=== PATIENT | male | born 1935 | race Caucasian/White ===

== ENCOUNTER → 2016-04-15 | Outpatient (CLI) | payer OTHER, MEDICARE ==
[~2016-04-15] MED LIST: CITA10TA8 PO; FENO200C6 PO; FINA5TAB PO; GLC/500 PO; GLIM1TAB PO; GLIM2TAB PO; LINA1TAB PO; MAGN1TAB PO; MGNO400 PO; OMEG10007 PO; OMEP20CA9 PO; PRED10TA PO; RQP25 PO; TAMS0.4C38 PO
[2016-04-15 11:17] LABS: BASO % 0.2 %; BASO ABS # 0.02 K/uL (0-0.2); COMPLETE YES; EOS % 2.5 %; IG% 1.6 %; LYMPH % 14.7 %; LYMPH ABS # 1.26 K/uL (1.2-3.4); MEAN CELL VOLUME 94.8 fL (80-100); MEAN CORPUSCULAR HEMOGLOBIN 29.9 pg (25-34); MEAN CORPUSCULAR HGB CONC 31.6 g/dl (32-36); MEAN PLATELET VOLUME 10.8 fL (7.4-10.4); MONO % 9.3 %; NEUT % 71.7 %; PLATELET COUNT 290 K/uL (130-400); RED BLOOD COUNT 4.01 M/uL (4.7-6.1); URINE APPEARANCE CLEAR (CLEAR); URINE BILIRUBIN NEG (NEG); URINE COLOR YELLOW; URINE NITRITE NEG (NEG); URINE SPECIFIC GRAVITY 1.027 (1.000-1.030); UROBILINOGEN NEG (NEG); WHITE BLOOD COUNT 8.57 K/uL (4.8-10.8); ZZUR CULT IF INDIC CLEAN CATCH NO
[2016-04-15 11:25] LABS: BLOOD UREA NITROGEN 22 mg/dl (7-18); BUN/CREATININE RATIO 14.6 (10-20); CALCIUM 8.9 mg/dl (8.5-10.1); CARBON DIOXIDE 27 mmol/L (21-32); CHLORIDE 106 mmol/L (98-107); GLUCOSE 240 mg/dl (70-99); MAGNESIUM 1.3 mg/dl (1.8-2.4); POTASSIUM 4.4 mmol/L (3.5-5.1); SODIUM 141 mmol/L (136-145)
[2016-04-15 11:28] LABS: MANUAL MICROSCOPIC REQUIRED? NO; REVIEW REQ? NO
[2016-04-15 11:39] LABS: URINE PROTIEN/CREAT RATIO 0.2 (0-0.2); URINE TOTAL PROTEIN 41.5 mg/dl (0-11.9)
== END | disposition home or self-care (01) ==
LOC: C.LAB1850 09:50
PROVIDERS: ATTEND Internal Medicine Nephrology
DX: E83.42 Hypomagnesemia (principal); N18.3 Chronic kidney disease, stage 3 (moderate)

== ENCOUNTER → 2016-07-12 | Outpatient (CLI) | payer OTHER, MEDICARE | END | disposition home or self-care (01) | LOC: C.LABSPEC 10:47 | PROVIDERS: ATTEND Nurse Practitioner Adult Health | DX: N40.1 Benign prostatic hyperplasia with lower urinary tract symptoms (principal) ==

== ENCOUNTER → 2016-10-13 | Outpatient (CLI) | payer OTHER, MEDICARE ==
[2016-10-13 12:06] LABS: BASO % 0.3 %; BASO ABS # 0.02 K/uL (0-0.2); COMPLETE YES; EOS % 3.9 %; HEMATOCRIT 40.8 % (42-52); LYMPH % 25.4 %; LYMPH ABS # 1.51 K/uL (1.2-3.4); MEAN CELL VOLUME 94.7 fL (80-100); MEAN CORPUSCULAR HEMOGLOBIN 29.5 pg (25-34); MEAN CORPUSCULAR HGB CONC 31.1 g/dl (32-36); MEAN PLATELET VOLUME 10.5 fL (7.4-10.4); MONO % 9.6 %; NEUT % 59.8 %; PLATELET COUNT 264 K/uL (130-400); RED BLOOD COUNT 4.31 M/uL (4.7-6.1); WHITE BLOOD COUNT 5.94 K/uL (4.8-10.8)
[2016-10-13 12:19] LABS: URINE APPEARANCE CLEAR (CLEAR); URINE BILIRUBIN NEG (NEG); URINE COLOR YELLOW; URINE EPITHELIAL CELL AUTO 0-5 /lpf (0-5); URINE NITRITE NEG (NEG); URINE SPECIFIC GRAVITY 1.024 (1.000-1.030); UROBILINOGEN NEG (NEG); ZZUR CULT IF INDIC CLEAN CATCH NO
[2016-10-13 12:20] LABS: BLOOD UREA NITROGEN 32 mg/dl (7-18); CALCIUM 9.3 mg/dl (8.5-10.1); CARBON DIOXIDE 26 mmol/L (21-32); CHLORIDE 109 mmol/L (98-107); GLUCOSE 146 mg/dl (70-99); MAGNESIUM 1.5 mg/dl (1.8-2.4); PHOSPHORUS 2.6 mg/dl (2.5-4.9); POTASSIUM 4.9 mmol/L (3.5-5.1); SODIUM 140 mmol/L (136-145)
[2016-10-13 12:24] LABS: MANUAL MICROSCOPIC REQUIRED? NO; REVIEW REQ? NO
[2016-10-13 12:34] LABS: URINE PROTIEN/CREAT RATIO 0.1 (0-0.2); URINE TOTAL PROTEIN 9.3 mg/dl (0-11.9)
--- NOTE | 2016-10-25 10:13 | CODING QUERY MEDICAL NECESSITY ---
SUPPORTING DIAGNOSIS NEEDED Dr. Dangelo, A supporting diagnosis is required for the test/procedure performed on this patient in order for us to be reimbursed by the patient's insurance. Please provide a supporting diagnosis for the following test/procedure listed below next to the test name along with your signature. *If there is no additional diagnosis for this patient that would support the following test/procedure please document that below next to the test/procedure. Test(s)/Procedure(s) that require a supporting diagnosis: * ([id number]) VITAMIN D ASSAY DIAGNOSIS: DATE OF SERVICE: 10/13/16 Provider Signature: Date: Thank you Garrison Soto [facility] Information Management Once completed, please kindly fax back to [phone] For questions please call [phone]
== END | disposition home or self-care (01) ==
LOC: C.LAB 09:43
PROVIDERS: ATTEND Internal Medicine Nephrology
DX: E83.42 Hypomagnesemia (principal); E55.9 Vitamin D deficiency, unspecified

== ENCOUNTER → 2017-03-11 | Outpatient (CLI) | payer OTHER, MEDICARE ==
[2017-03-11 12:27] LABS: URINE APPEARANCE CLEAR (CLEAR); URINE BILIRUBIN NEG (NEG); URINE COLOR YELLOW; URINE NITRITE NEG (NEG); URINE SPECIFIC GRAVITY 1.023 (1.000-1.030); UROBILINOGEN NEG (NEG); ZZUR CULT IF INDIC CLEAN CATCH NO
[2017-03-11 12:30] LABS: MANUAL MICROSCOPIC REQUIRED? NO; REVIEW REQ? NO
[2017-03-11 12:47] LABS: BLOOD UREA NITROGEN 32 mg/dl (7-18); BUN/CREATININE RATIO 22.5 (10-20); CALCIUM 9.3 mg/dl (8.5-10.1); CARBON DIOXIDE 28 mmol/L (21-32); CHLORIDE 104 mmol/L (98-107); CREATININE 1.42 mg/dl (0.60-1.40); GLUCOSE 128 mg/dl (70-99); MAGNESIUM 1.5 mg/dl (1.8-2.4); POTASSIUM 4.4 mmol/L (3.5-5.1); SODIUM 138 mmol/L (136-145)
[2017-03-11 12:54] LABS: % FREE PSA 20.4 %; FREE PSA 1.22 ng/ml; PHOSPHORUS 2.9 mg/dl (2.5-4.9)
[2017-03-11 13:45] LABS: URINE PROTIEN/CREAT RATIO 0.1 (0-0.2); URINE TOTAL PROTEIN 13.8 mg/dl (0-11.9)
== END | disposition home or self-care (01) ==
LOC: C.LAB 11:27
PROVIDERS: ATTEND Internal Medicine Nephrology
DX: R97.20 Elevated prostate specific antigen [PSA] (principal); N18.3 Chronic kidney disease, stage 3 (moderate); E87.2 Acidosis

== ENCOUNTER 2017-03-13 09:45 | Inpatient (IN) | payer OTHER, MEDICARE ==
[~2017-03-13] VITALS: Ht 172.7 cm; Wt 83.3 kg
[~2017-03-13 09:45] MED LIST changes: -GLIM2TAB PO; -MGNO400 PO; -PRED10TA PO; -RQP25 PO
[2017-03-13] MEDS ORDERED: GLIM2TAB PO (10:13)
[2017-03-13 10:46] LABS: BASO % 0.1 %; BASO ABS # 0.01 K/uL (0-0.2); COMPLETE YES; EOS % 1.1 %; IG% 1.6 %; LYMPH % 18.4 %; LYMPH ABS # 1.52 K/uL (1.2-3.4); MEAN CELL VOLUME 93.9 fL (80-100); MEAN CORPUSCULAR HEMOGLOBIN 29.4 pg (25-34); MEAN CORPUSCULAR HGB CONC 31.4 g/dl (32-36); MEAN PLATELET VOLUME 9.9 fL (7.4-10.4); MONO % 9.3 %; NEUT % 69.5 %; PLATELET COUNT 310 K/uL (130-400); RED BLOOD COUNT 3.94 M/uL (4.7-6.1); WHITE BLOOD COUNT 8.26 K/uL (4.8-10.8)
[2017-03-13 11:03] LABS: PARTIAL THROMBOPLASTIN RATIO 1.1; PROTHROMBIN TIME (PATIENT) 10.9 SECONDS (9.0-12.0)
--- NOTE | 2017-03-13 11:08 | DIAGNOSTIC IMAGING REPORT ---
SINGLE VIEW CHEST CLINICAL HISTORY: Generalized weakness. FINDINGS: An AP, portable, upright chest radiograph is compared to study dated 02/17/2017. The examination is degraded by portable technique and apical lordotic positioning. The heart is mildly enlarged and there is atherosclerotic calcification of the thoracic aorta. The pulmonary vasculature is noncongested. The lungs and pleural spaces are clear. No pneumothorax is seen. The skeletal structures are osteopenic. Degenerative change is seen throughout the thoracic spine. IMPRESSION: Mild cardiac enlargement with no acute cardiopulmonary abnormality. Electronically signed by: Sung Toledo M.D. 03/13/2017 11:07 AM Dictated Date/Time: 03/13/2017 11:06 AM
[2017-03-13 11:19] LABS: ALT/SGPT 12 U/L (12-78); AST/SGOT 11 U/L (15-37); BLOOD UREA NITROGEN 28 mg/dl (7-18); BUN/CREATININE RATIO 17.8 (10-20); CALCIUM 9.1 mg/dl (8.5-10.1); CARBON DIOXIDE 26 mmol/L (21-32); CHLORIDE 105 mmol/L (98-107); CREATININE 1.56 mg/dl (0.60-1.40); GLUCOSE 172 mg/dl (70-99); MAGNESIUM 1.4 mg/dl (1.8-2.4); POTASSIUM 4.7 mmol/L (3.5-5.1); SODIUM 136 mmol/L (136-145)
[2017-03-13 11:28] LABS: ALKALINE PHOSPHATASE 44 U/L (45-117); C-REACTIVE PROTEIN 4.54 mg/dl (0-0.29); CKMB/CK RATIO 3.8 (0-3.0)
[2017-03-13 11:52] LABS: LYME DISEASE AB IGG NEG (NEG); LYME DISEASE AB IGM NEG (NEG)
[2017-03-13] MEDS ORDERED: MAGNESIUM SULFATE 1GM / D5W 1 GM BAG IV STA (11:52)
--- NOTE | 2017-03-13 13:24 | History and Physical ---
History & Physical Date & Time of Service: Mar 13, 2017 at 13:15 Chief Complaint: Having Trouble Moving,Weak Primary Care Physician: Cher Cantor History of Present Illness Source: patient, family, clinic records, hospital records 81 yoM with recent diagnosis of gout flare in his knee as outpatient presents with profound morning stiffness x 1 month. The stiffness is described as in both shoulders encompassing the entire shoulder area, extending into his neck but not affecting cervical ROM. He also describes an acute on chronic worsening of his back pain and some R knee stiffness, inflammation and very restricted flexion of the knee on the right. 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 He reports having gone to an outpatient provider who performed a synovial examination on this R knee two weeks ago and told him he had gout but did not offer any treatment until he saw a [employer], which he has not been able to do. He reports pain without swelling in his R ankle area. The morning stiffness is profound for 1-2 hours and improves after that with increased activity. In the ER, inflammatory markers are elevated. The patient also reports a recent head cold last week for which he was given amoxicillin and has finished the course. His symptoms from that have resolved and he denies fevers, chills, shortness of breath, chest pain, nausea, vomiting, urinary issues, diarrhea, constipation, headache or visual changes. Past Medical/Surgical History Medical Problems: (1) BPH (benign prostatic hyperplasia) Status: Chronic (2) CKD (chronic kidney disease), stage III Status: Chronic (3) Depression Status: Chronic (4) DMII (diabetes mellitus, type 2) Status: Chronic (5) GERD (gastroesophageal reflux disease) Status: Chronic (6) Hypertension Status: Chronic (7) Hypertriglyceridemia Status: Chronic (8) Lumbago Status: Chronic Surgical Problems: (1) H/O neck surgery Status: Resolved Family History No pertinent family history Type 2 diabetes mellitus Social History Smoking Status: Former Smoker Smokeless Tobacco Use: No Alcohol Use: none Drug Use: none Marital Status: Housing status: lives with significant other Occupational Status: retired Immunizations History of Influenza Vaccine: Yes Influenza Vaccine Date: Jan 14, 2015 History of Tetanus Vaccine?: Unknown History of Pneumococcal: Unknown History of Hepatitis B Vaccine: Unknown Multi-Drug Resistant Organisms History of MDRO: No Allergies Coded Allergies: No Known Allergies (Unverified , 03/13/17) Home Medications Scheduled Citalopram Hydrobromide (Celexa), 10 MG PO DAILY Fenofibrate (Tricor), 200 MG PO DAILY Finasteride (Proscar), 5 MG PO HS Fish Oil ([place]-3), 1 CAP PO DAILY Glimepiride (Amaryl), 2 MG PO QAM Linagliptin (Tradjenta), 5 MG PO DAILY Magnesium Chloride-Calcium (Magnesium Chloride/Calciu 64-112 mg), 2 TAB PO DAILY Metformin Hcl (Glucophage), 1,000 MG PO BID Omeprazole (Prilosec), 20 MG PO DAILY Tamsulosin Hcl (Flomax), 0.4 MG PO HS Review of Systems At least ten systems were reviewed and negative except as indicated in HPI. Physical Exam Vital Signs Date Time Temp Pulse Resp B/P (MAP) Pulse Ox O2 Delivery O2 Flow Rate FiO2 03/13/17 12:56 64 14 130/78 98 03/13/17 12:31 64 130/78 98 Room Air 03/13/17 11:30 57 151/75 97 Room Air 03/13/17 10:38 99 Room Air 03/13/17 10:35 67 14 126/70 66 135/63 81 124/60 03/13/17 10:31 64 03/13/17 09:51 36.8 66 22 155/72 99 Room Air General Appearance: WD/WN, no apparent distress Head: normocephalic, atraumatic Eyes: normal inspection, PERRL, sclerae normal ENT: normal ENT inspection, hearing grossly normal, pharynx normal Neck: supple, trachea midline, + pertinent finding (cervical ROM was checked and normal in all planes of motion. ) Respiratory/Chest: chest non-tender, lungs clear, normal breath sounds, no respiratory distress, no accessory muscle use Cardiovascular: regular rate, rhythm, no edema, no gallop, no JVD, no murmur, normal peripheral pulses Abdomen/GI: normal bowel sounds, non tender, soft Back: normal inspection, normal range of motion, + pertinent finding (kyphosis noted.) Extremities/Musculoskelatal: no calf tenderness, + pertinent finding (Swelling , warmth and effusion of the R knee, decreased flexion of R knee, R ankle not inflamed, normal ROM, no pain to palpation or with active motion. 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, no motor/sensory deficits, alert, normal mood/affect, oriented x 3 Skin: normal color, warm/dry, no rash Diagnostics Laboratory Results 03/13/17 10:30 Red Blood Count 3.94, Mean Corpuscular Volume 93.9, Mean Corpuscular Hemoglobin 29.4, Mean Corpuscular Hemoglobin Concent 31.4, Mean Platelet Volume 9.9, Neutrophils (%) (Auto) 69.5, Lymphocytes (%) (Auto) 18.4, Monocytes (%) (Auto) 9.3, Eosinophils (%) (Auto) 1.1, Basophils (%) (Auto) 0.1, Neutrophils # (Auto) 5.74, Lymphocytes # (Auto) 1.52, Monocytes # (Auto) 0.77, Eosinophils # (Auto) 0.09, Basophils # (Auto) 0.01 03/13/17 10:30 Test 03/13/17 10:30 White Blood Count 8.26 K/uL (4.8-10.8) Red Blood Count 3.94 M/uL (4.7-6.1) Hemoglobin 11.6 g/dL (14.0-18.0) Hematocrit 37.0 % (42-52) Mean Corpuscular Volume 93.9 fL (80-100) Mean Corpuscular Hemoglobin 29.4 pg (25-34) Mean Corpuscular Hemoglobin Concent 31.4 g/dl (32-36) Platelet Count 310 K/uL (130-400) Mean Platelet Volume 9.9 fL (7.4-10.4) Neutrophils (%) (Auto) 69.5 % Lymphocytes (%) (Auto) 18.4 % Monocytes (%) (Auto) 9.3 % Eosinophils (%) (Auto) 1.1 % Basophils (%) (Auto) 0.1 % Neutrophils # (Auto) 5.74 K/uL (1.4-6.5) Lymphocytes # (Auto) 1.52 K/uL (1.2-3.4) Monocytes # (Auto) 0.77 K/uL (0.11-0.59) Eosinophils # (Auto) 0.09 K/uL (0-0.5) Basophils # (Auto) 0.01 K/uL (0-0.2) RDW Standard Deviation 44.0 fL (36.4-46.3) RDW Coefficient of Variation 12.8 % (11.5-14.5) Immature Granulocyte % (Auto) 1.6 % Immature Granulocyte # (Auto) 0.13 K/uL (0.00-0.02) Erythrocyte Sedimentation Rate 46 mm/hr (0-14) Prothrombin Time 10.9 SECONDS (9.0-12.0) Prothromb Time International Ratio 1.0 (0.9-1.1) Activated Partial Thromboplast Time 27.5 SECONDS (21.0-31.0) Partial Thromboplastin Ratio 1.1 Anion Gap 5.0 mmol/L (3-11) Est Creatinine Clear Calc Drug Dose 39.1 ml/min Estimated GFR () 47.6 Estimated GFR (Non- 41.0 BUN/Creatinine Ratio 17.8 (10-20) Calcium Level 9.1 mg/dl (8.5-10.1) Magnesium Level 1.4 mg/dl (1.8-2.4) Total Bilirubin 0.2 mg/dl (0.2-1) Direct Bilirubin < 0.1 mg/dl (0-0.2) Aspartate Amino Transf (AST/SGOT) 11 U/L (15-37) Alanine Aminotransferase (ALT/SGPT) 12 U/L (12-78) Alkaline Phosphatase 44 U/L (45-117) Total Creatine Kinase 45 U/L (39-308) Creatine Kinase MB 1.7 ng/ml (0.5-3.6) Creatine Kinase MB Ratio 3.8 (0-3.0) Troponin I < 0.015 ng/ml (0-0.045) C-Reactive Protein 4.54 mg/dl (0-0.29) Total Protein 7.4 gm/dl (6.4-8.2) Albumin 3.1 gm/dl (3.4-5.0) Lipase 365 U/L (73-393) Thyroid Stimulating Hormone (TSH) 1.430 uIu/ml (0.300-4.500) Lyme Disease IgG Antibody NEG (NEG) Lyme Disease IgM Antibody NEG (NEG) Results Past 24 Hours Test 03/13/17 10:30 Range/Units White Blood Count 8.26 4.8-10.8 K/uL Red Blood Count 3.94 4.7-6.1 M/uL Hemoglobin 11.6 14.0-18.0 g/dL Hematocrit 37.0 42-52 % Mean Corpuscular Volume 93.9 80-100 fL Mean Corpuscular Hemoglobin 29.4 25-34 pg Mean Corpuscular Hemoglobin Concent 31.4 32-36 g/dl Platelet Count 310 130-400 K/uL Mean Platelet Volume 9.9 7.4-10.4 fL Neutrophils (%) (Auto) 69.5 % Lymphocytes (%) (Auto) 18.4 % Monocytes (%) (Auto) 9.3 % Eosinophils (%) (Auto) 1.1 % Basophils (%) (Auto) 0.1 % Neutrophils # (Auto) 5.74 1.4-6.5 K/uL Lymphocytes # (Auto) 1.52 1.2-3.4 K/uL Monocytes # (Auto) 0.77 0.11-0.59 K/uL Eosinophils # (Auto) 0.09 0-0.5 K/uL Basophils # (Auto) 0.01 0-0.2 K/uL RDW Standard Deviation 44.0 36.4-46.3 fL RDW Coefficient of Variation 12.8 11.5-14.5 % Immature Granulocyte % (Auto) 1.6 % Immature Granulocyte # (Auto) 0.13 0.00-0.02 K/uL Erythrocyte Sedimentation Rate 46 0-14 mm/hr Prothrombin Time 10.9 9.0-12.0 SECONDS Prothromb Time International Ratio 1.0 0.9-1.1 Activated Partial Thromboplast Time 27.5 21.0-31.0 SECONDS Partial Thromboplastin Ratio 1.1 Sodium Level 136 136-145 mmol/L Potassium Level 4.7 3.5-5.1 mmol/L Chloride Level 105 98-107 mmol/L Carbon Dioxide Level 26 21-32 mmol/L Anion Gap 5.0 3-11 mmol/L Blood Urea Nitrogen 28 7-18 mg/dl Creatinine 1.56 0.60-1.40 mg/dl Est Creatinine Clear Calc Drug Dose 39.1 ml/min Estimated GFR () 47.6 Estimated GFR (Non- 41.0 BUN/Creatinine Ratio 17.8 10-20 Random Glucose 172 70-99 mg/dl Calcium Level 9.1 8.5-10.1 mg/dl Magnesium Level 1.4 1.8-2.4 mg/dl Total Bilirubin 0.2 0.2-1 mg/dl Direct Bilirubin < 0.1 0-0.2 mg/dl Aspartate Amino Transf (AST/SGOT) 11 15-37 U/L Alanine Aminotransferase (ALT/SGPT) 12 12-78 U/L Alkaline Phosphatase 44 45-117 U/L Total Creatine Kinase 45 39-308 U/L Creatine Kinase MB 1.7 0.5-3.6 ng/ml Creatine Kinase MB Ratio 3.8 0-3.0 Troponin I < 0.015 0-0.045 ng/ml C-Reactive Protein 4.54 0-0.29 mg/dl Total Protein 7.4 6.4-8.2 gm/dl Albumin 3.1 3.4-5.0 gm/dl Lipase 365 73-393 U/L Thyroid Stimulating Hormone (TSH) 1.430 0.300-4.500 uIu/ml Lyme Disease IgG Antibody NEG NEG Lyme Disease IgM Antibody NEG NEG Diagnostic Radiology RIGHT ANKLE 3 VIEWS CLINICAL HISTORY: Right ankle pain with walking. FINDINGS: 3 views of the right ankle are obtained. No prior studies are available for comparison at the time of dictation. The skeletal structures are osteopenic. No fracture is seen. The ankle mortise is intact. No joint effusion is identified. No erosive change is seen. The overlying soft tissues are within normal limits. Advanced atherosclerotic calcification is seen in the regional arteries. IMPRESSION: No acute bony abnormality is identified in the right ankle. RIGHT KNEE 2 VIEWS CLINICAL HISTORY: Right knee pain and inflammation. Erythema. FINDINGS: AP and lateral views of the right knee are obtained. No prior studies are available for comparison at the time of dictation. The skeletal structures are osteopenic. There is mild tricompartmental degenerative joint space narrowing, greatest at the patellofemoral articulation. There are small patellar enthesophytes and tiny marginal osteophytes. Chondrocalcinosis is present in the medial and lateral compartment. A joint effusion is identified. Soft tissue edema is noted. There is atherosclerotic calcification of the regional arteries. No bony erosion is seen. IMPRESSION: 1. Soft tissue edema and joint effusion. No acute bony abnormality seen in the right knee. 2. Osteopenia, arthritic change, and chondrocalcinosis as above. SINGLE VIEW CHEST CLINICAL HISTORY: Generalized weakness. FINDINGS: An AP, portable, upright chest radiograph is compared to study dated 02/17/2017. The examination is degraded by portable technique and apical lordotic positioning. The heart is mildly enlarged and there is atherosclerotic calcification of the thoracic aorta. The pulmonary vasculature is noncongested. The lungs and pleural spaces are clear. No pneumothorax is seen. The skeletal structures are osteopenic. Degenerative change is seen throughout the thoracic spine. IMPRESSION: Mild cardiac enlargement with no acute cardiopulmonary abnormality. EKG SR 62 Impression Assessment and Plan 81 yo M with generalized weakness, morning stiffness and progressive inability to ambulate on his own. 1. Generalized weakness/stiffness- clinical picture appears consistent with PMR. The knee, however, may be gout or pseudogout. I have ordered the outpatient records from the synovial fluid analysis. For both, prednisone is appropriate so will start this now. Would likely give 40mg PO daily until symptoms are improving and then taper to 20mg for 2-3 weeks for the PMR. Outpatient Rheumatology consult is recommended. PT/OT. 2. R knee effusion with restricted ROM-etiologies include but not limited to gout, pseudogout, PMR, OA flare. Plan as above. Awaiting outside records for synovial fluid analysis. If no improvement in 2 days, would consider consulting Ortho for repeat tap/steroid injection. 3. DMII-hold outpatient PO meds. ISS/Glargine with carb coverage while admitted. 4. CKD III-at baseline. 5. BPH-cont PO meds. DVT proph-Heparin Full Code-discussed with he and his family on admission Dispo-likely 2-3 days in hospital, admitted to Med/Surg. Mariajose Ruelas DO [facility] Med/Surg Resuscitation Status FULL RESUSCITATION VTE Prophylaxis VTE Risk Assessment Done? Y/N: Yes Risk Level: Moderate Given or contraindicated: Unfractionated heparin SQ
[2017-03-13 13:46] VITALS: BP 158/70; PULSE 60; TEMP 36.9; O2SAT 98; Ht 172.7 cm; Wt 83.3 kg
--- NOTE | 2017-03-13 14:09 | DIAGNOSTIC IMAGING REPORT ---
RIGHT KNEE 2 VIEWS CLINICAL HISTORY: Right knee pain and inflammation. Erythema. FINDINGS: AP and lateral views of the right knee are obtained. No prior studies are available for comparison at the time of dictation. The skeletal structures are osteopenic. There is mild tricompartmental degenerative joint space narrowing, greatest at the patellofemoral articulation. There are small patellar enthesophytes and tiny marginal osteophytes. Chondrocalcinosis is present in the medial and lateral compartment. A joint effusion is identified. Soft tissue edema is noted. There is atherosclerotic calcification of the regional arteries. No bony erosion is seen. IMPRESSION: 1. Soft tissue edema and joint effusion. No acute bony abnormality seen in the right knee. 2. Osteopenia, arthritic change, and chondrocalcinosis as above. Electronically signed by: Sung Toledo M.D. 03/13/2017 2:08 PM Dictated Date/Time: 03/13/2017 2:07 PM
--- NOTE | 2017-03-13 14:10 | DIAGNOSTIC IMAGING REPORT ---
RIGHT ANKLE 3 VIEWS CLINICAL HISTORY: Right ankle pain with walking. FINDINGS: 3 views of the right ankle are obtained. No prior studies are available for comparison at the time of dictation. The skeletal structures are osteopenic. No fracture is seen. The ankle mortise is intact. No joint effusion is identified. No erosive change is seen. The overlying soft tissues are within normal limits. Advanced atherosclerotic calcification is seen in the regional arteries. IMPRESSION: No acute bony abnormality is identified in the right ankle. Electronically signed by: Sung Toledo M.D. 03/13/2017 2:09 PM Dictated Date/Time: 03/13/2017 2:08 PM
[2017-03-13] MEDS: ACETAMINOPHEN 500 MG TAB PO SCH ×2 (14:44→22:40)
[2017-03-13] MEDS: TRAMADOL HCL 50 MG TAB PO PRN (16:12)
[2017-03-13 18:19] LABS: URINE APPEARANCE CLEAR (CLEAR); URINE BILIRUBIN NEG (NEG); URINE COLOR YELLOW; URINE NITRITE NEG (NEG); URINE SPECIFIC GRAVITY 1.022 (1.000-1.030); UROBILINOGEN NEG (NEG)
--- NOTE | 2017-03-13 18:26 | EMERGENCY ROOM VISIT NOTE ---
History Report prepared by Michael: Charley Uriarte Under the Supervision of: Dr. Rishi Reed M.D. First contact with patient: 10:07 Chief Complaint: WEAKNESS Stated Complaint: HAVING TROUBLE MOVING,WEAK Nursing Triage Summary: patient c/o generalized aches and pains. lower back pain that radiates down right foot. bilateral shoulders achy and weak. pain radiates down to elbows. patient states he has had more difficulty walking this past week. hx gout History of Present Illness The patient is an 81 year old male who presents to the Emergency Room with complaints of worsening weakness starting a week ago. The patient states he has been having difficulty moving his arms and sometimes his legs. He reports that his arms are weaker than his legs. He reports that he came to the ED today because he couldn't get up this morning and had to crawl. The patient complains of two bouts of diarrhea three days ago and an episode of feeling lightheaded in the shower. He reports that the lightheadedness passed quickly. The patient notes that he spends a lot of time outdoors, but denies any recent tick bites. The patient denies an abnormal appetite and a history of Lyme Disease. He notes that his has recently been sick. The patient complains of chronic pain from his back shooting down his right leg into his foot. He describes the pain as a thumping pain. The patient reports that he went to his PCP this past week that referred him to nephrology, though he is unsure why. He states that he saw them yesterday and the appointment went well. The patient reports that he went to an orthopedist this past week as well. He states that they took fluid off his right knee and gave him an injection that is supposed to help with the pain. He states that this has offered no relief. The patient reports that they did an x-ray of both his knees. He states that it showed he has gout and a calcium build up in his knees. He was told that if the injection in his knee didn't work they would place him on medication to try and alleviate his pain. Past records reveal that the patient's creatine was 1.42 yesterday. Pt denies LOC, headache, fevers, chills, diaphoresis, visual changes, neck pain , chest pain, breathing difficulties, nausea, vomiting, abdominal pain, melena, hematochezia, urinary symptoms, numbness, lymphadenopathy, rash, confusion, or other complaints. Source of History: patient Onset: a week ago Position: other (global) Quality: other (global) Timing: worsening Associated Symptoms: + back pain, + diarrhea Note: The patient complains of lightheadedness. The patient denies an abnormal appetite. Review of Systems See HPI for pertinent positives and negatives. A total of ten systems were reviewed and were otherwise negative. Past Medical & Surgical Medical Problems: (1) BPH (benign prostatic hyperplasia) (2) CKD (chronic kidney disease), stage III (3) Depression (4) DMII (diabetes mellitus, type 2) (5) Generalized weakness (6) GERD (gastroesophageal reflux disease) (7) Hypertension (8) Hypertriglyceridemia (9) Lumbago Surgical Problems: (1) H/O neck surgery Family History No pertinent family history Social History Smoking Status: Former Smoker Marital Status: Housing Status: lives with significant other Occupation Status: retired Current/Historical Medications Scheduled Citalopram Hydrobromide (Celexa), 10 MG PO DAILY Fenofibrate (Tricor), 200 MG PO DAILY Finasteride (Proscar), 5 MG PO HS Fish Oil ([place]-3), 1 CAP PO DAILY Glimepiride (Amaryl), 2 MG PO QAM Linagliptin (Tradjenta), 5 MG PO DAILY Magnesium Chloride-Calcium (Magnesium Chloride/Calciu 64-112 mg), 2 TAB PO DAILY Metformin Hcl (Glucophage), 1,000 MG PO BID Omeprazole (Prilosec), 20 MG PO DAILY Tamsulosin Hcl (Flomax), 0.4 MG PO HS Allergies Coded Allergies: No Known Allergies (Unverified , 03/13/17) Physical Exam Vital Signs Date Time Temp Pulse Resp B/P (MAP) Pulse Ox O2 Delivery O2 Flow Rate FiO2 03/13/17 11:30 57 151/75 97 Room Air 03/13/17 10:38 99 Room Air 03/13/17 10:35 67 14 126/70 66 135/63 81 124/60 03/13/17 10:31 64 03/13/17 09:51 36.8 66 22 155/72 99 Room Air Physical Exam GENERAL: Awake, alert, well-appearing, in no distress HENT: Normocephalic, atraumatic. Oropharynx unremarkable. EYES: Normal conjunctiva. Sclera non-icteric. NECK: Supple. No nuchal rigidity. FROM. No JVD. RESPIRATORY: Clear to auscultation. CARDIAC: Regular rate, normal rhythm. Extremities warm and well perfused. Pulses equal. ABDOMEN: Soft, non-distended. No tenderness to palpation. No rebound or guarding. No masses. RECTAL: Deferred. MUSCULOSKELETAL: Chest examination reveals no tenderness. The back is symmetrical on inspection without obvious abnormality. There is no CVA tenderness to palpation. No joint edema. LOWER EXTREMITIES: Calves are equal size bilaterally and non-tender. No edema. No discoloration. NEURO: Normal sensorium. No sensory or motor deficits noted. SKIN: No rash or jaundice noted. Medical Decision & Procedures ER Provider Diagnostic Interpretation: Radiology results as stated below per my review and radiologist interpretation: SINGLE VIEW CHEST CLINICAL HISTORY: Generalized weakness. FINDINGS: An AP, portable, upright chest radiograph is compared to study dated 02/17/2017. The examination is degraded by portable technique and apical lordotic positioning. The heart is mildly enlarged and there is atherosclerotic calcification of the thoracic aorta. The pulmonary vasculature is noncongested. The lungs and pleural spaces are clear. No pneumothorax is seen. The skeletal structures are osteopenic. Degenerative change is seen throughout the thoracic spine. IMPRESSION: Mild cardiac enlargement with no acute cardiopulmonary abnormality. Electronically signed by: Sung Toledo M.D. 03/13/2017 11:07 AM Dictated Date/Time: 03/13/2017 11:06 AM Laboratory Results 03/13/17 10:30 Red Blood Count 3.94, Mean Corpuscular Volume 93.9, Mean Corpuscular Hemoglobin 29.4, Mean Corpuscular Hemoglobin Concent 31.4, Mean Platelet Volume 9.9, Neutrophils (%) (Auto) 69.5, Lymphocytes (%) (Auto) 18.4, Monocytes (%) (Auto) 9.3, Eosinophils (%) (Auto) 1.1, Basophils (%) (Auto) 0.1, Neutrophils # (Auto) 5.74, Lymphocytes # (Auto) 1.52, Monocytes # (Auto) 0.77, Eosinophils # (Auto) 0.09, Basophils # (Auto) 0.01 03/13/17 10:30 Test 03/13/17 00:00 03/13/17 10:30 White Blood Count 8.26 K/uL (4.8-10.8) Red Blood Count 3.94 M/uL (4.7-6.1) Hemoglobin 11.6 g/dL (14.0-18.0) Hematocrit 37.0 % (42-52) Mean Corpuscular Volume 93.9 fL (80-100) Mean Corpuscular Hemoglobin 29.4 pg (25-34) Mean Corpuscular Hemoglobin Concent 31.4 g/dl (32-36) Platelet Count 310 K/uL (130-400) Mean Platelet Volume 9.9 fL (7.4-10.4) Neutrophils (%) (Auto) 69.5 % Lymphocytes (%) (Auto) 18.4 % Monocytes (%) (Auto) 9.3 % Eosinophils (%) (Auto) 1.1 % Basophils (%) (Auto) 0.1 % Neutrophils # (Auto) 5.74 K/uL (1.4-6.5) Lymphocytes # (Auto) 1.52 K/uL (1.2-3.4) Monocytes # (Auto) 0.77 K/uL (0.11-0.59) Eosinophils # (Auto) 0.09 K/uL (0-0.5) Basophils # (Auto) 0.01 K/uL (0-0.2) RDW Standard Deviation 44.0 fL (36.4-46.3) RDW Coefficient of Variation 12.8 % (11.5-14.5) Immature Granulocyte % (Auto) 1.6 % Immature Granulocyte # (Auto) 0.13 K/uL (0.00-0.02) Erythrocyte Sedimentation Rate 46 mm/hr (0-14) Prothrombin Time 10.9 SECONDS (9.0-12.0) Prothromb Time International Ratio 1.0 (0.9-1.1) Activated Partial Thromboplast Time 27.5 SECONDS (21.0-31.0) Partial Thromboplastin Ratio 1.1 Anion Gap 5.0 mmol/L (3-11) Est Creatinine Clear Calc Drug Dose 39.1 ml/min Estimated GFR () 47.6 Estimated GFR (Non- 41.0 BUN/Creatinine Ratio 17.8 (10-20) Calcium Level 9.1 mg/dl (8.5-10.1) Magnesium Level 1.4 mg/dl (1.8-2.4) Total Bilirubin 0.2 mg/dl (0.2-1) Direct Bilirubin < 0.1 mg/dl (0-0.2) Aspartate Amino Transf (AST/SGOT) 11 U/L (15-37) Alanine Aminotransferase (ALT/SGPT) 12 U/L (12-78) Alkaline Phosphatase 44 U/L (45-117) Total Creatine Kinase 45 U/L (39-308) Creatine Kinase MB 1.7 ng/ml (0.5-3.6) Creatine Kinase MB Ratio 3.8 (0-3.0) Troponin I < 0.015 ng/ml (0-0.045) C-Reactive Protein 4.54 mg/dl (0-0.29) Total Protein 7.4 gm/dl (6.4-8.2) Albumin 3.1 gm/dl (3.4-5.0) Lipase 365 U/L (73-393) Thyroid Stimulating Hormone (TSH) 1.430 uIu/ml (0.300-4.500) Lyme Disease IgG Antibody NEG (NEG) Lyme Disease IgM Antibody NEG (NEG) Laboratory results reviewed by me Medications Administered Medications (Trade) Dose Ordered Sig/Omar Route Start Time Stop Time Status Last Admin Dose Admin Magnesium Sulfate (Magnesium Sulfate) 2 gm NOW STAT IV 03/13/17 11:52 03/13/17 11:53 DC 03/13/17 12:01 2 GM ECG Indication: weakness Rate (beats per minute): 62 Rhythm: normal sinus Findings: nonspecific-ST abn (Inferior), no acute ischemic change, no ectopy Comparison ECG Date: 2016 Change: PACs are no longer present. Inferior nonspecific ST abnormalities are the same. ED Course 1015: The patient was evaluated in room A4B. A complete history and physical exam was performed. 1152: Ordered Magnesium Sulfate 2 gm IV. 1159: I reevaluated the patient and he expressed that he is feeling more weak than usual. His daughter states that he has been really having a rough time the past several days. I talked about a stay in the hospital for further treatment and they agree. 1212: Discussed the patient's case with Dr. Ruelas. The patient will be evaluated for further treatment and disposition. Medical Decision Triage Nursing notes reviewed. The patient's presentation and history were concerning for weakness. Etiologies such as metabolic, infection, hypo/hyperglycemia, electrolyte abnormalities, cardiac sources, intracerebral event, toxicologic, neurologic, as well as others were entertained. The patient was evaluated. Clinically he was stable. He had no focal weakness. X-ray as above. The patient had unremarkable CBC. Chemistry panel reveals some significant hypomagnesemia. The patient has had a problem with this. Cardiac markers are negative. The patient was given IV magnesium. Family states he is not doing well at home. His inflammatory markers are elevated. He does have polyarthralgias and myalgias. His total CK was not elevated. It is possible that he is dealing with an additional rheumatologic issue. Given his profound weakness the patient will need further evaluation and management in the hospital. Consultation was made with internal medicine. The patient was evaluated in the Emergency Room for further management Medication Reconcilliation Current Medication List: was personally reviewed by me Blood Pressure Screening Patient's blood pressure: Elevated blood pressure Will be further monitored by hospitalist. Consults Time Called: 1207 Consulting Physician: Dr. Ruelas- [facility] Returned Call: 1212 Discussed the patient's case with Dr. Ruelas. The patient will be evaluated for further treatment and disposition. Impression Primary Impression: Weakness Additional Impressions: Hypomagnesemia Polyarthralgia Scribe Attestation The scribe's documentation has been prepared under my direction and personally reviewed by me in its entirety. I confirm that the note above accurately reflects all work, treatment, procedures, and medical decision making performed by me. Departure Information Dispostion Being Evaluated By Hospitalist Referrals Cher Cantor (PCP) Patient Instructions My [facility] Problem Qualifiers
[2017-03-13 19:05] LABS: MANUAL MICROSCOPIC REQUIRED? NO; REVIEW REQ? NO
[2017-03-13] MEDS: MAGNESIUM OXIDE 400 MG TAB PO SCH (20:05)
[2017-03-13] MEDS ORDERED: CALCIUM CARBONATE 500 MG CHEWABLE PO ONE (21:00)
[2017-03-13] MEDS: TAMSULOSIN HCL 0.4 MG CAP PO SCH (21:02)
[2017-03-13] MEDS: FINASTERIDE 5 MG TAB PO SCH (21:02)
[2017-03-14 01:13] VITALS: BP 129/74; PULSE 65; TEMP 36.4; O2SAT 94
[2017-03-14] MEDS: ACETAMINOPHEN 500 MG TAB PO SCH ×3 (05:52→22:05)
[2017-03-14 06:48] LABS: BASO % 0.1 %; BASO ABS # 0.01 K/uL (0-0.2); COMPLETE YES; HEMATOCRIT 33.5 % (42-52); IG% 0.6 %; LYMPH % 16.2 %; LYMPH ABS # 1.57 K/uL (1.2-3.4); MEAN CORPUSCULAR HEMOGLOBIN 28.8 pg (25-34); MEAN CORPUSCULAR HGB CONC 31.3 g/dl (32-36); MEAN PLATELET VOLUME 10.2 fL (7.4-10.4); MONO % 5.6 %; NEUT % 77.5 %; PLATELET COUNT 303 K/uL (130-400); RED BLOOD COUNT 3.64 M/uL (4.7-6.1); WHITE BLOOD COUNT 9.67 K/uL (4.8-10.8)
[2017-03-14 07:12] VITALS: BP 148/72; PULSE 48; TEMP 36.5; O2SAT 98
[2017-03-14 07:23] LABS: BUN/CREATININE RATIO 21.7 (10-20); C-REACTIVE PROTEIN 3.56 mg/dl (0-0.29); CALCIUM 9.2 mg/dl (8.5-10.1); CREATININE 1.2 mg/dl (0.60-1.40); MAGNESIUM 1.7 mg/dl (1.8-2.4); POTASSIUM 4.5 mmol/L (3.5-5.1)
[2017-03-14] MEDS: MAGNESIUM OXIDE 400 MG TAB PO SCH ×2 (08:08→20:17)
[2017-03-14] MEDS: OMEGA-3 (PURIFIED FISH OIL) 1 GM CAP PO SCH (08:08)
[2017-03-14] MEDS: PANTOprazole SOD 40 MG TAB PO SCH (08:08)
[2017-03-14] MEDS: CITALOPRAM 20 MG TAB PO SCH (08:09)
[2017-03-14 08:30] VITALS: O2SAT 98
[2017-03-14 15:32] VITALS: O2SAT 98
[2017-03-14 16:13] VITALS: BP 180/48; PULSE 99; TEMP 36.5; O2SAT 99
--- NOTE | 2017-03-14 18:01 | Progress Note ---
Internal Med Progress Note Date of Service: Mar 14, 2017. Provider Documentation: SUBJECTIVE: The patient was seen and examined Knee pain is much better Generalized body ache is better too OBJECTIVE: Vital Signs-as noted below Exam: General-No distress at rest Eyes-normal ENT-normal Neck-supple Lungs-Clear to ausucltate bilaterally Heart-Regular,bno murmur appreciated Abdomen-Benign,no masses,bowel sound present Extremities-No edema Musculoskeletal: Swelling, warmth and effusion of the R knee, Swelling is decreased Neuro-AAOx3 Lab data as noted below. ASSESSMENT & PLAN: 81 yo M with generalized weakness, morning stiffness and progressive inability to ambulate on his own. Generalized weakness/stiffness involving multiple areas of the body Mainly Shoulder and pelvic girdles Clinical picture appears consistent with PMR. Obtain outpatient records from the synovial fluid analysis. Started on Prednisone 40mg PO daily until symptoms are improving and then taper to 20mg for 2-3 weeks for the PMR. Outpatient Rheumatology consult is recommended. PT/OT-requested Clinically a lot better -discussed with the Daughter May need to start Prophylactic medication for Gout-if OP records support that Otherwise will need OP Rheumatology to decide Right knee effusion with restricted ROM- Etiologies include but not limited to gout, pseudogout, PMR, OA flare. Awaiting outside records for synovial fluid analysis. If no improvement in 2 days, would consider consulting Ortho for repeat tap/ steroid injection. DMII-hold outpatient PO meds. ISS/Glargine with carb coverage while admitted. CKD III-at baselineMonitor BPH-cont PO meds. DVT proph-Heparin Full Code-discussed with he and his family on admission Vital Signs: Date Time Temp Pulse Resp B/P (MAP) Pulse Ox O2 Delivery O2 Flow Rate FiO2 03/14/17 16:13 36.5 99 17 180/48 (92) 99 03/14/17 15:32 98 Room Air 03/14/17 08:30 98 Room Air 03/14/17 07:12 36.5 48 18 148/72 (97) 98 03/14/17 01:13 36.4 65 18 129/74 (92) 94 Room Air 03/14/17 00:30 Room Air Lab Results: Results Past 24 Hours Test 03/14/17 06:15 Range/Units White Blood Count 9.67 4.8-10.8 K/uL Red Blood Count 3.64 4.7-6.1 M/uL Hemoglobin 10.5 14.0-18.0 g/dL Hematocrit 33.5 42-52 % Mean Corpuscular Volume 92.0 80-100 fL Mean Corpuscular Hemoglobin 28.8 25-34 pg Mean Corpuscular Hemoglobin Concent 31.3 32-36 g/dl Platelet Count 303 130-400 K/uL Mean Platelet Volume 10.2 7.4-10.4 fL Neutrophils (%) (Auto) 77.5 % Lymphocytes (%) (Auto) 16.2 % Monocytes (%) (Auto) 5.6 % Eosinophils (%) (Auto) 0.0 % Basophils (%) (Auto) 0.1 % Neutrophils # (Auto) 7.49 1.4-6.5 K/uL Lymphocytes # (Auto) 1.57 1.2-3.4 K/uL Monocytes # (Auto) 0.54 0.11-0.59 K/uL Eosinophils # (Auto) 0.00 0-0.5 K/uL Basophils # (Auto) 0.01 0-0.2 K/uL RDW Standard Deviation 43.1 36.4-46.3 fL RDW Coefficient of Variation 12.7 11.5-14.5 % Immature Granulocyte % (Auto) 0.6 % Immature Granulocyte # (Auto) 0.06 0.00-0.02 K/uL Erythrocyte Sedimentation Rate 37 0-14 mm/hr Sodium Level 138 136-145 mmol/L Potassium Level 4.5 3.5-5.1 mmol/L Chloride Level 103 98-107 mmol/L Carbon Dioxide Level 28 21-32 mmol/L Anion Gap 7.0 3-11 mmol/L Blood Urea Nitrogen 26 7-18 mg/dl Creatinine 1.20 0.60-1.40 mg/dl Est Creatinine Clear Calc Drug Dose 50.8 ml/min Estimated GFR () 65.3 Estimated GFR (Non- 56.4 BUN/Creatinine Ratio 21.7 10-20 Random Glucose 155 70-99 mg/dl Calcium Level 9.2 8.5-10.1 mg/dl Magnesium Level 1.7 1.8-2.4 mg/dl C-Reactive Protein 3.56 0-0.29 mg/dl
[2017-03-14] MEDS: FINASTERIDE 5 MG TAB PO SCH (20:17)
[2017-03-14] MEDS: TAMSULOSIN HCL 0.4 MG CAP PO SCH (20:17)
[2017-03-14] MEDS: TRAMADOL HCL 50 MG TAB PO PRN (22:04)
[2017-03-15] VITALS: BP 170/69; PULSE 56; TEMP 36.6; O2SAT 96
[2017-03-15 05:58] LABS: HEMATOCRIT 34.2 % (42-52); MEAN CORPUSCULAR HEMOGLOBIN 29.3 pg (25-34); MEAN CORPUSCULAR HGB CONC 32.2 g/dl (32-36); MEAN PLATELET VOLUME 10.3 fL (7.4-10.4); PLATELET COUNT 299 K/uL (130-400); RED BLOOD COUNT 3.76 M/uL (4.7-6.1); WHITE BLOOD COUNT 9.74 K/uL (4.8-10.8)
[2017-03-15] MEDS: ACETAMINOPHEN 500 MG TAB PO SCH (06:09)
[2017-03-15 06:33] LABS: BUN/CREATININE RATIO 22.3 (10-20); C-REACTIVE PROTEIN 1.88 mg/dl (0-0.29); CALCIUM 9.1 mg/dl (8.5-10.1); CREATININE 1.32 mg/dl (0.60-1.40); MAGNESIUM 1.6 mg/dl (1.8-2.4); POTASSIUM 4.4 mmol/L (3.5-5.1)
[2017-03-15 08:03] VITALS: BP 148/66; PULSE 50; TEMP 36.6; O2SAT 95
[2017-03-15] MEDS: CITALOPRAM 20 MG TAB PO SCH (08:11)
[2017-03-15] MEDS: MAGNESIUM OXIDE 400 MG TAB PO SCH ×2 (08:11→20:03)
[2017-03-15] MEDS: PANTOprazole SOD 40 MG TAB PO SCH (08:11)
[2017-03-15] MEDS: OMEGA-3 (PURIFIED FISH OIL) 1 GM CAP PO SCH (08:11)
[2017-03-15 15:30] VITALS: BP 135/58; PULSE 56; TEMP 37.2; O2SAT 94
--- NOTE | 2017-03-15 17:09 | Orthopedic Consultation ---
Orthopedic Consultation Date of Consultation: Mar 15, 2017. Attending Physician: Padmini Soriano D.O. History of Present Illness The patient is an 81-year-old male who presents with complaints of right knee pain and effusion 1 month. He was seen by a physician and will work 2 weeks prior to his admission and diagnosed with gout however did not receive treatment at that time. His symptoms worsened until the point where he was unable to bear weight on his right knee and subsequently was seen at [facility] emergency room. Today he states his pain is 0 out of 10 and his symptoms have greatly improved in the last 24 hours. He denies fevers chills nausea vomiting chest pain shortness of breath. Denies numbness or tingling of the right lower extremity. Denies any associated pains in other joints. Denies trauma to the right lower extremity. Past Medical/Surgical History Medical Problems: (1) Bradycardia Status: Acute (2) Chronic back pain Status: Acute (3) Hypomagnesemia Status: Acute (4) Polyarthralgia Status: Acute (5) Weakness Status: Acute Family History No pertinent family history Type 2 diabetes mellitus Social History Smoking Status: Former Smoker Smokeless Tobacco Use: No Alcohol Use: none Drug Use: none Marital Status: Housing Status: lives with significant other Occupation Status: retired Allergies Coded Allergies: No Known Allergies (Unverified , 03/13/17) Home Medications Scheduled Citalopram Hydrobromide (Celexa), 10 MG PO DAILY Fenofibrate (Tricor), 200 MG PO DAILY Finasteride (Proscar), 5 MG PO HS Fish Oil ([place]-3), 1 CAP PO DAILY Glimepiride (Amaryl), 2 MG PO QAM Linagliptin (Tradjenta), 5 MG PO DAILY Magnesium Chloride-Calcium (Magnesium Chloride/Calciu 64-112 mg), 2 TAB PO DAILY Metformin Hcl (Glucophage), 1,000 MG PO BID Omeprazole (Prilosec), 20 MG PO DAILY Tamsulosin Hcl (Flomax), 0.4 MG PO HS Current Inpatient Medications Current Inpatient Medications Medications (Trade) Dose Ordered Sig/Omar Route Start Time Stop Time Status Last Admin Dose Admin Prednisone (PredniSONE TAB) 40 mg DAILY PO 03/14/17 08:00 04/13/17 08:59 12/5/17 08:11 40 MG Tramadol HCl (Ultram Tab) 50 mg Q6H PRN PO 03/13/17 13:15 04/12/17 13:14 03/14/17 22:04 50 MG Citalopram Hydrobromide (celeXA TAB) 10 mg DAILY PO 03/14/17 08:00 04/13/17 08:59 03/15/17 08:11 10 MG Finasteride (Proscar Tab) 5 mg HS PO 03/13/17 21:00 04/12/17 20:59 03/14/17 20:17 5 MG Fish Oil ([place]-3 (Purified Fish Oil) Cap) 1 gm DAILY PO 03/14/17 08:00 04/13/17 08:59 03/15/17 08:11 1 GM Tamsulosin HCl (Flomax Cap) 0.4 mg HS PO 03/13/17 21:00 04/12/17 20:59 03/14/17 20:17 0.4 MG Pantoprazole Sodium (Protonix Tab) 40 mg QAM PO 03/14/17 08:00 04/13/17 08:59 03/15/17 08:11 40 MG Magnesium Oxide (Mag-Ox Tab) 400 mg BID PO 03/13/17 20:00 04/12/17 20:59 03/15/17 08:11 400 MG Ropinirole HCl (Requip Tab) 0.125 mg HS PO 03/15/17 21:00 04/14/17 20:59 Review of Systems Review of systems negative with the exception of those mentioned in the history of present illness above. Physical Exam Date Time Temp Pulse Resp B/P (MAP) Pulse Ox O2 Delivery O2 Flow Rate FiO2 03/15/17 15:30 37.2 56 18 135/58 (83) 94 Room Air 03/15/17 09:44 Room Air 03/15/17 08:03 36.6 50 20 148/66 (93) 95 Room Air 03/15/17 00:00 Room Air 03/15/17 00:00 36.6 56 18 170/69 (102) 96 03/14/17 20:00 Room Air Alert and oriented 3, no apparent distress. Right lower extremity is neurovascular sensory intact, positive EHL/FHL/TA/GS, sensory intact to light touch grossly. 5/5 motor strength, compartments soft nontender. Mild effusion. No erythema. Full painless range of motion 5-135 of flexion. Laboratory Results Last 24 Hours Test 03/15/17 05:41 White Blood Count 9.74 K/uL Red Blood Count 3.76 M/uL Hemoglobin 11.0 g/dL Hematocrit 34.2 % Mean Corpuscular Volume 91.0 fL Mean Corpuscular Hemoglobin 29.3 pg Mean Corpuscular Hemoglobin Concent 32.2 g/dl RDW Standard Deviation 41.7 fL RDW Coefficient of Variation 12.4 % Platelet Count 299 K/uL Mean Platelet Volume 10.3 fL Erythrocyte Sedimentation Rate 30 mm/hr Sodium Level 136 mmol/L Potassium Level 4.4 mmol/L Chloride Level 103 mmol/L Carbon Dioxide Level 29 mmol/L Anion Gap 4.0 mmol/L Blood Urea Nitrogen 29 mg/dl Creatinine 1.32 mg/dl Est Creatinine Clear Calc Drug Dose 46.2 ml/min Estimated GFR () 58.2 Estimated GFR (Non- 50.2 BUN/Creatinine Ratio 22.3 Random Glucose 142 mg/dl Calcium Level 9.1 mg/dl Magnesium Level 1.6 mg/dl C-Reactive Protein 1.88 mg/dl Assessment & Plan -Right knee effusion and aseptic inflammation secondary to gout flare, improved since admission. -Trend inflammatory markers CRP/ESR currently 1.8/30 - improving -WBAT -PT/OT -I would not recommend aspiration unless worsening or recurrence of symptoms and effusion. I would not recommend injection in the acute period secondary to the patient's elevated glucose and history of diabetes. Patient currently receiving PO steroids. -Gout tx per medical team. Thank you for consultation. XR R Knee: 1. Soft tissue edema and joint effusion. No acute bony abnormality seen in the right knee. 2. Osteopenia, arthritic change, and chondrocalcinosis as above. XR R Ankle: No fracture/dislocation or lesion.
--- NOTE | 2017-03-15 17:50 | Progress Note ---
Medicine Progress Note Date & Time of Visit: Mar 15, 2017 at 17:50. Objective Last 8 Hrs Date Time Temp Pulse Resp B/P (MAP) Pulse Ox O2 Delivery O2 Flow Rate FiO2 03/15/17 16:00 Room Air 03/15/17 15:30 37.2 56 18 135/58 (83) 94 Room Air Physical Exam: General-[] Eyes-[] ENT-[] Neck-[] Lungs-[] Heart-[] Abdomen-[] Extremities-[] Neuro-[] Laboratory Results: Last 24 Hours Test 03/15/17 05:41 White Blood Count 9.74 K/uL Red Blood Count 3.76 M/uL Hemoglobin 11.0 g/dL Hematocrit 34.2 % Mean Corpuscular Volume 91.0 fL Mean Corpuscular Hemoglobin 29.3 pg Mean Corpuscular Hemoglobin Concent 32.2 g/dl RDW Standard Deviation 41.7 fL RDW Coefficient of Variation 12.4 % Platelet Count 299 K/uL Mean Platelet Volume 10.3 fL Erythrocyte Sedimentation Rate 30 mm/hr Sodium Level 136 mmol/L Potassium Level 4.4 mmol/L Chloride Level 103 mmol/L Carbon Dioxide Level 29 mmol/L Anion Gap 4.0 mmol/L Blood Urea Nitrogen 29 mg/dl Creatinine 1.32 mg/dl Est Creatinine Clear Calc Drug Dose 46.2 ml/min Estimated GFR () 58.2 Estimated GFR (Non- 50.2 BUN/Creatinine Ratio 22.3 Random Glucose 142 mg/dl Calcium Level 9.1 mg/dl Magnesium Level 1.6 mg/dl C-Reactive Protein 1.88 mg/dl Assessment & Plan Current Inpatient Medications: Current Inpatient Medications Medications (Trade) Dose Ordered Sig/Omar Route Start Time Stop Time Status Last Admin Dose Admin Prednisone (PredniSONE TAB) 40 mg DAILY PO 03/14/17 08:00 04/13/17 08:59 03/15/17 08:11 40 MG Tramadol HCl (Ultram Tab) 50 mg Q6H PRN PO 03/13/17 13:15 04/12/17 13:14 03/14/17 22:04 50 MG Citalopram Hydrobromide (celeXA TAB) 10 mg DAILY PO 03/14/17 08:00 04/13/17 08:59 03/15/17 08:11 10 MG Finasteride (Proscar Tab) 5 mg HS PO 03/13/17 21:00 04/12/17 20:59 03/14/17 20:17 5 MG Fish Oil ([place]-3 (Purified Fish Oil) Cap) 1 gm DAILY PO 03/14/17 08:00 04/13/17 08:59 03/15/17 08:11 1 GM Tamsulosin HCl (Flomax Cap) 0.4 mg HS PO 03/13/17 21:00 04/12/17 20:59 03/14/17 20:17 0.4 MG Pantoprazole Sodium (Protonix Tab) 40 mg QAM PO 03/14/17 08:00 04/13/17 08:59 03/15/17 08:11 40 MG Magnesium Oxide (Mag-Ox Tab) 400 mg BID PO 03/13/17 20:00 04/12/17 20:59 03/15/17 08:11 400 MG Ropinirole HCl (Requip Tab) 0.125 mg HS PO 03/15/17 21:00 04/14/17 20:59
[2017-03-15] MEDS: TAMSULOSIN HCL 0.4 MG CAP PO SCH (20:04)
[2017-03-15] MEDS: FINASTERIDE 5 MG TAB PO SCH (20:08)
[2017-03-15] MEDS ORDERED: ROPINIROLE HCL 0.25 MG TAB PO SCH (21:00)
[2017-03-15 23:36] VITALS: BP 165/66; PULSE 52; TEMP 36.7; O2SAT 96
[2017-03-16 07:46] VITALS: BP 161/74; PULSE 50; TEMP 36.7; O2SAT 97
[2017-03-16] MEDS: CITALOPRAM 20 MG TAB PO SCH (09:10)
[2017-03-16] MEDS: MAGNESIUM OXIDE 400 MG TAB PO SCH (09:10)
[2017-03-16] MEDS: PANTOprazole SOD 40 MG TAB PO SCH (09:10)
[2017-03-16] MEDS: OMEGA-3 (PURIFIED FISH OIL) 1 GM CAP PO SCH (09:10)
--- NOTE | 2017-03-16 12:55 | Discharge Instructions ---
Discharge Instructions Date of Service Mar 16, 2017. Admission Reason for Admission: Generalized Weakness Discharge Discharge Diagnosis / Problem: Weakness, Polymyalgia rheumatica Discharge Goals Goal(s): Therapeutic intervention Activity Recommendations Activity Limitations: as noted below Lifting Limitations: gradually increase as tolerated Exercise/Sports Limitations: gradually increase as tolerated . Instructions / Follow-Up Instructions / Follow-Up Please follow up with your Primary Care Physician in 5-7 days for hospital follow up and referral to Rheumatology. Current Hospital Diet Patient's current hospital diet: AHA Diet (Heart Healthy), Diabetes Type 2 Diet Discharge Diet Recommended Diet: AHA Diet (Heart Healthy), Diabetes Type 2 Diet Pending Studies Studies pending at discharge: no Medical Emergencies . Who to Call and When: Medical Emergencies: If at any time you feel your situation is an emergency, please call 911 immediately. . Non-Emergent Contact Non-Emergency issues call your: Primary Care Provider . . "Provider Documentation" section prepared by Padmini Soriano. . VTE Core Measure Inpt VTE Proph given/why not?: Unfractionated heparin SQ
[2017-03-16 13:32] VITALS: BP 161/74; PULSE 50; TEMP 36.7; O2SAT 97
[2017-03-16] MEDS ORDERED: RQP25 PO (13:38)
[2017-03-16] MEDS ORDERED: PRED10TA PO (13:38)
[2017-03-16] MEDS ORDERED: MGNO400 PO (13:57)
== END 2017-03-16 14:58 | disposition home or self-care (01) | DRG 547 ==
LOC: C.EDB 09:46 → C.4E 12:24 → ENRESERV 12:38
PROVIDERS: ADMIT Hospitalist; ATTEND Internal Medicine
DX: M35.3 Polymyalgia rheumatica (principal); M25.461 Effusion, right knee; R53.1 Weakness; E83.42 Hypomagnesemia; M10.9 Gout, unspecified; E11.22 Type 2 diabetes mellitus with diabetic chronic kidney disease; N18.3 Chronic kidney disease, stage 3 (moderate); N40.0 Benign prostatic hyperplasia without lower urinary tract symptoms; Z87.891 Personal history of nicotine dependence; Z79.84 Long term (current) use of oral hypoglycemic drugs; Z79.899 Other long term (current) drug therapy

== ENCOUNTER → 2017-04-29 | Outpatient (CLI) | payer OTHER, MEDICARE ==
[~2017-04-29] MED LIST changes: +ALLO300T2 PO; -GLIM1TAB PO; +GLIM2TAB PO; -MAGN1TAB PO; +MGNO400 PO; +MISC1LIQ37; +PRED-301 PO; +RQP25 PO
[2017-04-29 10:07] LABS: BASO % 0.1 %; BASO ABS # 0.01 K/uL (0-0.2); EOS % 0.1 %; EOS ABS # 0.01 K/uL (0-0.5); HEMATOCRIT 38.5 % (42-52); HEMOGLOBIN 12.1 g/dL (14.0-18.0); IG# 0.07 K/uL (0.00-0.02); LYMPH ABS # 1.15 K/uL (1.2-3.4); MEAN CORPUSCULAR HEMOGLOBIN 29.2 pg (25-34); MEAN CORPUSCULAR HGB CONC 31.4 g/dl (32-36); MEAN PLATELET VOLUME 10.1 fL (7.4-10.4); MONO % 7.8 %; MONO ABS # 0.64 K/uL (0.11-0.59); NEUT % 77.2 %; NEUT ABS # 6.36 K/uL (1.4-6.5); PLATELET COUNT 359 K/uL (130-400); RED CELL DISTRIBUTION WIDTH CV 13.8 % (11.5-14.5); RED CELL DISTRIBUTION WIDTH SD 47.2 fL (36.4-46.3); WHITE BLOOD COUNT 8.24 K/uL (4.8-10.8)
[2017-04-29 10:34] LABS: ALBUMIN 3.3 gm/dl (3.4-5.0); BLOOD UREA NITROGEN 34 mg/dl (7-18); CALCIUM 10.3 mg/dl (8.5-10.1); CARBON DIOXIDE 26 mmol/L (21-32); GLUCOSE 182 mg/dl (70-99); PHOSPHORUS 3.2 mg/dl (2.5-4.9); POTASSIUM 4.7 mmol/L (3.5-5.1); SODIUM 137 mmol/L (136-145)
== END | disposition home or self-care (01) ==
LOC: C.LAB 09:18
PROVIDERS: ATTEND Internal Medicine Nephrology
DX: N18.3 Chronic kidney disease, stage 3 (moderate) (principal); E87.5 Hyperkalemia

== ENCOUNTER → 2017-05-10 | Outpatient (CLI) | payer OTHER, MEDICARE ==
[2017-05-10 12:41] LABS: ALBUMIN 3.3 gm/dl (3.4-5.0); BLOOD UREA NITROGEN 28 mg/dl (7-18); CALCIUM 9.6 mg/dl (8.5-10.1); CARBON DIOXIDE 28 mmol/L (21-32); CREATININE 1.37 mg/dl (0.60-1.40); GLUCOSE 142 mg/dl (70-99); POTASSIUM 5.3 mmol/L (3.5-5.1); SODIUM 138 mmol/L (136-145)
[2017-05-10 12:45] LABS: PHOSPHORUS 2.4 mg/dl (2.5-4.9)
== END | disposition home or self-care (01) ==
LOC: C.LAB 10:39
PROVIDERS: ATTEND Urology
DX: Z00.00 Encounter for general adult medical examination without abnormal findings (principal); R97.20 Elevated prostate specific antigen [PSA]; N18.3 Chronic kidney disease, stage 3 (moderate)

== ENCOUNTER 2017-06-20 10:29 | Emergency (ER) | payer OTHER, MEDICARE ==
[~2017-06-20] VITALS: Ht 172.7 cm; Wt 83.9 kg
[~2017-06-20 10:29] MED LIST changes: -CITA10TA8 PO; -FINA5TAB PO; -GLC/500 PO; -LINA1TAB PO; -OMEG10007 PO; -OMEP20CA9 PO; -TAMS0.4C38 PO
[2017-06-20 10:33] VITALS: TEMP 36.4; Ht 172.7 cm; Wt 83.9 kg
[2017-06-20] MEDS ORDERED: MAGN400T6 PO (10:41)
[2017-06-20] MEDS ORDERED: LFB/200 PO (10:41)
[2017-06-20] MEDS ORDERED: ACETAMINOPHEN 500 MG TAB PO STA (10:46)
[2017-06-20] MEDS ORDERED: IBUPROFEN 600 MG TAB PO STA (10:46)
--- NOTE | 2017-06-20 11:07 | EMERGENCY ROOM VISIT NOTE ---
ED Visit Note First contact with patient: 10:41 This Patient was discussed with the physician language assistant, Geoff Urias PA-C. The pertinent historical and physical exam findings were confirmed. I agree with the studies ordered and with the interpretations of these studies. I agree with the disposition and care plan.
--- NOTE | 2017-06-20 11:25 | DIAGNOSTIC IMAGING REPORT ---
L RIBS UNILATERAL WITH PA CHEST CLINICAL HISTORY: Fall. Left posterior rib injury trauma. Pain. COMPARISON STUDY: None FINDINGS: Nondisplaced cortical fracture anterior aspect left 10th and ninth ribs. All remaining ribs are unremarkable. The lungs are clear. No evidence pneumothorax. IMPRESSION: Nondisplaced cortical fractures anterior aspect left ninth and 10th ribs. No evidence for pneumothorax. The above report was generated using voice recognition software. It may contain grammatical, syntax or spelling errors. Electronically signed by: Torsten Coulter M.D. 06/20/2017 11:24 AM Dictated Date/Time: 06/20/2017 11:22 AM
[2017-06-20] MEDS ORDERED: HYDR-5688 PO (11:45)
[2017-06-20 12:07] VITALS: BP 150/73; PULSE 61; O2SAT 98
--- NOTE | 2017-06-20 12:18 | EMERGENCY ROOM VISIT NOTE ---
History First contact with patient: 10:41 Chief Complaint: RIB PAIN Stated Complaint: RIB PAIN DUE TO FALL, NEED XRAY History of Present Illness The patient is a 82 year old male who presents to the Emergency Room with complaints of left-sided rib pain after falling about 2 hours ago. The patient states that he tripped over a recently cut shrub, and landed on a stump of a second shrub. Patient states his pain worsens with deep inspiration and twisting of his chest. He did not strike his head. He does not take blood thinners and is without shortness of breath. He has not taken anything over-the -counter for his pain which he rates a 6/10. He does not report other extremity injury or bleeding. Review of Systems More than 10 systems were reviewed and otherwise negative with the exception of history of present illness. Past Medical/Surgical History Medical Problems: (1) BPH (benign prostatic hyperplasia) (2) CKD (chronic kidney disease), stage III (3) Depression (4) DMII (diabetes mellitus, type 2) (5) Generalized weakness (6) GERD (gastroesophageal reflux disease) (7) Hypertension (8) Hypertriglyceridemia (9) Lumbago Surgical Problems: (1) H/O neck surgery Family History No pertinent family history Type 2 diabetes mellitus Social History Smoking Status: Former Smoker Drug Use: none Marital Status: Housing Status: lives with significant other Occupation Status: retired Current/Historical Medications Scheduled Allopurinol (Zyloprim), 300 MG PO DAILY Citalopram Hydrobromide (Celexa), 10 MG PO DAILY Fenofibrate Micronized (Tricor), 200 MG PO DAILY Finasteride (Proscar), 5 MG PO HS Fish Oil ([place]-3), 1 CAP PO DAILY Glimepiride (Amaryl), 2 MG PO QAM Linagliptin (Tradjenta), 5 MG PO DAILY Magnesium Oxide (Mag-Ox), 400 MG PO BID Metformin Hcl (Glucophage), 1,000 MG PO BID Misc Natural Products ([place] Concentrate), DAILY Omeprazole (Prilosec), 20 MG PO DAILY Prednisone (Prednisone), 5 MG PO DAILY Tamsulosin Hcl (Flomax), 0.4 MG PO HS Scheduled PRN Hydrocodone/Acetaminophen 5MG/325MG ([place] 5MG/325MG), 1-2 TABLET PO Q4H PRN for Pain Physical Exam Vital Signs Date Time Temp Pulse Resp B/P (MAP) Pulse Ox O2 Delivery O2 Flow Rate FiO2 06/20/17 12:07 61 18 150/73 98 06/20/17 10:33 36.4 64 18 150/87 97 Room Air Physical Exam VITALS: Vitals are noted on the nurse's note and reviewed by myself. Vital signs stable. GENERAL: Well-developed, well-nourished, white male, who is in no acute distress and resting comfortably. Patient is cooperative with the examination. HEAD: Normocephalic atraumatic. NECK: Supple without nuchal rigidity. No lymphadenopathy. No thyromegaly. Cervical spine is nontender. HEART: Regular rate and rhythm without murmurs gallops or rubs. LUNGS: Clear to auscultation bilaterally without wheezes, rales or rhonchi. No retractions or accessory muscle use. CHEST WALL: Positive tenderness along the left lower lateral chest wall with mild ecchymosis in this area consistent with contusion. No flail chest or crepitus. ABDOMEN: Positive normal bowel sounds x 4. Soft, nontender, without masses or organomegaly. No guarding or rebound tenderness. MUSCULOSKELETAL: No muscle atrophy, erythema, or edema noted. Full range of motion in all extremities. No tenderness to palpation. Medical Decision & Procedures ER Provider Diagnostic Interpretation: L RIBS UNILATERAL WITH PA CHEST CLINICAL HISTORY: Fall. Left posterior rib injury trauma. Pain. COMPARISON STUDY: None FINDINGS: Nondisplaced cortical fracture anterior aspect left 10th and ninth ribs. All remaining ribs are unremarkable. The lungs are clear. No evidence pneumothorax. IMPRESSION: Nondisplaced cortical fractures anterior aspect left ninth and 10th ribs. No evidence for pneumothorax. Medications Administered Medications (Trade) Dose Ordered Sig/Omar Route Start Time Stop Time Status Last Admin Dose Admin Acetaminophen (Tylenol Tab) 1,000 mg NOW STAT PO 06/20/17 10:46 06/20/17 10:47 DC 06/20/17 11:07 1,000 MG Ibuprofen (Motrin Tab) 600 mg NOW STAT PO 06/20/17 10:46 06/20/17 10:47 DC 06/20/17 11:06 600 MG ED Course Physical exam and history were performed. Nursing notes, EMR, and Medication List were personally reviewed. Patient appears to have suffered a mechanical fall and injury to his left side ribs. The patient is tender on palpation in the fall was mechanical. The patient was given ibuprofen and Tylenol by mouth. X-ray was performed. The patient's x-ray is as above and reviewed by myself and radiology as showing 2 left-sided rib fractures. This does correlate with his history. The case was discussed with my attending physician, Dr. Bell, who also independently evaluated the patient. The patient will be given incentive spirometer and a short course of Vicodin. He is to follow with his primary care physician in the next 1-2 weeks. He was given further information about rib fractures and asked to watch for complications such as pneumonia. He was certainly invited back to the ER with any new, worsening, or concerning symptoms. The chart was completed utilizing [employer] Speech Voice Recognition Software. Grammatical errors, random word insertions, pronoun errors, and incomplete sentences are an occasional consequence of this system due to software limitations, ambient noise, and hardware issues. Any formal questions or concerns about the content, text, or information contained within the body of this dictation should be directly addressed to the provider for clarification. . Medical Decision Differential diagnosis includes, but is not limited to: Sprain, strain, fracture , pneumothorax, dislocation, subluxation, contusion, and others Impression Primary Impression: Rib fractures Additional Impression: Fall Departure Information Dispostion Home / Self-Care Condition GOOD Prescriptions Hydrocodone/Acetaminophen 5MG/325MG ([place] 5MG/325MG) Tab 1-2 TABLET PO Q4H Y for Pain, #24 TAB For Initial Treatment Prov: Geoff Urias PA-C 06/20/17 Forms HOME CARE DOCUMENTATION FORM, IMPORTANT VISIT INFORMATION Patient Instructions Incentive Spirometer [place], [facility] Additional Instructions You were seen and evaluated today on an emergency basis only. This is not a substitute for, or an effort to provide, complete comprehensive medical care. It is not possible to recognize and treat all injuries or illnesses in a single emergency department visit. For this reason it is recommended that you followup with your primary care physician in the next 1-2 weeks for recheck of your condition. For baseline pain relief you may alternate ibuprofen and acetaminophen every 4 hours for pain control. Take 600 mg ibuprofen (Advil) and then 4 hours later take 1000 mg acetaminophen (Tylenol). Do not take more than 3000 mg acetaminophen in a single day. Use your incentive spirometer [place] (hydrocodone/acetaminophen) 5/325 mg every 6 hours as needed for worsening breakthrough pain. Do not drink or drive on [place]. This medication will likely make you tired. Do not take [place] and Tylenol at the same time as both contain acetaminophen. [place] may cause constipation. You may wish to take an [id number] stool softener like Colace if this occurs. You are welcome to return to the emergency department anytime with new, worsening, or concerning symptoms. Problem Qualifiers Primary Impression: Rib fractures Encounter type: initial encounter Rib fracture type: multiple ribs Fracture type: closed Laterality: left Qualified Codes: S22.42XA - Multiple fractures of ribs, left side, initial encounter for closed fracture Additional Impression: Fall Encounter type: initial encounter Qualified Codes: W19.XXXA - Unspecified fall, initial encounter
[2017-06-20] MEDS ORDERED: TAMS0.4C38 PO (15:20)
[2017-06-20] MEDS ORDERED: FINA5TAB PO (15:20)
[2017-06-20] MEDS ORDERED: LINA1TAB PO (15:20)
[2017-06-20] MEDS ORDERED: CITA10TA8 PO (15:20)
[2017-06-20] MEDS ORDERED: OMEG10007 PO (15:20)
[2017-06-20] MEDS ORDERED: GLC/500 PO (15:20)
[2017-06-20] MEDS ORDERED: OMEP20CA9 PO (15:20)
== END 2017-06-20 12:09 | disposition home or self-care (01) ==
LOC: C.EDB 10:30 → C.EDD 12:09
DX: S22.42XA Multiple fractures of ribs, left side, initial encounter for closed fracture (principal); W18.09XA Striking against other object with subsequent fall, initial encounter; E11.22 Type 2 diabetes mellitus with diabetic chronic kidney disease; N18.3 Chronic kidney disease, stage 3 (moderate); I12.9 Hypertensive chronic kidney disease with stage 1 through stage 4 chronic kidney disease, or unspecified chronic kidney disease; K21.9 Gastro-esophageal reflux disease without esophagitis; N40.0 Benign prostatic hyperplasia without lower urinary tract symptoms; F32.9 Major depressive disorder, single episode, unspecified; E78.1 Pure hyperglyceridemia; Z79.84 Long term (current) use of oral hypoglycemic drugs; Z98.890 Other specified postprocedural states; Z87.891 Personal history of nicotine dependence; Z83.3 Family history of diabetes mellitus

== ENCOUNTER 2017-06-30 14:13 | Emergency (ER) | payer OTHER, MEDICARE ==
[~2017-06-30] VITALS: Ht 172.7 cm; Wt 78.6 kg
[~2017-06-30 14:13] MED LIST changes: +CITA10TA8 PO; +FINA5TAB PO; +GLC/500 PO; +HYDR-5688 PO; +LFB/200 PO; +LINA1TAB PO; +MAGN400T6 PO; +OMEG10007 PO; +OMEP20CA9 PO; +TAMS0.4C38 PO
[2017-06-30 14:23] VITALS: TEMP 36.4; Ht 172.7 cm; Wt 78.6 kg
[2017-06-30] MEDS ORDERED: GABA-113 PO (15:23)
[2017-06-30] MEDS ORDERED: OPTIRAY 320 IV PRN (15:30)
[2017-06-30 15:59] LABS: BASO % 0.1 %; BASO ABS # 0.01 K/uL (0-0.2); EOS % 0.6 %; EOS ABS # 0.04 K/uL (0-0.5); HEMATOCRIT 44.2 % (42-52); HEMOGLOBIN 14.1 g/dL (14.0-18.0); IG# 0.14 K/uL (0.00-0.02); LYMPH ABS # 1.36 K/uL (1.2-3.4); MEAN CELL VOLUME 90.4 fL (80-100); MEAN CORPUSCULAR HEMOGLOBIN 28.8 pg (25-34); MEAN CORPUSCULAR HGB CONC 31.9 g/dl (32-36); MEAN PLATELET VOLUME 10.6 fL (7.4-10.4); MONO % 9.9 %; MONO ABS # 0.67 K/uL (0.11-0.59); NEUT % 67.3 %; NEUT ABS # 4.58 K/uL (1.4-6.5); PLATELET COUNT 351 K/uL (130-400); RED CELL DISTRIBUTION WIDTH CV 13.9 % (11.5-14.5); RED CELL DISTRIBUTION WIDTH SD 45.9 fL (36.4-46.3)
[2017-06-30 16:10] LABS: PTT PATIENT 27.3 SECONDS (21.0-31.0)
[2017-06-30] MEDS ORDERED: ONDANSETRON INJ 2 MG/ML 2 ML VIAL IV STA (16:12)
[2017-06-30] MEDS ORDERED: SODIUM CHLORIDE 0.9% 500ML 500 ML IV STA (16:21)
[2017-06-30 16:23] LABS: ALBUMIN 3.6 gm/dl (3.4-5.0); ALT/SGPT 17 U/L (12-78); BLOOD UREA NITROGEN 46 mg/dl (7-18); CALCIUM 9.3 mg/dl (8.5-10.1); CARBON DIOXIDE 22 mmol/L (21-32); CREATININE 1.97 mg/dl (0.60-1.40); GLUCOSE 106 mg/dl (70-99); LIPASE 228 U/L (73-393); POTASSIUM 4.7 mmol/L (3.5-5.1); SODIUM 137 mmol/L (136-145)
[2017-06-30 16:28] LABS: ALKALINE PHOSPHATASE 51 U/L (45-117); AST/SGOT 19 U/L (15-37); TOTAL PROTEIN 7.8 gm/dl (6.4-8.2)
--- NOTE | 2017-06-30 16:35 | DIAGNOSTIC IMAGING REPORT ---
ABDOMEN AND PELVIS CT WITHOUT CONTRAST CT DOSE: 360.59 mGy.cm HISTORY: Acute left upper quadrant abdominal pain with concern for splenic trauma . Acute fractures of the anterior left ninth and 10th ribs. eval for splenic injury TECHNIQUE: Multiaxial CT images of the abdomen and pelvis were performed without contrast. A dose lowering technique was utilized adhering to the principles of ALARA. COMPARISON STUDY: Chest and rib radiographs 06/20/2017. FINDINGS: Mild subsegmental bibasilar atelectasis/scarring with calcified granulomas of the lower lobes. There is no pneumatosis or pneumoperitoneum identified. Imaged inferior cardiac chambers are unremarkable. Evaluation of the solid abdominal organs is limited without the use of IV contrast. The unopacified liver appears unremarkable. Prior cholecystectomy. Pancreas and adrenal glands are within normal limits. Multiple calcified granulomas throughout the spleen. There is no evidence of acute splenic injury. No perisplenic fluid collections or evidence of laceration or hematoma. Mild nonspecific bilateral perinephric stranding. No renal calculi or obstructive uropathy. Ureters are unremarkable. Prostate is enlarged. Bladder is partially decompressed. No aortic aneurysm. Mild atherosclerosis of the aorta. No bulky adenopathy. No bowel obstruction or focal bowel wall thickening. Mild to moderate colonic diverticulosis without acute diverticulitis. I attenuating layering material is noted throughout portions of the colon. The appendix appears noninflamed and is air-filled measuring up to 8 mm transversely. Soft tissues are unremarkable. The bones appear mildly demineralized. Severe facet arthrosis is noted within the lower lumbar spine. Corticated 10 mm lucent lesion of the L4 spinous process is indeterminate, however likely benign based on the thin zone of transition. IMPRESSION: 1. No acute intra-abdominal or intrapelvic abnormality identified. No evidence of acute solid organ injury on this noncontrast study, specifically no acute injury identified involving the spleen. 2. Prior granulomatous disease. 3. Prostamegaly. 4. Colonic diverticulosis without CT evidence of acute diverticulitis. 5. Prior cholecystectomy. Electronically signed by: Ace Cullen M.D. 06/30/2017 4:33 PM Dictated Date/Time: 06/30/2017 4:26 PM
[2017-06-30 18:24] VITALS: BP 130/78; PULSE 64; O2SAT 98
[2017-06-30] MEDS ORDERED: ONDA4TAB10 SL (18:29)
--- NOTE | 2017-06-30 21:33 | EMERGENCY ROOM VISIT NOTE ---
History Report prepared by Michael: Xiang Richard Under the Supervision of: Dr. Jean Steward M.D. First contact with patient: 15:02 Chief Complaint: DIARRHEA Stated Complaint: WEAKNESS, DIARRHEA, CAN'T EAT OR DRINK WEIGHT LOSS Nursing Triage Summary: Patient presents with c/o diarrhea since 03/2017 States he is unable to eat or drink without having liquid diarrhea Patient saw PCP 06/30/27 and had labs He is increasingly weak per family History of Present Illness The patient is an 82 year old male who presents to the Emergency Room with complaints of persistent general diarrhea since March 2017. He states that he has to go every 20 minutes and the stools are very liquid-like. He reports a loss of appetite, though when he eats the diarrhea is worsened. He states that he has not eaten since yesterday. He denies any bloody stools. He had a fever four days ago. He notes vomiting three days ago. He reports mild abdominal pain with a burning sensation, though he states that he has had this feeling since after he broke his left ribs June 20, 2017. He states that he tripped over some shrubs. He denies any shortness of breath and notes that he is breathing well. He was seen by his PCP two days ago and they took a stool sample that showed negative for C. diff and stool cultures. Per daughter, the patient was placed on Allopurinol two months ago by his barista due to pseudogout. The patient's PCP took him off of the Allopurinol two days ago citing that the medication could be causing his diarrhea, though the daughter states that the patient has been having diarrhea since March 2017. Source of History: patient Onset: March 2017 Position: other (general ) Quality: other (diarrhea) Timing: other (persistent) Modifying Factors (Worsening): eating Associated Symptoms: + fevers, + vomiting, + abdominal pain Note: He notes loss of appetite. He denies any bloody stools. Review of Systems See HPI for pertinent positives & negatives. A total of 10 systems reviewed and were otherwise negative. Past Medical & Surgical Medical Problems: (1) BPH (benign prostatic hyperplasia) (2) CKD (chronic kidney disease), stage III (3) Depression (4) DMII (diabetes mellitus, type 2) (5) Generalized weakness (6) GERD (gastroesophageal reflux disease) (7) Hypertension (8) Hypertriglyceridemia (9) Lumbago Surgical Problems: (1) H/O neck surgery Family History No pertinent family history Type 2 diabetes mellitus Social History Smoking Status: Former Smoker Drug Use: none Marital Status: Housing Status: lives with significant other Occupation Status: retired Current/Historical Medications Scheduled Allopurinol (Zyloprim), 300 MG PO DAILY Citalopram Hydrobromide (Celexa), 10 MG PO DAILY Fenofibrate Micronized (Tricor), 200 MG PO DAILY Finasteride (Proscar), 5 MG PO HS Fish Oil ([place]-3), 1 CAP PO DAILY Gabapentin (Neurontin), 300 MG PO DAILYBD Glimepiride (Amaryl), 2 MG PO QAM Linagliptin (Tradjenta), 5 MG PO DAILY Magnesium Oxide (Mag-Ox), 400 MG PO BID Metformin Hcl (Glucophage), 1,000 MG PO BID Omeprazole (Prilosec), 20 MG PO DAILY Ondasetron Odt (Zofran Odt), 4 MG SL Q6H Prednisone (Prednisone), 5 MG PO DAILY Tamsulosin Hcl (Flomax), 0.4 MG PO HS Allergies Coded Allergies: No Known Allergies (Unverified , 06/30/17) Physical Exam Vital Signs Date Time Temp Pulse Resp B/P (MAP) Pulse Ox O2 Delivery O2 Flow Rate FiO2 06/30/17 18:24 64 21 130/78 98 Room Air 06/30/17 16:49 65 06/30/17 16:41 66 16 120/63 99 Room Air 06/30/17 14:23 36.4 80 16 106/69 98 Room Air Physical Exam Constitutional: Vital signs reviewed. Eyes: Pupils are equal round reactive to light. Conjunctiva are noninjected. ENT: Pharynx is clear without erythema or exudate. Mucous membranes are moist. Neck supple without meningeal signs. Respiratory: Clear to auscultation bilaterally. Breath sounds are equal bilaterally. Cardiovascular: Regular rate and rhythm. No rubs or gallops. GI: Soft, nondistended. Bowel sounds are present. Mild LUQ tenderness, no guarding. Musculoskeletal: No peripheral edema. No lower extremity tenderness. Integumentary: No cyanosis. Neurological: The patient is awake and alert. No focal deficits. Psychiatric: Normal affect. Medical Decision & Procedures ER Provider Diagnostic Interpretation: Radiology results as stated below per my review and the radiologist's interpretation: ABDOMEN AND PELVIS CT WITHOUT CONTRAST CT DOSE: 360.59 mGy.cm HISTORY: Acute left upper quadrant abdominal pain with concern for splenic trauma . Acute fractures of the anterior left ninth and 10th ribs. eval for splenic injury TECHNIQUE: Multiaxial CT images of the abdomen and pelvis were performed without contrast. A dose lowering technique was utilized adhering to the principles of ALARA. COMPARISON STUDY: Chest and rib radiographs 06/20/2017. FINDINGS: Mild subsegmental bibasilar atelectasis/scarring with calcified granulomas of the lower lobes. There is no pneumatosis or pneumoperitoneum identified. Imaged inferior cardiac chambers are unremarkable. Evaluation of the solid abdominal organs is limited without the use of IV contrast. The unopacified liver appears unremarkable. Prior cholecystectomy. Pancreas and adrenal glands are within normal limits. Multiple calcified granulomas throughout the spleen. There is no evidence of acute splenic injury. No perisplenic fluid collections or evidence of laceration or hematoma. Mild nonspecific bilateral perinephric stranding. No renal calculi or obstructive uropathy. Ureters are unremarkable. Prostate is enlarged. Bladder is partially decompressed. No aortic aneurysm. Mild atherosclerosis of the aorta. No bulky adenopathy. No bowel obstruction or focal bowel wall thickening. Mild to moderate colonic diverticulosis without acute diverticulitis. I attenuating layering material is noted throughout portions of the colon. The appendix appears noninflamed and is air-filled measuring up to 8 mm transversely. Soft tissues are unremarkable. The bones appear mildly demineralized. Severe facet arthrosis is noted within the lower lumbar spine. Corticated 10 mm lucent lesion of the L4 spinous process is indeterminate, however likely benign based on the thin zone of transition. IMPRESSION: 1. No acute intra-abdominal or intrapelvic abnormality identified. No evidence of acute solid organ injury on this noncontrast study, specifically no acute injury identified involving the spleen. 2. Prior granulomatous disease. 3. Prostamegaly. 4. Colonic diverticulosis without CT evidence of acute diverticulitis. 5. Prior cholecystectomy. Electronically signed by: Ace Cullen M.D. 06/30/2017 4:33 PM Dictated Date/Time: 06/30/2017 4:26 PM Laboratory Results 06/30/17 15:30 Red Blood Count 4.89, Mean Corpuscular Volume 90.4, Mean Corpuscular Hemoglobin 28.8, Mean Corpuscular Hemoglobin Concent 31.9, Mean Platelet Volume 10.6, Neutrophils (%) (Auto) 67.3, Lymphocytes (%) (Auto) 20.0, Monocytes (%) (Auto) 9.9, Eosinophils (%) (Auto) 0.6, Basophils (%) (Auto) 0.1, Neutrophils # (Auto) 4.58, Lymphocytes # (Auto) 1.36, Monocytes # (Auto) 0.67, Eosinophils # (Auto) 0.04, Basophils # (Auto) 0.01 06/30/17 15:30 Test 06/30/17 15:30 06/30/17 17:35 White Blood Count 6.80 K/uL (4.8-10.8) Red Blood Count 4.89 M/uL (4.7-6.1) Hemoglobin 14.1 g/dL (14.0-18.0) Hematocrit 44.2 % (42-52) Mean Corpuscular Volume 90.4 fL (80-100) Mean Corpuscular Hemoglobin 28.8 pg (25-34) Mean Corpuscular Hemoglobin Concent 31.9 g/dl (32-36) Platelet Count 351 K/uL (130-400) Mean Platelet Volume 10.6 fL (7.4-10.4) Neutrophils (%) (Auto) 67.3 % Lymphocytes (%) (Auto) 20.0 % Monocytes (%) (Auto) 9.9 % Eosinophils (%) (Auto) 0.6 % Basophils (%) (Auto) 0.1 % Neutrophils # (Auto) 4.58 K/uL (1.4-6.5) Lymphocytes # (Auto) 1.36 K/uL (1.2-3.4) Monocytes # (Auto) 0.67 K/uL (0.11-0.59) Eosinophils # (Auto) 0.04 K/uL (0-0.5) Basophils # (Auto) 0.01 K/uL (0-0.2) RDW Standard Deviation 45.9 fL (36.4-46.3) RDW Coefficient of Variation 13.9 % (11.5-14.5) Immature Granulocyte % (Auto) 2.1 % Immature Granulocyte # (Auto) 0.14 K/uL (0.00-0.02) Prothrombin Time 10.6 SECONDS (9.0-12.0) Prothromb Time International Ratio 1.0 (0.9-1.1) Activated Partial Thromboplast Time 27.3 SECONDS (21.0-31.0) Partial Thromboplastin Ratio 1.1 Anion Gap 9.0 mmol/L (3-11) Est Creatinine Clear Calc Drug Dose 28.0 ml/min Estimated GFR () 35.6 Estimated GFR (Non- 30.7 BUN/Creatinine Ratio 23.4 (10-20) Calcium Level 9.3 mg/dl (8.5-10.1) Total Bilirubin 0.3 mg/dl (0.2-1) Direct Bilirubin 0.1 mg/dl (0-0.2) Aspartate Amino Transf (AST/SGOT) 19 U/L (15-37) Alanine Aminotransferase (ALT/SGPT) 17 U/L (12-78) Alkaline Phosphatase 51 U/L (45-117) Troponin I < 0.015 ng/ml (0-0.045) Total Protein 7.8 gm/dl (6.4-8.2) Albumin 3.6 gm/dl (3.4-5.0) Lipase 228 U/L (73-393) Urine Color DK YELLOW Urine Appearance CLEAR (CLEAR) Urine pH 5.0 (4.5-7.5) Urine Specific [place] 1.026 (1.000-1.030) Urine Protein NEG (NEG) Urine Glucose (UA) NEG (NEG) Urine Ketones TRACE (NEG) Urine Occult Blood NEG (NEG) Urine Nitrite NEG (NEG) Urine Bilirubin NEG (NEG) Urine Urobilinogen NEG (NEG) Urine Leukocyte Esterase NEG (NEG) Laboratory results as reviewed by me. Medications Administered Medications (Trade) Dose Ordered Sig/Omar Route Start Time Stop Time Status Last Admin Dose Admin Ondansetron HCl (Zofran Inj) 4 mg NOW STAT IV 06/30/17 16:12 06/30/17 16:13 DC 06/30/17 16:40 4 MG Sodium Chloride 500 ml @ 999 mls/hr Q31M STAT IV 06/30/17 16:21 06/30/17 16:51 DC 06/30/17 16:40 999 MLS/HR ECG Per My Interpretation Indication: weakness Rate (beats per minute): 70 Rhythm: normal sinus Findings: no ectopy (No PVCs), other (No ST elevation) ED Course 1505: The patient was evaluated in room C11B. A complete history and physical exam was performed. 1511: I reassessed the patient and did a bedside ultrasound. Findings: Limited FAST exam, does not demonstrate hemoperitoneum. 1545: I spoke with the radiologist visitor services technician. The patients Creat is 2.1. The radiologist recommends scanning without contrast 1612: Ordered Zofran 4 mg IV 1621: Ordered Sodium Chloride 500 ml @ 999 mls/hr IV 1658: I reassessed the patient at this time. He is trying to provide a urine sample. 1825: I reassessed the patient at this time. He is feeling better and drinking fluids. He will follow up with his PCP and have an outpatient colonoscopy. I discussed the results and treatment plan with the patient. I answered all pertaining questions that he had. He expressed understanding and verbalized agreement. The patient will be discharged home. Medical Decision This is a 82-year-old male who presents with abdominal pain, vomiting and diarrhea. Differential diagnosis includes visceral injury, splenic laceration, functional diarrhea, irritable bowel syndrome, colitis, foodborne illness, dehydration. I did perform a limited focused review of portions of the patient' s old chart on the electronic medical record. The patient was seen June 20, 2017 for left-sided rib fractures. I did evaluate the patient as noted above. The patient has had diarrhea since March of last year. He is presenting today because he felt weak and has not been able to eat over the past day. He did have an episode of vomiting. He also complains of abdominal pain. On exam he has some slight left-sided abdominal pain although he states it is difficult to differentiate whether his abdomen or his ribs are hurting him. He did fall several days ago which resulted in several rib fractures and that is when his abdomen started hurting. I did perform a bedside ultrasound which showed no hemoperitoneum. IV access was established. The patient was placed on a continuous monitor and storage bin tender. I did order and personally review the patient's 12-lead EKG and urine analysis as described above. I did order and review the patient's blood work as noted in the electronic medical record. His creatinine is elevated somewhat above baseline. He was given normal saline IV as well as Zofran IV. I did order a CT of the abdomen and pelvis noncontrast due to his creatinine. I did review the images myself as well as the radiology report as described above. No acute injury was noted. I did order stool testing. C. difficile antigen is negative. Stool culture is pending. I did reassess the patient. He states he feels much better after the medications. He is drinking water here without difficulty. He does wish to go home. I did recommend he follow closely with his doctor and recommended he have an outpatient colonoscopy as well as repeat of his BMP next week. He was told to return should he have any worsening symptoms. He was discharged in good condition. Medication Reconcilliation Current Medication List: was personally reviewed by me Blood Pressure Screening Patient's blood pressure: Normal blood pressure Impression Primary Impression: Dehydration Additional Impressions: Chronic diarrhea Left sided abdominal pain Scribe Attestation The scribe's documentation has been prepared under my direct and personally reviewed by me in its entirety. I confirm that the note above accurately reflects all work, treatment, procedures, and medical decision making performed by me. Departure Information Dispostion Home / Self-Care Prescriptions Ondasetron Odt (ZOFRAN ODT) 4 Mg Tab 4 MG SL Q6H for Nausea, #6 TAB Prov: Jean Steward M.D. 06/30/17 Referrals Cher Cantor (PCP) Forms HOME CARE DOCUMENTATION FORM, IMPORTANT VISIT INFORMATION, WORK / SCHOOL INSTRUCTIONS Patient Instructions Diarrhea, ED Dehydration, My [facility] Additional Instructions You have been examined and treated today on an emergency basis only. This is not a substitute for, or an effort to provide, complete comprehensive medical care. It is impossible to recognize and treat all injuries or illnesses in a single emergency department visit. It is therefore important that you follow up closely with your physician. Call as soon as possible for an appointment. Return for worsening symptoms or if you develop fever, rectal bleeding, chest pain, shortness of breath, decreased urination, dark urine or any other concerning symptoms. Problem Qualifiers
[2017-07-01 15:04] LABS: ISTAT CREATININE 2.1 mg/dl (0.6-1.3); ISTAT IONIZED CALCIUM 1.27 mmol/l (1.12-1.32); ISTAT POTASSIUM 4.7 mEq/L (3.3-5.0)
== END 2017-06-30 18:54 | disposition home or self-care (01) ==
LOC: C.EDB 14:15 → C.EDC 18:54
DX: E86.0 Dehydration (principal); R19.7 Diarrhea, unspecified; R10.9 Unspecified abdominal pain; N40.0 Benign prostatic hyperplasia without lower urinary tract symptoms; N18.3 Chronic kidney disease, stage 3 (moderate); F32.9 Major depressive disorder, single episode, unspecified; E11.9 Type 2 diabetes mellitus without complications; K21.9 Gastro-esophageal reflux disease without esophagitis; I12.9 Hypertensive chronic kidney disease with stage 1 through stage 4 chronic kidney disease, or unspecified chronic kidney disease; E78.1 Pure hyperglyceridemia; Z87.891 Personal history of nicotine dependence; Z83.3 Family history of diabetes mellitus; Z79.52 Long term (current) use of systemic steroids; Z79.899 Other long term (current) drug therapy

== ENCOUNTER → 2017-08-26 | Outpatient (CLI) | payer OTHER, MEDICARE ==
[~2017-08-26] MED LIST changes: -FENO200C6 PO; +GABA-113 PO; -HYDR-5688 PO; -MGNO400 PO; -MISC1LIQ37; +ONDA4TAB10 SL; -RQP25 PO
[2017-08-26 12:40] LABS: BASO % 0.2 %; BASO ABS # 0.02 K/uL (0-0.2); EOS % 0.6 %; EOS ABS # 0.05 K/uL (0-0.5); HEMATOCRIT 36.5 % (42-52); HEMOGLOBIN 11.3 g/dL (14.0-18.0); IG# 0.17 K/uL (0.00-0.02); LYMPH % 14.7 %; MEAN CELL VOLUME 91.3 fL (80-100); MEAN CORPUSCULAR HEMOGLOBIN 28.3 pg (25-34); MEAN PLATELET VOLUME 9.9 fL (7.4-10.4); MONO ABS # 0.57 K/uL (0.11-0.59); NEUT % 75.4 %; NEUT ABS # 6.17 K/uL (1.4-6.5); PLATELET COUNT 332 K/uL (130-400); RED CELL DISTRIBUTION WIDTH CV 13.8 % (11.5-14.5); RED CELL DISTRIBUTION WIDTH SD 46.3 fL (36.4-46.3); WHITE BLOOD COUNT 8.18 K/uL (4.8-10.8)
[2017-08-26 13:17] LABS: ALBUMIN 3.4 gm/dl (3.4-5.0); BLOOD UREA NITROGEN 28 mg/dl (7-18); CALCIUM 9.2 mg/dl (8.5-10.1); CARBON DIOXIDE 29 mmol/L (21-32); CREATININE 1.31 mg/dl (0.60-1.40); GLUCOSE 125 mg/dl (70-99); POTASSIUM 4.9 mmol/L (3.5-5.1); SODIUM 137 mmol/L (136-145)
== END | disposition home or self-care (01) ==
LOC: C.LAB 10:45
PROVIDERS: ATTEND Internal Medicine Nephrology
DX: N18.3 Chronic kidney disease, stage 3 (moderate) (principal)

== ENCOUNTER → 2017-10-28 | Outpatient (CLI) | payer OTHER, MEDICARE | END | disposition home or self-care (01) | LOC: C.PATHSPEC 11:30 | PROVIDERS: ATTEND Urology | DX: C61 Malignant neoplasm of prostate (principal); N41.1 Chronic prostatitis ==

== ENCOUNTER 2018-10-11 06:24 | Inpatient (IN) ==
[2018-10-11 06:58] LABS: Basophils # (auto) 0.02 K/uL (0-0.2); Basophils % (auto) 0.2 %; Hematocrit (blood only) 39.6 % (42-52); Hemoglobin 12.9 g/dL (14.0-18.0); Immature Granulocytes # (auto) 0.35 K/uL (0.00-0.02); Immature Granulocytes % (auto) 3.5 %; Lymphocytes # (auto) 2.34 K/uL (1.2-3.4); Lymphocytes % (auto) 23.6 %; Mean Corpuscular Hgb Conc 32.6 g/dL (32-36); Mean Corpuscular Volume 97.1 fL (80-100); Mean Platelet Volume 10.6 fL (7.4-10.4); Monocytes # (auto) 1.06 K/uL (0.11-0.59); Monocytes % (auto) 10.7 %; Neutrophils # (auto) 6.06 K/uL (1.4-6.5); Platelet Count 265 K/uL (130-400); RDW Coefficient of Variation 13.4 % (11.5-14.5); RDW Standard Deviation 47.5 fL (36.4-46.3); Red Blood Count 4.08 M/uL (4.7-6.1); White Blood Count 9.93 K/uL (4.8-10.8)
[2018-10-11] MEDS ORDERED: SODIUM CHLORIDE 0.9% 1000ML 1,000 ML IV SCH (07:00)
[2018-10-11 07:07] LABS: Prothrombin Time 10.4 Seconds (9.0-12.0)
[2018-10-11 07:12] LABS: Alanine Aminotransferase 27 U/L (12-78); Albumin Level 3.9 gm/dl (3.4-5.0); Aspartate Aminotransferase 20 U/L (15-37); Blood Urea Nitrogen 66 mg/dl (7-18); Carbon Dioxide 26 mmol/L (21-32); Chloride 104 mmol/L (98-107); Est GFR (African American) 15.6; Est GFR (Non-African American) 13.5; Glucose 165 mg/dl (70-99); Potassium 4.4 mmol/L (3.5-5.1); Sodium 139 mmol/L (136-145)
[2018-10-11 07:15] LABS: Albumin Globulin Ratio 1.3 (0.9-2); Alkaline Phosphatase 37 U/L (45-117); Bilirubin,Total 0.6 mg/dl (0.2-1); Globulin 3.1 gm/dl (2.5-4.0); Troponin I < 0.015 ng/ml (0-0.045)
--- NOTE | 2018-10-11 07:29 | XRay Report ---
XR chest 1V portable HISTORY: 83 years-old Male weak acute weakness COMPARISON: Chest radiograph 03/03/2018 TECHNIQUE: Portable AP view of the chest FINDINGS: Cardiac mediastinal and hilar silhouettes are within normal limits. There is no pneumothorax, pleural effusion, focal airspace consolidation or overt pulmonary edema. Degenerative changes of the shoulde rs and spine. IMPRESSION: No acute process. The above report was generated using voice recognition software. It may contain grammatical, syntax o r spelling errors. Electronically signed by: Ace Cullen M.D. 10/11/2018 7:28 AM
--- NOTE | 2018-10-11 08:30 | Emergency Department Note ---
Entered by Flora Joy acting as a scribe for History of Present Illness General Chief complaint: Weakness Stated complaint: WEAKNESS,SEVERE DIZZINESS,PASSOUT SYMPTOMS Time Seen by Provider: 10/11/18 06:34 Source: patient Mode of arrival: ambulatory Limitations: no limitations History of Present Illness Onset (ago): day(s) 3 Location: head (global), upper extremity (global) and lower extremity (global) Severity: severe Pain Consistency: + other (worsening) Maximum Pain Intensity: 5 Quality: + burning (in his head) and + other (lightheaded) Relieved By: + rest Exacerbated By: + movement Associated symptoms: + nausea/vomiting (The patient complains of nausea.) and + other (The patient complains of diarrhea. The patient denies hematochezia, melena, and difficulties moving his arms and legs. ); no headaches The patient is an 83 year old male with a history of type 2 diabetes, DVT prophylaxis, polymyalgia rheumatic, hypertension, CKD, lumbago, BPH, hypertriglyceridemia, GERD, depression, neck surgery, and chronic diarrhea who presents to the ED with complaints of worsening weakness that onset 3 days ago. The patient complains of severe dizziness that he describes as lightheadedness. He notes that he has been lightheaded for 3 months. The patient states that he keeps almost passing out and it is getting worse. He reports that the pain is exacerbated with movement and alleviated with rest. He notes that he has an intermittent burning in his head. The patient complains of nausea and diarrhea. The patient denies headache, hematochezia, melena, and difficulties moving his arms and legs. Home Medications Home Medications Medication Instructions Recorded Confirmed Type Tradjenta 5 mg PO DAILY 03/03/18 10/11/18 History alendronate [Fosamax] 70 mg PO WK 03/03/18 10/11/18 History citalopram [Celexa] 10 mg PO QAM 03/03/18 10/11/18 History fenofibrate micronized 200 mg PO QAM 03/03/18 10/11/18 History finasteride [Proscar] 5 mg PO QAM 03/03/18 10/11/18 History magnesium chloride [Mag 64] 128 mg PO BID 03/03/18 10/11/18 History metformin [Glucophage] 1,000 mg PO BID 03/03/18 10/11/18 History omega 8-wrt-iow-fish oil [Fish Oil] 1 tab PO BID 03/03/18 10/11/18 History omeprazole 20 mg PO QPM 03/03/18 10/11/18 History prednisone 10 mg PO BID 03/03/18 10/11/18 History tamsulosin [Flomax] 0.4 mg PO QPM 03/03/18 10/11/18 History calcium carbonate 500 mg PO BID #60 cap 03/07/18 10/11/18 Rx glimepiride [Amaryl] 4 mg PO BID 10/11/18 10/11/18 History lisinopril 10 mg PO QAM 10/11/18 10/11/18 History torsemide 40 mg PO BID 10/11/18 10/11/18 History trazodone 50 mg PO HS 10/11/18 10/11/18 History Allergies Allergy/AdvReac Type Severity Reaction Status Date / Time pioglitazone [From Actos] Allergy Unknown Verified 10/11/18 08:06 sitagliptin [From Januvia] Allergy Unknown Verified 10/11/18 08:06 Past Med/Surg History Medical History Hypertension (Chronic) DMII (diabetes mellitus, type 2) (Chronic) CKD (chronic kidney disease), stage III (Chronic) Lumbago (Chronic) BPH (benign prostatic hyperplasia) (Chronic) Hypertriglyceridemia (Chronic) GERD (gastroesophageal reflux disease) (Chronic) Depression (Chronic) No pertinent family history Surgical History No pertinent past surgical history Family History Other No pertinent family history Social History Preferred Language: Greek Communication Ability: Effective Beliefs That Will Affect Care: None Current Living Situation: Spouse Other Information That Helps Us Care for You: No Feels Safe at Home: Yes Safety Concerns: Feels Safe At This Time Smoking Status: Former smoker Hx Alcohol Use: Yes Alcohol type: beer Hx Substance Use: No Review of Systems See HPI for pertinent positives & negatives. and A total of 10 systems reviewed and were otherwise negative Physical Exam Vital Signs Vital Signs - 24 hr 10/11/18 06:27 10/11/18 06:48 10/11/18 06:56 Temperature 36.6 C Temperature Source Oral Sepsis Recent Fever Within 48 Hours No Sepsis New/Unexplained Change in Mental Status No Sepsis Action Taken by Nursing No Action Required Pulse Rate - Lying 63 Pulse Rate - Sitting 64 Pulse Rate - Standing 75 Pulse Rate 70 Pulse Rate [Apical] Pulse Rate from SpO2 Sensor Respiratory Rate 18 Respiratory Effort / Characteristics Respiratory Depth Respiratory Pattern Blood Pressure - Lying 104/54 L Blood Pressure - Sitting 92/53 L Blood Pressure- Standing 79/47 L Blood Pressure 93/59 L Blood Pressure [Right Arm] Blood Pressure Mean 70 Blood Pressure Mean [Right Arm] Pulse Oximetry 97 94 Oxygen Delivery Method Room Air 10/11/18 07:00 10/11/18 07:31 10/11/18 08:00 Temperature Temperature Source Sepsis Recent Fever Within 48 Hours Sepsis New/Unexplained Change in Mental Status Sepsis Action Taken by Nursing Pulse Rate - Lying Pulse Rate - Sitting Pulse Rate - Standing Pulse Rate 56 L 56 L Pulse Rate [Apical] 59 L Pulse Rate from SpO2 Sensor 57 L 56 L Respiratory Rate 20 14 14 Respiratory Effort / Characteristics Respiratory Depth Normal Respiratory Pattern Blood Pressure - Lying Blood Pressure - Sitting Blood Pressure- Standing Blood Pressure 130/64 147/73 H Blood Pressure [Right Arm] 113/64 Blood Pressure Mean 86 97 Blood Pressure Mean [Right Arm] 80 Pulse Oximetry 96 97 99 Oxygen Delivery Method Room Air Room Air Room Air 10/11/18 08:17 Temperature Temperature Source Sepsis Recent Fever Within 48 Hours Sepsis New/Unexplained Change in Mental Status Sepsis Action Taken by Nursing Pulse Rate - Lying Pulse Rate - Sitting Pulse Rate - Standing Pulse Rate Pulse Rate [Apical] 60 Pulse Rate from SpO2 Sensor Respiratory Rate 14 Respiratory Effort / Characteristics Non-Labored Spontaneous Respiratory Depth Normal Respiratory Pattern Regular Blood Pressure - Lying Blood Pressure - Sitting Blood Pressure- Standing Blood Pressure Blood Pressure [Right Arm] 147/73 H Blood Pressure Mean Blood Pressure Mean [Right Arm] 97 Pulse Oximetry 96 Oxygen Delivery Method Room Air CONSTITUTIONAL/VITAL SIGNS: Reviewed / noted above. GENERAL: Non-toxic in appearance. INTEGUMENTARY: Warm, dry, and [place]. HEAD: Normocephalic. EYES: without scleral icterus or trauma. ENT/OROPHARYNX: clear and moist. LYMPHADENOPATHY/NECK: Is supple without lymphadenopathy or meningismus. RESPIRATORY: Lungs clear and equal. CARDIOVASCULAR: Regular rate and rhythm. GI/ABDOMEN: Soft and nontender. No organomegaly or pulsatile mass. No rebound or guarding. Normal bowel sounds. EXTREMITIES: Warm and well perfused. BACK: No CVA tenderness. NEUROLOGICAL: Intact without focal deficits. PSYCHIATRIC: normal affect. MUSCULOSKELETAL: Normally developed with good muscle tone. Course 0640: Past medical records reviewed. The patient was evaluated in room B07. A complete history and physical examination was performed. 0751: I reviewed the patient's case with Dr. Saundra Peck. He will evaluate the patient for further management. Consultations Consultation #1: [id number]: I reviewed the patient's case with Dr. Saundra Peck. He will evaluate the patient for further management. Time: 07:51 Administered Medications Discontinued Medications Sodium Chloride (Nss 1000ml) 1,000 mls @ 999 mls/hr IV .Q1H1M ADITYA Stop: 10/11/18 08:00 Last Infusion: 10/11/18 08:02 Dose: 0 mls/hr Documented by: [id number] Admin: 10/11/18 06:59 Dose: 999 mls/hr Documented by: [id number] Medical Decision Making Differential Diagnosis Differential diagnoses: Metabolic, infection, hypo/hyperglycemia, electrolyte abnormalities, cardiac sources, intracerebral event, toxicologic, neurologic, as well as others were entertained. Medical Records Attestation: I reviewed the patient's medical records. Home Medications Current Medication List: was personally reviewed by me Laboratory Data Attestation: I reviewed the patient's lab results. Result diagrams: 10/11/18 06:40 10/11/18 06:40 Lab Results 10/11/18 10/11/18 10/11/18 Range/Units 06:40 06:40 06:40 WBC 9.93 (4.8-10.8) K/uL RBC 4.08 L (4.7-6.1) M/uL Hgb 12.9 L (14.0-18.0) g/dL Hct 39.6 L (42-52) % MCV 97.1 (80-100) fL MCH 31.6 (25-34) pg MCHC 32.6 (32-36) g/dL RDW Std Deviation 47.5 H (36.4-46.3) fL RDW Coeff of Aleja 13.4 (11.5-14.5) % Plt Count 265 (130-400) K/uL MPV 10.6 H (7.4-10.4) fL Immature Gran % (Auto) 3.5 % Neut % (Auto) 61.0 % Lymph % (Auto) 23.6 % [place] % (Auto) 10.7 % Eos % (Auto) 1.0 % Baso % (Auto) 0.2 % Immature Gran # (Auto) 0.35 H (0.00-0.02) K/uL Neut # (Auto) 6.06 (1.4-6.5) K/uL Lymph # (Auto) 2.34 (1.2-3.4) K/uL [place] # (Auto) 1.06 H (0.11-0.59) K/uL Eos # (Auto) 0.10 (0-0.5) K/uL Baso # (Auto) 0.02 (0-0.2) K/uL PT 10.4 (9.0-12.0) Seconds INR 1.0 (0.9-1.1) Sodium 139 (136-145) mmol/L Potassium 4.4 (3.5-5.1) mmol/L Chloride 104 (98-107) mmol/L Carbon Dioxide 26 (21-32) mmol/L Anion Gap 9.0 (3-11) BUN 66 H (7-18) mg/dl Creatinine 3.87 H (0.6-1.4) mg/dl Est Cr Clr Drug Dosing 14.0 ml/min Est GFR ( Amer) 15.6 Est GFR (Non-Af Amer) 13.5 BUN/Creatinine Ratio 17.0 (10-20) Glucose 165 H (70-99) mg/dl Calcium 10.0 (8.5-10.1) mg/dl Total Bilirubin 0.6 (0.2-1) mg/dl AST 20 (15-37) U/L ALT 27 (12-78) U/L Alkaline Phosphatase 37 L (45-117) U/L Troponin I < 0.015 (0-0.045) ng/ml Total Protein 7.0 (6.4-8.2) gm/dl Albumin 3.9 (3.4-5.0) gm/dl Globulin 3.1 (2.5-4.0) gm/dl Albumin/Globulin Ratio 1.3 (0.9-2) 10/11/18 Range/Units 06:40 WBC (4.8-10.8) K/uL RBC (4.7-6.1) M/uL Hgb (14.0-18.0) g/dL Hct (42-52) % MCV (80-100) fL MCH (25-34) pg MCHC (32-36) g/dL RDW Std Deviation (36.4-46.3) fL RDW Coeff of Aleja (11.5-14.5) % Plt Count (130-400) K/uL MPV (7.4-10.4) fL Immature Gran % (Auto) % Neut % (Auto) % Lymph % (Auto) % [place] % (Auto) % Eos % (Auto) % Baso % (Auto) % Immature Gran # (Auto) (0.00-0.02) K/uL Neut # (Auto) (1.4-6.5) K/uL Lymph # (Auto) (1.2-3.4) K/uL [place] # (Auto) (0.11-0.59) K/uL Eos # (Auto) (0-0.5) K/uL Baso # (Auto) (0-0.2) K/uL PT (9.0-12.0) Seconds INR (0.9-1.1) Sodium (136-145) mmol/L Potassium (3.5-5.1) mmol/L Chloride (98-107) mmol/L Carbon Dioxide (21-32) mmol/L Anion Gap (3-11) BUN (7-18) mg/dl Creatinine (0.6-1.4) mg/dl Est Cr Clr Drug Dosing ml/min Est GFR ( Amer) Est GFR (Non-Af Amer) BUN/Creatinine Ratio (10-20) Glucose (70-99) mg/dl Calcium (8.5-10.1) mg/dl Total Bilirubin (0.2-1) mg/dl AST (15-37) U/L ALT (12-78) U/L Alkaline Phosphatase (45-117) U/L Troponin I Cancelled (0-0.045) ng/ml Total Protein (6.4-8.2) gm/dl Albumin (3.4-5.0) gm/dl Globulin (2.5-4.0) gm/dl Albumin/Globulin Ratio (0.9-2) Imaging Data Radiologist's Impression: Radiology results as stated below per my review and the radiologist's interpretation: XR chest 1V portable HISTORY: 83 years-old Male weak acute weakness COMPARISON: Chest radiograph 03/03/2018 TECHNIQUE: Portable AP view of the chest FINDINGS: Cardiac mediastinal and hilar silhouettes are within normal limits. There is no pneumothorax, pleural effusion, focal airspace consolidation or overt pulmonary edema. Degenerative changes of the shoulders and spine. IMPRESSION: No acute process. The above report was generated using voice recognition software. It may contain grammatical, syntax or spelling errors. Electronically signed by: Ace Cullen M.D. 10/11/2018 7:28 AM Dictated: 10/11/18726 Transcribed: 10/11/18726 ECG Data Attestation: I personally reviewed and interpreted this ECG as follows: Indication: weakness Rate (beats per minute): 65 Rhythm: normal sinus Findings: + other (J point elevation noted inferior and lateral) Comparison ECG Date: from (03/03/2018) Change: no significant change Blood Pressure Blood Pressure Findings: Normal blood pressure MDM Narrative This is an 83-year-old male who presents to the ED with a chief complaint of lightheadedness and near syncope as well as some nausea and diarrhea. The patient has had nausea and diarrhea for the past 3 days. He reports lightheadedness for a few months but is been worse over the past week. The patient also reports an intermittent burning in his head only while getting up or walking. His symptoms are present with standing or walking but go away with lying or sitting. The patient has positive orthostatic vital signs. He is currently on torsemide for a reported swelling in his leg although he has not had swelling in his leg for some time. The patient is also on lisinopril. His physical exam was unremarkable. His vital signs refill orthostasis and were otherwise stable. The patient was treated with a normal saline 1 L IV. His BUN was 66 and his creatinine was 3.87. This is above his baseline creatinine of 1.53. EKG shows normal sinus rhythm. CBC is otherwise unremarkable. He denied any blood in his stools or black tarry stools. The patient will be seen by the hospitalist for further inpatient evaluation for his acute kidney injury/dehydration and orthostasis. Impression & Plan Acute kidney injury, Dehydration, Orthostatic hypertension Discharge Plan Visit Data Chief Complaint: Weakness Stated Complaint: WEAKNESS,SEVERE DIZZINESS,PASSOUT SYMPTOMS ED Provider: Avinash Mosqueda Discharge Problem: Acute kidney injury, Dehydration, Orthostatic hypertension Patient Disposition: Being Evaluated by Hospitalist Forms Stand Alone Forms: My [facility] Prescriptions Prescriptions: No Action metformin [Glucophage] 500 mg tablet 1,000 mg PO BID RF: 0 citalopram [Celexa] 10 mg tablet 10 mg PO QAM RF: 0 alendronate [Fosamax] 70 mg tablet 70 mg PO WK RF: 0 prednisone 5 mg tablet 10 mg PO BID RF: 0 fenofibrate micronized 200 mg capsule 200 mg PO QAM RF: 0 tamsulosin [Flomax] 0.4 mg capsule 0.4 mg PO QPM RF: 0 omeprazole 20 mg capsule,delayed release(DR/EC) 20 mg PO QPM RF: 0 finasteride [Proscar] 5 mg tablet 5 mg PO QAM RF: 0 magnesium chloride [Mag 64] 64 mg Tablet,Delayed Release (Dr/Ec) 128 mg PO BID RF: 0 omega 9-adc-sqd-fish oil [Fish Oil] 1,000 mg (120 mg-180 mg) Capsule 1 tab PO BID RF: 0 Tradjenta 5 mg Tablet 5 mg PO DAILY RF: 0 calcium carbonate 500 mg calcium (1,250 mg) capsule 500 mg PO BID Qty: 60 RF: 11 torsemide 20 mg tablet 40 mg PO BID RF: 0 trazodone 50 mg tablet 50 mg PO HS RF: 0 lisinopril 10 mg tablet 10 mg PO QAM RF: 0 glimepiride [Amaryl] 2 mg tablet 4 mg PO BID RF: 0 Referrals Referrals: Rishi Koch PA-C [Primary Care Provider] - The scribe's documentation has been prepared under my direction and personally reviewed by me in its entirety. I confirm that the note above accurately reflects all work, treatment, procedures, and medical decision making performed by me.
--- NOTE | 2018-10-11 09:06 | History & Physical Report ---
Date of Service October 11, 2018 Assessment & Plan (1) Acute renal failure superimposed on stage 3 chronic kidney disease: (2) Dehydration: This is an 83-year-old male who has a significant past medical history of T2DM, HTN, HLD, CKD stage III, PMR on chronic prednisone therapy, BPH, GERD, history of prostate cancer who presents to [facility] secondary to presyncope, lightheadedness, nausea x1 week. In ER upon initial presentation patient's blood pressure was 93/59. He did exhibit orthostasis with a blood pressure of 104/54 lying, 90/53 sitting and 79/47 standing. Lab work revealed MARIA T with BUN 66 and creatinine 3.87. His electrolytes were WNL. His H&H was stable at 12.9 and 39.6. His troponin was within normal limits. His chest x-ray was unremarkable. EKG revealed normal sinus rhythm with early repolarization. He received 1 L of IVF while in the ER. admit to med/surg telemetry Continue IVF 100cc/hr replace magnesium follow bmp hold offending agents including torsemide, metformin, lisinopril Pt with NO hx of heart failure - but on moderate dose of torsemide for previous ankle swelling, likely attributing to the MARIA T No prior echo to review but would recommend discontinuing torsemide all together follow orthostatic vital signs (3) Hypomagnesemia: replace with 2g mag sulfate repeat mag in a.m. likely secondary to diarrhea or ppi use (4) DMII (diabetes mellitus, type 2): Last A1c 8.0 05/13/2018 Repeat A1c in a.m. Lantus/NovoLog per protocol Patient's home regimen includes metformin, Tradjenta, Amaryl Patient follows with [facility] pharmacy for diabetic management -during prior hospitalization February/2018 he was discharged home on Lantus 20 units daily and this has since been discontinued secondary to blood sugar fluctuation and hypoglycemia (5) Hypertension: Blood pressure on lower side secondary to MARIA T Hold lisinopril (6) Hypertriglyceridemia: Continue fenofibrate and fish oil (7) BPH (benign prostatic hyperplasia): Hold Flomax and finasteride due to orthostasis (8) Depression: continue celexa trazdone at HS for insomnia (9) GERD (gastroesophageal reflux disease): continue PPI hold for now (10) Polymyalgia rheumatica: continue prednisone 10mg daily (11) DVT prophylaxis: Heparin SQ, SCDS/TEDS Disposition: admit to med/surg telemetry; Discharge to home when able Follow up: PCP Rishi Koch PA-C Patient and Daughter were educated regarding patients current condition, assessment and treatment plan and they agree with above Patient was seen and examined in collaboration with Dr. Arguello, please see addendum History of Present Illness Chief Complaint: Pre syncope, Lightheaded, Nausea x 1 week. Primary Care Provider: Rishi Koch PA-C This is an 83-year-old male who has a significant past medical history of T2DM, HTN, HLD, CKD stage III, PMR on chronic prednisone therapy, BPH, GERD, history of prostate cancer who presents to [facility] secondary to presyncope, lightheadedness, nausea x1 week. Daughter at bedside. Patient was through the past week he has noted increasing lightheadedness, feeling like he could, "pass out,"dizziness, nausea but no vomiting. For the past 2 days he has had diarrhea approximately 5 episodes daily. He has not had any today. Complains of generalized weakness for the past 1 week. With nausea patient also experiences intermittent abdominal pain that is generalized, described as burning, rated at 5 out of 10, last approximately 10 minutes and goes away. No known sick contacts. 83-year-old patient is very active for the past 1 to 2 weeks has been working out in his garden throughout the day. He drinks approximately 4-5 16 ounce glasses of water daily. His appetite has been good. He has been taking his medications as prescribed. He denies any rosa syncope, fever, chills, sweats, recent illness, chest pain, shortness of breath, GIBSON, cough, palpitations, hemoptysis, emesis, dysuria, increased urgency with urination, dysuria, hematuria, melena, hematochezia. He has noted increased frequency with urination for the past 2 to 3 days. Never had anything like this in past. Patient is currently on demadex 40mg bid. Per daughter patient was started on medication secondary to ankle swelling and thought it was to be stopped on June 09, but patient continued to take. They were not notified by provider to stop medication and continue to get refills. Patient denies history of CHF or CAD. In ER upon initial presentation patient's blood pressure was 93/59. He did exhibit orthostasis with a blood pressure of 104/54 lying, 90/53 sitting and 79/47 standing. Lab work revealed MARIA T with BUN 66 and creatinine 3.87. His electrolytes were WNL. His H&H was stable at 12.9 and 39.6. His troponin was within normal limits. His chest x-ray was unremarkable. EKG revealed normal sinus rhythm with early repolarization. He received 1 L of IVF while in the ER. Allergies Allergy/AdvReac Type Severity Reaction Status Date / Time pioglitazone [From Actos] Allergy Unknown Verified 10/11/18 08:06 sitagliptin [From Januvia] Allergy Unknown Verified 10/11/18 08:06 Home Medications Home Medications Medication Instructions Recorded Confirmed Type Tradjenta 5 mg PO DAILY 03/03/18 10/11/18 History alendronate [Fosamax] 70 mg PO WK 03/03/18 10/11/18 History citalopram [Celexa] 10 mg PO QAM 03/03/18 10/11/18 History fenofibrate micronized 200 mg PO QAM 03/03/18 10/11/18 History finasteride [Proscar] 5 mg PO QAM 03/03/18 10/11/18 History magnesium chloride [Mag 64] 128 mg PO BID 03/03/18 10/11/18 History omega 0-blk-mho-fish oil [Fish Oil] 1 tab PO BID 03/03/18 10/11/18 History omeprazole 20 mg PO QPM 03/03/18 10/11/18 History prednisone 10 mg PO BID 03/03/18 10/11/18 History tamsulosin [Flomax] 0.4 mg PO QPM 03/03/18 10/11/18 History calcium carbonate 500 mg PO BID #60 cap 03/07/18 10/11/18 Rx glimepiride [Amaryl] 4 mg PO BID 10/11/18 10/11/18 History trazodone 50 mg PO HS 10/11/18 10/11/18 History amlodipine 2.5 mg PO DAILY #30 tab 10/12/18 Rx lisinopril 10 mg PO QAM #0 tab 10/12/18 10/11/18 Rx metformin [Glucophage] 1,000 mg PO BID #0 tab 10/12/18 10/11/18 Rx Past Med/Surg History Medical History History of prostate cancer (Chronic) Polymyalgia rheumatica (Chronic) Closed L3 vertebral fracture (Chronic) Closed fracture of spinous process of thoracic vertebra (Chronic) Hypertension (Chronic) DMII (diabetes mellitus, type 2) (Chronic) CKD (chronic kidney disease), stage III (Chronic) Lumbago (Chronic) BPH (benign prostatic hyperplasia) (Chronic) Hypertriglyceridemia (Chronic) GERD (gastroesophageal reflux disease) (Chronic) Depression (Chronic) No pertinent family history Surgical History History of blepharoplasty (Chronic) L eye History of hernia surgery (Chronic) History of foot surgery (Chronic) R 4th Toe surgery H/O neck surgery (Chronic) Family History Mother Colorectal cancer Coronary heart disease Brother Diabetes Other No pertinent family history Social History Preferred Language: Ukrainian Communication Ability: Effective Beliefs That Will Affect Care: None Current Living Situation: Spouse Other Information That Helps Us Care for You: No Feels Safe at Home: Yes Safety Concerns: Feels Safe At This Time Smoking Status: Never smoker Hx Alcohol Use: Yes Alcohol type: beer Alcohol Intake Frequency: Rarely Alcohol Intake Frequency Comment: 1-2 beers monthly Hx Substance Use: No Review of Systems Review of Systems: As noted per HPI, 10 systems reviewed and negative unless noted above. Physical Exam Physical Exam: Gen: WD/WN, M, appears younger than stated age, NAD, sitting up in bed, pleasant, conversing easily Head: Normocephalic, Atraumatic Eyes: Sclera normal, no conjunctival injection, PERRLA, EOMI ENT: Gross hearing intact, normal pharynx, mucous membranes moist Neck: supple, no adenopathy, No JVD, no bruit, Resp: Clear to auscultation b/l, no wheeze, rales, rhonchi. Normal insp/exp effort, no accessory muscle use CV: Regular rate, regular rhythm, S1,S2, no murmur, rub, gallop, or ectopy Abd: +BS x 4, soft, nontender, nondistended Musculoskeletal: moves extremities active rom x 4, strength intact, good mucker operator strength Extremities: No edema bilaterally, b/l +1 pedal pulse Skin: warm, moist, no rash, mild turgor, cap refill < 2sec Neuro: Alert and oriented x 3, speech normal, good mood/affect, cran nerve 2-12 intact grossly : deferred Results & Data Vital Signs (Past 12 Hours) Vital Signs Temp Pulse Pulse Resp BP BP Pulse Ox 10/11/18 08:30 55 L 19 143/76 H 99 10/11/18 08:17 60 14 147/73 H 96 10/11/18 08:00 56 L 14 147/73 H 99 10/11/18 07:31 56 L 14 130/64 97 10/11/18 07:00 59 L 20 113/64 96 10/11/18 06:56 94 10/11/18 06:27 36.6 C 70 18 93/59 L 97 Laboratory Results Short CBC 10/11/18 Range/Units 06:40 WBC 9.93 (4.8-10.8) K/uL Hgb 12.9 L (14.0-18.0) g/dL Hct 39.6 L (42-52) % Plt Count 265 (130-400) K/uL BMP 10/11/18 06:40 Sodium 139 Potassium 4.4 Chloride 104 Carbon Dioxide 26 BUN 66 H Creatinine 3.87 H Glucose 165 H Calcium 10.0 Cardiac Enzymes 10/11/18 10/11/18 Range/Units 06:40 06:40 Troponin I < 0.015 Cancelled (0-0.045) ng/ml Liver Function 10/11/18 Range/Units 06:40 Total Bilirubin 0.6 (0.2-1) mg/dl AST 20 (15-37) U/L ALT 27 (12-78) U/L Alkaline Phosphatase 37 L (45-117) U/L Albumin 3.9 (3.4-5.0) gm/dl Urine 10/11/18 Range/Units 08:50 Urine Color Yellow Urine Appearance Clear (Clear) Urine pH 5.0 (4.5-7.5) Ur Specific [place] 1.014 (1.000-1.030) Urine Protein Negative (Negative) Urine Glucose (UA) Negative (Negative) Diagnostic Findings CXR: FINDINGS: Cardiac mediastinal and hilar silhouettes are within normal limits. There is no pneumothorax, pleural effusion, focal airspace consolidation or overt pulmonary edema. Degenerative changes of the shoulders and spine. IMPRESSION: No acute process. Medications Administered Discontinued Medications Sodium Chloride (Nss 1000ml) 1,000 mls @ 999 mls/hr IV .Q1H1M ADITYA Stop: 10/11/18 08:00 Last Infusion: 10/11/18 08:02 Dose: 0 mls/hr Documented by: [id number] Admin: 10/11/18 06:59 Dose: 999 mls/hr Documented by: [id number] ECG Rate (beats per minute): 63 Rhythm: sinus with SA Additional Comments: Early repolarization Code Status & VTE Plan Code Status Full Code VTE Prophylaxis Plan VTE Prophylaxis will be ordered: Yes Supervising Physician Co-Signing Physician Notes Pt was seen and examined. Agreed with Yoselin COLMENARES exam, assessment and plan. 83-year-old male who has a significant past medical history of T2DM, HTN, HLD, CKD stage III, PMR on chronic prednisone therapy, BPH, GERD, history of prostate cancer who presents to [facility] secondary to presyncope, lightheadedness associated with nausea and diarrhea for the last few days. Pt has been taking torsemide 40mg BID for LE edema as per daughter. Lab on admission with creatinine 3.8. received IVF. Continue IVF. Hold Torsemide and lasix for now. Will avoid nephrotoxic agents. PT/OT and Fall precaution. Please refer to Yoselin PA-C documentation for other problems. MD Saundra
[2018-10-11 09:13] LABS: Appearance Urine Clear (Clear); Bilirubin Urine Negative (Negative); Blood Urine Negative (Negative); Color Urine Yellow; Glucose Urine UA Negative (Negative); Ketones Urine Negative (Negative); Leukocyte Esterase Urine Negative (Negative); Nitrite Urine Negative (Negative); Protein Urine Negative (Negative); Specific Gravity Urine 1.014 (1.000-1.030); Urobilinogen Urine Negative (Negative)
[2018-10-11] MEDS ORDERED: POLYETHYLENE (MIRALAX) 17 GM PACK PO PRN (09:47)
[2018-10-11] MEDS ORDERED: GLUCAGON FOR INJ 1 MG VIAL SQ PRN (09:47)
[2018-10-11] MEDS ORDERED: ACETAMINOPHEN 325 MG TAB PO PRN (09:47)
[2018-10-11] MEDS ORDERED: CARBOHYDRATES FOR HYPOGLYCEMIA PO PRN (09:47)
[2018-10-11] MEDS ORDERED: GLUCOSE 40% GEL 15 GM TUBE PO PRN (09:47)
[2018-10-11] MEDS ORDERED: ONDANSETRON INJ 2 MG/ML 2 ML VIAL IV PRN (09:47)
[2018-10-11] MEDS ORDERED: GLUCOSE 10 TABS/TUBE PO PRN (09:47)
[2018-10-11] MEDS ORDERED: DEXTROSE 50% 50 ML SYRINGE IV PRN (09:47)
[2018-10-11] MEDS: SODIUM CHLORIDE 0.9% 1000ML 1,000 ML IV SCH ×2 (10:09→20:11)
[2018-10-11] MEDS: MAGNESIUM SULFATE / D5W 1 GM/100 ML BAG IV SCH ×2 (11:06→12:22)
[2018-10-11] MEDS: predniSONE 10 MG TABLET PO SCH ×2 (11:07→20:15)
[2018-10-11] MEDS: CITALOPRAM 20 MG TAB PO SCH (11:07)
[2018-10-11] MEDS: MAGNESIUM CHLORIDE 64MG DELAYED REL TAB PO SCH ×2 (11:08→20:14)
[2018-10-11] MEDS: INSULIN ASPART 100 UNITS/ML 3 ML PEN SC SCH ×3 (12:28→20:11)
[2018-10-11] MEDS: INSULIN GLARGINE SOLOSTAR 100 UNITS/ML 3 ML PEN SC SCH ×2 (12:28→20:12)
[2018-10-11] MEDS: HEPARIN SOD 5,000 UNIT/0.5 ML VIAL SQ SCH ×2 (16:07→20:13)
[2018-10-11] MEDS ORDERED: PANTOprazole 40 MG TAB PO SCH (21:00)
[2018-10-11] MEDS ORDERED: TRAZODONE HCL 50 MG TAB PO SCH (21:00)
[2018-10-12] MEDS ORDERED: SIMETHICONE 80 MG CHEW PO PRN (04:30)
[2018-10-12] MEDS: SODIUM CHLORIDE 0.9% 1000ML 1,000 ML IV SCH ×2 (05:55→16:16)
[2018-10-12] MEDS: HEPARIN SOD 5,000 UNIT/0.5 ML VIAL SQ SCH ×2 (05:56→12:59)
[2018-10-12] MEDS: INSULIN ASPART 100 UNITS/ML 3 ML PEN SC SCH ×3 (09:15→17:17)
[2018-10-12] MEDS: INSULIN GLARGINE SOLOSTAR 100 UNITS/ML 3 ML PEN SC SCH (09:16)
[2018-10-12] MEDS: CITALOPRAM 20 MG TAB PO SCH (09:18)
[2018-10-12] MEDS: predniSONE 10 MG TABLET PO SCH (09:19)
[2018-10-12] MEDS: MAGNESIUM CHLORIDE 64MG DELAYED REL TAB PO SCH (09:19)
[2018-10-12 09:23] LABS: Basophils # (auto) 0.01 K/uL (0-0.2); Basophils % (auto) 0.1 %; Eosinophils # (auto) 0.01 K/uL (0-0.5); Eosinophils % (auto) 0.1 %; Hematocrit (blood only) 39.6 % (42-52); Hemoglobin 12.8 g/dL (14.0-18.0); Immature Granulocytes # (auto) 0.21 K/uL (0.00-0.02); Immature Granulocytes % (auto) 2.4 %; Lymphocytes # (auto) 1.49 K/uL (1.2-3.4); Lymphocytes % (auto) 16.9 %; Mean Corpuscular Hgb Conc 32.3 g/dL (32-36); Mean Corpuscular Volume 96.1 fL (80-100); Monocytes # (auto) 0.56 K/uL (0.11-0.59); Monocytes % (auto) 6.3 %; Neutrophils # (auto) 6.55 K/uL (1.4-6.5); Neutrophils % (auto) 74.2 %; Platelet Count 261 K/uL (130-400); RDW Coefficient of Variation 13.5 % (11.5-14.5); RDW Standard Deviation 46.8 fL (36.4-46.3); Red Blood Count 4.12 M/uL (4.7-6.1); White Blood Count 8.83 K/uL (4.8-10.8)
[2018-10-12 09:54] LABS: Creatinine Clr Calc Pharmacy 20.4 ml/min; Est GFR (African American) 24.6; Est GFR (Non-African American) 21.2; Magnesium 1.8 mg/dl (1.8-2.4); Potassium 4.9 mmol/L (3.5-5.1)
--- NOTE | 2018-10-12 15:24 | Hospitalist Progress Note ---
Date of Service October 12, 2018 Assessment & Plan (1) Acute renal failure superimposed on stage 3 chronic kidney disease: (2) Dehydration: Present on admission with lightheadedness, nausea and diarrhea Creatinine on admission 3.8 Creatinine this morning 2.6, then repeat creatinine in the afternoon 2.4 Continue holding torsemide/lisinopril and metformin Pt wants to go home tonight I called his daughter and update her and she was agreed with the plan to take him room tonight Will check BMP in 3 to 4 days Advised pt to keep herself hydrate Avoid nephrotoxic agents and continue to hold Lisinopril/metformin and torsemide (3) Hypomagnesemia: Due to diarrhea Mg 1.8 today Stable Continue monitor Mg level (4) DMII (diabetes mellitus, type 2): Last A1c 8.0 05/13/2018 A1c pending Lantus/NovoLog per protocol Will hold metformin on discharge. Will resume once creatinine back to normal Continue others diabetes oral med Monitor BS (5) Hypertension: BP has been fluctuated Hold lisinopril and torsemide on hold due to MARIA T Will monitor BP (6) Hypertriglyceridemia: Continue fenofibrate and fish oil (7) BPH (benign prostatic hyperplasia): Will resume Flomax and finasteride on discharge (8) Depression: Continue celexa and trazodone Stable (9) Polymyalgia rheumatica: Continue prednisone 10mg daily Stable (10) DVT prophylaxis: Heparin SQ, SCDS/TEDS Disposition Check BMP in 3-4 days Follow up with PCP next week Subjective Pt was seen and examined Lying in bed with no distress Pt said that he feels fine He said that he walked around with no discomfort He said that diarrhea improves Pt said that he was awake all night because he is in the hospital He is very anxious and he would like to go home today He said that he has an appointment with his surgeon tomorrow morning and does not want to miss it Denies any chest pain, palpitation, dizziness and SOB Physical Exam Physical Exam: General- No acute distress Head- atraumatic Eyes- PERRL, EOMI, ENT- oropharynx clear Neck- supple, no JVD Lungs- clear to auscultation Heart- regular rhythm; no murmur Abdomen- normal bowel sounds, soft, nontender Extremities- no calf tenderness Neuro- alert, oriented x 3; PERRL, EOMI; no facial palsy; no dysarthria Skin- warm & dry Results & Data Vital Signs (Past 12 Hours) Vital Signs Temp Pulse Pulse Resp BP Pulse Ox 10/12/18 15:04 36.6 C 52 L 18 170/81 H 98 10/12/18 11:46 36.9 C 53 L 16 133/71 97 10/12/18 11:11 54 L 10/12/18 07:41 36.6 C 55 L 16 127/73 98 10/12/18 04:57 36.4 C L 54 L 16 147/74 H 98
[2018-10-12 17:00] LABS: Est GFR (Non-African American) 23.3
[2018-10-12] MEDS ORDERED: AMLODIPINE BESYLATE 5 MG TAB PO ONE (18:49)
[2018-10-13 07:14] LABS: Estimated Average Glucose 229 mg/dl; Hemoglobin A1C 9.6 % (4.5-5.6)
--- NOTE | 2018-10-13 08:00 | Discharge Summary ---
Date of Service October 12, 2018 Admission HPI Per Admitting Provider This is an 83-year-old male who has a significant past medical history of T2DM, HTN, HLD, CKD stage III, PMR on chronic prednisone therapy, BPH, GERD, history of prostate cancer who presents to [facility] secondary to presyncope, lightheadedness, nausea x1 week. Daughter at bedside. Patient was through the past week he has noted increasing lightheadedness, feeling like he could, "pass out,"dizziness, nausea but no vomiting. For the past 2 days he has had diarrhea approximately 5 episodes daily. He has not had any today. Complains of generalized weakness for the past 1 week. With nausea patient also experiences intermittent abdominal pain that is generalized, described as burning, rated at 5 out of 10, last approximately 10 minutes and goes away. No known sick contacts. 83-year-old patient is very active for the past 1 to 2 weeks has been working out in his garden throughout the day. He drinks approximately 4-5 16 ounce glasses of water daily. His appetite has been good. He has been taking his medications as prescribed. He denies any rosa syncope, fever, chills, sweats, recent illness, chest pain, shortness of breath, GIBSON, cough, palpitations, hemoptysis, emesis, dysuria, increased urgency with urination, dysuria, hematuria, melena, hematochezia. He has noted increased frequency with urination for the past 2 to 3 days. Never had anything like this in past. Patient is currently on demadex 40mg bid. Per daughter patient was started on medication secondary to ankle swelling and thought it was to be stopped on June 09, but patient continued to take. They were not notified by provider to stop medication and continue to get refills. Patient denies history of CHF or CAD. In ER upon initial presentation patient's blood pressure was 93/59. He did exhibit orthostasis with a blood pressure of 104/54 lying, 90/53 sitting and 79/47 standing. Lab work revealed MARIA T with BUN 66 and creatinine 3.87. His electrolytes were WNL. His H&H was stable at 12.9 and 39.6. His troponin was within normal limits. His chest x-ray was unremarkable. EKG revealed normal sinus rhythm with early repolarization. He received 1 L of IVF while in the ER. Admission Exam Per Admitting Provider Gen: WD/WN, M, appears younger than stated age, NAD, sitting up in bed, pleasant, conversing easily Head: Normocephalic, Atraumatic Eyes: Sclera normal, no conjunctival injection, PERRLA, EOMI ENT: Gross hearing intact, normal pharynx, mucous membranes moist Neck: supple, no adenopathy, No JVD, no bruit, Resp: Clear to auscultation b/l, no wheeze, rales, rhonchi. Normal insp/exp effort, no accessory muscle use CV: Regular rate, regular rhythm, S1,S2, no murmur, rub, gallop, or ectopy Abd: +BS x 4, soft, nontender, nondistended Musculoskeletal: moves extremities active rom x 4, strength intact, good bessemer regulator strength Extremities: No edema bilaterally, b/l +1 pedal pulse Skin: warm, moist, no rash, mild turgor, cap refill < 2sec Neuro: Alert and oriented x 3, speech normal, good mood/affect, cran nerve 2-12 intact grossly : deferred Principal Diagnosis Acute renal failure superimposed on stage 3 chronic kidney disease Dehydration Diarrhea Hypomagnesemia Diabetes Hypertension Dyslipidemia Discharge Exam General- No acute distress Head- atraumatic Eyes- PERRL, EOMI, ENT- oropharynx clear Neck- supple, no JVD Lungs- clear to auscultation Heart- regular rhythm; no murmur Abdomen- normal bowel sounds, soft, nontender Extremities- no calf tenderness Neuro- alert, oriented x 3; PERRL, EOMI; no facial palsy; no dysarthria Skin- warm & dry Discharge Data Allergies Allergy/AdvReac Type Severity Reaction Status Date / Time pioglitazone [From Actos] Allergy Unknown Verified 10/11/18 08:06 sitagliptin [From Januvia] Allergy Unknown Verified 10/11/18 08:06 Consultations 10/11/18 09:47 Consult Case Management - Discharge Planning Routine Ordered Studies XR chest 1V portable HISTORY: 83 years-old Male weak acute weakness COMPARISON: Chest radiograph 03/03/2018 TECHNIQUE: Portable AP view of the chest FINDINGS: Cardiac mediastinal and hilar silhouettes are within normal limits. There is no pneumothorax, pleural effusion, focal airspace consolidation or overt pulmonary edema. Degenerative changes of the shoulders and spine. IMPRESSION: No acute process. The above report was generated using voice recognition software. It may contain grammatical, syntax or spelling errors. Electronically signed by: Ace Cullen M.D. 10/11/2018 7:28 AM Dictated: 10/11/18726 Transcribed: 10/11/18726 Hospital Course (1) Acute renal failure superimposed on stage 3 chronic kidney disease: (2) Dehydration: Present on admission with lightheadedness, nausea and diarrhea Creatinine on admission 3.8 Creatinine this morning 2.6, then repeat creatinine in the afternoon 2.4 Continue holding torsemide/lisinopril and metformin Pt wants to go home tonight I called his daughter and update her and she was agreed with the plan to take him room tonight Will check BMP in 3 to 4 days Advised pt to keep herself hydrate Avoid nephrotoxic agents and continue to hold Lisinopril/metformin and torsemide (3) Hypomagnesemia: Due to diarrhea Mg 1.8 today Stable Continue monitor Mg level (4) DMII (diabetes mellitus, type 2): Last A1c 8.0 05/13/2018 A1c pending Lantus/NovoLog per protocol Will hold metformin on discharge. Will resume once creatinine back to normal Continue others diabetes oral med Monitor BS (5) Hypertension: BP has been fluctuated Hold lisinopril and torsemide on hold due to MARIA T Will monitor BP (6) Hypertriglyceridemia: Continue fenofibrate and fish oil (7) BPH (benign prostatic hyperplasia): Will resume Flomax and finasteride on discharge (8) Depression: Continue celexa and trazodone Stable (9) Polymyalgia rheumatica: Continue prednisone 10mg daily Stable (10) DVT prophylaxis: Heparin SQ, SCDS/TEDS Disposition Check BMP in 3-4 days Follow up with PCP next week Total Time Total Time Spent Total Time Spent (In Minutes): 35 minutes Total Time Includes: Examination of the Patient, Discharge Planning, Medication Reconciliation, Communication With Other Providers and Other Discharge Plan Discharge Items Patient Disposition: Home - Self-Care Reason For Visit: MARIA T Discharge Diagnosis: Acute renal failure superimposed on stage 3 chronic kidney disease Dehydration Diarrhea Hypomagnesemia Diabetes Hypertension Dyslipidemia Discharge Goals: Decrease discomfort, Improve disease control, Increase independence and Improve nutritional status Activity: Resume your previous activity Activity Comment: as tolerated Non-emergency contact: Primary Care Provider Call non-emergency contact if: you have any medication questions Follow-up/Referrals: Rishi Koch PA-C [Primary Care Provider] - Diet: Heart Healthy Addtl Provider Instructions: Follow up with your primary care provider AMELIA Seaman within 1 week Check BMP in 3-4 days to monitor kidney function (Lab order given to patient) Continue to hold torsemide, metformin and lisinopril for now until your physician instructing you to resume it Avoid any medication that can damage your kidney such as NSAIDs (Motrin, aleve, naproxen, Ibuprofen, Advil ..) Advised patient to drink adequate amount of water fall precaution Monitor your blood pressure (Since Lisinopril has been on hold due to acute kidney injury, on amlodipine 2.5 mg was started for blood pressure) Follow a healthy diabetes diet and limited concentrated sweet intake Hold Medications for now (your provider will advance you when to resume them after lab result) Metformin Lisinopril Torsemide Prescriptions: New amlodipine 2.5 mg tablet 2.5 mg PO DAILY Qty: 30 RF: 0 Continued citalopram [Celexa] 10 mg tablet 10 mg PO QAM RF: 0 alendronate [Fosamax] 70 mg tablet 70 mg PO WK RF: 0 prednisone 5 mg tablet 10 mg PO BID RF: 0 fenofibrate micronized 200 mg capsule 200 mg PO QAM RF: 0 tamsulosin [Flomax] 0.4 mg capsule 0.4 mg PO QPM RF: 0 omeprazole 20 mg capsule,delayed release(DR/EC) 20 mg PO QPM RF: 0 finasteride [Proscar] 5 mg tablet 5 mg PO QAM RF: 0 magnesium chloride [Mag 64] 64 mg Tablet,Delayed Release (Dr/Ec) 128 mg PO BID RF: 0 omega 9-mgv-gsf-fish oil [Fish Oil] 1,000 mg (120 mg-180 mg) Capsule 1 tab PO BID RF: 0 Tradjenta 5 mg Tablet 5 mg PO DAILY RF: 0 calcium carbonate 500 mg calcium (1,250 mg) capsule 500 mg PO BID Qty: 60 RF: 11 trazodone 50 mg tablet 50 mg PO HS RF: 0 glimepiride [Amaryl] 2 mg tablet 4 mg PO BID RF: 0 metformin [Glucophage] 500 mg tablet 1,000 mg PO BID Qty: 0 RF: 0 lisinopril 10 mg tablet 10 mg PO QAM Qty: 0 RF: 0 Discontinued torsemide 20 mg tablet 40 mg PO BID RF: 0 Stand-Alone Forms: [facility] Discharge Orders: Discharge Order (Routine); Ordered 10/12/18 Ordered By: Cris Arguello Admission Data Admit Date/Time: 10/11/18 08:23 Attending Provider: Cris Arguello Admit Provider: Cris Arguello Primary Care Provider: Rishi Koch Service: Telemetry Other Interventions: Discharge Summary Assessment (RN) Last Done: 10/12/18 18:49 DC Date/Time DO NOT enter until pt leaves facility: 10/12/18 19:20
== END 2018-10-12 19:20 | disposition home or self-care (01) | DRG 684 ==
LOC: ED 06:24 → 2N 08:23
DX: E83.42 Hypomagnesemia; N40.0 Benign prostatic hyperplasia without lower urinary tract symptoms; N17.9 Acute kidney failure, unspecified; I12.9 Hypertensive chronic kidney disease with stage 1 through stage 4 chronic kidney disease, or unspecified chronic kidney disease; N18.3 Chronic kidney disease, stage 3 (moderate); E11.9 Type 2 diabetes mellitus without complications; M35.3 Polymyalgia rheumatica; Z85.46 Personal history of malignant neoplasm of prostate; F32.9 Major depressive disorder, single episode, unspecified; Z87.891 Personal history of nicotine dependence; K21.9 Gastro-esophageal reflux disease without esophagitis; E78.1 Pure hyperglyceridemia; E86.0 Dehydration

== ENCOUNTER 2023-06-03 09:30 | Inpatient (IN) ==
--- NOTE | 2023-06-03 10:00 | Emergency Department Note ---
Impression & Plan Cellulitis of right foot, Hypomagnesemia, Wound of right foot ED Provider Note NAME: NELY EASTON AGE: 88 SEX: M ARRIVES VIA: Walk-In INFORMANT: Patient ED PROVIDER(S): Darryn Amos MD CHIEF COMPLAINT: Foot infection, referred. PLAN: Disposition: Admit MEDICAL DECISION MAKING: The patient is pleasant 88-year-old gentleman with a past medical history of type 2 diabetes, CKD, BPH, GERD, hyperlipidemia, bowel polymyalgia rheumatica who presents to the emergency department via walk-in clinic by his for evaluation of worsening right foot pain and redness where he contact his primary care doctor's office and was referred to emergency department. Patient was seen by his primary care doctor yesterday for same symptoms which were not as bad at the time and understands he was prescribed 2 medications which she is not sure which they are but he had yet to pick them up. He denies any fevers, nausea, vomit, diarrhea or symptoms. The patient did have an arterial ultrasound study performed last week which demonstrated no significant arterial disease and had patent bilateral dorsalis pedis pulses. Patient reports that he has had sores on his right foot for months with redness but over the past 24 hours the pain and redness had worsened. He reports that at one time it was thought his symptoms could be related to shingles but now believes it could be infected. Of note, the patient did arrive to emergency department during time of high volume, acuity and prolonged emergency department waiting times. EKG without overt acute ischemia. On my evaluation the patient is no acute distress, afebrile with stable vital signs. He appears clinically dry. He has erythema warmth and tenderness of the dorsal aspect of the right mid and forefoot with an approximate 7 x 4 cm chronic eschar overlying the medial aspect of the dorsal mid and forefoot. There are several other chronic wounds/eschars including 1.5 cm circular lesion on the dorsal aspect of the base of the second toe, a linear area of the right heel as well as dorsal aspect of the proximal great toe and plantar aspect of the proximal great toe. There is moderate skin mottling with capillary refill 2 seconds. Plain film of the right foot demonstrates soft tissue swelling without acute osseous involvement. WBC 11.7 K, nonspecific with neutrophil predominance but no left shift. H/H similar to prior range values. Platelets within normal limits. Chemistry without metabolic acidosis. BUNs/creatinine is 28 consistent with patient's clinically dry appearance. Lactic acid 1.8, within normal limits. Magnesium 1.2 with IV repletion initiated. LFTs are unremarkable. CRP is 1.45, nonspecific with normal ESR. Procalcitonin is not elevated. Empiric treatment was initiated with IV Zosyn and daptomycin. Patient and agree with plan for admission for further management. Case was discussed with MINDY Rush PAC, with Dr. Flanagan [facility] hospitalist who will evaluate the patient for admission. Triage Nursing notes reviewed and agree them. Prior/external medical records reviewed Vital Signs: reviewed Differential diagnosis: Cellulitis, abscess, MRSA infection, DVT, necrotizing fasciitis, dermatitis, drug eruption, allergic reaction, as well as other pathologies. ER treatment provided: See below. Diagnostics interpreted by me: ECG: Sinus rhythm with first-degree AV block, 64 bpm, right bundle branch block, left anterior fascicular block, LVH, no overt ST elevation or depression, QTc 443, QRS 142 Cardiac Monitoring: An order for continuous cardiac monitoring was placed and demonstrated Sinus rhythm with first-degree AV block, 64 bpm, ectopy. Laboratory studies: See below Imaging studies: See below Consultation(s): Case was discussed with MINDY Rush, with Dr. Flanagan [facility] hospitalist who will evaluate the patient for admission. HPI:The patient is pleasant 88-year-old gentleman with a past medical history of type 2 diabetes, CKD, BPH, GERD, hyperlipidemia, bowel polymyalgia rheumatica who presents to the emergency department via walk-in clinic by his for evaluation of worsening right foot pain and redness where he contact his primary care doctor's office and was referred to emergency department. Patient was seen by his primary care doctor yesterday for same symptoms which were not as bad at the time and understands he was prescribed 2 medications which she is not sure which they are but he had yet to pick them up. He denies any fevers, nausea, vomit, diarrhea or symptoms. The patient did have an arterial ultrasound study performed last week which demonstrated no significant arterial disease and had patent bilateral dorsalis pedis pulses. Patient reports that he has had sores on his right foot for months with redness but over the past 24 hours the pain and redness had worsened. He reports that at one time it was thought his symptoms could be related to shingles but now believes it could be infected. ROS: See above HPI for pertinent positives & negatives. A total of 10 systems reviewed and were otherwise negative. VITALS:See Below PHYSICAL EXAMINATION: GENERAL: Awake, alert, in no distress HENT: Normocephalic, atraumatic. Oropharynx with dry mucous membranes and otherwise unremarkable. EYES: Normal conjunctiva. Sclera non-icteric. NECK: Supple. No nuchal rigidity. FROM. No JVD. RESPIRATORY: Clear to auscultation. CARDIAC: Regular rate, normal rhythm. Extremities warm and well perfused. Pulses equal. ABDOMEN: Soft, non-distended. No tenderness to palpation. No rebound or guarding. No masses. RECTAL: Deferred. MUSCULOSKELETAL: Chest examination reveals no tenderness. The back is symmetrical on inspection without obvious abnormality. There is no CVA tenderness to palpation. No joint edema. LOWER EXTREMITIES: Calves are equal size bilaterally and non-tender. No edema. Erythema warmth and tenderness of the dorsal aspect of the right mid and forefoot with an approximate 7 x 4 cm chronic eschar overlying the medial aspect of the dorsal mid and forefoot. There are several other chronic wounds/eschars including 1.5 cm circular lesion on the dorsal aspect of the base of the second toe, a linear area of the right heel as well as dorsal aspect of the proximal great toe and plantar aspect of the proximal great toe. There is moderate skin mottling with capillary refill < 2 seconds. NEURO: Normal sensorium. No sensory or motor deficits noted. SKIN: No jaundice noted. Darryn Amos MD Past Med/Surg History Medical History History of prostate cancer No pertinent family history Polymyalgia rheumatica Closed fracture of spinous process of thoracic vertebra Closed L3 vertebral fracture Depression GERD (gastroesophageal reflux disease) Hypertriglyceridemia BPH (benign prostatic hyperplasia) Lumbago CKD (chronic kidney disease), stage III DMII (diabetes mellitus, type 2) Hypertension Surgical History History of blepharoplasty L eye History of hernia surgery History of foot surgery R 4th Toe surgery H/O neck surgery Family History Mother Colorectal cancer Coronary heart disease Diabetes Brother Diabetes Kidney disease Colorectal cancer Prostate cancer Other No pertinent family history Social History Smoking Status: Former smoker Tobacco Type: Cigarettes Second Hand Exposure: No; Do You Dip or Chew Tobacco: No; Hx Alcohol Use: Yes Alcohol type: beer and hard liquor Alcohol Intake Frequency Comment: 1-2 beers monthly Hx Substance Use: No Preferred Language: Guyanese Communication Ability: Effective Payroll Benefits Administrator Required: Yes and No Beliefs That Will Affect Care: None marital status: / Current Living Situation: Alone current occupational status: retired Feels Safe at Home: Yes Safety Concerns: Feels Safe At This Time Childhood Exposure to Second-Hand Smoke: Yes Diet: low carbohydrate caffeine: Yes Dental Care, Regularly: Yes Seatbelt Use: always Assistive Devices: Cane Allergies Allergies Allergy/AdvReac Type Severity Reaction Status Date / Time pioglitazone [From Actos] Allergy Unknown Verified 06/02/23 09:23 sitagliptin [From Januvia] Allergy Unknown Verified 06/02/23 09:23 Home Meds Home Medications Medication Instructions Recorded Confirmed finasteride 5 mg tablet (Proscar) 5 mg PO QAM 03/03/18 06/03/23 tamsulosin 0.4 mg capsule (Flomax) 0.4 mg PO HS 03/03/18 06/03/23 linagliptin 5 mg tablet 5 mg PO DAILY 01/12/19 06/03/23 atorvastatin 40 mg tablet 40 mg PO QPM 11/23/19 06/03/23 magnesium chloride 64 mg 64 mg PO QAM 01/05/22 06/03/23 (magnesium chloride) tablet,delayed release (Mag 64) denosumab 60 mg/mL subcutaneous 60 mg subcut .COMPLEX 01/14/23 06/03/23 syringe (Prolia) hydroxychloroquine 200 mg tablet 200 mg PO QAM 01/14/23 06/03/23 ropinirole 1 mg tablet 1 mg PO HS 01/14/23 06/03/23 cholecalciferol (vitamin D3) 50 50 mcg PO QAM 06/03/23 06/03/23 mcg (2,000 unit) tablet (Vitamin D3) famotidine 20 mg tablet 20 mg PO QAM 06/03/23 06/03/23 furosemide 20 mg tablet 20 mg PO DAILY PRN Fluid Retention 06/03/23 06/03/23 prednisone 2.5 mg tablet See Rx Instructions .Route .COMPLEX 06/03/23 06/03/23 prednisone 5 mg tablet See Rx Instructions .Route .COMPLEX 06/03/23 06/03/23 repaglinide 2 mg tablet 2 mg PO DAILY PRN DEPENDS ON FOOD 06/03/23 06/03/23 EATEN venlafaxine 75 mg capsule,extended 75 mg PO QPM 06/03/23 06/03/23 release 24 hr Previous Rx's Medication Instructions Recorded ferrous sulfate 325 mg (65 mg 325 mg PO DAILY #90 tabs 06/11/21 iron) tablet metformin 500 mg tablet 500 mg PO BID #60 tabs 01/18/23 carvedilol 3.125 mg tablet 3.125 mg PO BID 30 days #60 tabs 05/04/23 insulin degludec 100 unit/mL (3 See Rx Instructions subcut DAILY 05/04/23 mL) subcutaneous pen (Tresiba #15 mL FlexTouch U-100 insulin) Results & Data (ED) Vital Signs Vital Signs - 24 hr 06/03/23 09:40 06/03/23 10:20 06/03/23 11:00 Temperature 36.1 C L Temperature Source Temporal Artery Scan Pulse Rate 72 84 67 Pulse Rate from SpO2 Sensor 70 Respiratory Rate 20 21 Respiratory Effort / Characteristics Non-Labored Respiratory Depth Normal Blood Pressure 164/75 H Blood Pressure Mean 104 Pulse Oximetry 95 96 98 Oxygen Delivery Method Room Air Room Air Sepsis Recent Fever Within 48 Hours No Sepsis New/Unexplained Change in Mental Status N/A Sepsis Action Taken by Nursing No Action Required 06/03/23 11:01 06/03/23 11:01 06/03/23 11:04 Temperature Temperature Source Pulse Rate 69 74 Pulse Rate from SpO2 Sensor 68 Respiratory Rate 23 Respiratory Effort / Characteristics Respiratory Depth Blood Pressure 177/81 H Blood Pressure Mean 113 Pulse Oximetry 97 Oxygen Delivery Method Room Air Sepsis Recent Fever Within 48 Hours Sepsis New/Unexplained Change in Mental Status Sepsis Action Taken by Nursing 06/03/23 11:30 06/03/23 11:30 06/03/23 12:00 Temperature Temperature Source Pulse Rate 62 60 Pulse Rate from SpO2 Sensor 61 60 Respiratory Rate 15 15 Respiratory Effort / Characteristics Respiratory Depth Blood Pressure 177/93 H Blood Pressure Mean 147 Pulse Oximetry 98 99 Oxygen Delivery Method Sepsis Recent Fever Within 48 Hours Sepsis New/Unexplained Change in Mental Status Sepsis Action Taken by Nursing 06/03/23 12:00 06/03/23 12:30 06/03/23 12:30 Temperature Temperature Source Pulse Rate 62 Pulse Rate from SpO2 Sensor 66 Respiratory Rate 17 Respiratory Effort / Characteristics Respiratory Depth Blood Pressure 194/96 H 147/81 H Blood Pressure Mean 139 97 Pulse Oximetry 83 L Oxygen Delivery Method Sepsis Recent Fever Within 48 Hours Sepsis New/Unexplained Change in Mental Status Sepsis Action Taken by Nursing Laboratory Data Attestation: I reviewed the patient's lab results. 06/03/23 10:40 06/03/23 10:40 Lab Results 06/03/23 06/03/23 Range/Units 10:40 12:24 WBC 11.77 H (4.8-10.8) K/ul RBC 3.77 L (4.70-6.10) M/uL Hgb 12.2 L (14.0-18.0) g/dl Hct 37.3 L (42.0-52.0) % MCV 98.9 (80.0-100.0) fL MCH 32.4 (25.0-34.0) pg MCHC 32.7 (32.0-36.0) g/dL RDW Std Deviation 47.0 H (36.4-46.3) fL RDW Coeff of Aleja 13.8 (11.5-14.5) % Plt Count 156 (130-400) K/uL MPV 11.0 (9.4-12.4) fL Immature Gran % (Auto) 1.5 % Neut % (Auto) 82.2 % Lymph % (Auto) 6.6 % Chambers % (Auto) 8.8 % Eos % (Auto) 0.6 % Baso % (Auto) 0.3 % Neut # (Auto) 9.67 H (1.40-6.50) K/uL Lymph # (Auto) 0.78 L (1.20-3.40) K/uL Chambers # (Auto) 1.04 H (0.11-0.59) K/uL Eos # (Auto) 0.07 (0.00-0.50) K/uL Baso # (Auto) 0.03 (0.00-0.20) K/uL Immature Gran # (Auto) 0.18 (0.01-0.20) K/uL ESR 11 (0-20) mm/hr PT 10.8 (9.0-12.0) Seconds INR 1.0 (0.9-1.1) Sodium 136 (136-145) mmol/L Potassium 4.0 (3.5-5.1) mmol/L Chloride 105 (98-107) mmol/L Carbon Dioxide 26 (21-32) mmol/L Anion Gap 5 (3-11) BUN 29 H (6-23) mg/dl Creatinine 1.01 (0.6-1.4) mg/dl Est Cr Clr Drug Dosing 53.6 ml/min Est GFR ( Amer) 76.6 ml/min Est GFR (Non-Af Amer) 66.1 ml/min BUN/Creatinine Ratio 28.7 H (10-20) Glucose 229 H (70-99(Fasting)) mg/dl Lactate 1.8 (0.4-2.0) mmol/L Calcium 9.2 (8.6-10.3) mg/dl Magnesium 1.2 L (1.7-2.4) mg/dl Total Bilirubin 0.8 (0.2-1.0) mg/dl AST 25 (13-39) U/L ALT 17 (7-52) U/L Alkaline Phosphatase 62 (34-104) U/L C-Reactive Protein 1.45 H (0-0.5) mg/dl Total Protein 5.7 L (6.0-8.3) gm/dl Albumin 3.5 (3.4-5.0) gm/dl Globulin 2.2 L (2.5-4.0) gm/dl Albumin/Globulin Ratio 1.6 (0.9-2) Procalcitonin 0.04 (0-0.5) ng/ml Urine Color Yellow Urine Appearance Clear (Clear) Urine pH 5.0 (4.5-7.5) Ur Specific [place] 1.011 (1.000-1.030) Urine Protein 1+ H (Negative) Urine Glucose (UA) Negative (Negative) Urine Ketones Negative (Negative) Urine Blood Trace H (Negative) Urine Nitrite Negative (Negative) Urine Bilirubin Negative (Negative) Urine Urobilinogen Negative (Negative) Ur Leukocyte Esterase Negative (Negative) Urine WBC (Auto) 0 (0-5) /hpf Urine RBC (Auto) 0-4 (0-4) /hpf U Hyaline Cast (Auto) 0 (0-5) /lpf U Epithel Cells (Auto) 0-5 (0-5) /lpf Urine Bacteria (Auto) Negative (Negative) Administered Medications Enoxaparin Sodium (Enoxaparin Inj 40 Mg/0.4 Ml Syr) 40 mg SQ Q24H ADITYA Stop: 07/03/23 13:59 Last Admin: 06/03/23 14:45 Dose: 40 mg Documented By: STEFANI Magnesium Sulfate/Dextrose (Magnesium Sulfate / D5w) 1 gm in 100 mls @ 50 mls/hr IV Q2H ADITYA Stop: 06/03/23 22:49 Last Admin: 06/03/23 17:00 Dose: 50 mls/hr Documented By: Infusion: 06/03/23 16:44 Dose: Infused Documented By: Admin: 06/03/23 14:44 Dose: 50 mls/hr Documented By: STEFANI Discontinued Medications Sodium Chloride (Nss) 1,000 mls @ 999 mls/hr IV .Q1H1M ADITYA Stop: 06/03/23 11:15 Last Infusion: 06/03/23 12:11 Dose: Infused Documented By: Admin: 06/03/23 11:06 Dose: 999 mls/hr Documented By: STEFANI Acetaminophen (Ofirmev) 1,000 mg in 100 mls @ 400 mls/hr IV NOW STA Stop: 06/03/23 10:34 Last Infusion: 06/03/23 11:45 Dose: Infused Documented By: Admin: 06/03/23 11:06 Dose: 400 mls/hr Documented By: STEFANI Piperacillin Sod/Tazobactam Sod (Zosyn) 4.5 gm in 120 mls @ 30 mls/hr IV NOW ONE Stop: 06/03/23 14:19 Last Infusion: 06/03/23 12:43 Dose: Infused Documented By: Admin: 06/03/23 11:36 Dose: 30 mls/hr Documented By: STEFANI Daptomycin 300 mg/ Syringe 6 mls @ 3 mls/min IV Q24H [facility]; Protocol Stop: 06/05/23 10:29 Last Admin: 06/03/23 11:06 Dose: 3 mls/min Documented By: STEFANI Magnesium Sulfate/Dextrose (Magnesium Sulfate / D5w) 1 gm in 100 mls @ 100 mls/hr IV Q1H ADITYA Stop: 06/03/23 14:19 Last Infusion: 06/03/23 14:44 Dose: Infused Documented By: Admin: 06/03/23 13:51 Dose: 100 mls/hr Documented By: Infusion: 06/03/23 13:48 Dose: Infused Documented By: Admin: 06/03/23 12:48 Dose: 100 mls/hr Documented By: STEFANI Piperacillin Sod/Tazobactam Sod (Zosyn) 4.5 gm in 100 mls @ 200 mls/hr IV NOW ONE Stop: 06/03/23 13:30 Last Admin: 06/03/23 13:33 Dose: Not Given Documented By: STEFANI Imaging Data Radiologist's Impression: Foot X-Ray 06/03/23 10:13 XR foot RT 2V HISTORY: 88 years-old Male cellulitis acute pain and swelling of the right foot COMPARISON: None TECHNIQUE: 2 views of the right foot FINDINGS: Arterial calcifications. Sclerotic focus of the first proximal phalanx suggestive of a probable bone island. Chronic appearing deformities of the fourth and fifth proximal phalanges with severe joint space narrowing of the second through fourth DIP joints. Mild diffuse soft tissue swelling. There is no acute fracture, dislocation or osseous erosion identified. Spurring of the calcaneus. IMPRESSION: 1. Diffuse soft tissue swelling without acute osseous abnormality. 2. Chronic appearing findings as above. ACT 112: Negative or not required by law. The above report was generated using voice recognition software. It may contain grammatical, syntax or spelling errors. Electronically signed by: Seb Cullen M.D. 06/03/2023 10:46 AM Discharge Plan Visit Data Chief Complaint: Infection Stated Complaint: FOOT INFECTION, REF BY DOC ED Provider: Darryn Amos Discharge Problem: Cellulitis of right foot, Hypomagnesemia, Wound of right foot Patient Disposition: Admitted As Inpatient Discharge Instructions Interventions: ED Discharge Assessment Last Done: 06/03/23 13:25
--- NOTE | 2023-06-03 10:47 | XRay Report ---
XR foot RT 2V HISTORY: 88 years-old Male cellulitis acute pain and swelling of the right foot COMPARISON: None TECHNIQUE: 2 views of the right foot FINDINGS: Arterial calcifications. Sclerotic focus of the first proximal phalanx suggestive of a probable bone island. Chronic appearing deformities of the fourth and fifth proximal phalanges with severe joint sp erika narrowing of the second through fourth DIP joints. Mild diffuse soft tissue swelling. There is no acute fracture, dislocation or osseous erosion identified. Spurring of the calcaneus. IMPRESSION: 1. Diffuse soft tissue swelling without acute osseous abnormality. 2. Chronic appearing findings as above. ACT 112: Negative or not required by law. The above report was generated using voice recognition software. It may contain grammatical, syntax o r spelling errors. Electronically signed by: Seb Cullen M.D. 06/03/2023 10:46 AM
[2023-06-03] MEDS: DAPTOmycin 300 MG in SYRINGE 0 ML IV SCH (11:06)
[2023-06-03] MEDS: ACETAMINOPHEN 1,000 MG/100 ML VIAL IV STA (11:06)
[2023-06-03] MEDS: SODIUM CHLORIDE 0.9% 1,000 ML IV SCH (11:06)
[2023-06-03 11:08] LABS: Basophils # (auto) 0.03 K/uL (0.00-0.20); Basophils % (auto) 0.3 %; Eosinophils # (auto) 0.07 K/uL (0.00-0.50); Eosinophils % (auto) 0.6 %; Hematocrit (blood only) 37.3 % (42.0-52.0); Hemoglobin 12.2 g/dl (14.0-18.0); Immature Granulocytes # (auto) 0.18 K/uL (0.01-0.20); Immature Granulocytes % (auto) 1.5 %; Lymphocytes # (auto) 0.78 K/uL (1.20-3.40); Lymphocytes % (auto) 6.6 %; Mean Corpuscular Hemoglobin 32.4 pg (25.0-34.0); Mean Corpuscular Hgb Conc 32.7 g/dL (32.0-36.0); Mean Corpuscular Volume 98.9 fL (80.0-100.0); Monocytes # (auto) 1.04 K/uL (0.11-0.59); Monocytes % (auto) 8.8 %; Neutrophils # (auto) 9.67 K/uL (1.40-6.50); Neutrophils % (auto) 82.2 %; Platelet Count 156 K/uL (130-400); RDW Coefficient of Variation 13.8 % (11.5-14.5); Red Blood Count 3.77 M/uL (4.70-6.10); White Blood Count 11.77 K/ul (4.8-10.8)
[2023-06-03 11:24] LABS: Albumin Globulin Ratio 1.6 (0.9-2); Albumin Level 3.5 gm/dl (3.4-5.0); BUN Creatinine Ratio 28.7 (10-20); Bilirubin,Total 0.8 mg/dl (0.2-1.0); C Reactive Protein 1.45 mg/dl (0-0.5); Calcium 9.2 mg/dl (8.6-10.3); Creatinine Clr Calc Pharmacy 53.6 ml/min; Est GFR (African American) 76.6 ml/min; Est GFR (Non-African American) 66.1 ml/min; Globulin 2.2 gm/dl (2.5-4.0); Magnesium 1.2 mg/dl (1.7-2.4); Total Protein 5.7 gm/dl (6.0-8.3)
[2023-06-03 11:35] LABS: Prothrombin Time 10.8 Seconds (9.0-12.0)
[2023-06-03] MEDS: PIPERACILLIN/TAZOBACTAM 4.5 GM/120 ML BAG IV ONE (11:36)
--- NOTE | 2023-06-03 12:36 | History & Physical Report ---
Date of Service June 03, 2023 Assessment & Plan (1) Cellulitis of right foot: Plan: -Admit to med/surge -Currently stable and non-toxic appearing -Presented to the ED at the recommendation of his PCP due to progressive right foot/mid leg cellulitis -It appears that the cellulitis occurred after the scabbed shingles sites on the foot partially opened over the past month due to drying and cracking -Patient is immunocompromised at baseline as he is on chronic prednisone and hydroxychloroquine therapy for PMR; also is a type 2 diabetic -Blood cultures obtained in the ED -Started on Daptomycin and Zosyn in the ED will continue both for now -Holding statin for now while on Dapto -Xray of the right foot was negative for signs of osseous involvement -Patient underwent BL arterial doppler of the LE's on 05/26/23 and was without significant stenosis -Will likely require a prolonged course of abx due to his immunocompromised state -PRN tylenol and morphine for pain -Wound care nurse consulted -SQ lovenox for DVT PPX -HH/DMII diet -AM CBC, CMP, mag (2) Hypomagnesemia: Plan: -Noted to be 1.2 on arrival -Is a chronic issue as he is on oral mag at home, also uses prn lasix for swelling -Ordered 2 bags of 1mg IV mag sulfate in the ED, will order an additional 4 bags to be given for a total of 6 mg -Potassium is stable -Monitor am mag level -Continue home oral mag (3) Wound of right foot: Plan: -See right foot cellulitis (4) Polymyalgia rheumatica: Plan: -Will continue prednisone and hydroxychloroquine for now (5) Hypertension: Plan: -Stable -Continue carvedilol (6) DMII (diabetes mellitus, type 2): Plan: -Monitor BSG ACHS, goal is 110-140 -Hold metformin and jardiance for now -Start CF 50 -Normally on 25 units degludec in the am and 30 units HS -Yonas start 20 units lantus BID for now -HH/DMII diet -Adjust regimen as needed (7) CKD (chronic kidney disease), stage III: Plan: -Stable (8) BPH (benign prostatic hyperplasia): Plan: -Continue tamsulosin and finasteride (9) Depression: Plan: -Continue venlafaxine Plan The patient was discussed with Dr. Flanagan at the time of the admission History of Present Illness Chief Complaint: Concern for LE wounds Primary Care Provider: Garrison Triplett DO Piña is an 88 yr old male with a PMH significant for T2DM, HTN, HLD, CKD stage III, PMR on chronic prednisone therapy, BPH, GERD, history of prostate cancer, and chronic BL LE wounds who presented to the [facility] ED on 06/03/23 due to concerns for progression of a RLE wound. He remained stable in the ED. Labs were significant for a leukocytosis of 11 with neutrophil predominance of 9, glucose of 229, mag of 1.2, CRP of 1.45, and negative procal. Xray of the right foot was read as "1. Diffuse soft tissue swelling without acute osseous abnormality. 2. Chronic appearing findings as above.". Prior to admission the patient was given 1gm IV mag sulfate, 1gm IV tylenol, 1L NSS, and a dose of both Zosyn and Daptomycin. At the time of the exam the patient was sitting in bed in no acute distress with his sister sitting bedside, history was obtained from both. The patient was recently treated for shingles infection on the right foot over the past 2 months. He was initially started on Doxycycline when he was A [facility] Patient but this did not improve the symptoms. He was seen by [facility] on 05/26, from the report they placed him on a course of increased prednisone and 5 days of Valtrex. The shingles infection has subsequently scabbed over, he confirmed he completed the course of prednisone and valtrex. He is on chronic prednisone and hydroxychloroquine for PMR. Over the past week he has noticed increased erythema, swelling, and pain of the right foot moving proximally into the right ankle. He saw Dr. Triplett yesterday, please see his note for detailed imaging, and was prescribed oral antibiotics. He was unable to pick the antibiotics up yesterday. Overnight he developed chills and uncontrolled RLE pain and called Dr. Triplett's office this am who instructed them to go to the ED. At this time his right foot pain is an 8/10. 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 He denies other wounds/rashes on other areas of his body. He is a full code and would want his daughter and sister to make medical decisions for him if he cannot make them himself. He denies recent chest pain, SOB, abd pain, nausea, vomiting, diarrhea, dysuria, hematuria, melena, and recent trauma. Please refer to Dr. Flanagan' attestation for any changes to the treatment plan Allergies Allergy/AdvReac Type Severity Reaction Status Date / Time pioglitazone [From Actos] Allergy Unknown Verified 06/02/23 09:23 sitagliptin [From Januvia] Allergy Unknown Verified 06/02/23 09:23 Home Medications Medication Instructions Recorded Confirmed Type finasteride 5 mg tablet (Proscar) 5 mg PO QAM 03/03/18 06/03/23 History tamsulosin 0.4 mg capsule (Flomax) 0.4 mg PO HS 03/03/18 06/03/23 History linagliptin 5 mg tablet 5 mg PO DAILY 01/12/19 06/03/23 History atorvastatin 40 mg tablet 40 mg PO QPM 11/23/19 06/03/23 History ferrous sulfate 325 mg (65 mg 325 mg PO DAILY #90 tabs 06/11/21 06/03/23 Rx iron) tablet magnesium chloride 64 mg 64 mg PO QAM 01/05/22 06/03/23 History (magnesium chloride) tablet,delayed release (Mag 64) denosumab 60 mg/mL subcutaneous 60 mg subcut .COMPLEX 01/14/23 06/03/23 History syringe (Prolia) hydroxychloroquine 200 mg tablet 200 mg PO QAM 01/14/23 06/03/23 History ropinirole 1 mg tablet 1 mg PO HS 01/14/23 06/03/23 History metformin 500 mg tablet 500 mg PO BID #60 tabs 01/18/23 06/03/23 Rx carvedilol 3.125 mg tablet 3.125 mg PO BID 30 days #60 tabs 05/04/23 06/03/23 Rx insulin degludec 100 unit/mL (3 See Rx Instructions subcut DAILY 05/04/23 06/03/23 Rx mL) subcutaneous pen (Tresiba #15 mL FlexTouch U-100 insulin) cholecalciferol (vitamin D3) 50 50 mcg PO QAM 06/03/23 06/03/23 History mcg (2,000 unit) tablet (Vitamin D3) famotidine 20 mg tablet 20 mg PO QAM 06/03/23 06/03/23 History furosemide 20 mg tablet 20 mg PO DAILY PRN Fluid Retention 06/03/23 06/03/23 History prednisone 2.5 mg tablet See Rx Instructions .Route .COMPLEX 06/03/23 06/03/23 History prednisone 5 mg tablet See Rx Instructions .Route .COMPLEX 06/03/23 06/03/23 History repaglinide 2 mg tablet 2 mg PO DAILY PRN DEPENDS ON FOOD 06/03/23 06/03/23 History EATEN venlafaxine 75 mg capsule,extended 75 mg PO QPM 06/03/23 06/03/23 History release 24 hr Past Med/Surg History Medical History (Updated 06/03/23 @ 13:26 by Avinash Duran PA-C) History of prostate cancer No pertinent family history Polymyalgia rheumatica Closed fracture of spinous process of thoracic vertebra Closed L3 vertebral fracture Depression GERD (gastroesophageal reflux disease) Hypertriglyceridemia BPH (benign prostatic hyperplasia) Lumbago CKD (chronic kidney disease), stage III DMII (diabetes mellitus, type 2) Hypertension Surgical History History of blepharoplasty L eye History of hernia surgery History of foot surgery R 4th Toe surgery H/O neck surgery Family History (Updated 05/05/23 @ 14:17 by Nicki Caldwell LPN) Mother Colorectal cancer Coronary heart disease Diabetes Brother Diabetes Kidney disease Colorectal cancer Prostate cancer Other No pertinent family history Social History (Updated 05/05/23 @ 16:14 by Nicki Caldwell LPN) Smoking Status: Former smoker Tobacco Type: Cigarettes Second Hand Exposure: No; Do You Dip or Chew Tobacco: No; Hx Alcohol Use: Yes (Rarely) Alcohol type: beer Alcohol Intake Frequency Comment: 1-2 beers monthly Hx Substance Use: No Preferred Language: Tamazight Communication Ability: Effective Wet Pan Mixer Required: No Beliefs That Will Affect Care: None marital status: / Current Living Situation: Alone current occupational status: retired Feels Safe at Home: Yes Childhood Exposure to Second-Hand Smoke: Yes Diet: low carbohydrate caffeine: Yes Dental Care, Regularly: Yes Seatbelt Use: always Assistive Devices: Cane and Glasses Physical Exam Physical Exam: Physical Exam: General: In no acute distress, stated age, well-nourished, good hygiene HEENT: Normocephalic, atraumatic, no scleral icterus, pupils around round, symmetrical, and reactive to light, moist mucus membranes, trachea midline, no thyromegaly Chest/Pulm: No respiratory distress, symmetrical chest expansion, clear breath sounds throughout Cardiac: RRR, no murmurs noted Abdomen: Negative for ascites and bruising, normoactive bowel sounds, soft, non-tender to palpation throughout Musculoskeletal: Symmetrical and without signs of acute trauma, upper and lower extremities with full ROM, no atrophy, spasticity, or flaccidity Extremities: Radial, dorsalis pedis, and posterior tibial pulses are intact and symmetrical, RLE with mild swelling and erythema over the right foot/ankle compared to left Skin: Patient with erythema and mild swelling extending from the distals right toes up to the mid mcdonald, scabbed lesions noted on the medial dorsal aspect of the right foot, 2nd-3rd toes, on the proximal ventral aspect of the right great toe, and the posterior right heel without signs of drainage, see pictures from PCP note on 06/02/23 Neuro: Alert and oriented to person, place, month, year, and president, no focal defects, no tremors noted Psych: No acute distress, calm and cooperative during the exam Results & Data Results & Data Vital Signs (Past 12 Hours) Vital Signs Temp Pulse Resp BP Pulse Ox O2 Del Method 06/03/23 11:04 74 06/03/23 11:01 69 23 97 Room Air 06/03/23 11:01 177/81 H 06/03/23 11:00 67 21 98 06/03/23 10:20 84 96 Room Air 06/03/23 09:40 36.1 C L 72 20 164/75 H 95 Room Air Laboratory Results Abnormal lab results 06/03/23 06/03/23 Range/Units 10:40 12:24 WBC 11.77 H (4.8-10.8) K/ul RBC 3.77 L (4.70-6.10) M/uL Hgb 12.2 L (14.0-18.0) g/dl Hct 37.3 L (42.0-52.0) % RDW Std Deviation 47.0 H (36.4-46.3) fL Neut # (Auto) 9.67 H (1.40-6.50) K/uL Lymph # (Auto) 0.78 L (1.20-3.40) K/uL Gem # (Auto) 1.04 H (0.11-0.59) K/uL BUN 29 H (6-23) mg/dl BUN/Creatinine Ratio 28.7 H (10-20) Glucose 229 H (70-99(Fasting)) mg/dl Magnesium 1.2 L (1.7-2.4) mg/dl C-Reactive Protein 1.45 H (0-0.5) mg/dl Total Protein 5.7 L (6.0-8.3) gm/dl Globulin 2.2 L (2.5-4.0) gm/dl Urine Protein 1+ H (Negative) Urine Blood Trace H (Negative) Diagnostic Findings Foot X-Ray 06/03/23 10:13 XR foot RT 2V HISTORY: 88 years-old Male cellulitis acute pain and swelling of the right foot COMPARISON: None TECHNIQUE: 2 views of the right foot FINDINGS: Arterial calcifications. Sclerotic focus of the first proximal phalanx suggestive of a probable bone island. Chronic appearing deformities of the fourth and fifth proximal phalanges with severe joint space narrowing of the second through fourth DIP joints. Mild diffuse soft tissue swelling. There is no acute fracture, dislocation or osseous erosion identified. Spurring of the calcaneus. IMPRESSION: 1. Diffuse soft tissue swelling without acute osseous abnormality. 2. Chronic appearing findings as above. ACT 112: Negative or not required by law. The above report was generated using voice recognition software. It may contain grammatical, syntax or spelling errors. Electronically signed by: Seb Cullen M.D. 06/03/2023 10:46 AM ECG Additional Comments: Poor data quality, interpretation may be adversely affected Sinus rhythm with 1st degree A-V block Right bundle branch block Left anterior fascicular block Bifascicular block Minimal voltage criteria for LVH, may be normal variant ( R in aVL ) Possible Lateral infarct , age undetermined Cannot rule out Inferior infarct (masked by fascicular block?) , age undetermined Abnormal ECG When compared with ECG of 02-DEC-2019 10:44, ... Code Status & VTE Plan Code Status Full code VTE Prophylaxis Plan VTE Prophylaxis will be ordered: Yes Supervising Physician Co-Signing Physician Notes I have personally seen, evaluated and examined the patient. I have also personally discussed the management of the patient with the resident physician/LIGIA and I agree with the exam findings documented in the history and physical examination and the documented assessment and plan unless otherwise st ated below. Brief Exam: In general is a pleasant 88-year-old male who is alert and oriented x 3 at the time my exam he is accompanied by his sister at the time of my examination he interacts appropriately pleasantly. HEENT: Normocephalic atraumatic. Heart: Regular rate and rhythm no rosa murmur or ectopy or rub. Lungs: Clear bilaterally. Abdomen: Soft and nontender with positive bowel sounds. Neurologically: No focal deficit. Extremities: Erythematous right foot extending proximally to the level of the ankle bilaterally. Consistent with acute cellulitis which is superimposed from subacute herpes zoster infection. Pulses are detectable by Doppler bilaterally dorsalis pedis. Assessment/plan: As described above. Please refer to orders for further planning. Anticipate probable at least 48 hours of IV antibiotic therapy if improvement transition over to oral antibiotic therapy for completion of course. PG Care Time/CCT Total # of Minutes Spent Total Time Spent with Patient: Total time spent is greater than 50% in coordination of care (as documented) at patient's floor/unit and/or counseling patient: Coding [place] [address] INT INP/OBS CARE 3/75MIN Patient Type Established Medical Decision Making High Complexity Diagnoses Cellulitis of right foot L03.115 Hypomagnesemia E83.42 Wound of right foot S91.301A Polymyalgia rheumatica M35.3 Hypertension I10 DMII (diabetes mellitus, type 2) E11.9 CKD (chronic kidney disease), stage III N18.3 BPH (benign prostatic hyperplasia) N40.0 Depression F32.9
[2023-06-03] MEDS: MAGNESIUM SULFATE / D5W 1 GM/100 ML BAG IV SCH ×2 (12:48→14:44)
[2023-06-03] MEDS ORDERED: GLUCOSE 40% GEL 15 GM TUBE PO PRN (13:16)
[2023-06-03] MEDS ORDERED: GLUCAGON FOR INJ 1 MG VIAL SQ PRN (13:16)
[2023-06-03] MEDS ORDERED: DEXTROSE 50% 50 ML SYRINGE IV PRN (13:16)
[2023-06-03] MEDS ORDERED: GLUCOSE 10 TAB/TUBE PO PRN (13:16)
[2023-06-03] MEDS ORDERED: CARBOHYDRATES FOR HYPOGLYCEMIA PO PRN (13:16)
[2023-06-03 13:20] LABS: Appearance Urine Clear (Clear); Bacteria Urine Automated Negative (Negative); Bilirubin Urine Negative (Negative); Blood Urine Trace (Negative); Cast Urine Automated 0 /lpf (0-5); Color Urine Yellow; Epithelial Cell Urine Auto 0-5 /lpf (0-5); Glucose Urine UA Negative (Negative); Ketones Urine Negative (Negative); Leukocyte Esterase Urine Negative (Negative); Nitrite Urine Negative (Negative); Protein Urine 1+ (Negative); RBC Urine Automated 0-4 /hpf (0-4); Specific Gravity Urine 1.011 (1.000-1.030); Urobilinogen Urine Negative (Negative); WBC Urine Automated 0 /hpf (0-5)
[2023-06-03] MEDS: PIPERACILLIN/TAZOBACTAM 4.5 GM/100 ML BAG IV ONE (13:33)
[2023-06-03] MEDS: ENOXAPARIN INJ 40 MG/0.4 ML SYR SQ SCH (14:45)
--- NOTE | 2023-06-03 16:52 | Electrocardiogram Report ---
Test Reason : Blood Pressure : / mmHG Vent. Rate : 064 BPM Atrial Rate : 064 BPM P-R Int : 234 ms QRS Dur : 142 ms QT Int : 430 ms P-R-T Axes : -05 -59 069 degrees QTc Int : 443 ms Poor data quality, interpretation may be adversely affected Sinus rhythm with 1st degree A-V block Right bundle branch block Left anterior fascicular block Bifascicular block Minimal voltage criteria for LVH, may be normal variant Abnormal ECG When compared with ECG of 02-DEC-2019 10:44, Premature atrial complexes are no longer Present (RBBB and left anterior fascicular block) is now Present Confirmed by Luis Carnes ([id number]) on 06/03/2023 4:52:08 PM Referred By: Garrison Triplett Confirmed By:Jeremy Carnes
[2023-06-03] MEDS: INSULIN ASPART PER UNIT CHARGE SC SCH (18:43)
[2023-06-03] MEDS: MoRPHine SULFATE 2 MG/ML CARP IV PRN (19:07)
[2023-06-03] MEDS: PIPERACILLIN/TAZOBACTAM 4.5 GM in DEXTROSE 5% MINI-B 100 ML IV SCH (19:14)
[2023-06-03] MEDS: carvediloL 3.125 MG TAB PO SCH (19:27)
[2023-06-03] MEDS: VENLAFAXINE HCL XR 75 MG CAPXR PO SCH (19:27)
[2023-06-03] MEDS: TAMSULOSIN HCL 0.4 MG CAP PO SCH (19:27)
[2023-06-03] MEDS: rOPINIRole HCL 1 MG TABLET PO SCH (19:28)
[2023-06-03] MEDS: ACETAMINOPHEN 325 MG TAB PO PRN (20:57)
[2023-06-03] MEDS: LANTUS PER UNIT CHARGE SQ SCH (21:05)
--- OUTSIDE RECORDS SUMMARY | 2023-06-04 06:26 | External Medical Summary | Summary of Care ---
Author Name Unknown Organization [facility] Address [address] [place] [address] Phone [phone] Care Team Providers Care Childhood Development Teacher Name Role Phone Austen Rico MD Primary Care P rovider Encounter Details Date Type Department Care Team (Latest Contact Info) Description 05/26/2023 2:20 PM EST - 05/26/2023 11:59 PM EST Hospital Encounter Radiology Film File [address] [place] [address] Discharge Disposition: Home - Self Care Allergies Active Allergy Reactions Criticality Noted Date Comments Pioglitazone Edema Other 05/01/2015 Sitagliptin Abdominal pain 05/05/2015 Dizziness and stomach upset documented as of this encounter (statuses as of 06/02/2023) Medications Medication Sig Dispensed Refills Start Date End Date Status OneTouch Verio w/Device KitIndications:Type 2 diabetes mellitus with hemoglobin A1c goal of less than 8.0% ([facility]) Use as directed. Use to test blood sugars 2 time daily e11.9 substitution allowed if needed 1 Kit 1 04/10/2020 Active Magnesium Chloride 64 MG Oral Tablet Delayed Release (Mag64) TAKE 2 TABLETS BY MOUTH TWICE DAILY. 360 Tablet 1 02/18/2021 Active Additional Information Patient taking differently: TAKE 1 TABLETS BY MOUTH TWICE DAILY., Reported on 04/09/2022 Denosumab 60 MG/ML Subcutaneous Solution Prefilled Syringe (Prolia) Inject 60 mg under the skin once. 0 Active Tamsulosin HCl 0.4 MG Oral Capsule (Flomax) Take 1 Capsule by mouth in the morning. 0 Active Iron 325 (65 Fe) MG Oral TabletIndications:I maria elena deficiency anemia, unspecified iron deficiency anemia type Take 1 Tablet by mouth in the morning. 90 Tablet 3 05/21/2022 Active Baclofen 10 MG Oral Tablet (Lioresal) Take 1 Tablet by mouth 3 times a day as needed. 0 Active prednisoLONE Acetate 0.12 % Ophthalmic Suspension (Pred Mild) 0 Active OneTouch Delica Plus [id number] use to check blood sugar three daily DX E11.9 - pt on insulin 300 Each 3 07/12/2022 Active OneTouch Verio In Vitro Strip (Glucose Blood)Indications:T ype 2 diabetes mellitus with hemoglobin A1c goal of less than 8.0% ([facility]) Use to check blood sugars 4 times daily DX code E11.9 400 Strip 3 07/28/2022 Active Finasteride 5 MG Oral Tablet (Proscar) Take 1 Tablet by mouth in the morning. 90 Tablet 3 08/02/2022 Active linaGLIPtin 5 MG Oral Tablet (Tradjenta) Take 1 Tablet by mouth in the morning. 100 Tablet 3 09/07/2022 Active Carvedilol 3.125 MG Oral Tablet (Coreg)Indications: HTN, goal below 140/90 Take 1 Tablet by mouth in the morning and 1 Tablet before bedtime. 204 Tablet 3 09/10/2022 Active rOPINIRole HCl 1 MG Oral TabletIndications:R estless legs syndrome Take 1 Tablet by mouth at bedtime. With food. 90 Tablet 3 09/29/2022 Active Meclizine HCl 25 MG Oral Tablet (Antivert)Indicatio ns:Dizziness Take 1 Tablet by mouth 3 times a day as needed for Dizziness. 30 Tablet 0 10/08/2022 Active metroNIDAZOLE 0.75 % External Gel (Metrogel) Apply to the face twice daily as needed. 45 g 3 10/14/2022 Active Vitamin D3 50 MCG (1999 UT) Oral Capsule Take 1 Capsule by mouth in the morning. 0 Active Atorvastatin Calcium 40 MG Oral Tablet (Lipitor) TAKE 1 TABLET BY MOUTH IN THE MORNING 90 Tablet 3 12/08/2022 Active predniSONE 5 MG Oral Tablet (Deltasone)Indicati ons:PMR (polymyalgia rheumatica) ([facility]) TAKE 1 TABLET BY MOUTH DAILY COMBINE WITH 2.5 MG TABLET FOR TOTAL OF 7.5 MG DAILY 90 Tablet 1 03/18/2023 Active Venlafaxine HCl ER 75 MG Oral Capsule Extended Release 24 Hour (Effexor XR) Take 1 Capsule by mouth at bedtime. 90 Capsule 1 03/18/2023 Active metFORMIN HCl 500 MG Oral Tablet (Glucophage) Take 1 Tablet by mouth 2 times a day with morning and evening meals. 200 Tablet 3 03/18/2023 Active Famotidine 20 MG Oral Tablet (Pepcid)Indications :Gastroesophageal reflux disease, unspecified whether esophagitis present Take 1 Tablet by mouth in the morning and 1 Tablet before bedtime. 60 Tablet 11 03/22/2023 Active BD Pen Needle Ramya U/F 32G X 4 MM (Insulin Pen Needle) use to inject tresiba twice daily 200 Each 3 04/13/2023 Active Tresiba FlexTouch 100 UNIT/ML Subcutaneous Solution Pen-injector (Insulin Degludec)Indication s:Type 2 diabetes mellitus with hemoglobin A1c goal of less than 8.0% (HCC) inject 30 units in the MORNING and 20 units at EVENING meal DOSE INCREASE - DX E11.9 90 mL 3 04/20/2023 Active predniSONE 2.5 MG Oral Tablet (Deltasone)Indicati ons:PMR (polymyalgia rheumatica) (HCC) TAKE 1 TABLET BY MOUTH DAILY WITH 5MG TABLET FOR TOTAL OF 7.5MG DAILY 90 Tablet 3 04/27/2023 Active Hydroxychloroquine Sulfate 200 MG Oral Tablet (Plaquenil)Indicati ons:PMR (polymyalgia rheumatica) ([facility]) TAKE 1 TABLET BY MOUTH IN THE MORNING 90 Tablet 3 04/27/2023 Active documented as of this encounter (statuses as of 06/02/2023) Active Problems Problem Noted Date Diagnosed Date Hypertriglyceridemia 10/07/2022 Orthostatic hypertension 10/07/2022 Chronic heart failure with preserved ejection fr action 07/07/2022 Diastolic dysfunction, left ventricle 07/07/2022 Current chronic use of systemic steroids 023 Polyneuropathy associated with underlying diseas e 06/04/2022 Chronic bilateral low back pain without sciatica 04/09/2022 History of foot surgery 09/18/2021 History of hernia repair 09/18/2021 History of neck surgery 09/18/2021 Diabetic peripheral neuropathy 08/14/2021 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, with long-term current use of insulin 08/14/2021 Chronic kidney disease, stage 3b 02/16/2021 Overview: Per CKD protocol Hypertension associated with stage 3b chronic kidney disease due to type 2 diabetes mellitus 08/19/2020 Overview: Per CKD protocol Type 2 diabetes mellitus wit h hemoglobin A1c goal of less than 8.0% 06/19/2018 PMR (polymyalgia rheumatica) 04/21/2018 H/O prostate cancer 01/02/2018 Dyslipidemia, goal LDL below 130 01/02/2018 HTN, goal below 140/90 11/07/2017 Calcium pyrophosphate deposition disease 018 documented as of this encounter (statuses as of 06/02/2023) Resolved Problems Problem Noted Date Diagnosed Date Resolved Date Stage 3a chronic kidney disease 06/04/2022 06/23/2022 BPH (benign prostatic hyperplasia) 12/27/2018 09/18/2021 Hypertension associated with stage 3 chronic kidney disease due to type 2 diabetes mellitus 03/21/2018 08/21/2020 Overview: Per CKD protocol Closed fracture of third lumbar vertebra 03/21/2018 01/06/2022 CKD (chronic kidney disease), stage III 08/26/2017 06/20/2018 No diabetic retinopathy in both eyes 05/06/2015 10/16/2018 Overview: Eye exam 04/01/15 documented as of this encounter (statuses as of 06/02/2023) Immunizations Name Administration Dates Next Due COVID-19 mRNA, LNP-s, No Pre serve, 2-Dose Series (Moderna) 07/20/2021,06/22/2021 Covid-19, Mrna, Lnp-s, Pf, B ivalent, 30 Mcg, IM, 12 yrs and above (Pfizer) 01/15/2022 Pneumococcal Conjugate Vacc, 13 Valent (Prevnar) 03/12/2016 Pneumococcal Polysaccharide PPV23 (Pneumovax) 03/04/2018,05/25/2007,05/06/2000 Season Influenza, Quad, PF, Adjuvanted, 65+ Yrs, IM (FLUAD) 02/08/2020 Seasonal Influenza Virus Vac cine, Unspecified Formulation 12/15/2018,02/24/2018,02/17/2017,01/14 Seasonal Influenza, PF, 6 M & above, IM , (FluLaval or Fluzone) 02/24/2018 Seasonal Influenza, QUAD, wi th Preserv, 6 mons & Above, 0.5 mL, IM 02/17/2017 Seasonal Influenza, Quadriva lent Hd (Fluzone Hd) 02/09/2023,01/06/2022,02/02/2021 Seasonal Influenza, Split, I IV3, With Preserve, Inj 02/24/2018,02/17/2017,01/14/2015,01/21 Seasonal Influenza, Trivalen t, Adjuvanted, 65+ yrs 12/15/2018 TDAP (age 10 and older)(Boostrix) 01/26/2020 documented as of this encounter Social History Tobacco Use Types Packs/Day Years Used Date Smoking Tobacco: Former Smokeless Tobacco: Never Alcohol Use Standard Drinks/Week Comments Yes 0 (1 standard drink = 0.6 oz pur e alcohol) occasional beer or whiskey PHQ-2 Answer Date Recorded PHQ Adult Total Score 0 01/06/2022 Hunger Vital Sign Answer Date Recorded Worried About Running Out of Food in the Last Ye ar Never true 05/25/2019 Ran Out of Food in the Last Year Never true 05/25/2019 Sex and Gender Information Value Date Recorded Sex Assigned at Male 11/20/2018 10:00 AM EDT Gender Identity Male 11/20/2018 10:00 AM EDT Sexual Orientation Straight 02/08/2022 8: 24 AM EDT Job Start Date Occupation Industry Not on file Not on file Not on file documented as of this encounter Plan of Treatment Upcoming Encounters Date Type Department Care Team (Latest Contact Info) Description 06/09/2023 1:25 PM EST Hospital Encounter OR [facility], Operating Room [facility] [address] [place] [phone] Robert Goodman DO [address] [place] [phone] 06/09/2023 1:25 PM EST - 06/09/2023 1:50 PM EST Surgery OR [facility], Operating Room [facility] [address] [place] [phone] Robert Goodman, DO [address] [place] [phone] INJECTION SPINE LUMBAR OR SACRAL 06/10/2023 9:00 AM EST Office Visit Cardiology, [facility] [address] [place] [address] Torrie Hallman CRNP [address] [place] [phone] 06/15/2023 1:50 PM EST Office Visit Vascular Surgery, [facility] [address] [place] [phone] Ean Fernandes MD [address] [place] [address] 06/16/2023 12:45 PM EST Office Visit Orthopaedics [address] [place] [address] Wai Hill, DO [address] [facility] [place] [address] Scheduled Procedures Name Priority Associated Diagnoses Date/Ti me INJECTION SPINE LUMBAR OR SACRAL Spinal stenosis of lumbar region with neurogenic claudication 06/09/2023 1:25 PM EST Health Maintenance Due Date Last Done Comments Zoster Vaccines (1 of 2) 1954 COVID-19 Vaccine ( season) 2022 01/15/2022, 07/20/2021, 06/22/2021 CKD HGB USE SMARTSET 07441 05/17/202305/17, 12/30/2021, 12/30/2021, Additional history exists Albumin/Creatinine Ratio 07/20/2023 042 023, 12/30/2021, 06/11/2021, Additional history exists HbA1c 09/10/2023 03/11/2023, 08/0 04/2022, 07/19/2022, Additional history exists CKD PHOS USE SMARTSET 80980 01/12/2024 10/0 06/2022, 07/07/2022, 11/12/2020, Additional history exists Depression Screening 02/10/2024 02/09/2023 Diabetic Eye Exam 03/25/2024 03/25/2023, , 02/25/2023, Additional history exists Diabetic Foot Exam 05/19/2024 05/19/2023, 0 06/04/2022, 06/11/2021, Additional history exists DTaP,Tdap,and Td Vaccines (3 - Td or Tdap) 01/25/2030 01/26/2020, 11/23/2019 (Declined) Pneumococcal Vaccine: 65+ Years Completed 03/04/2018, 03/12/2016, 05/25/2007, Additional history exists Influenza Vaccine (FLU shot) Completed 04/2022, 01/06/2022, 02/02/2021, Additional history exists GARDASIL-HPV IMMUNIZATION SERIES Aged Out No longer eligible based on patient's age to complete this topic Hepatitis B Aged Out No longer eligi ble based on patient's age to complete this topic MENINGOCOCCAL (MENACTRA/MENVEO) Aged Out No longer eligible based on patient's age to complete this topic documented as of this encounter Medical Devices Not on filedocumented as of this encounter Procedures Procedure Name Priority Date/Time Associated Diagnosis Comments RADIOLOGY EXAM - US (IMAGES ONLY, NO REPORT) Routine 05/26/2023 2:20 PM EST documented in this encounter Results * RADIOLOGY EXAM - US (IMAGES ONLY, NO REPORT) (05/26/2023 2:20 PM EST) 05/26/2023 2:17 PM EST Narrative Scheduling, Silent - 06/01/2023 12:35 PM EST This is an imaging study not interpreted or resulted by a [facility] or [facility] contracted radiologist. Ean Fernandes MD RAD ULTRASOUND documented in this encounter Care Teams Childhood Development Teacher Relationship Specialty Start Date End Date Austen Rico MD [address] [place] [address] PCP - General Family Medicine 09/18/21 documented as of this encounter
[2023-06-04 06:30] LABS: Basophils # (auto) 0.05 K/uL (0.00-0.20); Basophils % (auto) 0.5 %; Eosinophils # (auto) 0.11 K/uL (0.00-0.50); Hematocrit (blood only) 36.1 % (42.0-52.0); Immature Granulocytes # (auto) 0.11 K/uL (0.01-0.20); Lymphocytes # (auto) 1.22 K/uL (1.20-3.40); Lymphocytes % (auto) 11.4 %; Mean Corpuscular Hemoglobin 32.3 pg (25.0-34.0); Mean Corpuscular Hgb Conc 33.2 g/dL (32.0-36.0); Mean Platelet Volume 10.9 fL (9.4-12.4); Monocytes # (auto) 1.02 K/uL (0.11-0.59); Monocytes % (auto) 9.5 %; Neutrophils # (auto) 8.22 K/uL (1.40-6.50); Neutrophils % (auto) 76.6 %; Platelet Count 150 K/uL (130-400); RDW Standard Deviation 48.3 fL (36.4-46.3); Red Blood Count 3.72 M/uL (4.70-6.10); White Blood Count 10.73 K/ul (4.8-10.8)
[2023-06-04 06:56] LABS: Prothrombin Time 10.7 Seconds (9.0-12.0)
[2023-06-04 07:02] LABS: Albumin Globulin Ratio 1.4 (0.9-2); Albumin Level 3.2 gm/dl (3.4-5.0); BUN Creatinine Ratio 17.1 (10-20); Bilirubin,Total 0.9 mg/dl (0.2-1.0); Calcium 8.9 mg/dl (8.6-10.3); Est GFR (African American) 60.4 ml/min; Est GFR (Non-African American) 52.1 ml/min; Globulin 2.3 gm/dl (2.5-4.0); Magnesium 1.8 mg/dl (1.7-2.4); Potassium 3.9 mmol/L (3.5-5.1); Total Protein 5.5 gm/dl (6.0-8.3)
[2023-06-04] MEDS: HYDROXYCHLOROQUINE SULFATE 200 MG TAB PO SCH (08:15)
[2023-06-04] MEDS: FAMOTIDINE 20 MG TAB PO SCH (08:16)
[2023-06-04] MEDS: MAGNESIUM CHLORIDE W/CALCIUM 64MG DELAYED REL TAB PO SCH (08:16)
[2023-06-04] MEDS: FERROUS SULFATE 325 MG TAB PO SCH (08:16)
[2023-06-04] MEDS: FINASTERIDE 5 MG TAB PO SCH (08:16)
--- NOTE | 2023-06-04 08:31 | Hospitalist Progress Note ---
Date of Service June 04, 2023 Assessment & Plan (1) Cellulitis of right foot: Plan: Admitted for progressive/worsening cellulitis of his RIGHT foot. Apparently was sent at recommendation of PCP however confusing history on admission as suspected sent by [facility] and there is a communication note to take patient to ER on 06/03 from a Sinai Ramos from physician group. At that time it appears was most recently completed course of Doxycycline PO as well as valtrex and prednisone for suspected shingles and then was seen again by Dr Triplett on 06/02 and given rx for Augmentin and Bactrim and worsened by 06/03 prompting bringing him into the ER Immunocompromised at baseline on prednisone and plaquenil for PMR, DM II. Placing further Plaquenil on hold given current infection/prolonged healing Apparently underwent b/l arterial doppler of the LE's on 05/26/23 and was without significant stenosis , HOWEVER report states calf vessels not well assessed 2nd to significant atherosclerotic plaque Appears patient w/ baseline neuropathy, B12 added to AM labs, and denied tr auma, however has an opening the bottom of his RIGHT big toe in region where cellulitis reportedly started Xray soft tissue edema/no acute fracture WBC 11k w/ L shift on admit however is on predniosne at baseline, normalized on repeat ESR 11, CRP 1.45 Blood cultures obtained on admission, however notable patient has been on significant course of antibiotics outpatient Placed on Dapto/Zosyn -- continued. Statin held while on dapto. UA w/ blood/ketones but no RBC, added CK to am labs but did get 1L NSS bolus on admission in ER as well WBC normalized on repeat In light of significant antibiotic use/prolonged cellulitis and concerns for more underlying infection will obtain MRI foot for further evaluation/consider orthopedics consult if needed (did discuss possible need for consult w/ Dr Morales this afternoon). Ortho agrees on recs for MRI but will need to consult podiatry as he does not operate on foot. Will f/u mri results when available Wound RN consulted Pain control -- ordered tylenol/morphine however no oral pain option available and added oxycodone for longer lasting control and will monitor DVT proph: lovenox SQ added Check uric acid given started in big toe, lyme Monitor labs/exam on repeat (2) Hypomagnesemia: Plan: 1.2 on arrival with IV replacement ordered for total 6gm and repeat 1.8 ?unclear cause, is on PO mag at home and prn lasix for swelling Monitor on repeat for stability (3) Wound of right foot: Plan: See above - suspect started from opening to plantar aspect of his R foot given description of redness/travell Prior imaging w/ venous doppler RLE in January for RLE edema w/ 2.92cm odell perficial thrombophlebitis within proximal calf varices. No evidence for DVT at that time Duplex LW arterial study 05/26/23 IMPRESSION: 1. Atherosclerotic plaque is seen throughout both legs as above. There is no sonographic evidence of high-grade stenosis or focal vessel cutoff in either leg. 2. Note that the calf arteries were not well assessed due to significant calcified atherosclerotic plaque. 3. Ankle brachial indices and toe brachial indices as above. Monitor MRI results, considering podiatry vs vascular consult pending imaging results B12 to AM labs ?up to date on tetanus (4) Polymyalgia rheumatica: Plan: Will continue prednisone will hold Plaquenil for now given infection/poor wound healing pt ot consults will be undertaken at some point as well monitor (5) Hypertension: Plan: Stable Continue carvedilol (6) DMII (diabetes mellitus, type 2): Plan: Last A1c 9.6 in 2019, will add to AM labs Home metformin/jardiance on hold Suspect recent elevations in BSGs at home due to increased prednisone use w/ his valtrex for shingles POC 100 on most recent check -- continue lantus 20u BID for now/SSI and monitor (7) CKD (chronic kidney disease), stage III: Plan: -Stable (8) BPH (benign prostatic hyperplasia): Plan: -Continue tamsulosin and finasteride (9) Depression: Plan: -Continue venlafaxine , mood stable at present Recent meds outpatient reviewed given reports of possible shingles and seen by Tip Cementer in [place] -- Rx for valacyclovir on 05/23 by Mariajose Rivera -- Rx Doxy PO 05/19/[address] Singer w/ [facility]? after rx for keflex by Dr Triplett on 05/04/23. Did confirm did get both of these however not clear who he plans on following up with at discharge but should be clarified prior to dc -- Rx Prednisone 50mg x 5 days on 05/22 by Austen Ny -- Rx carvedilol 05/22 by Torrie Miller Plan continued inpatient stay, f/u MRI foot results Admission and Anticipated Discharge Date Admission Date: June 03, 2023 Supervising Physician Co-Signing Physician Notes The patient was not seen by me. The chart was reviewed. Case discussed with [place]. Agree with assessment and plan Subjective Eval this morning, reports pain a little better but doesn't think the redness is much improved. Discussed PO pain control. He notes the pain/redness started in big toe and spread w/ darkened streak up his foot. Has had scab for about past 2 months, reports has not picked at the scab at all. He notes no prior trauma to this area. He notes they had prior told him he had shingles and did see a skin doctor he thinks in [place] and was given some pills to take but unsure of what they were. Will look into fill history. Discussed will obtain MRI for further eval underlying osteo as well. No fever/chills, chest pain, shortness of breath. Has some nausea from when he has pain but no vomiting. Physical Exam Physical Exam: General: 88yo male sitting up in bed, NAD, general pallor Head atraumatic, normocephalic, mmm, trachea midline Resp: even/unlabored, no cough, no w/c/r, on room air CV: RRR, no significant murmur/faint?, no r/g, trace pedal edema w/ cellulitis to RLE but no significant pitting edema, pulses diminished but present GI: +BS, soft/NT no cantrell MSK/Neuro/skin: RLE: RIGHT FOOT:+erythema/swelling, +wamrth from RIGHT first toe up to mid ankle/mcdonald (reports redness about the same but improvement in pain), multiple scab lesions/eschar to dorsum of foot, distal scab to tip of 3rd toe, eschar to pip of 2nd digit dorsal aspect also has approx 2-3 cm opening to plantar aspect of his R hallux, no active drainage appreciated. small thin opening to heel on the right, two open cracked areas to his L heel as well cap refill ~3 seconds, toes mobile +neuropathy b/l LE Psych: AOX3, cooperative but not the best historian with regards to specific providers and recent medications Results & Data Results & Data Vital Signs (Past 12 Hours) Vital Signs Temp Pulse Resp BP Pulse Ox O2 Del Method 06/04/23 07:10 36.8 C 66 16 180/70 H 94 Room Air Laboratory Results 06/04/23 06/04/23 06/04/23 Range/Units 13:02 12:26 07:45 WBC (4.8-10.8) K/ul RBC (4.70-6.10) M/uL Hgb (14.0-18.0) g/dl Hct (42.0-52.0) % MCV (80.0-100.0) fL MCH (25.0-34.0) pg MCHC (32.0-36.0) g/dL RDW Std Deviation (36.4-46.3) fL RDW Coeff of Aleja (11.5-14.5) % Plt Count (130-400) K/uL MPV (9.4-12.4) fL Immature Gran % (Auto) % Neut % (Auto) % Lymph % (Auto) % [place] % (Auto) % Eos % (Auto) % Baso % (Auto) % Neut # (Auto) (1.40-6.50) K/uL Lymph # (Auto) (1.20-3.40) K/uL [place] # (Auto) (0.11-0.59) K/uL Eos # (Auto) (0.00-0.50) K/uL Baso # (Auto) (0.00-0.20) K/uL Immature Gran # (Auto) (0.01-0.20) K/uL PT (9.0-12.0) Seconds INR (0.9-1.1) Sodium (136-145) mmol/L Potassium (3.5-5.1) mmol/L Chloride (98-107) mmol/L Carbon Dioxide (21-32) mmol/L Anion Gap (3-11) BUN (6-23) mg/dl Creatinine (0.6-1.4) mg/dl Est Cr Clr Drug Dosing ml/min Est GFR ( Amer) ml/min Est GFR (Non-Af Amer) ml/min BUN/Creatinine Ratio (10-20) Glucose (70-99(Fasting)) mg/dl POC Glucose 100 H 105 H (70-99) mg/dl Uric Acid 4.1 (2.6-7.2) mg/dl Calcium (8.6-10.3) mg/dl Magnesium (1.7-2.4) mg/dl Total Bilirubin (0.2-1.0) mg/dl AST (13-39) U/L ALT (7-52) U/L Alkaline Phosphatase (34-104) U/L Total Protein (6.0-8.3) gm/dl Albumin (3.4-5.0) gm/dl Globulin (2.5-4.0) gm/dl Albumin/Globulin Ratio (0.9-2) Lyme Disease Screen Negative (Negative) 06/04/23 06/03/23 06/03/23 Range/Units 05:57 20:57 16:49 WBC 10.73 (4.8-10.8) K/ul RBC 3.72 L (4.70-6.10) M/uL Hgb 12.0 L (14.0-18.0) g/dl Hct 36.1 L (42.0-52.0) % MCV 97.0 (80.0-100.0) fL MCH 32.3 (25.0-34.0) pg MCHC 33.2 (32.0-36.0) g/dL RDW Std Deviation 48.3 H (36.4-46.3) fL RDW Coeff of Aleja 14.0 (11.5-14.5) % Plt Count 150 (130-400) K/uL MPV 10.9 (9.4-12.4) fL Immature Gran % (Auto) 1.0 % Neut % (Auto) 76.6 % Lymph % (Auto) 11.4 % [place] % (Auto) 9.5 % Eos % (Auto) 1.0 % Baso % (Auto) 0.5 % Neut # (Auto) 8.22 H (1.40-6.50) K/uL Lymph # (Auto) 1.22 (1.20-3.40) K/uL [place] # (Auto) 1.02 H (0.11-0.59) K/uL Eos # (Auto) 0.11 (0.00-0.50) K/uL Baso # (Auto) 0.05 (0.00-0.20) K/uL Immature Gran # (Auto) 0.11 (0.01-0.20) K/uL PT 10.7 (9.0-12.0) Seconds INR 1.0 (0.9-1.1) Sodium 137 (136-145) mmol/L Potassium 3.9 (3.5-5.1) mmol/L Chloride 104 (98-107) mmol/L Carbon Dioxide 27 (21-32) mmol/L Anion Gap 6 (3-11) BUN 21 (6-23) mg/dl Creatinine 1.23 (0.6-1.4) mg/dl Est Cr Clr Drug Dosing 44.0 ml/min Est GFR ( Amer) 60.4 ml/min Est GFR (Non-Af Amer) 52.1 ml/min BUN/Creatinine Ratio 17.1 (10-20) Glucose 141 H (70-99(Fasting)) mg/dl POC Glucose 95 70 (70-99) mg/dl Uric Acid (2.6-7.2) mg/dl Calcium 8.9 (8.6-10.3) mg/dl Magnesium 1.8 (1.7-2.4) mg/dl Total Bilirubin 0.9 (0.2-1.0) mg/dl AST 21 (13-39) U/L ALT 13 (7-52) U/L Alkaline Phosphatase 54 (34-104) U/L Total Protein 5.5 L (6.0-8.3) gm/dl Albumin 3.2 L (3.4-5.0) gm/dl Globulin 2.3 L (2.5-4.0) gm/dl Albumin/Globulin Ratio 1.4 (0.9-2) Lyme Disease Screen (Negative) Diagnostic Findings Foot X-Ray 06/03/23 10:13 XR foot RT 2V HISTORY: 88 years-old Male cellulitis acute pain and swelling of the right foot COMPARISON: None TECHNIQUE: 2 views of the right foot FINDINGS: Arterial calcifications. Sclerotic focus of the first proximal phalanx suggestive of a probable bone island. Chronic appearing deformities of the fourth and fifth proximal phalanges with severe joint space narrowing of the second through fourth DIP joints. Mild diffuse soft tissue swelling. There is no acute fracture, dislocation or osseous erosion identified. Spurring of the calcaneus. IMPRESSION: 1. Diffuse soft tissue swelling without acute osseous abnormality. 2. Chronic appearing findings as above. ACT 112: Negative or not required by law. The above report was generated using voice recognition software. It may contain grammatical, syntax or spelling errors. Electronically signed by: Seb Cullen M.D. 06/03/2023 10:46 AM PG Care Time/CCT Total # of Minutes Spent Total Time Spent with Patient: Total time spent is greater than 50% in coordination of care (as documented) at patient's floor/unit and/or counseling patient: Coding Level of Care Code 69459 SUB INP/OBS CARE 3/50MIN Diagnoses Cellulitis of right foot L03.115 Hypomagnesemia E83.42 Wound of right foot S91.301A Polymyalgia rheumatica M35.3 Hypertension I10 DMII (diabetes mellitus, type 2) E11.9 CKD (chronic kidney disease), stage III N18.3 BPH (benign prostatic hyperplasia) N40.0 Depression F32.9
[2023-06-04] MEDS: DAPTOmycin 275 MG in SYRINGE 0 ML IV SCH (10:56)
[2023-06-04 13:35] LABS: Uric Acid 4.1 mg/dl (2.6-7.2)
[2023-06-04] MEDS ORDERED: Nursing to Pharmacy Communication SCH (14:00)
[2023-06-04] MEDS: oxyCODONE HCL IR 5 MG TAB (IMMEDIATE RELEASE) PO PRN (14:17)
--- NOTE | 2023-06-04 15:54 | Communication Note ---
Date of Service: June 04, 2023 Updated family this afternoon regarding plan. MRI official report pending but discussed possible podiatry consult if needed. No one from family had witnessed any blisters and note no blistered appearance during supposed shingles infection. Patient himself reported this started on top of his foot with several black lines/streaks prior to scabbing over. Again denied any trauma/stepping on anything however does not appear to be UTD on tetanus shot and will plan to give him while inpatient. He does report wearing shoes at baseline/not going barefoot. Daughter reports podiatry had been working to set patient up w/ vascular as outpatient but had not yet been arranged given decreased pulses below the knee (diminished but present). Will await MRI results but may need to consider consultation while inpatient . They have no preference on [facility] Dr Wang vs [facility] Dr Tilley for vascular intervention if needed. Notable patient is NOT on any baby aspirin at baseline - discussed should be but will await imaging studies/results in case of need for intervention. Reviewed concerns for underlying osteo vs vascular/flow issue and what plan would be regarding osteo -- discussed amputation/IV abx vs continued abx for conservative treatment. Holding plaquenil as likely worsening healing. Did endorse did NOT start the augmentin/keflex as issues w/ prescriptions nationwide. Last dose doxy 2 days prior. He reports pain improved/better controlled since the oral oxycodone and will montior/adjust as needed. Patient reports he would like a beer. They plan to stick with [place] Triplett [place] -- was arranged w/ Dr Singer per pain management but per daughter unclear why was referred to [facility]. [facility] [place]
--- NOTE | 2023-06-04 16:31 | Magnetic Resonance Report ---
MRI OF THE RIGHT FOREFOOT WITHOUT IV CONTRAST CLINICAL HISTORY: Cellulitis. COMPARISON STUDY: Radiographs of the right foot dated 06/03/2023. TECHNIQUE: MRI of the right forefoot was performed utilizing various T1 and T2-weighted sequences in the axial, sagittal, and coronal planes. IV contrast was not administered for this examination. FINDINGS: There is no MRI evidence of acute fracture. There is postsurgical change from osteotomy is seen invol ving the distal shafts of the fourth and fifth proximal phalanges. There is no marrow abnormality christi ntified typical for osteomyelitis. There is mild marrow edema versus failure of fat saturation within the tuft of the first distal phalanx. There is no corresponding drop in signal on the T1-weighted se quences. Mild arthritic change is seen throughout the forefoot, greatest at the first metatarsophalan geal and interphalangeal joints. The Lisfranc ligament is preserved. There is mild diffuse soft tissu e edema. No fluid collection is seen to suggest abscess. The visualized flexor and extensor tendons a ppear intact. The imaged portions of the plantar fascia appear maintained. IMPRESSION: 1. No fracture is identified and there is no marrow abnormality typical for osteomyelitis. 2. There is mild marrow edema versus failure of fat saturation involving the tuft of the first distal phalanx. Correlate clinically for evidence of a nonspecific osteitis. 3. Mild soft tissue swelling is seen throughout the foot. 4. No organized fluid collection is seen to suggest abscess. Dictated: 06/04/2023 12:18 PM Transcribed: 06/04/2023 12:46 PM Nohemi [id number] LANA_Samir [id number] Electronically signed by: Sung Toledo M.D. 06/04/2023 4:29 PM
[2023-06-05 06:30] LABS: Basophils # (auto) 0.05 K/uL (0.00-0.20); Basophils % (auto) 0.5 %; Eosinophils # (auto) 0.24 K/uL (0.00-0.50); Eosinophils % (auto) 2.3 %; Hematocrit (blood only) 36.1 % (42.0-52.0); Hemoglobin 11.7 g/dl (14.0-18.0); Immature Granulocytes # (auto) 0.15 K/uL (0.01-0.20); Immature Granulocytes % (auto) 1.5 %; Lymphocytes # (auto) 1.26 K/uL (1.20-3.40); Lymphocytes % (auto) 12.3 %; Mean Corpuscular Hemoglobin 32.1 pg (25.0-34.0); Mean Corpuscular Hgb Conc 32.4 g/dL (32.0-36.0); Mean Corpuscular Volume 99.2 fL (80.0-100.0); Mean Platelet Volume 11.1 fL (9.4-12.4); Monocytes # (auto) 0.93 K/uL (0.11-0.59); Monocytes % (auto) 9.1 %; Neutrophils # (auto) 7.63 K/uL (1.40-6.50); Neutrophils % (auto) 74.3 %; Platelet Count 148 K/uL (130-400); RDW Coefficient of Variation 13.9 % (11.5-14.5); RDW Standard Deviation 49.8 fL (36.4-46.3); Red Blood Count 3.64 M/uL (4.70-6.10); White Blood Count 10.26 K/ul (4.8-10.8)
[2023-06-05 06:50] LABS: Albumin Globulin Ratio 1.4 (0.9-2); Albumin Level 3.2 gm/dl (3.4-5.0); BUN Creatinine Ratio 19.6 (10-20); Bilirubin,Total 0.8 mg/dl (0.2-1.0); Calcium 8.8 mg/dl (8.6-10.3); Creatinine Clr Calc Pharmacy 39.2 ml/min; Est GFR (African American) 52.5 ml/min; Est GFR (Non-African American) 45.3 ml/min; Globulin 2.3 gm/dl (2.5-4.0); Magnesium 1.5 mg/dl (1.7-2.4); Potassium 4.1 mmol/L (3.5-5.1); Total Protein 5.5 gm/dl (6.0-8.3)
[2023-06-05 07:26] LABS: Estimated Average Glucose 194 mg/dl; Hemoglobin A1C 8.4 % (4.5-5.6)
--- NOTE | 2023-06-05 08:26 | Hospitalist Progress Note ---
Date of Service June 05, 2023 Assessment & Plan (1) Cellulitis of right foot: Plan: Admitted for progressive/worsening cellulitis of his RIGHT foot. Apparently was sent at recommendation of PCP however confusing history on admission as seeing multiple providers w/ [facility] -- most recent seen by Dr Maurisio GUILLEN At that time it appears was most recently completed course of Doxycycline PO as well as valtrex and prednisone for suspected shingles and then was seen again by Dr Triplett on 06/02 and given rx for Augmentin and Bactrim and worsened by 06/03 prompting bringing him into the ER however had not yet filled that prescription due to pharmacy issues nationwide and came to ER for ongoing/worsening cellulitis/pain Immunocompromised at baseline on prednisone and plaquenil for PMR, DM II. Placing further Plaquenil on hold given current infection/prolonged healing Appears patient w/ baseline neuropathy, B12 added to AM labs, and denied trauma, however has an opening the bottom of his RIGHT big toe in region where cellulitis reportedly started Xray soft tissue edema/no acute fracture WBC 11k w/ L shift on admit however is on prednisone at baseline, normalized on repeat ESR 11, CRP 1.45 Blood cultures obtained on admission, however notable patient has been on significant course of antibiotics outpatient Placed on Dapto/Zosyn -- continued. Statin held while on dapto. UA w/ blood/ketones but no RBC, added CK to am labs but did get 1L NSS bolus on admission in ER as well MRI obtained for further evaluation * 1. No fracture is identified and there is no marrow abnormality typical for osteomyelitis. * 2. There is mild marrow edema versus failure of fat saturation involving the tuft of the first distal phalanx. Correlate clinically for evidence of a nonspecific osteitis. * 3. Mild soft tissue swelling is seen throughout the foot. * 4. No organized fluid collection is seen to suggest abscess. Podiatry to see today, Dr Rothman around 230-3pm WBC wnl, blood cultures NGTD Wound RN consulted for Tuesday Pain control -- ordered tylenol/morphine, added oxycodone for PO option. Gabapentin 100mg BID prn also available if needed for underlying neuropathy. B12 borderline but acceptable at 339 Underwent b/l arterial doppler of the LE's on 05/26/23 and was without significant stenosis , HOWEVER report states calf vessels not well assessed 2nd to significant atherosclerotic plaque INDIGO at that time 0.35 in right posterior tibial artery, INDIGO 0.92 R dorsalis pedis for INDIGO 0.92 L posterior tibial artery INDIGO 0.70 and L dorsalis pedis w/ INDIGO 1.16 TBI 0.16 in first great toe, 0.48 on left first toe TBI Consulted vascular given decreased pedal pulses/suspected PAD/claudication and arterial study as noted above Statin held while on dapto Plan to start patient on ASA 81mg daily in meantime, timed for AM in event needing to hold for any kind of intervention Lovenox SQ for DVT proph Consider tetanus shot, however denied any trauma Monitor labs/exam on repeat Moving to monitored bed given EKG findings on admission, holding further carvedilol. Will check ECHO Updated daughter janell this morning (2) Hypomagnesemia: Plan: 1.2 on arrival with IV replacement ordered for total 6gm and repeat 1.8 ?unclear cause, is on PO mag at home and prn Lasix for swelling Monitor on repeat for stability -- 1.5, additional IV ordered and will plan to increase PO to BID and monitor in AM (3) Wound of right foot: Plan: See above - suspect started from opening to plantar aspect of his R foot given description of redness/travell Prior imaging w/ venous doppler RLE in January for RLE edema w/ 2.92cm superficial thrombophlebitis within proximal calf varices. No evidence for DVT at that time Duplex LW arterial study 05/26/23 IMPRESSION: 1. Atherosclerotic plaque is seen throughout both legs as above. There is no sonographic evidence of high-grade stenosis or focal vessel cutoff in either leg. 2. Note that the calf arteries were not well assessed due to significant calcified atherosclerotic plaque. 3. Ankle brachial indices and toe brachial indices as above. MRI as above, podiatry/vascular surgery consulted Likely benefit from at least aspirin, ?pletal -- does appear w/ claudication symptoms/PAD -- vascular consulted as above --> ASA 81mg to start in AM Likely will provide tetanus shot however denied any trauma and could be from his bad underlying PAD (4) Polymyalgia rheumatica: Plan: Continue prednisone but HOLDING Plaquenil given poor wound healing/above PT/OT consults to be undertaken Discussed should ideally be titrated to lowest prednisone as tolerated given infection/DM Monitor (5) Hypertension: Plan: Stable Continue carvedilol -- placed on hold given EKG findings, cards consulted and moving to monitored bed (6) DMII (diabetes mellitus, type 2): Plan: Last A1c 9.6 in 2019, A1c repeat 8.4 (notable has only had trajenta samples from the office and no rx-- daughter was attempting to get into endocrinology locally and inquiring about insulin to more closely monitor) Home meds placed on hold on admission, sliding scale ordered HELD AM lantus 20u given Glu 71, pharmacy consulted and will utilize SSI in meantime/adjustment Appreciate glycemic assistance (7) CKD (chronic kidney disease), stage III: Plan: -Stable, slight elevation renal dose meds/avoid nephrotoxins and continue to monitor (8) BPH (benign prostatic hyperplasia): Plan: -Continue tamsulosin and finasteride (9) Depression: Plan: -Continue venlafaxine , mood stable at present Plan continued inpatient stay, podiatry/vascular on consult moving to med tele/echo/cards consulted pt/ot evals to be undertaken Admission and Anticipated Discharge Date Admission Date: June 03, 2023 Supervising Physician Co-Signing Physician Notes The patient was not seen by me. The chart was reviewed. Case discussed with AMELIA Morrell. Agree with assessment and plan Subjective Eval this morning, talking with nurse on entry about moving to monitored bed. No CP/SOB reported however discussed EKG findings. He follows w/ [facility], will place consult. Carvedilol already given this morning but further on hold. Discussed podiatry to see today given MRI findings but also consulted vascular in case of need for intervention. Reports pain a little better today, erythema to foot/no streaking up leg. Is still warm. Decreased pulses but sensation to pressure intact. Pain w/ walk ing/intermittent claudication. Wants me to update daughter Janell. Physical Exam Physical Exam: General: 88yo male sitting up in bed, NAD, general pallor Head atraumatic, normocephalic, mmm, trachea midline Resp: even/unlabored, no cough, no w/c/r, on room air CV: RRR, no significant murmur/faint?, no r/g, trace pedal edema w/ cellulitis to RLE but no significant pitting edema, pulses diminished but present GI: +BS, soft/NT no cantrell MSK/Neuro/skin: RLE: RIGHT FOOT:+erythema/swelling, +warmth from RIGHT first toe up to mid ankle (reports redness about the same but improvement in pain), multiple scab lesions/eschar to dorsum of foot, distal scab to tip of 3rd toe, eschar to pip of 2nd digit dorsal aspect does have increased rubor w/ legs in dependent position also has approx 2-3 cm opening to plantar aspect of his R hallux, no active drainage appreciated. small thin opening to heel on the right, two open cracked areas to his L heel as well cap refill >3 seconds, toes mobile +neuropathy b/l LE Psych: AOX3, cooperative Results & Data Results & Data Vital Signs (Past 12 Hours) Vital Signs Temp Pulse Resp BP Pulse Ox O2 Del Method 06/05/23 07:08 36.7 C 73 16 167/72 H 97 Room Air Laboratory Results 06/05/23 06/05/23 06/04/23 Range/Units 07:40 05:50 21:03 WBC 10.26 (4.8-10.8) K/ul RBC 3.64 L (4.70-6.10) M/uL Hgb 11.7 L (14.0-18.0) g/dl Hct 36.1 L (42.0-52.0) % MCV 99.2 (80.0-100.0) fL MCH 32.1 (25.0-34.0) pg MCHC 32.4 (32.0-36.0) g/dL RDW Std Deviation 49.8 H (36.4-46.3) fL RDW Coeff of Aleja 13.9 (11.5-14.5) % Plt Count 148 (130-400) K/uL MPV 11.1 (9.4-12.4) fL Immature Gran % (Auto) 1.5 % Neut % (Auto) 74.3 % Lymph % (Auto) 12.3 % Hartley % (Auto) 9.1 % Eos % (Auto) 2.3 % Baso % (Auto) 0.5 % Neut # (Auto) 7.63 H (1.40-6.50) K/uL Lymph # (Auto) 1.26 (1.20-3.40) K/uL Hartley # (Auto) 0.93 H (0.11-0.59) K/uL Eos # (Auto) 0.24 (0.00-0.50) K/uL Baso # (Auto) 0.05 (0.00-0.20) K/uL Immature Gran # (Auto) 0.15 (0.01-0.20) K/uL Sodium 139 (136-145) mmol/L Potassium 4.1 (3.5-5.1) mmol/L Chloride 105 (98-107) mmol/L Carbon Dioxide 30 (21-32) mmol/L Anion Gap 4 (3-11) BUN 27 H (6-23) mg/dl Creatinine 1.38 (0.6-1.4) mg/dl Est Cr Clr Drug Dosing 39.2 ml/min Est GFR ( Amer) 52.5 ml/min Est GFR (Non-Af Amer) 45.3 ml/min BUN/Creatinine Ratio 19.6 (10-20) Glucose 96 (70-99(Fasting)) mg/dl POC Glucose 71 173 H (70-99) mg/dl Estimat Average Glucose 194 mg/dl Hemoglobin A1c 8.4 H (4.5-5.6) % Uric Acid (2.6-7.2) mg/dl Calcium 8.8 (8.6-10.3) mg/dl Magnesium 1.5 L (1.7-2.4) mg/dl Total Bilirubin 0.8 (0.2-1.0) mg/dl AST 20 (13-39) U/L ALT 11 (7-52) U/L Alkaline Phosphatase 49 (34-104) U/L Total Creatine Kinase (30-223) U/L Total Protein 5.5 L (6.0-8.3) gm/dl Albumin 3.2 L (3.4-5.0) gm/dl Globulin 2.3 L (2.5-4.0) gm/dl Albumin/Globulin Ratio 1.4 (0.9-2) Vitamin B12 339 (180-914) pg/ml Lyme Disease Screen (Negative) 06/04/23 06/04/23 06/04/23 Range/Units 16:42 13:02 12:26 WBC (4.8-10.8) K/ul RBC (4.70-6.10) M/uL Hgb (14.0-18.0) g/dl Hct (42.0-52.0) % MCV (80.0-100.0) fL MCH (25.0-34.0) pg MCHC (32.0-36.0) g/dL RDW Std Deviation (36.4-46.3) fL RDW Coeff of Aleja (11.5-14.5) % Plt Count (130-400) K/uL MPV (9.4-12.4) fL Immature Gran % (Auto) % Neut % (Auto) % Lymph % (Auto) % Hartley % (Auto) % Eos % (Auto) % Baso % (Auto) % Neut # (Auto) (1.40-6.50) K/uL Lymph # (Auto) (1.20-3.40) K/uL Hartley # (Auto) (0.11-0.59) K/uL Eos # (Auto) (0.00-0.50) K/uL Baso # (Auto) (0.00-0.20) K/uL Immature Gran # (Auto) (0.01-0.20) K/uL Sodium (136-145) mmol/L Potassium (3.5-5.1) mmol/L Chloride (98-107) mmol/L Carbon Dioxide (21-32) mmol/L Anion Gap (3-11) BUN (6-23) mg/dl Creatinine (0.6-1.4) mg/dl Est Cr Clr Drug Dosing ml/min Est GFR ( Amer) ml/min Est GFR (Non-Af Amer) ml/min BUN/Creatinine Ratio (10-20) Glucose (70-99(Fasting)) mg/dl POC Glucose 238 H 100 H (70-99) mg/dl Estimat Average Glucose mg/dl Hemoglobin A1c (4.5-5.6) % Uric Acid 4.1 (2.6-7.2) mg/dl Calcium (8.6-10.3) mg/dl Magnesium (1.7-2.4) mg/dl Total Bilirubin (0.2-1.0) mg/dl AST (13-39) U/L ALT (7-52) U/L Alkaline Phosphatase (34-104) U/L Total Creatine Kinase 172 (30-223) U/L Total Protein (6.0-8.3) gm/dl Albumin (3.4-5.0) gm/dl Globulin (2.5-4.0) gm/dl Albumin/Globulin Ratio (0.9-2) Vitamin B12 (180-914) pg/ml Lyme Disease Screen Negative (Negative) Diagnostic Findings Foot MRI 06/04/23 09:54 MRI OF THE RIGHT FOREFOOT WITHOUT IV CONTRAST CLINICAL HISTORY: Cellulitis. COMPARISON STUDY: Radiographs of the right foot dated 06/03/2023. TECHNIQUE: MRI of the right forefoot was performed utilizing various T1 and T2- weighted sequences in the axial, sagittal, and coronal planes. IV contrast was not administered for this examination. FINDINGS: There is no MRI evidence of acute fracture. There is postsurgical change from osteotomy is seen involving the distal shafts of the fourth and fifth proximal phalanges. There is no marrow abnormality identified typical for osteomyelitis. There is mild marrow edema versus failure of fat saturation within the tuft of the first distal phalanx. There is no corresponding drop in signal on the T1- weighted sequences. Mild arthritic change is seen throughout the forefoot, greatest at the first metatarsophalangeal and interphalangeal joints. The Lisfranc ligament is preserved. There is mild diffuse soft tissue edema. No fluid collection is seen to suggest abscess. The visualized flexor and extensor tendons appear intact. The imaged portions of the plantar fascia appear maintained. IMPRESSION: 1. No fracture is identified and there is no marrow abnormality typical for osteomyelitis. 2. There is mild marrow edema versus failure of fat saturation involving the tuft of the first distal phalanx. Correlate clinically for evidence of a nonspecific osteitis. 3. Mild soft tissue swelling is seen throughout the foot. 4. No organized fluid collection is seen to suggest abscess. Dictated: 06/04/2023 12:18 PM Transcribed: 06/04/2023 12:46 PM Nohemi [id number] Indra [id number] Electronically signed by: Sung Toledo M.D. 06/04/2023 4:29 PM PG Care Time/CCT Total # of Minutes Spent Total Time Spent with Patient: Total time spent is greater than 50% in coordination of care (as documented) at patient's floor/unit and/or counseling patient: Coding Level of Care Code 84934 SUB INP/OBS CARE MIN Diagnoses Cellulitis of right foot L03.115 Hypomagnesemia E83.42 Wound of right foot S91.301A Polymyalgia rheumatica M35.3 Hypertension I10 DMII (diabetes mellitus, type 2) E11.9 CKD (chronic kidney disease), stage III N18.3 BPH (benign prostatic hyperplasia) N40.0 Depression F32.9
[2023-06-05] MEDS: MAGNESIUM SULFATE / D5W 1 GM/100 ML BAG IV SCH (09:34)
--- NOTE | 2023-06-05 12:21 | Cardiology Consultation ---
Date of Consultation June 05, 2023 Assessment & Plan (1) Trifascicular block: (2) Postural dizziness: (3) HTN (hypertension): Plan ECG findings of right bundle branch block, first-degree AV block, and left anterior fascicular block discussed with patient. Denies syncope or near syncope. Currently no indication for pacemaker implantation. Potential need for pacemaker in future discussed. Recommend outpatient ZIO monitor, 7-14 days for further evaluation. Continue low-dose carvedilol at this time. Consider addition of DIANNE inhibitor or ARB to improve blood pressure control in this patient with diabetes and chronic kidney disease. Continue low-dose aspirin. Resume statin when he has completed course of daptomycin. No further inpatient cardiac testing or intervention recommended at this time. Thank you for allow me to participate in the care of your patient. I spent a total of 55 minutes on the date of service in preparation, delivery, and documentation of the care provided to this patient, excluding any time spent in the performance of separately billed services. History of Present Illness Reason for Consultation: Trifascicular block Requesting Physician: Julia Christian PA-C Attending Physician: Wang Conner MD History of Present Illness 88-year-old male admitted to the hospital 06/03/2023 secondary to right foot cellulitis. Reports possible history of shingles. ECG demonstrating sinus rhythm with first-degree AV block (DE interval 234 ms) right bundle branch block, and left anterior fascicular block. Compared to most recent ECG in the [facility] record dated 06/08/2022, left anterior fascicular block now present. Previous ECG reporting age-indeterminate inferior infarct. Patient reports longstanding history of dizziness attributed to autonomic insufficiency and chronic steroid use. Followed in the cardiology clinic due to hypertension, diastolic dysfunction, symptomatic PACs/PVCs, and borderline enlarged ascending aorta, 3.9 cm. A ZIO monitor was performed in July 2022 due to ongoing dizziness. Symptoms correlating with sense atrial ectopy. Currently, patient resting comfortably. Notes right foot discomfort which has improved since admission. Denies any lightheadedness or dizziness since hosp ital admission. No chest discomfort or unusual shortness of breath. Denies orthopnea or PND. Chronically treated with low-dose beta-jonathan in the outpatient setting. Currently not on telemetry. Allergies Allergy/AdvReac Type Severity Reaction Status Date / Time pioglitazone [From Actos] Allergy Unknown Verified 06/02/23 09:23 sitagliptin [From Januvia] Allergy Unknown Verified 06/02/23 09:23 Home Medications Medication Instructions Recorded Confirmed Type finasteride 5 mg tablet (Proscar) 5 mg PO QAM 03/03/18 06/03/23 History tamsulosin 0.4 mg capsule (Flomax) 0.4 mg PO HS 03/03/18 06/03/23 History linagliptin 5 mg tablet 5 mg PO DAILY 01/12/19 06/03/23 History atorvastatin 40 mg tablet 40 mg PO QPM 11/23/19 06/03/23 History ferrous sulfate 325 mg (65 mg 325 mg PO DAILY #90 tabs 06/11/21 06/03/23 Rx iron) tablet magnesium chloride 64 mg 64 mg PO QAM 01/05/22 06/03/23 History (magnesium chloride) tablet,delayed release (Mag 64) denosumab 60 mg/mL subcutaneous 60 mg subcut .COMPLEX 01/14/23 06/03/23 History syringe (Prolia) hydroxychloroquine 200 mg tablet 200 mg PO QAM 01/14/23 06/03/23 History ropinirole 1 mg tablet 1 mg PO HS 01/14/23 06/03/23 History metformin 500 mg tablet 500 mg PO BID #60 tabs 01/18/23 06/03/23 Rx carvedilol 3.125 mg tablet 3.125 mg PO BID 30 days #60 tabs 05/04/23 06/03/23 Rx insulin degludec 100 unit/mL (3 See Rx Instructions subcut DAILY 05/04/23 06/03/23 Rx mL) subcutaneous pen (Tresiba #15 mL FlexTouch U-100 insulin) cholecalciferol (vitamin D3) 50 50 mcg PO QAM 06/03/23 06/03/23 History mcg (2,000 unit) tablet (Vitamin D3) famotidine 20 mg tablet 20 mg PO QAM 06/03/23 06/03/23 History furosemide 20 mg tablet 20 mg PO DAILY PRN Fluid Retention 06/03/23 06/03/23 History prednisone 2.5 mg tablet See Rx Instructions .Route .COMPLEX 06/03/23 06/03/23 History prednisone 5 mg tablet See Rx Instructions .Route .COMPLEX 06/03/23 06/03/23 History repaglinide 2 mg tablet 2 mg PO DAILY PRN DEPENDS ON FOOD 06/03/23 06/03/23 History EATEN venlafaxine 75 mg capsule,extended 75 mg PO QPM 06/03/23 06/03/23 History release 24 hr Patient History Medical History (Updated 06/05/23 @ 12:18 by Jean Chávez DO) History of prostate cancer No pertinent family history Polymyalgia rheumatica Closed fracture of spinous process of thoracic vertebra Closed L3 vertebral fracture Depression GERD (gastroesophageal reflux disease) Hypertriglyceridemia BPH (benign prostatic hyperplasia) Lumbago CKD (chronic kidney disease), stage III DMII (diabetes mellitus, type 2) Hypertension Surgical History History of blepharoplasty L eye History of hernia surgery History of foot surgery R 4th Toe surgery H/O neck surgery Family History Mother Colorectal cancer Coronary heart disease Diabetes Brother Diabetes Kidney disease Colorectal cancer Prostate cancer Other No pertinent family history Social History Smoking Status: Former smoker Tobacco Type: Cigarettes Second Hand Exposure: No; Do You Dip or Chew Tobacco: No; Hx Alcohol Use: Yes Alcohol type: beer and hard liquor Alcohol Intake Frequency Comment: 1-2 beers monthly Hx Substance Use: No Preferred Language: Tanzanian Communication Ability: Effective Family Life Educator Required: Yes and No Beliefs That Will Affect Care: None marital status: / Current Living Situation: Alone current occupational status: retired Feels Safe at Home: Yes Safety Concerns: Feels Safe At This Time Childhood Exposure to Second-Hand Smoke: Yes Diet: low carbohydrate caffeine: Yes Dental Care, Regularly: Yes Seatbelt Use: always Assistive Devices: Cane and Walker Review of Systems Review of Systems: All systems reviewed & are unremarkable except as noted in Subjective Physical Exam Constitutional: well nourished; no acute distress Respiratory: normal respiratory effort; no respiratory distress and no labored breathing Auscultation: lungs clear to auscultation bilaterally; no crackles, no rales, no rhonchi and no wheezes Cardiovascular: Rate/Rhythm: regular rate and regular rhythm Heart Sounds: normal S1 and normal S2; no murmur Vessels: radial pulses present; no JVD and no carotid bruit Extremities: + edema (+ Erythema involving the dorsum of the right foot, mild edema) Gastrointestinal (Abdomen): Inspection/Auscultation: normal bowel sounds; abdomen not distended Percussion/Palpation: abdomen soft; abdomen nontender, no guarding and abdomen not rigid Neurologic: CN's II-XI intact bilaterally and moves all extremities; no focal motor deficits Results & Data Vital Signs (Past 12 Hours) Vital Signs Temp Pulse Resp BP Pulse Ox O2 Del Method 06/05/23 07:08 36.7 C 73 16 167/72 H 97 Room Air Laboratory Results Cardiac Enzymes 06/05/23 Range/Units 05:50 AST 20 (13-39) U/L CBC 06/05/23 Range/Units 05:50 WBC 10.26 (4.8-10.8) K/ul RBC 3.64 L (4.70-6.10) M/uL Hgb 11.7 L (14.0-18.0) g/dl Hct 36.1 L (42.0-52.0) % Plt Count 148 (130-400) K/uL Neut # (Auto) 7.63 H (1.40-6.50) K/uL Lymph # (Auto) 1.26 (1.20-3.40) K/uL [place] # (Auto) 0.93 H (0.11-0.59) K/uL Eos # (Auto) 0.24 (0.00-0.50) K/uL Baso # (Auto) 0.05 (0.00-0.20) K/uL Comprehensive Metabolic Panel 06/05/23 Range/Units 05:50 Sodium 139 (136-145) mmol/L Potassium 4.1 (3.5-5.1) mmol/L Chloride 105 (98-107) mmol/L Carbon Dioxide 30 (21-32) mmol/L BUN 27 H (6-23) mg/dl Creatinine 1.38 (0.6-1.4) mg/dl Glucose 96 (70-99(Fasting)) mg/dl Calcium 8.8 (8.6-10.3) mg/dl AST 20 (13-39) U/L ALT 11 (7-52) U/L Alkaline Phosphatase 49 (34-104) U/L Total Protein 5.5 L (6.0-8.3) gm/dl Albumin 3.2 L (3.4-5.0) gm/dl Intake and Output 06/04/23 06/05/23 06/05/23 22:59 06:59 14:59 Intake Total 100 / 300 100 / 300 100 / 100 Output Total Balance 100 / 299 99 / 299 99 / 99 Intake: IV 100 / 300 100 / 300 100 / 100 Magnesium Sulfate / D5w 1 gm In 100 / 100 100 ml @ 50 mls/hr IV Q2H [facility] Rx#:[id number] Piperacillin/Tazobactam 4.5 gm 100 / 300 100 / 300 In Dextrose 5% Mini-B 100 ml @ 25 mls/hr IV Q8H [facility]A Rx#: [id number] Output: # Bowel Movements Other: # Unmeasured Voids (3) HTN (hypertension) Hypertension type: primary hypertension Qualified Code(s): I10 - Essential (primary) hypertension
--- NOTE | 2023-06-05 13:47 | Electrocardiogram Report ---
Test Reason : Blood Pressure : / mmHG Vent. Rate : 067 BPM Atrial Rate : 067 BPM P-R Int : 244 ms QRS Dur : 120 ms QT Int : 424 ms P-R-T Axes : 014 -61 060 degrees QTc Int : 448 ms Poor data quality, interpretation may be adversely affected Sinus rhythm with 1st degree A-V block Left axis deviation Right bundle branch block Minimal voltage criteria for LVH, may be normal variant Inferior infarct (cited on or before 05-JUN-2023) Abnormal ECG When compared with ECG of 03-JUN-2023 10:51, QRS duration has decreased Borderline criteria for Lateral infarct are no longer Present Questionable change in initial forces of Inferior leads Confirmed by Daren Prater ([id number]) on 06/05/2023 1:46:37 PM Referred By: Garrison Triplett Confirmed By:Daren Prater
[2023-06-05] MEDS: ASPIRIN 81 MG ECTAB PO ONE (15:17)
[2023-06-05] MEDS: ADVANCED PROBIOTIC 650 MG CAPSULE PO SCH (15:18)
[2023-06-05] MEDS: LANTUS PER UNIT CHARGE SQ ONE (15:22)
--- NOTE | 2023-06-05 15:23 | Podiatry Consultation ---
Date of Consultation June 05, 2023 Assessment & Plan (1) Cellulitis of right foot: (2) Wound of right foot: (3) Other specified peripheral vascular diseases: Plan Patient was examined and evaluated. We discussed at length etiology and treatment of his right foot cellulitis. This does seem to be localized and contained to the foot. Specifically, his pain and long-term concern is likely his arterial insufficiency. His recent ankle-brachial indexes concerning for vascular disease to the lower extremity bilaterally. He would benefit from a more formal vascular assessment so vascular surgery consult is warranted. He does have some concern for local necrosis to the first and third toes of the right foot, though he would benefit from vascular assessment prior to any surgical planning. Further, these digits would need to demarcate more and present more evidence of necrosis prior to amputation. We did discuss this with the patient and his daughter. He should continue with IV antibiotics for treatment of the dorsal foot cellulitis, though there is no obvious puncture wound or underlying abscess that would need surgically addressed as well at this time. We will continue to monitor, especially for worsening signs of necrosis moving forward. No surgical intervention planned at this time. Thank you very much for the consult, we look forward to providing him care moving forward. History of Present Illness Reason for Consultation: Right foot cellulitis Attending Physician: Wang Conner MD History of Present Illness Patient presents to [facility] for evaluation and treatment of a right foot infection and increasing pain. He states that he has acute pain to the top of the right foot that he has not experienced before. He has noticed significant discoloration of the top and outside of the right foot. At this hospitalization, he has been on IV antibiotics which have helped decrease the redness locally to the foot. Systemically, he feels fine with no complaints of nausea, vomiting, fevers, or chills. He simply states the pain got so bad to the right foot that he couldn't walk with this acute discoloration as well. He has noticed an abrasion develop on the inside of the right foot as well, which he believes has led to this discoloration over. He denies any similar history. He denies any obvious trauma to the foot and ankle. Further, he denies any specific recent changes to his medical history. Allergies Allergy/AdvReac Type Severity Reaction Status Date / Time pioglitazone [From Actos] Allergy Unknown Verified 06/02/23 09:23 sitagliptin [From Maribeth] Allergy Unknown Verified 06/02/23 09:23 Home Medications Medication Instructions Recorded Confirmed Type finasteride 5 mg tablet (Proscar) 5 mg PO QAM 03/03/18 06/03/23 History tamsulosin 0.4 mg capsule (Flomax) 0.4 mg PO HS 03/03/18 06/03/23 History linagliptin 5 mg tablet 5 mg PO DAILY 01/12/19 06/03/23 History atorvastatin 40 mg tablet 40 mg PO QPM 11/23/19 06/03/23 History ferrous sulfate 325 mg (65 mg 325 mg PO DAILY #90 tabs 06/11/21 06/03/23 Rx iron) tablet magnesium chloride 64 mg 64 mg PO QAM 01/05/22 06/03/23 History (magnesium chloride) tablet,delayed release (Mag 64) denosumab 60 mg/mL subcutaneous 60 mg subcut .COMPLEX 01/14/23 06/03/23 History syringe (Prolia) hydroxychloroquine 200 mg tablet 200 mg PO QAM 01/14/23 06/03/23 History ropinirole 1 mg tablet 1 mg PO HS 01/14/23 06/03/23 History metformin 500 mg tablet 500 mg PO BID #60 tabs 01/18/23 06/03/23 Rx carvedilol 3.125 mg tablet 3.125 mg PO BID 30 days #60 tabs 05/04/23 06/03/23 Rx insulin degludec 100 unit/mL (3 See Rx Instructions subcut DAILY 05/04/23 06/03/23 Rx mL) subcutaneous pen (Tresiba #15 mL FlexTouch U-100 insulin) cholecalciferol (vitamin D3) 50 50 mcg PO QAM 06/03/23 06/03/23 History mcg (2,000 unit) tablet (Vitamin D3) famotidine 20 mg tablet 20 mg PO QAM 06/03/23 06/03/23 History furosemide 20 mg tablet 20 mg PO DAILY PRN Fluid Retention 06/03/23 06/03/23 History prednisone 2.5 mg tablet See Rx Instructions .Route .COMPLEX 06/03/23 06/03/23 History prednisone 5 mg tablet See Rx Instructions .Route .COMPLEX 06/03/23 06/03/23 History repaglinide 2 mg tablet 2 mg PO DAILY PRN DEPENDS ON FOOD 06/03/23 06/03/23 History EATEN venlafaxine 75 mg capsule,extended 75 mg PO QPM 06/03/23 06/03/23 History release 24 hr Patient History Medical History History of prostate cancer No pertinent family history Polymyalgia rheumatica Closed fracture of spinous process of thoracic vertebra Closed L3 vertebral fracture Depression GERD (gastroesophageal reflux disease) Hypertriglyceridemia BPH (benign prostatic hyperplasia) Lumbago CKD (chronic kidney disease), stage III DMII (diabetes mellitus, type 2) Hypertension Surgical History History of blepharoplasty L eye History of hernia surgery History of foot surgery R 4th Toe surgery H/O neck surgery Family History Mother Colorectal cancer Coronary heart disease Diabetes Brother Diabetes Kidney disease Colorectal cancer Prostate cancer Other No pertinent family history Social History Smoking Status: Former smoker Tobacco Type: Cigarettes Second Hand Exposure: No; Do You Dip or Chew Tobacco: No; Hx Alcohol Use: Yes Alcohol type: beer and hard liquor Alcohol Intake Frequency Comment: 1-2 beers monthly Hx Substance Use: No Preferred Language: Slovak Communication Ability: Effective Bicycle Fitter Required: Yes and No Beliefs That Will Affect Care: None marital status: / Current Living Situation: Alone current occupational status: retired Feels Safe at Home: Yes Safety Concerns: Feels Safe At This Time Childhood Exposure to Second-Hand Smoke: Yes Diet: low carbohydrate caffeine: Yes Dental Care, Regularly: Yes Seatbelt Use: always Assistive Devices: Cane and Walker Review of Systems Review of Systems: All systems reviewed & are unremarkable except as noted in HPI & below Constitutional: as per Subjective / HPI Eyes: as per Subjective / HPI; no problem reported Ear, Nose, Mouth, Throat: no problem reported Respiratory: no cough, no chest congestion and no problem reported Cardiovascular: + edema and + claudication Gastrointestinal: no problem reported Genitourinary: no problem reported Musculoskeletal: + back pain and + radicular pain Integumentary: + non-healing lesions, + changing lesion s and + change in skin color Neurologic: + radiating pain Psychiatric: no problem reported Endocrine: no problem reported Physical Exam Physical Exam: Right Lower extremity focused exam: DP/PT pulses 0/4 bilaterally. No hair growth is noted to the lower extremity. Skin is atrophic with increasing cooling distally. There is pain on palpation of the digits, out of proportion to stimulus. There is subjective radiating pain from the hip down the lower extremity as well. There is diffuse erythema and likely ecchymosis to the entire dorsal foot, extending from the lateral malleolus and radiating towards the digits. This is what well-circumscribed and the margins have been delineated in the last couple of days with marker. No new excursions are noted passed this line of extent. There is evidence potentially increasing dry gangrene to the right third toe distally with also increasing bogginess to the right hallux distally. There is no discoloration to the hallux though there is a palpable change consistent with deep tissue injury and ischemia. There is 2 areas of dry injured skin, 1 to the plantar posterior right calcaneus and one underlying the IPJ of the hallux. These do appear more consistent with scab formation rather than necrosis, the dry gangrene. There is pain on palpation of these skin lesions. Constitutional: WD/WN, vitals as above comfortable; no acute distress Eyes: PERRL, conjunctivae normal, anicteric sclerae ENMT: external ear and nose normal, oropharynx normal Neck: trachea midline, no thyromegaly Respiratory: normal respiratory effort, lungs clear to auscultation Cardiovascular: RRR, no murmur, no edema Vessels: + posterior tibial pulses abnormal (Biphasic flow is noted on Doppler exam) and + dorsalis pedis pulses abnormal Extremities: no calf tenderness, no pedal edema and no edema Gastrointestinal (Abdomen): normal bowel sounds, soft, nontender, no hepatosplenomegaly Musculoskeletal: no cyanosis or clubbing, extremities motor strength 5/5 Skin: Diffuse discoloration is noted to the dorsal foot overall. There is pain out of proportion to touch over this entire area, consistent with a local cellulitis no pain does also radiate to the digits, consistent with peripheral arterial disease as well. Pain is relieved with the ligaments being independency and is decreased while ambulating. Neurologic: patellar DTR's 2+ bilat, sensation intact normal sensation to monofilament (Subjective numbness is noted to the plantar aspect of the foot) and moves all extremities Light touch sensation is intact to the plantar foot Psychiatric: A+Ox3, euthymic affect Results & Data Vital Signs (Past 12 Hours) Vital Signs Temp Pulse Resp BP Pulse Ox O2 Del Method 06/05/23 14:33 36.8 C 81 16 193/94 H 96 Room Air 06/05/23 07:08 36.7 C 73 16 167/72 H 97 Room Air Diagnostic Findings Ankle brachial index was noted to be diminished and still likely falsely elevated due to calcification of the vessels noted on plain film imaging. No evidence of infection is noted on plain film imaging or MR imaging of the foot. There are no drainable abscess is noted on MRI as well.
[2023-06-05] MEDS ORDERED: hydrALAZINE HCL 20 MG/ML VIAL IV PRN (16:19)
[2023-06-05] MEDS ORDERED: PHARMACY GLYCEMIC MGMT CONSULT PRN (18:07)
[2023-06-05] MEDS: GABAPENTIN 100 MG CAP PO PRN (19:35)
[2023-06-05] MEDS: INSULIN ASPART PER UNIT CHARGE SC SCH (21:51)
[2023-06-06 07:04] LABS: Basophils # (auto) 0.05 K/uL (0.00-0.20); Basophils % (auto) 0.6 %; Eosinophils # (auto) 0.22 K/uL (0.00-0.50); Eosinophils % (auto) 2.8 %; Hematocrit (blood only) 37.2 % (42.0-52.0); Hemoglobin 12.2 g/dl (14.0-18.0); Immature Granulocytes # (auto) 0.16 K/uL (0.01-0.20); Immature Granulocytes % (auto) 2.1 %; Lymphocytes # (auto) 1.11 K/uL (1.20-3.40); Lymphocytes % (auto) 14.3 %; Mean Corpuscular Hemoglobin 32.8 pg (25.0-34.0); Mean Corpuscular Hgb Conc 32.8 g/dL (32.0-36.0); Mean Platelet Volume 10.8 fL (9.4-12.4); Monocytes % (auto) 11.6 %; Neutrophils # (auto) 5.32 K/uL (1.40-6.50); Neutrophils % (auto) 68.6 %; Platelet Count 157 K/uL (130-400); RDW Coefficient of Variation 13.9 % (11.5-14.5); RDW Standard Deviation 50.3 fL (36.4-46.3); Red Blood Count 3.72 M/uL (4.70-6.10); White Blood Count 7.76 K/ul (4.8-10.8)
[2023-06-06 07:27] LABS: Albumin Globulin Ratio 1.2 (0.9-2); Albumin Level 3.1 gm/dl (3.4-5.0); BUN Creatinine Ratio 18.6 (10-20); Bilirubin,Total 0.7 mg/dl (0.2-1.0); Calcium 8.7 mg/dl (8.6-10.3); Creatinine Clr Calc Pharmacy 36.8 ml/min; Est GFR (African American) 49.5 ml/min; Est GFR (Non-African American) 42.7 ml/min; Globulin 2.5 gm/dl (2.5-4.0); Magnesium 1.8 mg/dl (1.7-2.4); Potassium 4.4 mmol/L (3.5-5.1); Total Protein 5.6 gm/dl (6.0-8.3)
--- NOTE | 2023-06-06 08:26 | Hospitalist Progress Note ---
Date of Service June 06, 2023 Assessment & Plan (1) Cellulitis of right foot: Plan: Admitted for progressive/worsening cellulitis of his RIGHT foot. Apparently was sent at recommendation of PCP however confusing history on admission as seeing multiple providers w/ MINDY/Kerrie -- most recent seen by Dr Maurisio GUILLEN At that time it appears was most recently completed course of Doxycycline PO as well as valtrex and prednisone for suspected shingles and then was seen again by Dr Triplett on 06/02 and given rx for Augmentin and Bactrim and worsened by 06/03 prompting bringing him into the ER however had not yet filled that prescription due to pharmacy issues nationwide and came to ER for ongoing/worsening cellulitis/pain Immunocompromised at baseline on prednisone and plaquenil for PMR, DM II. Placing further Plaquenil on hold given current infection/prolonged healing Appears patient w/ baseline neuropathy, B12 added to AM labs, and denied trauma, however has an opening the bottom of his RIGHT big toe in region where cellulitis reportedly started Xray soft tissue edema/no acute fracture WBC 11k w/ L shift on admit however is on prednisone at baseline ESR 11, CRP 1.45 Blood cultures obtained on admission, however notable patient has been on signi ficant course of antibiotics outpatient Dapto/Zosyn continued (statin on hold, CK wnl but checked after 1L NSS bolus in ER given UA w/ blood but no RBCs) WBC wnl on repeat, afebrile Blood cultures NGTD (noting had been on abx LAV CREWMAN) MRI obtained for further evaluation given concerns for osteo, podiatry consulted Per discussion w/ podiatry, recs to continue ongoing IV abx, await demarcation, recs for vascular consult which was already placed given arterial studies/diminished pulses in the legs and started on baby aspirin Vascular saw this morning, no acute intervention at present Derm consulted for possible biopsy for further eval given did not appear to start as shingles rash for further eval Pain control as needed Wound RN consult Denied trauma however ? tetanus shot (great big toe) DVT proph: lovenox sq while inpatient (2) Hypomagnesemia: Plan: low, replacement ordered and normalized on repeat but was again low and needed replacement PO increased to BID and monitor in AM for stability (3) Wound of right foot: Plan: See above - suspect started from opening to plantar aspect of his R foot given description of redness/travell Prior imaging w/ venous doppler RLE in January for RLE edema w/ 2.92cm superficial thrombophlebitis within proximal calf varices. No evidence for DVT at that time Duplex LW arterial study 05/26/23 IMPRESSION: 1. Atherosclerotic plaque is seen throughout both legs as above. There is no sonographic evidence of high-grade stenosis or focal vessel cutoff in either leg. 2. Note that the calf arteries were not well assessed due to significant calcified atherosclerotic plaque. 3. Ankle brachial indices and toe brachial indices as above. MRI as above, podiatry/vascular surgery consulted ASA 81mg daily Likely will provide tetanus shot however denied any trauma and could be from his bad underlying PAD (4) Polymyalgia rheumatica: Plan: Continue prednisone but HOLDING Plaquenil given poor wound healing/above PT/OT consults to be undertaken Discussed should ideally be titrated to lowest prednisone as tolerated given infection/DM Monitor (5) Hypertension: Plan: Stable with setting of pain, 152/82 Continue carvedilol (6) DMII (diabetes mellitus, type 2): Plan: Last A1c 9.6 in 2019, A1c repeat 8.4 (notable has only had trajenta samples from the office and no rx-- daughter was attempting to get into endocrinology locally and inquiring about insulin to more closely monitor) Home meds placed on hold on admission, sliding scale ordered Pharmacy consulted for assistance --> Daughter would like to see about sooner f/u outpatient endocrinology (has appt w/ [facility] next month - discussed can reach out prior to dc for discussion if needed pending insulin needs while inpatient) (7) CKD (chronic kidney disease), stage III: Plan: Stable, slight elevation but making good urine reported and will continue to renal dose meds/avoid nephrotoxins and monitor (8) BPH (benign prostatic hyperplasia): Plan: -Continue tamsulosin and finasteride (9) Depression: Plan: -Continue venlafaxine , mood stable at present (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 likely will require prolonged course IV abx therapy evals to be undertaken Admission and Anticipated Discharge Date Admission Date: June 03, 2023 Supervising Physician Co-Signing Physician Notes The patient was not seen by me. The chart was reviewed. Case discussed with AMELIA Morrell. Agree with assessment and plan Subjective Eval this morning, sitting up in chair. Being seen by vascular, pulses w/ doppler. Triphasic to knee, biphasic flow beneath, does have flow/no need for intervention. Painful at times, controlled w/ meds. Redness in markings, slightly more redenned in color to dorsum of his foot and tender but not as hot today. Scabbing persists, no active drainage. Discussed possible biopsy of skin for further eval. Will call and update daughter. No fever/chills, no chest pain or shortness of breath. Had some diarrhea but reports just more loose stool at present time. No abdominal pain/nausea and discussed to monitor for diarrhea. Physical Exam Physical Exam: General: 88yo male sitting up in bed, NAD, general pallor Head atraumatic, normocephalic, mmm, trachea midline Resp: even/unlabored, no cough, no w/c/r, on room air CV: RRR, no significant murmur/faint?, no r/g, trace pedal edema w/ cellulitis to RLE but no significant pitting edema, pulses diminished but present by doppler only GI: +BS, soft/NT no cantrell MSK/Neuro/skin: RLE: RIGHT FOOT:+erythema/swelling, +warmth from RIGHT first toe up to mid ankle (WITHIN MARKINGS) however slightly more red on dorsum of foot, +tender to palpation, multiple scab lesions/eschar to dorsum of foot, distal scab to tip of 3rd toe, eschar to pip of 2nd digit dorsal aspect RLE first 3 toes are pale (doppler for pulse only) does have increased rubor w/ legs in dependent position also has approx 2-3 cm opening to plantar aspect of his R hallux, no active drainage appreciated. small thin opening to heel on the right, two open cracked areas to his L heel as well cap refill >3 seconds, toes mobile +neuropathy b/l LE Psych: AOX3, cooperative Results & Data Results & Data Vital Signs (Past 12 Hours) Vital Signs Temp Pulse Pulse Resp BP BP Pulse Ox 06/06/23 07:26 36.8 C 71 18 168/74 H 97 06/06/23 03:06 36.6 C 64 18 146/75 H 90 06/06/23 00:19 76 06/05/23 21:57 37.3 C 78 18 130/74 90 O2 Del Method 06/06/23 07:26 Room Air 06/06/23 03:06 Room Air 06/06/23 00:19 06/05/23 21:57 Room Air Laboratory Results 06/06/23 06/06/23 06/06/23 Range/Units 11:51 11:30 07:42 WBC (4.8-10.8) K/ul RBC (4.70-6.10) M/uL Hgb (14.0-18.0) g/dl Hct (42.0-52.0) % MCV (80.0-100.0) fL MCH (25.0-34.0) pg MCHC (32.0-36.0) g/dL RDW Std Deviation (36.4-46.3) fL RDW Coeff of Aleja (11.5-14.5) % Plt Count (130-400) K/uL MPV (9.4-12.4) fL Immature Gran % (Auto) % Neut % (Auto) % Lymph % (Auto) % Mcmullen % (Auto) % Eos % (Auto) % Baso % (Auto) % Neut # (Auto) (1.40-6.50) K/uL Lymph # (Auto) (1.20-3.40) K/uL Mcmullen # (Auto) (0.11-0.59) K/uL Eos # (Auto) (0.00-0.50) K/uL Baso # (Auto) (0.00-0.20) K/uL Immature Gran # (Auto) (0.01-0.20) K/uL Sodium (136-145) mmol/L Potassium (3.5-5.1) mmol/L Chloride (98-107) mmol/L Carbon Dioxide (21-32) mmol/L Anion Gap (3-11) BUN (6-23) mg/dl Creatinine (0.6-1.4) mg/dl Est Cr Clr Drug Dosing ml/min Est GFR ( Amer) ml/min Est GFR (Non-Af Amer) ml/min BUN/Creatinine Ratio (10-20) Glucose (70-99(Fasting)) mg/dl POC Glucose 171 H 140 H (70-99) mg/dl Calcium (8.6-10.3) mg/dl Magnesium (1.7-2.4) mg/dl Total Bilirubin (0.2-1.0) mg/dl AST (13-39) U/L ALT (7-52) U/L Alkaline Phosphatase (34-104) U/L Total Protein (6.0-8.3) gm/dl Albumin (3.4-5.0) gm/dl Globulin (2.5-4.0) gm/dl Albumin/Globulin Ratio (0.9-2) Stl C. diff Tox B Gene Negative Cdiff Gene (Neg) 06/06/23 06/05/23 06/05/23 Range/Units 06:32 20:33 16:44 WBC 7.76 (4.8-10.8) K/ul RBC 3.72 L (4.70-6.10) M/uL Hgb 12.2 L (14.0-18.0) g/dl Hct 37.2 L (42.0-52.0) % MCV 100.0 (80.0-100.0) fL MCH 32.8 (25.0-34.0) pg MCHC 32.8 (32.0-36.0) g/dL RDW Std Deviation 50.3 H (36.4-46.3) fL RDW Coeff of Aleja 13.9 (11.5-14.5) % Plt Count 157 (130-400) K/uL MPV 10.8 (9.4-12.4) fL Immature Gran % (Auto) 2.1 % Neut % (Auto) 68.6 % Lymph % (Auto) 14.3 % Mcmullen % (Auto) 11.6 % Eos % (Auto) 2.8 % Baso % (Auto) 0.6 % Neut # (Auto) 5.32 (1.40-6.50) K/uL Lymph # (Auto) 1.11 L (1.20-3.40) K/uL Mcmullen # (Auto) 0.90 H (0.11-0.59) K/uL Eos # (Auto) 0.22 (0.00-0.50) K/uL Baso # (Auto) 0.05 (0.00-0.20) K/uL Immature Gran # (Auto) 0.16 (0.01-0.20) K/uL Sodium 137 (136-145) mmol/L Potassium 4.4 (3.5-5.1) mmol/L Chloride 104 (98-107) mmol/L Carbon Dioxide 28 (21-32) mmol/L Anion Gap 5 (3-11) BUN 27 H (6-23) mg/dl Creatinine 1.45 H (0.6-1.4) mg/dl Est Cr Clr Drug Dosing 36.8 ml/min Est GFR ( Amer) 49.5 ml/min Est GFR (Non-Af Amer) 42.7 ml/min BUN/Creatinine Ratio 18.6 (10-20) Glucose 173 H (70-99(Fasting)) mg/dl POC Glucose 136 H 117 H (70-99) mg/dl Calcium 8.7 (8.6-10.3) mg/dl Magnesium 1.8 (1.7-2.4) mg/dl Total Bilirubin 0.7 (0.2-1.0) mg/dl AST 18 (13-39) U/L ALT 11 (7-52) U/L Alkaline Phosphatase 48 (34-104) U/L Total Protein 5.6 L (6.0-8.3) gm/dl Albumin 3.1 L (3.4-5.0) gm/dl Globulin 2.5 (2.5-4.0) gm/dl Albumin/Globulin Ratio 1.2 (0.9-2) Stl C. diff Tox B Gene (Neg) PG Care Time/CCT Total # of Minutes Spent Total Time Spent with Patient: Total time spent is greater than 50% in coordination of care (as documented) at patient's floor/unit and/or counseling patient: Coding Level of Care Code 87745 SUB INP/OBS CARE 3/50MIN Diagnoses Cellulitis of right foot L03.115 Hypomagnesemia E83.42 Wound of right foot S91.301A Polymyalgia rheumatica M35.3 Hypertension I10 DMII (diabetes mellitus, type 2) E11.9 CKD (chronic kidney disease), stage III N18.3 BPH (benign prostatic hyperplasia) N40.0 Depression F32.9 Trifascicular block I45.3 Peripheral arterial disease I73.9
[2023-06-06] MEDS: ASPIRIN 81 MG ECTAB PO SCH (08:27)
[2023-06-06] MEDS: MAGNESIUM CHLORIDE W/CALCIUM 64MG DELAYED REL TAB PO SCH (08:35)
--- NOTE | 2023-06-06 09:39 | Consultation ---
Date of Consultation June 06, 2023 Assessment & Plan (1) Peripheral arterial disease: Review of arterial US and physical exam consistent with mild PAD consistent with age. He does have poor TBI and pale first 3 toes with poor refill, however, consistent with small vessel disease. Unfortunately, there is no vascular surgery to improve this. Small vessel disease would not account for his dorsal foot wound. WHile this wound appears consistent with an abrasion, it has not healed and the pt denies any trauma to the area. Pt foot extremely tender, and the areas are well demarcated and have not changed per pt. No indications for vascular surgical intervention at this time. Discussed with pt, he expresses understanding. Could consider dermatologic eval. Please call if needed. History of Present Illness Reason for Consultation: PAD, RLE cellulitis Attending Physician: Wang Conner MD History of Present Illness 88 yo m with hx of PMH on chronic prednisone, CKD III, HTN, prostate ca, DMII, BPH, GERD, depression, chronic back pain, admitted with R foot cellulitis, seen in consultation today for PAD noted on US. Pt states he developed an area of painful scabbed skin on his R dorsal foot about 2 months ago, which has not changed. States he did see someone for this and they dx him with shingles, but has been on antiviral meds without improvement. States it is painful to walk on the foot. No known trauma. Developed increasing erythema a few days ago and came to [facility]. Admitted on iv abx. Seen by podiatry, concerned for PAD. Pt denies any previous hx of claudication or rest pain. States his R foot is painful, with sharp shooting pains. Also states his R foot is numb. Denies [place], fever, chest pain, SOB, abd pain, N/V, other complaints. Arterial US 05/26 demonstrates triphasic flow to pop BLE, then biphasic flow to feet. Poor visualization of some calf arteries, but no increased velocities to indicate stenosis. INDIGO's of 0.92 RLE and 1.1 LLE likely falsely elevated d/t calcification. Poor TBI noted. Allergies Allergy/AdvReac Type Severity Reaction Status Date / Time pioglitazone [From Actos] Allergy Unknown Verified 06/02/23 09:23 sitagliptin [From Januvia] Allergy Unknown Verified 06/02/23 09:23 Home Medications Medication Instructions Recorded Confirmed Type finasteride 5 mg tablet (Proscar) 5 mg PO QAM 03/03/18 06/03/23 History tamsulosin 0.4 mg capsule (Flomax) 0.4 mg PO HS 03/03/18 06/03/23 History linagliptin 5 mg tablet 5 mg PO DAILY 01/12/19 06/03/23 History atorvastatin 40 mg tablet 40 mg PO QPM 11/23/19 06/03/23 History ferrous sulfate 325 mg (65 mg 325 mg PO DAILY #90 tabs 06/11/21 06/03/23 Rx iron) tablet magnesium chloride 64 mg 64 mg PO QAM 01/05/22 06/03/23 History (magnesium chloride) tablet,delayed release (Mag 64) denosumab 60 mg/mL subcutaneous 60 mg subcut .COMPLEX 01/14/23 06/03/23 History syringe (Prolia) hydroxychloroquine 200 mg tablet 200 mg PO QAM 01/14/23 06/03/23 History ropinirole 1 mg tablet 1 mg PO HS 01/14/23 06/03/23 History metformin 500 mg tablet 500 mg PO BID #60 tabs 01/18/23 06/03/23 Rx carvedilol 3.125 mg tablet 3.125 mg PO BID 30 days #60 tabs 05/04/23 06/03/23 Rx insulin degludec 100 unit/mL (3 See Rx Instructions subcut DAILY 05/04/23 06/03/23 Rx mL) subcutaneous pen (Tresiba #15 mL FlexTouch U-100 insulin) cholecalciferol (vitamin D3) 50 50 mcg PO QAM 06/03/23 06/03/23 History mcg (2,000 unit) tablet (Vitamin D3) famotidine 20 mg tablet 20 mg PO QAM 06/03/23 06/03/23 History furosemide 20 mg tablet 20 mg PO DAILY PRN Fluid Retention 06/03/23 06/03/23 History prednisone 2.5 mg tablet See Rx Instructions .Route .COMPLEX 06/03/23 06/03/23 History prednisone 5 mg tablet See Rx Instructions .Route .COMPLEX 06/03/23 06/03/23 History repaglinide 2 mg tablet 2 mg PO DAILY PRN DEPENDS ON FOOD 06/03/23 06/03/23 History EATEN venlafaxine 75 mg capsule,extended 75 mg PO QPM 06/03/23 06/03/23 History release 24 hr Patient History Medical History (Updated 06/06/23 @ 09:45 by Norah Bustos PA-C) History of prostate cancer No pertinent family history Polymyalgia rheumatica Closed fracture of spinous process of thoracic vertebra Closed L3 vertebral fracture Depression GERD (gastroesophageal reflux disease) Hypertriglyceridemia BPH (benign prostatic hyperplasia) Lumbago CKD (chronic kidney disease), stage III DMII (diabetes mellitus, type 2) Hypertension Surgical History History of blepharoplasty L eye History of hernia surgery History of foot surgery R 4th Toe surgery H/O neck surgery Family History Mother Colorectal cancer Coronary heart disease Diabetes Brother Diabetes Kidney disease Colorectal cancer Prostate cancer Other No pertinent family history Social History Smoking Status: Former smoker Tobacco Type: Cigarettes Second Hand Exposure: No; Do You Dip or Chew Tobacco: No; Hx Alcohol Use: Yes Alcohol type: beer and hard liquor Alcohol Intake Frequency Comment: 1-2 beers monthly Hx Substance Use: No Preferred Language: Gibralt[place] Communication Ability: Effective 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: Yes and No Beliefs That Will Affect Care: None marital status: / Current Living Situation: Alone current occupational status: retired Feels Safe at Home: Yes Safety Concerns: Feels Safe At This Time Childhood Exposure to Second-Hand Smoke: Yes Diet: low carbohydrate caffeine: Yes Dental Care, Regularly: Yes Seatbelt Use: always Assistive Devices: Cane and Walker Review of Systems Review of Systems: All systems reviewed & are unremarkable except as noted in HPI & below Physical Exam Constitutional: WD/WN, vitals as above cooperative and comfortable; not in distress Neck: trachea midline Respiratory: normal respiratory effort, lungs clear to auscultation A uscultation: + diminished lung sounds Cardiovascular: Rate/Rhythm: regular rate and regular rhythm Vessels: posterior tibial pulses present (excellent doppler signals BLE), dorsalis pedis pulses present (good doppler signals BLE) and radial pulses present; + abnormal peripheral pulses Extremities: normal capillary refill (LLE normal, RLE first 3 toes pale, poor refill) Gastrointestinal (Abdomen): Inspection/Auscultation: abdomen normal to inspection and normal bowel sounds Percussion/Palpation: abdomen soft; abdomen nontender Musculoskeletal: no cyanosis or clubbing, extremities motor strength 5/5 Skin: + rash (R foot) R dorsal foot with dried/scabbed area consistent with abrasion, crack beneath great toe eschar/scabbed, prox 3rd toe small scabbed area. Dry, no odor. Neurologic: moves all extremities and awake; no focal motor deficits and not confused Psychiatric: A+Ox3, euthymic affect Results & Data Vital Signs (Past 12 Hours) Vital Signs Temp Pulse Pulse Resp BP BP Pulse Ox 06/06/23 07:26 36.8 C 71 18 168/74 H 97 06/06/23 03:06 36.6 C 64 18 146/75 H 90 06/06/23 00:19 76 06/05/23 21:57 37.3 C 78 18 130/74 90 O2 Del Method 06/06/23 07:26 Room Air 06/06/23 03:06 Room Air 06/06/23 00:19 06/05/23 21:57 Room Air
--- NOTE | 2023-06-06 09:56 | Pharmacy Report ---
Pharmacy Glycemic Short Note 2 - Date of Service June 06, 2023 - Glycemic Short BSG Results (Last 24 hours): 06/05/23 06/05/23 06/05/23 11:39 16:44 20:33 Glucose POC Glucose 223 H 117 H 136 H 06/06/23 06/06/23 06:32 07:42 Glucose 173 H POC Glucose 140 H OUTPATIENT ANTIDIABETIC REGIMEN: * Tresiba 30units SQ qAM, 25 units SQ HS * linagliptin 5mg PO daily * metformin 500mg PO BID HbA1C: 8.4% ASSESSMENT: * Pt is an 88 year old male admitted with worsening foot cellulitis. History of DM2 on insulin and PO therapies at home. Pharmacy consulted to assist with inpatient glycemic management. * BSGs [phone]/dL the last 24h. Received 10 units of basal and 2 units of bolus insulin yesterday. * Ordered a diet (decreased PO the last 2 days) and receiving IV antibiotics. * Lantus 15 units X 1 this afternoon + HS scale tonight depending on BSG (increased PO intake so far today). Novolog moderate stress scale. PLAN FOR INPATIENT GLYCEMIC CONTROL: * Hold outpatient oral diabetes medications * Basal insulin * Lantus 15 units X 1 + HS scale (0/7/15 units) depending on BSG * Bolus insulin * NovoLog per scale ACHS or Q6hrs while NPO * Goal Range: Low 110 mg/dL - High 140 mg/dL * Correction Factor: 35 mg/dL/unit * Nutritional / Prandial insulin per carb ratio of 1 unit per 12 grams CHO consumed
[2023-06-06] MEDS: EUCERIN CR 120 GM JAR EXT SCH (10:44)
[2023-06-06] MEDS: LANTUS PER UNIT CHARGE SC ONE (12:43)
--- NOTE | 2023-06-06 13:32 | Communication Note ---
Date of Service: June 06, 2023 CDS Query - peripheral arterial disease with foot ulceration in setting of diabetes, cannot exclude diabetic PAD w/ foot ulceration but no significant stenosis requiring intervention per vascular consult - abx as outlined, podiatry/vascular/derm consulted as outlined in plan
--- NOTE | 2023-06-06 15:29 | Orthopedic Progress Note ---
Date of Service June 06, 2023 Assessment & Plan (1) Peripheral arterial disease: (2) Wound of right foot: (3) Cellulitis of right foot: Plan - Patient examined and evaluated. - No significant changes are noted to his foot with the suspected dry gangrene of his third toe stable and not Progressing. - No progression of the cellulitis is noted past the extent of the marker margins. - Appreciated vascular hand wound care input. He is unlikely to benefit significantly from either a biopsy or surgical intervention. His lower extremity, especially distally at the toes, is ischemic in nature and surgical intervention can cause more harm than the result of a biopsy would improve. If he fails to improve over time and there is still concern of underlying infection despite antibiosis, or if cultures are warranted, he could benefit from a surgical biopsy at that point. Further, the necrosis progresses, he may require a amputation because of dry or wet gangrene. Neither of these are indicated at this time. - We'll continue to monitor every other day or so, though no surgical intervention is currently planned. He should continue with antibiotics empirically and will likely have less pain with his leg down in dependency. - He could benefit from continued physical therapy and ambulation with their assistance. If the foot pain is with limiting him, he would benefit from a pneumatic walking boot for protected weightbearing. Dispense this needed. Admission and Anticipated Discharge Date Admission Date: June 03, 2023 Subjective Patient seen at bedside with family and friends. He is doing well at this point with decreased but still significant pain to the right lower extremity. He was seen by vascular and care he is unsure what their recommendations have been. He denies any new concerns on this hospitalization and thinks that he is doing relatively well. He states that he did get up with physical therapy the first day he was here but otherwise has been relatively immobile. Review of Systems Review of Systems: All systems reviewed & are unremarkable except as noted in HPI & below Constitutional: as per Subjective / HPI Eyes: as per Subjective / HPI; no problem reported Ear, Nose, Mouth, Throat: no problem reported Respiratory: no cough, no chest congestion and no problem reported Cardiovascular: + edema and + claudication Gastrointestinal: no problem reported Genitourinary: no problem reported Musculoskeletal: + back pain and + radicular pain Integumentary: + non-healing lesions, + changing lesion s and + change in skin color Neurologic: + radiating pain Psychiatric: no problem reported Endocrine: no problem reported Physical Exam Physical Exam: Right Lower extremity focused exam: DP/PT pulses 0/4 bilaterally. No hair growth is noted to the lower extremity. Skin is atrophic with increasing cooling distally. There is pain on palpation of the digits, out of proportion to stimulus. There is subjective radiating pain from the hip down the lower extremity as well. There is diffuse erythema and likely ecchymosis to the entire dorsal foot, extending from the lateral malleolus and radiating towards the digits. This is what well-circumscribed and the margins have been delineated in the last couple of days with marker. No new excursions are noted passed this line of extent. There is evidence potentially increasing dry gangrene to the right third toe distally with also increasing bogginess to the right hallux distally. There is no discoloration to the hallux though there is a palpable change consistent with deep tissue injury and ischemia. There is 2 areas of dry injured skin, 1 to the plantar posterior right calcaneus and one underlying the IPJ of the hallux. These do appear more consistent with scab formation rather than necrosis, the dry gangrene. There is pain on palpation of these skin lesions. Constitutional: WD/WN, vitals as above comfortable; no acute distress Eyes: PERRL, conjunctivae normal, anicteric sclerae ENMT: external ear and nose normal, oropharynx normal Neck: trachea midline, no thyromegaly Respiratory: normal respiratory effort, lungs clear to auscultation Cardiovascular: RRR, no murmur, no edema Vessels: + posterior tibial pulses abnormal (Biphasic flow is noted on Doppler exam) and + dorsalis pedis pulses abnormal Extremities: no calf tenderness, no pedal edema and no edema Gastrointestinal (Abdomen): normal bowel sounds, soft, nontender, no hepatosplenomegaly Musculoskeletal: no cyanosis or clubbing, extremities motor strength 5/5 Neurologic: patellar DTR's 2+ bilat, sensation intact normal sensation to monofilament (Subjective numbness is noted to the plantar aspect of the foot) and moves all extremities Results & Data Vital Signs (Past 12 Hours) Vital Signs Temp Pulse Pulse Resp BP Pulse Ox O2 Del Method 06/06/23 14:53 36.9 C 70 16 166/79 H 93 Room Air 06/06/23 11:14 36.8 C 71 18 152/82 H 93 Room Air 06/06/23 08:00 62 06/06/23 07:26 36.8 C 71 18 168/74 H 97 Room Air
[2023-06-06] MEDS: LANTUS PER UNIT CHARGE SC SCH (21:44)
[2023-06-07 04:15] LABS: Hematocrit (blood only) 34.8 % (42.0-52.0); Hemoglobin 11.6 g/dl (14.0-18.0); Mean Corpuscular Hemoglobin 32.9 pg (25.0-34.0); Mean Corpuscular Hgb Conc 33.3 g/dL (32.0-36.0); Mean Corpuscular Volume 98.6 fL (80.0-100.0); Mean Platelet Volume 10.7 fL (9.4-12.4); Platelet Count 173 K/uL (130-400); RDW Coefficient of Variation 13.7 % (11.5-14.5); RDW Standard Deviation 48.3 fL (36.4-46.3); Red Blood Count 3.53 M/uL (4.70-6.10); White Blood Count 7.95 K/ul (4.8-10.8)
[2023-06-07 04:26] LABS: BUN Creatinine Ratio 21.6 (10-20); Calcium 8.4 mg/dl (8.6-10.3); Creatinine Clr Calc Pharmacy 34.9 ml/min; Est GFR (African American) 46.4 ml/min; Magnesium 1.6 mg/dl (1.7-2.4); Potassium 4.3 mmol/L (3.5-5.1)
[2023-06-07] MEDS: LANTUS PER UNIT CHARGE SC SCH ×2 (08:36→21:27)
--- NOTE | 2023-06-07 09:01 | Pharmacy Report ---
Pharmacy Glycemic Short Note 2 - Date of Service June 07, 2023 - Glycemic Short BSG Results (Last 24 hours): 06/06/23 06/06/23 06/06/23 11:51 16:16 19:59 Glucose POC Glucose 171 H 129 H 136 H 06/07/23 06/07/23 03:23 07:21 Glucose 232 H POC Glucose 169 H OUTPATIENT ANTIDIABETIC REGIMEN: * Tresiba 30units SQ qAM, 25 units SQ HS * linagliptin 5mg PO daily * metformin 500mg PO BID HbA1C: 8.4% ASSESSMENT: 06/07/23: * Patient received 26 units of insulin yesterday (15 units of basal and 11 units of prandial/correctional bolus) * BSGs reasonably well-controlled yesterday w/ mild elevation at lunchtime (171 mg/dL) * Fasting BSG of 169 mg/dL this morning * Will increase basal and slightly tighten Novolog parameters today * Continues on broad-spectrum antibiotics 06/06/23: * Pt is an 88 year old male admitted with worsening foot cellulitis. History of DM2 on insulin and PO therapies at home. Pharmacy consulted to assist with inpatient glycemic management. * BSGs [phone]/dL the last 24h. Received 10 units of basal and 2 units of bolus insulin yesterday. * Ordered a diet (decreased PO the last 2 days) and receiving IV antibiotics. * Lantus 15 units X 1 this afternoon + HS scale tonight depending on BSG (increased PO intake so far today). Novolog moderate stress scale. PLAN FOR INPATIENT GLYCEMIC CONTROL: * Hold outpatient oral diabetes medications * Basal insulin * Lantus 20 units SC daily * Lantus 0-5-10 units SC HS (see EHR for details) * Bolus insulin * NovoLog per scale ACHS or Q6hrs while NPO * Goal Range: Low 110 mg/dL - High 140 mg/dL * Correction Factor: 30 mg/dL/unit * Nutritional / Prandial insulin per carb ratio of 1 unit per 10 grams CHO consumed
--- NOTE | 2023-06-07 11:44 | Hospitalist Progress Note ---
Date of Service June 07, 2023 Assessment & Plan (1) Cellulitis of right foot: Plan: Admitted for progressive/worsening cellulitis of his RIGHT foot. As an outpatient, he completed course of Doxycycline PO as well as valtrex and prednisone for suspected shingles in the weeks leading up to admission Seen by PCP Dr Triplett on 06/02 and given rx for Augmentin and Bactrim but did not fill the prescriptions prior to admission-having chills and significant pain and increase in erythema of right foot Immunocompromised at baseline on chronic prednisone and plaquenil for PMR; also with DM II Xray soft tissue edema/no acute fracture MRI of right foot negative for OM, tuft first distal phalanx nonspecific osteitis, mild soft tissue swelling throughout foot, no abscess Mild leukocytosis on admit however is on prednisone at baseline, remains afebrile ESR 11, CRP 1.45 Blood cultures no growth to date Erythema now turning purplish but is contained within lines of demarcation Bilateral arterial Dopplers and ABIs from 05/26/2023 with triphasic flow to pop BLE, then biphasic flow to feet. Poor visualization of some calf arteries, but no increased velocities to indicate stenosis. INDIGO's of 0.92 RLE and 1.1 LLE likely falsely elevated d/t calcification. Poor TBI noted. Appreciate vascular consultation-mild PAD bilateral lower extremities and small vessel disease in right foot-no vascular surgery to improve this. Recommended dermatologic evaluation for right dorsal foot wound Dermatology recommends checking for antiphospholipid antibody syndrome, possible microvascular occlusion. Notes that echocardiogram without thrombus Appreciate podiatry consultation-monitor for improvement versus worsening, no surgical intervention at this time Continue to hold Plaquenil while healing Continue broad-spectrum antibiotic coverage with Dapto/Zosyn Pain control as needed (2) Hypomagnesemia: Plan: Quite low on admission, replaced with IV magnesium and p.o. magnesium Give 1 g of IV magnesium today Follow BMP and magnesium level in the morning (3) Wound of right foot: Plan: As noted above Continue wound care, podiatry following (4) Polymyalgia rheumatica: Plan: Resume chronic prednisone 7.5 mg daily Continue to hold Plaquenil with active infection (5) Hypertension: Plan: Blood pressures are mildly elevated Continue carvedilol (6) DMII (diabetes mellitus, type 2): Plan: Last A1c 9.6 in 2019, A1c repeat 8.4 Pharmacy consulted for assistance Holding home Tradjenta Continue insulin (7) CKD (chronic kidney disease), stage III: Plan: Creatinine with slight elevation to 1.5 but making good urine reported and will continue to renal dose meds/avoid nephrotoxins and monitor (8) BPH (benign prostatic hyperplasia): Plan: -Continue tamsulosin and finasteride (9) Depression: Plan: -Continue venlafaxine , mood stable at present (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 EKG ECHO normal Cardiology consulted no issues at present, did start on baby aspirin is on carvedilol which per cards to continue recs for zio monitor and can be arranged at discharge (11) Peripheral arterial disease: Plan: noted as above, started baby aspirin vascular on consult as outlined above, no acute intervention derm eval given abrasion like appearance Plan DVT prophylaxis Lovenox SQ Disposition-continued stay Admission and Anticipated Discharge Date Admission Date: June 03, 2023 Subjective Patient continues to have pain in the right foot and feels like the redness and purplish color is about the same as before. Denies chest pains or shortness of breath, no fevers Telemetry with normal sinus rhythm with rates in the 60s to 70s Physical Exam Constitutional: WD/WN, vitals as above Respiratory: normal respiratory effort, lungs clear to auscultation Cardiovascular: RRR, no murmur, no edema Gastrointestinal (Abdomen): normal bowel sounds, soft, nontender, no hepatosplenomegaly Skin: + lesion (Plantar right distal third toe and plantar great toe with small ulceration), + ulcer (Right dorsal scabbed over wound 3 x 5 cm), + wound (Heel crack right foot) and + erythema (Erythema and purplish discoloration of dorsal foot contained in lines) Psychiatric: A+Ox3, euthymic affect Results & Data Results & Data Vital Signs (Past 12 Hours) Vital Signs Temp Pulse Pulse Resp BP Pulse Ox O2 Del Method 06/07/23 08:00 69 06/07/23 07:23 37.0 C 73 18 181/82 H 92 Room Air 06/07/23 03:24 37 C 74 18 161/83 H 95 Room Air 06/07/23 00:00 76 Laboratory Results CBC, BMP, magnesium reviewed PG Care Time/CCT Total # of Minutes Spent Total Time Spent with Patient: Total time spent is greater than 50% in coordination of care (as documented) at patient's floor/unit and/or counseling patient: Coding Level of Care Code 11378 SUB INP/OBS CARE 3/50MIN Diagnoses Cellulitis of right foot L03.115 Hypomagnesemia E83.42 Wound of right foot S91.301A Polymyalgia rheumatica M35.3 Hypertension I10 DMII (diabetes mellitus, type 2) E11.9 CKD (chronic kidney disease), stage III N18.3 BPH (benign prostatic hyperplasia) N40.0 Depression F32.9 Trifascicular block I45.3 Peripheral arterial disease I73.9
--- NOTE | 2023-06-07 13:14 | Dermatology Consultation ---
Date of Consultation June 07, 2023 Assessment & Plan (1) Dermatitis, unspecified: Exam is suspicious for microvascular occlusion/vasculopathy given the presence of eschar and purpura. DDx would include embolic phenomenon (such as cholesterol emboli) or anti-phospholipid antibody antibody syndrome. I doubt that this was a primary infectious process (i.e. herpes zoster or bacterial cellulitis) based on his presentation. Echocardiogram also noted to be unremarkable. Recommend the followin) Check antiphospholipid antibodies (orders placed). 2) Vaseline to areas of eschar twice daily. 3) Continued supportive care as per primary team as patient's symptoms seem to be gradually improving. History of Present Illness Reason for Consultation: Rash on right foot Requesting Physician: Julia Christian PA-C Attending Physician: Ritu Garcia MD History of Present Illness Patient is an 88 y/o WM admitted to [facility] on 06/03/2023 for suspected cellulitis involving the right foot. He has a past medical history significant for PAD, hypertension, stage III CKD, polymyalgia rheumatica, type 2 diabetes and history of prostate cancer. Patient reports that he initially developed some skin changes on the right dorsal foot roughly 2 months ago. He reports that it started as small pimple-like lesions, but then they gradually "grew together" into the current scab on the right dorsal foot. He was seen by a knitting machine operator automatic in [place] on 05/23/2023 and diagnosed presumptively with herpes zoster. He was placed on prednisone 50 mg daily x 5 days and valacyclovir 1 g 3 times daily for 10 days. Patient reports that this did not help his rash, and he gradually developed increased swelling and pain in the right foot over the next 10 days. Due to difficulty with ambulation, he presented to [facility] on 06/03/2023 for evaluation. At that time he was diagnosed presumptively with cellulitis. Patient denies any fever, chills or systemic symptoms prior to his hospitalization. Since admission he has been placed on daptomycin and Zosyn empirically for possible cellulitis. His blood cultures have been negative, and he has not been febrile since admission. He did have an MRI of the foot on 06/04/2023 which did not show any evidence for osteomyelitis or abscess. He has been evaluated by podiatry who did not see any indication for surgical intervention. He has also been evaluated by vascular surgery; their review of recent arterial ultrasounds suggest mild PAD consistent with age. They also did not feel any indication for any surgical intervention at this time. Patient notes that swelling and redness in the foot has slightly decreased since his admission. The top of his foot is still painful with pressure. He notes that he is able to move his toes, which he was not able to do yesterday. He denies any history of similar eruption in the past. He denies any prior history of blood clots. He denies any irritation in the eyes or sores in the mouth. Otherwise, he feels in his normal state of health. No other skin complaints t melba. Allergies Allergy/AdvReac Type Severity Reaction Status Date / Time pioglitazone [From Actos] Allergy Unknown Verified 06/02/23 09:23 sitagliptin [From Januvia] Allergy Unknown Verified 06/02/23 09:23 Home Medications Medication Instructions Recorded Confirmed Type finasteride 5 mg tablet (Proscar) 5 mg PO QAM 03/03/18 06/03/23 History tamsulosin 0.4 mg capsule (Flomax) 0.4 mg PO HS 03/03/18 06/03/23 History linagliptin 5 mg tablet 5 mg PO DAILY 01/12/19 06/03/23 History atorvastatin 40 mg tablet 40 mg PO QPM 11/23/19 06/03/23 History ferrous sulfate 325 mg (65 mg 325 mg PO DAILY #90 tabs 06/11/21 06/03/23 Rx iron) tablet magnesium chloride 64 mg 64 mg PO QAM 01/05/22 06/03/23 History (magnesium chloride) tablet,delayed release (Mag 64) denosumab 60 mg/mL subcutaneous 60 mg subcut .COMPLEX 01/14/23 06/03/23 History syringe (Prolia) hydroxychloroquine 200 mg tablet 200 mg PO QAM 01/14/23 06/03/23 History ropinirole 1 mg tablet 1 mg PO HS 01/14/23 06/03/23 History metformin 500 mg tablet 500 mg PO BID #60 tabs 01/18/23 06/03/23 Rx carvedilol 3.125 mg tablet 3.125 mg PO BID 30 days #60 tabs 05/04/23 06/03/23 Rx insulin degludec 100 unit/mL (3 See Rx Instructions subcut DAILY 05/04/23 06/03/23 Rx mL) subcutaneous pen (Tresiba #15 mL FlexTouch U-100 insulin) cholecalciferol (vitamin D3) 50 50 mcg PO QAM 06/03/23 06/03/23 History mcg (2,000 unit) tablet (Vitamin D3) famotidine 20 mg tablet 20 mg PO QAM 06/03/23 06/03/23 History furosemide 20 mg tablet 20 mg PO DAILY PRN Fluid Retention 06/03/23 06/03/23 History prednisone 2.5 mg tablet See Rx Instructions .Route .COMPLEX 06/03/23 06/03/23 History prednisone 5 mg tablet See Rx Instructions .Route .COMPLEX 06/03/23 06/03/23 History repaglinide 2 mg tablet 2 mg PO DAILY PRN DEPENDS ON FOOD 06/03/23 06/03/23 History EATEN venlafaxine 75 mg capsule,extended 75 mg PO QPM 06/03/23 06/03/23 History release 24 hr Patient History Medical History (Updated 06/07/23 @ 15:44 by Harjit Casanova MD) Dermatitis, unspecified History of prostate cancer No pertinent family history Polymyalgia rheumatica Closed fracture of spinous process of thoracic vertebra Closed L3 vertebral fracture Depression GERD (gastroesophageal reflux disease) Hypertriglyceridemia BPH (benign prostatic hyperplasia) Lumbago CKD (chronic kidney disease), stage III DMII (diabetes mellitus, type 2) Hypertension Surgical History History of blepharoplasty L eye History of hernia surgery History of foot surgery R 4th Toe surgery H/O neck surgery Family History Mother Colorectal cancer Coronary heart disease Diabetes Brother Diabetes Kidney disease Colorectal cancer Prostate cancer Other No pertinent family history Social History Smoking Status: Former smoker Tobacco Type: Cigarettes Second Hand Exposure: No; Do You Dip or Chew Tobacco: No; Hx Alcohol Use: Yes Alcohol type: beer and hard liquor Alcohol Intake Frequency Comment: 1-2 beers monthly Hx Substance Use: No Preferred Language: Kinyarwanda Communication Ability: Effective Engineering Illustrator Required: Yes and No Beliefs That Will Affect Care: None marital status: / Current Living Situation: Alone current occupational status: retired Feels Safe at Home: Yes Childhood Exposure to Second-Hand Smoke: Yes Diet: low carbohydrate caffeine: Yes Dental Care, Regularly: Yes Seatbelt Use: always Assistive Devices: Cane and Walker Review of Systems Review of Systems: All systems reviewed & are unremarkable except as noted in Subjective Physical Exam Physical Exam: General Appearance:Well developed, well-nourished and in no acute distress Psych:Alert, Oriented and Appropriate Skin Type:2 Face: No abnormalities noted. Eyelids/Ocular Mucosa: Ocular mucosa WNL. Lips/Teeth/Gums: Oral mucosa WNL. Neck: No abnormalities noted. Right Lower Extremity:+geometric eschar on the dorsal medial foot with surrounding tender, purpuric patch (appears to be receding from prior marker boundaries); +additional oval eschar on the plantar 1st toe, distal 3rd toe, dorsal 2nd toe Left Lower Extremity:No abnormalities noted. Right Upper Extremity:No abnormalities noted. Left Upper Extremity:No abnormalities noted. Nails: No splinter hemorrhages. Results & Data Vital Signs (Past 12 Hours) Vital Signs Temp Pulse Pulse Resp BP Pulse Ox O2 Del Method 06/07/23 11:43 36.3 C L 66 18 161/79 H 96 Room Air 06/07/23 08:00 69 06/07/23 07:23 37.0 C 73 18 181/82 H 92 Room Air 06/07/23 03:24 37 C 74 18 161/83 H 95 Room Air Laboratory Results 06/07/23 06/07/23 06/07/23 Range/Units 11:45 07:21 03:23 WBC 7.95 (4.8-10.8) K/ul RBC 3.53 L (4.70-6.10) M/uL Hgb 11.6 L (14.0-18.0) g/dl Hct 34.8 L (42.0-52.0) % MCV 98.6 (80.0-100.0) fL MCH 32.9 (25.0-34.0) pg MCHC 33.3 (32.0-36.0) g/dL RDW Std Deviation 48.3 H (36.4-46.3) fL RDW Coeff of Aleja 13.7 (11.5-14.5) % Plt Count 173 (130-400) K/uL MPV 10.7 (9.4-12.4) fL Sodium 135 L (136-145) mmol/L Potassium 4.3 (3.5-5.1) mmol/L Chloride 103 (98-107) mmol/L Carbon Dioxide 26 (21-32) mmol/L Anion Gap 6 (3-11) BUN 33 H (6-23) mg/dl Creatinine 1.53 H (0.6-1.4) mg/dl Est Cr Clr Drug Dosing 34.9 ml/min Est GFR ( Amer) 46.4 ml/min Est GFR (Non-Af Amer) 40.0 ml/min BUN/Creatinine Ratio 21.6 H (10-20) Glucose 232 H (70-99(Fasting)) mg/dl POC Glucose 249 H 169 H (70-99) mg/dl Calcium 8.4 L (8.6-10.3) mg/dl Magnesium 1.6 L (1.7-2.4) mg/dl 06/06/23 06/06/23 Range/Units 19:59 16:16 WBC (4.8-10.8) K/ul RBC (4.70-6.10) M/uL Hgb (14.0-18.0) g/dl Hct (42.0-52.0) % MCV (80.0-100.0) fL MCH (25.0-34.0) pg MCHC (32.0-36.0) g/dL RDW Std Deviation (36.4-46.3) fL RDW Coeff of Aleja (11.5-14.5) % Plt Count (130-400) K/uL MPV (9.4-12.4) fL Sodium (136-145) mmol/L Potassium (3.5-5.1) mmol/L Chloride (98-107) mmol/L Carbon Dioxide (21-32) mmol/L Anion Gap (3-11) BUN (6-23) mg/dl Creatinine (0.6-1.4) mg/dl Est Cr Clr Drug Dosing ml/min Est GFR ( Amer) ml/min Est GFR (Non-Af Amer) ml/min BUN/Creatinine Ratio (10-20) Glucose (70-99(Fasting)) mg/dl POC Glucose 136 H 129 H (70-99) mg/dl Calcium (8.6-10.3) mg/dl Magnesium (1.7-2.4) mg/dl Diagnostic Findings 06/04/2023 Blood Cultures: NGTD 06/04/2023 MRI Right foot: +mild soft tissue swelling; no sign of osteomyelitis or abscess 06/05/2023 Echocardiogram: no valvular pathology Medications [facility] PG Care Time/CCT Total # of Minutes Spent Total Time Spent with Patient: Total time spent is greater than 50% in coordination of care (as documented) at patient's floor/unit and/or counseling patient: Coding Level of Care Code 85973 INT INP/OBS CARE MIN Diagnoses Dermatitis, unspecified L30.9
[2023-06-07] MEDS: MAGNESIUM SULFATE / D5W 1 GM/100 ML BAG IV ONE (14:27)
[2023-06-07] MEDS: predniSONE 2.5 MG TAB PO SCH (19:53)
[2023-06-08 06:33] LABS: Basophils # (auto) 0.04 K/uL (0.00-0.20); Basophils % (auto) 0.5 %; Eosinophils # (auto) 0.05 K/uL (0.00-0.50); Eosinophils % (auto) 0.6 %; Hematocrit (blood only) 36.9 % (42.0-52.0); Hemoglobin 12.2 g/dl (14.0-18.0); Immature Granulocytes # (auto) 0.16 K/uL (0.01-0.20); Lymphocytes # (auto) 0.96 K/uL (1.20-3.40); Lymphocytes % (auto) 12.1 %; Mean Corpuscular Hemoglobin 32.6 pg (25.0-34.0); Mean Corpuscular Hgb Conc 33.1 g/dL (32.0-36.0); Mean Corpuscular Volume 98.7 fL (80.0-100.0); Mean Platelet Volume 10.7 fL (9.4-12.4); Monocytes # (auto) 0.74 K/uL (0.11-0.59); Monocytes % (auto) 9.3 %; Neutrophils # (auto) 5.98 K/uL (1.40-6.50); Neutrophils % (auto) 75.5 %; Platelet Count 190 K/uL (130-400); RDW Coefficient of Variation 13.4 % (11.5-14.5); RDW Standard Deviation 48.2 fL (36.4-46.3); Red Blood Count 3.74 M/uL (4.70-6.10); White Blood Count 7.93 K/ul (4.8-10.8)
[2023-06-08 06:54] LABS: Albumin Globulin Ratio 1.2 (0.9-2); Albumin Level 3.2 gm/dl (3.4-5.0); BUN Creatinine Ratio 20.9 (10-20); Bilirubin,Total 0.5 mg/dl (0.2-1.0); Creatinine Clr Calc Pharmacy 32.8 ml/min; Est GFR (Non-African American) 37.1 ml/min; Globulin 2.7 gm/dl (2.5-4.0); Magnesium 1.8 mg/dl (1.7-2.4); Potassium 5.2 mmol/L (3.5-5.1); Total Protein 5.9 gm/dl (6.0-8.3)
[2023-06-08] MEDS: CHOLECALCIFEROL 25 MCG (1000 UNITS) TAB PO SCH (08:13)
[2023-06-08] MEDS: LANTUS PER UNIT CHARGE SC SCH (08:49)
[2023-06-08] MEDS: SODIUM CHLORIDE 0.9% 500 ML IV SCH (11:45)
[2023-06-08] MEDS: SODIUM ZIRCONIUM CYCLOSILICATE 10 GM PACKET PO SCH (12:18)
--- NOTE | 2023-06-08 15:34 | Hospitalist Progress Note ---
Date of Service June 08, 2023 Assessment & Plan (1) Cellulitis of right foot: Plan: Admitted for progressive/worsening cellulitis of his RIGHT foot. As an outpatient, he completed course of Doxycycline PO as well as valtrex and prednisone for suspected shingles in the weeks leading up to admission Seen by PCP Dr Triplett on 06/02 and given rx for Augmentin and Bactrim but did not fill the prescriptions prior to admission-having chills and significant pain and increase in erythema of right foot Immunocompromised at baseline on chronic prednisone and plaquenil for PMR; also with DM II Xray soft tissue edema/no acute fracture MRI of right foot negative for OM, tuft first distal phalanx nonspecific osteitis, mild soft tissue swelling throughout foot, no abscess Mild leukocytosis on admit however is on prednisone at baseline, remains afebrile ESR 11, CRP 1.45 Blood cultures no growth to date Bilateral arterial Dopplers and ABIs from 05/26/2023 with triphasic flow to pop BLE, then biphasic flow to feet. Poor visualization of some calf arteries, but no increased velocities to indicate stenosis. INDIGO's of 0.92 RLE and 1.1 LLE likely falsely elevated d/t calcification. Poor TBI noted. Erythema now turning purplish but is contained within lines of demarcation Edema and erythema improving, less pain, no fevers Appreciate vascular consultation-mild PAD bilateral lower extremities and small vessel disease in right foot-no vascular surgery to improve this. Recommended dermatologic evaluation for right dorsal foot wound Dermatology recommends checking for antiphospholipid antibody syndrome, possible microvascular occlusion. Notes that echocardiogram without thrombus Appreciate podiatry consultation-monitor for improvement versus worsening, no surgical intervention at this time Continue to hold Plaquenil while healing Continue broad-spectrum antibiotic coverage with Dapto/Zosyn Pain control as needed (2) Hypomagnesemia: Plan: Quite low on admission, replaced with IV magnesium and p.o. 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 no other offending meds making urine with associated hyperkalemia give LR 500mL x 1 follow BMP give lokelma x 1, change to low potassium diet (4) Peripheral arterial disease: Plan: noted as above, started baby aspirin vascular on consult as outlined above, no acute intervention derm eval given abrasion like appearance-recommend antiphospholipid ab testing- pending (5) Wound of right foot: Plan: As noted above Continue wound care, podiatry following (6) Transaminitis: Plan: AST mild elevation, could be from Dapto-check CK and follow LFTs (7) Polymyalgia rheumatica: Plan: Resume chronic prednisone 7.5 mg daily Continue to hold Plaquenil with active infection (8) Hypertension: Plan: Blood pressures are mildly elevated Continue carvedilol (9) DMII (diabetes mellitus, type 2): Plan: Last A1c 9.6 in 2019, A1c repeat 8.4 Pharmacy consulted for assistance Holding home Tradjenta Continue insulin (10) CKD (chronic kidney disease), stage III: Plan: as above With a h/o RTA, type 4 as well (11) BPH (benign prostatic hyperplasia): Plan: -Continue tamsulosin and finasteride (12) Depression: Plan: -Continue venlafaxine , mood stable at present (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 EKG ECHO normal Cardiology consulted no issues at present, did start on baby aspirin is on carvedilol which per cards to continue recs for zio monitor and can be arranged at discharge Plan DVT prophylaxis Lovenox SQ Disposition-continued stay discussed care with daughter janell on phone 06/07 and 06/08 Admission and Anticipated Discharge Date Admission Date: June 03, 2023 Subjective Feels pain is improving, swelling and redness in foot improving, no other complaints Tele with NSR 1st AVB, rates 60-70s Physical Exam Constitutional: WD/WN, vitals as above Respiratory: normal respiratory effort, lungs clear to auscultation Cardiovascular: RRR, no murmur, no edema Gastrointestinal (Abdomen): normal bowel sounds, soft, nontender, no hepatosplenomegaly Skin: + lesion (Plantar right distal third toe and plantar great toe with small ulceration), + ulcer (Right dorsal scabbed over wound 3 x 5 cm), + wound (Heel crack right foot) and + erythema (Erythema and purplish discoloration of dorsal foot improving) overall edema in foot improved, movin gtoes better Psychiatric: A+Ox3, euthymic affect Results & Data Results & Data Vital Signs (Past 12 Hours) Vital Signs Temp Pulse Pulse Resp BP Pulse Ox O2 Del Method 06/08/23 11:37 36.8 C 53 L 18 166/79 H 91 Room Air 06/08/23 08:04 36.2 C L 62 18 192/84 H 98 Room Air 06/08/23 08:00 59 L Laboratory Results CBC, BMP, LFTs magnesium reviewed PG Care Time/CCT Total # of Minutes Spent Total Time Spent with Patient: Total time spent is greater than 50% in coordination of care (as documented) at patient's floor/unit and/or counseling patient: Coding Level of Care Code 71432 SUB INP/OBS CARE 3/50MIN Diagnoses Cellulitis of right foot L03.115 Hypomagnesemia E83.42 MARIA T (acute kidney injury) N17.9 Peripheral arterial disease I73.9 Wound of right foot S91.301A Transaminitis R74.01 Polymyalgia rheumatica M35.3 Hypertension I10 DMII (diabetes mellitus, type 2) E11.9 CKD (chronic kidney disease), stage III N18.3 BPH (benign prostatic hyperplasia) N40.0 Depression F32.9 Trifascicular block I45.3
[2023-06-08] MEDS: SIMETHICONE 80 MG CHEW PO ONE (21:06)
[2023-06-08] MEDS: COUGH DROP (SUGAR FREE) LOZ 24 LOZ/1 BOX BUCCAL STA (21:07)
[2023-06-09 07:15] LABS: Basophils # (auto) 0.04 K/uL (0.00-0.20); Basophils % (auto) 0.5 %; Eosinophils # (auto) 0.28 K/uL (0.00-0.50); Eosinophils % (auto) 3.5 %; Hematocrit (blood only) 36.8 % (42.0-52.0); Immature Granulocytes # (auto) 0.23 K/uL (0.01-0.20); Immature Granulocytes % (auto) 2.9 %; Lymphocytes # (auto) 1.77 K/uL (1.20-3.40); Lymphocytes % (auto) 22.4 %; Mean Corpuscular Hemoglobin 32.8 pg (25.0-34.0); Mean Corpuscular Hgb Conc 32.6 g/dL (32.0-36.0); Mean Corpuscular Volume 100.5 fL (80.0-100.0); Mean Platelet Volume 10.4 fL (9.4-12.4); Monocytes # (auto) 0.91 K/uL (0.11-0.59); Monocytes % (auto) 11.5 %; Neutrophils # (auto) 4.67 K/uL (1.40-6.50); Neutrophils % (auto) 59.2 %; Platelet Count 212 K/uL (130-400); RDW Coefficient of Variation 13.7 % (11.5-14.5); RDW Standard Deviation 49.4 fL (36.4-46.3); Red Blood Count 3.66 M/uL (4.70-6.10)
[2023-06-09 07:45] LABS: Albumin Globulin Ratio 1.2 (0.9-2); Albumin Level 3.2 gm/dl (3.4-5.0); BUN Creatinine Ratio 22.7 (10-20); Bilirubin,Total 0.5 mg/dl (0.2-1.0); Calcium 9.3 mg/dl (8.6-10.3); Creatinine Clr Calc Pharmacy 32.9 ml/min; Est GFR (African American) 47.5 ml/min; Globulin 2.6 gm/dl (2.5-4.0); Magnesium 1.8 mg/dl (1.7-2.4); Potassium 4.6 mmol/L (3.5-5.1); Total Protein 5.8 gm/dl (6.0-8.3)
--- NOTE | 2023-06-09 08:35 | Pharmacy Report ---
Pharmacy Glycemic Short Note 2 - Date of Service June 09, 2023 - Glycemic Short BSG Results (Last 24 hours): 06/08/23 06/08/23 06/08/23 11:39 16:31 20:11 Glucose POC Glucose 288 H 118 H 272 H 06/09/23 06/09/23 06:46 07:56 Glucose 132 H POC Glucose 147 H OUTPATIENT ANTIDIABETIC REGIMEN: * Tresiba 30units SQ qAM, 25 units SQ HS * linagliptin 5mg PO daily * metformin 500mg PO BID HbA1C: 8.4% (06/05/23) ASSESSMENT: 06/09/23: * BSGs poorly controlled yesterday, ranging 118-288 mg/dL * Patient received 75 units of insulin (45 units of basal and 30 units of prandial/correctional bolus) * Possible explanation for poor control was the initiation of low-dose prednisone 7.5 mg PO daily * Fasting BSG better controlled today at 147 mg/dL, will plan to continue with yesterday's increased basal dose * Will tighten carb ratio today. Correction factor likely adequate based on correction of 288 mg/dL to 118 mg/dL yesterday. 06/07/23: * Patient received 26 units of insulin yesterday (15 units of basal and 11 units of prandial/correctional bolus) * BSGs reasonably well-controlled yesterday w/ mild elevation at lunchtime (171 mg/dL) * Fasting BSG of 169 mg/dL this morning * Will increase basal and slightly tighten Novolog parameters today * Continues on broad-spectrum antibiotics 06/06/23: * Pt is an 88 year old male admitted with worsening foot cellulitis. History of DM2 on insulin and PO therapies at home. Pharmacy consulted to assist with inpatient glycemic management. * BSGs [phone]/dL the last 24h. Received 10 units of basal and 2 units of bolus insulin yesterday. * Ordered a diet (decreased PO the last 2 days) and receiving IV antibiotics. * Lantus 15 units X 1 this afternoon + HS scale tonight depending on BSG (increased PO intake so far today). Novolog moderate stress scale. PLAN FOR INPATIENT GLYCEMIC CONTROL: * Hold outpatient oral diabetes medications * Basal insulin * Lantus 30 units SC daily * Lantus 5-10-15 units SC HS (see EHR for details) * Bolus insulin * NovoLog per scale ACHS or Q6hrs while NPO * Goal Range: Low 110 mg/dL - High 150 mg/dL * Correction Factor: 30 mg/dL/unit * Nutritional / Prandial insulin per carb ratio of 1 unit per 6 grams CHO consumed
--- NOTE | 2023-06-09 12:07 | Hospitalist Progress Note ---
Date of Service June 09, 2023 Assessment & Plan (1) Cellulitis of right foot: Plan: Admitted for progressive/worsening cellulitis of his RIGHT foot. As an outpatient, he completed course of Doxycycline PO as well as valtrex for suspected shingles in the weeks leading up to admission Seen by PCP Dr Triplett on 06/02 and given rx for Augmentin and Bactrim but did not fill the prescriptions prior to admission-having chills and significant pain and increase in erythema of right foot Immunocompromised at baseline on chronic prednisone and plaquenil for PMR; also with DM II Xray soft tissue edema/no acute fracture, MRI of right foot negative for OM, tuft first distal phalanx nonspecific osteitis, mild soft tissue swelling throughout foot, no abscess Mild leukocytosis now resolved, remains afebrile, ESR 11, CRP 1.45 Blood cultures no growth to date Bilateral arterial Dopplers and ABIs from 05/26/2023 with triphasic flow to pop BLE, then biphasic flow to feet. Poor visualization of some calf arteries, but no increased velocities to indicate stenosis. INDIGO's of 0.92 RLE and 1.1 LLE likely falsely elevated d/t calcification. Poor TBI noted. Erythema now turning purplish but is contained within lines of demarcation and receding from lines, greatly improved, less pain, edema resolved Appreciate vascular consultation-mild PAD bilateral lower extremities and small vessel disease in right foot-no vascular surgery to improve this. Recommended dermatologic evaluation for right dorsal foot wound Dermatology recommends checking for antiphospholipid antibody syndrome, possible microvascular occlusion, apply Vaseline to eschar. Notes that echocardiogram without thrombus Appreciate podiatry consultation-monitor for improvement versus worsening, no surgical intervention at this time Continue to hold Plaquenil while healing Continue broad-spectrum antibiotic coverage with Dapto/Zosyn and convert to po abx on discharge with broad spectrum coverage Pain control as needed with gabapentin, oxycodone (2) Hypomagnesemia: Plan: Quite low on admission, replaced with IV magnesium and p.o. 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 no other offending meds making urine with associated hyperkalemia Now resolved with gentle IVFs, one dose lokelma follow BMP continue low potassium diet (4) Peripheral arterial disease: Plan: noted as above, started baby aspirin vascular on consult as outlined above, no acute intervention derm eval given abrasion like appearance-recommend antiphospholipid ab testing- pending (5) Wound of right foot: Plan: As noted above Continue wound care, podiatry following (6) Transaminitis: Plan: AST mild elevation, CK normal could be from Dapto follow LFTs statin on hold while on Dapto (7) Polymyalgia rheumatica: Plan: Continue chronic prednisone 7.5 mg daily Continue to hold Plaquenil with active infection (8) Hypertension: Plan: Blood pressures are mildly elevated Continue carvedilol (9) DMII (diabetes mellitus, type 2): Plan: Last A1c 9.6 in 2019, A1c repeat 8.4 Pharmacy consulted for assistance Holding home Tradjenta Continue insulin (10) CKD (chronic kidney disease), stage III: Plan: as above With a h/o RTA, type 4 as well (11) BPH (benign prostatic hyperplasia): Plan: -Continue tamsulosin and finasteride (12) Depression: Plan: -Continue venlafaxine , mood stable at present (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 No other concerns Tele with 1st degree AV block, IVCD, rates 50-60s Physical Exam Constitutional: WD/WN, vitals as above Respiratory: normal respiratory effort, lungs clear to auscultation Cardiovascular: RRR, no murmur, no edema Gastrointestinal (Abdomen): normal bowel sounds, soft, nontender, no hepatosplenomegaly Skin: + lesion (Plantar right distal third toe and plantar great toe with small ulceration), + ulcer (Right dorsal scabbed over wound 3 x 5 cm), + wound (Heel crack right foot) and + erythema (Erythema and purplish discoloration of dorsal foot greatly improved) Psychiatric: A+Ox3, euthymic affect Results & Data Results & Data Vital Signs (Past 12 Hours) Vital Signs Temp Pulse Pulse Resp BP Pulse Ox O2 Del Method 06/09/23 11:50 36.7 C 70 19 141/84 H 97 Room Air 06/09/23 08:00 62 06/09/23 07:57 36.5 C 59 L 18 164/85 H 95 Room Air 06/09/23 03:35 36.7 C 61 167/85 H 93 Room Air Laboratory Results CBC, CMP, magnesium, CK, blood cxs reviewed PG Care Time/CCT Total # of Minutes Spent Total Time Spent with Patient: Total time spent is greater than 50% in coordination of care (as documented) at patient's floor/unit and/or counseling patient: Coding Level of Care Code 26142 SUB INP/OBS CARE 2/35MIN Diagnoses Cellulitis of right foot L03.115 Hypomagnesemia E83.42 MARIA T (acute kidney injury) N17.9 Peripheral arterial disease I73.9 Wound of right foot S91.301A Transaminitis R74.01 Polymyalgia rheumatica M35.3 Hypertension I10 DMII (diabetes mellitus, type 2) E11.9 CKD (chronic kidney disease), stage III N18.3 BPH (benign prostatic hyperplasia) N40.0 Depression F32.9 Trifascicular block I45.3
[2023-06-09 22:26] VITALS: TEMP 97.9; O2SAT 95
[2023-06-10 07:51] VITALS: BP 172/85; RESP 17
[2023-06-10 09:11] LABS: Basophils # (auto) 0.06 K/uL (0.00-0.20); Basophils % (auto) 0.7 %; Eosinophils # (auto) 0.25 K/uL (0.00-0.50); Eosinophils % (auto) 2.8 %; Hemoglobin 12.8 g/dl (14.0-18.0); Immature Granulocytes # (auto) 0.44 K/uL (0.01-0.20); Immature Granulocytes % (auto) 4.9 %; Lymphocytes # (auto) 1.95 K/uL (1.20-3.40); Lymphocytes % (auto) 21.8 %; Mean Corpuscular Hemoglobin 32.1 pg (25.0-34.0); Mean Corpuscular Volume 100.3 fL (80.0-100.0); Mean Platelet Volume 10.3 fL (9.4-12.4); Monocytes # (auto) 0.95 K/uL (0.11-0.59); Monocytes % (auto) 10.6 %; Neutrophils % (auto) 59.2 %; Platelet Count 243 K/uL (130-400); RDW Coefficient of Variation 13.7 % (11.5-14.5); RDW Standard Deviation 49.6 fL (36.4-46.3); Red Blood Count 3.99 M/uL (4.70-6.10); White Blood Count 8.95 K/ul (4.8-10.8)
[2023-06-10 09:29] LABS: Albumin Globulin Ratio 1.2 (0.9-2); Albumin Level 3.6 gm/dl (3.4-5.0); BUN Creatinine Ratio 22.5 (10-20); Bilirubin,Total 0.4 mg/dl (0.2-1.0); Calcium 9.4 mg/dl (8.6-10.3); Creatinine Clr Calc Pharmacy 32.7 ml/min; Est GFR (African American) 47.1 ml/min; Est GFR (Non-African American) 40.7 ml/min; Globulin 2.9 gm/dl (2.5-4.0); Magnesium 1.7 mg/dl (1.7-2.4); Potassium 4.3 mmol/L (3.5-5.1); Total Protein 6.5 gm/dl (6.0-8.3)
--- NOTE | 2023-06-10 12:05 | Discharge Summary ---
Date of Service June 10, 2023 Admission HPI Per Admitting Provider Wang is an 88 yr old male with a PMH significant for T2DM, HTN, HLD, CKD stage III, PMR on chronic prednisone therapy, BPH, GERD, history of prostate cancer, and chronic BL LE wounds who presented to the [facility] ED on 06/03/23 due to concerns for progression of a RLE wound. He remained stable in the ED. Labs were significant for a leukocytosis of 11 with neutrophil predominance of 9, glucose of 229, mag of 1.2, CRP of 1.45, and negative procal. Xray of the right foot was read as "1. Diffuse soft tissue swelling without acute osseous abnormality. 2. Chronic appearing findings as above.". Prior to admission the patient was given 1gm IV mag sulfate, 1gm IV tylenol, 1L NSS, and a dose of both Zosyn and Daptomycin. At the time of the exam the patient was sitting in bed in no acute distress with his sister sitting bedside, history was obtained from both. The patient was recently treated for shingles infection on the right foot over the past 2 months. He was initially started on Doxycycline when he was A [facility] Patient but this did not improve the symptoms. He was seen by [facility] Derm[facility] on 05/26, from the report they placed him on a course of increased prednisone and 5 days of Valtrex. The shingles infection has subsequently scabbed over, he confirmed he completed the course of prednisone and valtrex. He is on chronic prednisone and hydroxychloroquine for PMR. Over the past week he has noticed increased erythema, swelling, and pain of the right foot moving proximally into the right ankle. He saw Dr. Triplett yesterday, please see his note for detailed imaging, and was prescribed oral antibiotics. He was unable to pick the antibiotics up yesterday. Overnight he developed chills and uncontrolled RLE pain and called Dr. Triplett's office this am who instructed them to go to the ED. At this time his right foot pain is an 8/10. 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 He denies other wounds/rashes on other areas of his body. He is a full code and would want his daughter and sister to make medical decisions for him if he cannot make them himself. He denies recent chest pain, SOB, abd pain, nausea, vomiting, diarrhea, dysuria, hematuria, melena, and recent trauma. Please refer to Dr. Flanagan' attestation for any changes to the treatment plan Principal Diagnosis Right foot cellulitis, hypomagnesemia, acute on chronic kidney disease stage III, hyperkalemia Discharge Exam General-alert and oriented x3, no fevers, no chills HEENT-head atraumatic and normocephalic, pupils equal and reactive to light, extraocular muscles intact Neck-no lymphadenopathy or thyromegaly, trachea midline Chest-clear to auscultation. No rales, wheezing or rhonchi Cardiac-regular rate and rhythm, normal S1 and S2 Abdomen-normal bowel sounds, nontender, no hepatosplenomegaly Extremities-right foot dorsal erythema and purpura which appear chronic. Supe rficial scabbed area medial right foot . No peripheral edema Neuro-cranial nerves II through XII intact, motor and sensory function within normal limits, strength symmetrical, no focal deficits Psych-normal affect, normal mood Discharge Data Allergies Allergy/AdvReac Type Severity Reaction Status Date / Time pioglitazone [From Actos] Allergy Unknown Verified 06/02/23 09:23 sitagliptin [From Januvia] Allergy Unknown Verified 06/02/23 09:23 Consultations 06/03/23 12:35 ED Decision to Admit Stat 06/04/23 16:51 Consult Podiatry Routine 06/04/23 16:56 Consult Vascular Surgery Routine 06/05/23 08:35 Consult Cardiology Routine 06/06/23 09:24 Consult Dermatology Routine Ordered Studies 06/04/23 09:54 MRI Foot [MR foot RT w/o con] Urgent Hospital Course (1) Cellulitis of right foot: Admitted for progressive/worsening cellulitis of his RIGHT foot. As an outpatient, he completed course of Doxycycline PO as well as valtrex for suspected shingles in the weeks leading up to admission Seen by PCP Dr Triplett on 06/02 and given rx for Augmentin and Bactrim but did not fill the prescriptions prior to admission-having chills and significant pain and increase in erythema of right foot Immunocompromised at baseline on chronic prednisone and plaquenil for PMR; also with DM II Xray soft tissue edema/no acute fracture, MRI of right foot negative for OM, tuft first distal phalanx nonspecific osteitis, mild soft tissue swelling throughout foot, no abscess Mild leukocytosis now resolved, remains afebrile, ESR 11, CRP 1.45 Blood cultures no growth to date Bilateral arterial Dopplers and ABIs from 05/26/2023 with triphasic flow to pop BLE, then biphasic flow to feet. Poor visualization of some calf arteries, but no increased velocities to indicate stenosis. INDIGO's of 0.92 RLE and 1.1 LLE likely falsely elevated d/t calcification. Poor TBI noted. Erythema now turning purplish but is contained within lines of demarcation and receding from lines, greatly improved, less pain, edema resolved Appreciate vascular consultation-mild PAD bilateral lower extremities and small vessel disease in right foot-no vascular surgery to improve this. Recommended dermatologic evaluation for right dorsal foot wound Dermatology recommends checking for antiphospholipid antibody syndrome, possible microvascular occlusion, apply Vaseline to eschar. Notes that echocardiogram without thrombus Appreciate podiatry consultation-monitor for improvement versus worsening, no surgical intervention at this time Continue to hold Plaquenil while healing Treated while hospitalized with broad-spectrum antibiotic coverage with Dapto/Zosyn and convert to Augmentin on discharge Pain control as needed with oxycodone (2) Hypomagnesemia: Corrected. Continue po Magnesium replacement (3) MARIA T (acute kidney injury): MARIA T on CKD stage 3 with h/o RTA type 4. Monitor intake and output. Serial lab (4) Peripheral arterial disease: Continue baby aspirin daily at discharge. Appreciate vascular surgery and consultation and recommendations . Antiphospholipid antibody assessment remains pending (5) Wound of right foot: Continue wound care until healed. Outpatient follow-up with podiatry is recommended (6) Transaminitis: Mildly elevated. No intervention necessary at this time. Statin held while on daptomycin (7) Polymyalgia rheumatica: Treated chronically with prednisone and Plaquenil. (8) Hypertension: Stable. Continue carvedilol (9) DMII (diabetes mellitus, type 2): Hemoglobin A1c is 8.4 . ADA diet. Sliding scale insulin as needed. Resume usual home regimen at discharge (10) CKD (chronic kidney disease), stage III: Monitor intake and output. 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 ECHO normal. Cardiology consultation and recommendations appreciated. No indication for PPM at this time. Telemetry. Plan Home today on Augmentin with home health services. He will use oxycodone as needed for pain control. Follow-up with podiatry as soon as possible as an outpatient. Total Time Total Time Spent Total Time Spent (In Minutes): 45 minutes Discharge Plan Discharge Items Patient Disposition: Home - Home Health Services Reason For Visit: RIGHT FOOT INFECTION, LOW MAG Discharge Diagnosis: Right foot cellulitis, peripheral arterial disease, hyperkalemia, hypomagnesemia, acute on chronic kidney disease stage III Activity: Resume your previous activity Non-emergency contact: Primary Care Provider Call non-emergency contact if: you have any medication questions and your symptoms worsen Follow-up/Referrals: Norris Christian PA-C [Physician Unit Aid] - 06/21/23 9:45 am Garrison Triplett DO [Primary Care Provider] - Diet: Carb Consistent or DM2 and Heart Healthy Addtl Attending Provider Instructions: Take amoxicillin/clavulanate antibiotic twice daily for the next 10 days. Use oxycodone as needed for pain. Follow-up with commercial print salesman as soon as possible. Pending Studies at Discharge: Yes Studies:: Antiphospholipid antibody level Stand-Alone Forms: [facility] [employer], Smoking Cessation Medications and DC Order Prescriptions: New aspirin 81 mg Tablet,Delayed Release (Dr/Ec) 81 mg PO QAM Qty: 0 0RF oxycodone 5 mg Tablet 5 mg PO Q6H PRN (Reason: pain) Qty: 20 0RF oxycodone 5 mg capsule 5 mg PO Q6H PRN (Reason: pain) Qty: 20 0RF Continued ferrous sulfate 325 mg (65 mg iron) tablet 325 mg PO DAILY Qty: 90 3RF linagliptin 5 mg tablet 5 mg PO DAILY atorvastatin 40 mg tablet 40 mg PO QPM Tresiba FlexTouch U-100 100 unit/mL (3 mL) insulin pen See Rx Instructions subcut DAILY Qty: 15 0RF Rx Instructions: 30u QAM; 25u HS subcutaneously daily; carvedilol 3.125 mg tablet 3.125 mg PO BID 30 Days Qty: 60 0RF Rx Instructions: must administer with a meal/food hydroxychloroquine 200 mg tablet 200 mg PO QAM ropinirole 1 mg tablet 1 mg PO HS Prolia 60 mg/mL syringe 60 mg subcut .COMPLEX Rx Instructions: 60 mg subcutaneously Q6 MONTHS; metformin 500 mg tablet 500 mg PO BID Qty: 60 0RF Mag 64 64 mg tablet,delayed release (DR/EC) 128 mg PO QAM tamsulosin [Flomax] 0.4 mg capsule 0.4 mg PO HS finasteride [Proscar] 5 mg tablet 5 mg PO QAM venlafaxine 75 mg capsule,extended release 24hr 75 mg PO QPM famotidine 20 mg tablet 20 mg PO QAM furosemide 20 mg Tablet 20 mg PO DAILY PRN (Reason: Fluid Retention) repaglinide 2 mg tablet 2 mg PO DAILY PRN (Reason: DEPENDS ON FOOD EATEN) cholecalciferol (vitamin D3) [Vitamin D3] 50 mcg (2,000 unit) Tablet 50 mcg PO QAM prednisone 5 mg tablet See Rx Instructions .ROUTE .COMPLEX Rx Instructions: Take 5mg w/ 2.5mg tablet to equal 7.5mg by mouth once every morning prednisone 2.5 mg tablet See Rx Instructions .ROUTE .COMPLEX Rx Instructions: Take 2.5mg w/ 5mg tablet to equal 7.5mg by mouth once every morning Discharge Orders: Discharge Order (Routine); Ordered 06/10/23 Ordered By: Wang Conner Admission Data Admit Date/Time: 06/03/23 12:38 Attending Provider: Wang Conner Admit Provider: Sourav Flnaagan Primary Care Provider: Garrison Triplett [facility]: [facility]; Sourav Flanagan; Nader Rothman; Emmanuel Wang; Shamir Levine; Harjit Casanova; [place],[facility] Coding Level of Care Code 00444 INP/OBS DISCH >30 MIN Diagnoses Cellulitis of right foot L03.115 Hypomagnesemia E83.42 MARIA T (acute kidney injury) N17.9 Peripheral arterial disease I73.9 Wound of right foot S91.301A Transaminitis R74.01 Polymyalgia rheumatica M35.3 Hypertension I10 DMII (diabetes mellitus, type 2) E11.9 CKD (chronic kidney disease), stage III N18.3 Trifascicular block I45.3
[2023-06-10 12:27] VITALS: PULSE 81
[2023-06-12 08:07] LABS: Anti Cardiolipin Ab IgG <2.0 GPL-U/mL (<20.0); Anti Cardiolipin Ab IgM <2.0 MPL-U/mL (<20.0); Anti-Cardiolipin Ab IgA <2.0 APL-U/mL (<20.0); B2 Glycoprotein IgA <2.0 U/mL (<20.0); B2 Glycoprotein IgG <2.0 U/mL (<20.0); B2 Glycoprotein IgM <2.0 U/mL (<20.0); Phosphatidylser Prothrom IgG <9 U (<=30); Phosphatidylserine ProthromIgM <9 U (<=30)
== END 2023-06-10 13:57 | disposition home health service (06) | DRG 300 ==
LOC: ED 09:30 → EDINP 12:38 → SUATTDRO 12:38 → 3W 13:25 → 4W 06-05 17:45 → 3N 06-09 22:16

== ENCOUNTER 2023-06-16 17:50 | Inpatient (IN) ==
--- NOTE | 2023-06-16 18:17 | Emergency Department Note ---
Impression & Plan Syncope, Acute hyperkalemia, Heart block AV second degree ED Provider Note Diagnosis: Hyperkalemia, syncope, second-degree type II heart block, acute kidney injury Disposition: Admission CHIEF COMPLAINT: Syncope HPI: Patient is a an 88-year-old male presenting status post syncopal episode at home. Patient's sister watched him walking in his garden when he passed out. Patient states he was feeling lightheaded. Patient states he continues to feel lightheaded now but no active chest pain or shortness of breath. Patient reports that he felt nauseous after the episode. PAST MEDICAL HISTORY: See Below PAST SURGICAL HISTORY: See Below SOCIAL HISTORY: See Below HOME MEDICATIONS: See Below ALLERGIES: See Below VITALS: See Below PHYSICAL EXAMINATION: GENERAL: Well appearing, well nourished, NAD, non-toxic. EYE EXAM: Normal conjunctiva. OROPHARYNX: Moist mucus membranes. Grossly normal dentition. NECK: Supple, LUNGS: Clear to auscultation. Normal chest wall mechanics. HEART: NSR ABDOMEN: Abdomen soft, non-tender, normo-active bowel sounds, no masses, no rebound or guarding BACK: No CVA TTP. SKIN: No rashes and no bruising. UPPER EXTREMITIES: Upper extremities are grossly normal LOWER EXTREMITIES: Grossly normal, no edema. NEURO EXAM: A&O x3,, normal speech, moves all 4 extremities PSYCH: Cooperative MEDICAL DECISION MAKING: Reviewed external documents: Cardiology consult May 2023 History obtained from: Patient, daughter ER Course: Patient is a 88-year-old male presenting with complaint of syncopal episode. Episode was witnessed by his sister when he is outside in the garden at home. Patient states he felt lightheaded and vomited after the episode. Patient states he feels some generalized weakness but no chest pain or shortness of breath currently. Patient's blood pressure throughout ER course 130-100 50s systolic. Patient would have runs of bradycardia that would last for 10 to 20 seconds time that would show a second-degree type II heart block. Patient was not symptomatic when going into these episodes. Patient's blood work that resulted with an elevated potassium level which was 7. Patient was given insulin glucose calcium gluconate to stabilize the heart. Patient was also given albuterol nebulized treatment. Patient's case nel with cardiology team please see discussion below. Patient's case also discussed with hospitalist service for admission and they accept the patient further treatment and evaluation Labs (independently interpreted) are significant for: Hyperkalemia, acute kidney injury Imaging results (independently interpreted): Chest x-ray clear EKG interpretation (independently interpreted): EKG rhythm strip shows sinus rhythm at times and had goes into bradycardic rhythm that is a second-degree type II heart block Medications given: Normal saline bolus, calcium gluconate, insulin, glucose, albuterol Consultants: Dr. Levine of cardiology, reviewed patient's EKGs and presentation. Recommends keeping patient n.p.o. after midnight for consideration for potential pacemaker tomorrow. This discussion occurred before lab work resulted and he was unaware of the elevated potassium level at the time. Triage Nursing notes reviewed and agree them. Vital Signs: reviewed and remarkable for: Episodes of bradycardia Critical care 50 minutes Past Med/Surg History Medical History Dermatitis, unspecified History of prostate cancer No pertinent family history Polymyalgia rheumatica Closed fracture of spinous process of thoracic vertebra Closed L3 vertebral fracture Depression GERD (gastroesophageal reflux disease) Hypertriglyceridemia BPH (benign prostatic hyperplasia) Lumbago CKD (chronic kidney disease), stage III DMII (diabetes mellitus, type 2) Hypertension Surgical History History of blepharoplasty History of hernia surgery History of foot surgery H/O neck surgery Family History Mother Colorectal cancer Coronary heart disease Diabetes Brother Diabetes Kidney disease Colorectal cancer Prostate cancer Other No pertinent family history Social History (Updated 06/14/23 @ 10:08 by Nicki Caldwell LPN) Smoking Status: Never smoker Tobacco Type: Cigarettes Second Hand Exposure: No; Do You Dip or Chew Tobacco: No; Hx Alcohol Use: Yes Alcohol type: beer and hard liquor Alcohol Intake Frequency Comment: 1-2 beers monthly Hx Substance Use: No Preferred Language: Chinese Communication Ability: Effective 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 Beliefs That Will Affect Care: None marital status: / Current Living Situation: Alone current occupational status: retired Feels Safe at Home: Yes Childhood Exposure to Second-Hand Smoke: Yes Diet: low carbohydrate caffeine: Yes Dental Care, Regularly: Yes Seatbelt Use: always Assistive Devices: Cane, Glasses and Walker Allergies Allergies Allergy/AdvReac Type Severity Reaction Status Date / Time pioglitazone [From Actos] Allergy Unknown Verified 06/14/23 10:02 sitagliptin [From Januvia] Allergy Unknown Verified 06/14/23 10:02 Home Meds Home Medications Medication Instructions Recorded Confirmed finasteride 5 mg tablet (Proscar) 5 mg PO QAM 03/03/18 06/16/23 tamsulosin 0.4 mg capsule (Flomax) 0.4 mg PO HS 03/03/18 06/16/23 linagliptin 5 mg tablet 5 mg PO DAILY 01/12/19 06/16/23 atorvastatin 40 mg tablet 40 mg PO QPM 11/23/19 06/16/23 magnesium chloride 64 mg 128 mg PO QAM 01/05/22 06/16/23 (magnesium chloride) tablet,delayed release (Mag 64) denosumab 60 mg/mL subcutaneous 60 mg subcut .COMPLEX 01/14/23 06/16/23 syringe (Prolia) hydroxychloroquine 200 mg tablet 200 mg PO QAM 01/14/23 06/16/23 ropinirole 1 mg tablet 1 mg PO HS 01/14/23 06/16/23 cholecalciferol (vitamin D3) 50 50 mcg PO QAM 06/03/23 06/16/23 mcg (2,000 unit) tablet (Vitamin D3) famotidine 20 mg tablet 20 mg PO QAM 06/03/23 06/16/23 furosemide 20 mg tablet 20 mg PO DAILY PRN Fluid Retention 06/03/23 06/16/23 prednisone 2.5 mg tablet See Rx Instructions .Route .COMPLEX 06/03/23 06/16/23 prednisone 5 mg tablet See Rx Instructions .Route .COMPLEX 06/03/23 06/16/23 repaglinide 2 mg tablet 2 mg PO DAILY PRN DEPENDS ON FOOD 06/03/23 06/16/23 EATEN venlafaxine 75 mg capsule,extended 75 mg PO QPM 06/03/23 06/16/23 release 24 hr Previous Rx's Medication Instructions Recorded ferrous sulfate 325 mg (65 mg 325 mg PO DAILY #90 tabs 06/11/21 iron) tablet metformin 500 mg tablet 500 mg PO BID #60 tabs 01/18/23 carvedilol 3.125 mg tablet 3.125 mg PO BID 30 days #60 tabs 05/04/23 insulin degludec 100 unit/mL (3 See Rx Instructions subcut DAILY 05/04/23 mL) subcutaneous pen (Tresiba #15 mL FlexTouch U-100 insulin) aspirin 81 mg tablet,delayed 81 mg PO QAM #0 tabs 06/10/23 release oxycodone 5 mg tablet 5 mg PO Q6H PRN pain #20 tabs 06/10/23 Results & Data (ED) Vital Signs Vital Signs - 24 hr 06/16/23 18:00 06/16/23 18:00 06/16/23 18:10 Temperature 36.6 C Temperature Source Oral Pulse Rate 69 73 Pulse Rate [Apical] Respiratory Rate 15 18 Respiratory Effort / Characteristics Non-Labored Respiratory Depth Normal Blood Pressure 143/92 H 143/92 H Blood Pressure [Right Arm] Blood Pressure Mean 109 109 Blood Pressure Mean [Right Arm] Pulse Oximetry 96 Oxygen Delivery Method Room Air Room Air Fraction of Inspired Oxygen 96 Sepsis Recent Fever Within 48 Hours No Sepsis New/Unexplained Change in Mental Status No Sepsis Action Taken by Nursing No Action Required 06/16/23 18:10 06/16/23 18:10 06/16/23 18:15 Temperature Temperature Source Pulse Rate 75 75 Pulse Rate [Apical] 78 Respiratory Rate 13 17 16 Respiratory Effort / Characteristics Respiratory Depth Blood Pressure 156/90 H Blood Pressure [Right Arm] 156/90 H Blood Pressure Mean 112 Blood Pressure Mean [Right Arm] 112 Pulse Oximetry 98 Oxygen Delivery Method Room Air Fraction of Inspired Oxygen Sepsis Recent Fever Within 48 Hours Sepsis New/Unexplained Change in Mental Status Sepsis Action Taken by Nursing 06/16/23 18:22 06/16/23 18:27 06/16/23 18:30 Temperature Temperature Source Pulse Rate 147 H 75 76 Pulse Rate [Apical] Respiratory Rate 13 18 Respiratory Effort / Characteristics Respiratory Depth Blood Pressure 162/82 H Blood Pressure [Right Arm] Blood Pressure Mean 108 Blood Pressure Mean [Right Arm] Pulse Oximetry Oxygen Delivery Method Fraction of Inspired Oxygen Sepsis Recent Fever Within 48 Hours Sepsis New/Unexplained Change in Mental Status Sepsis Action Taken by Nursing 06/16/23 18:30 06/16/23 18:45 06/16/23 18:45 Temperature Temperature Source Pulse Rate 74 Pulse Rate [Apical] Respiratory Rate 15 Respiratory Effort / Characteristics Respiratory Depth Blood Pressure 160/91 H 161/84 H Blood Pressure [Right Arm] Blood Pressure Mean 123 122 Blood Pressure Mean [Right Arm] Pulse Oximetry Oxygen Delivery Method Fraction of Inspired Oxygen Sepsis Recent Fever Within 48 Hours Sepsis New/Unexplained Change in Mental Status Sepsis Action Taken by Nursing 06/16/23 19:00 06/16/23 19:15 06/16/23 19:36 Temperature Temperature Source Pulse Rate 79 74 Pulse Rate [Apical] Respiratory Rate 16 20 Respiratory Effort / Characteristics Respiratory Depth Blood Pressure 154/93 H 173/89 H Blood Pressure [Right Arm] Blood Pressure Mean 113 117 Blood Pressure Mean [Right Arm] Pulse Oximetry 97 94 Oxygen Delivery Method Room Air Fraction of Inspired Oxygen Sepsis Recent Fever Within 48 Hours Sepsis New/Unexplained Change in Mental Status Sepsis Action Taken by Nursing 06/16/23 20:54 Temperature Temperature Source Pulse Rate Pulse Rate [Apical] 74 Respiratory Rate 18 Respiratory Effort / Characteristics Non-Labored Spontaneous Respiratory Depth Blood Pressure Blood Pressure [Right Arm] Blood Pressure Mean Blood Pressure Mean [Right Arm] Pulse Oximetry 94 Oxygen Delivery Method Room Air Fraction of Inspired Oxygen Sepsis Recent Fever Within 48 Hours Sepsis New/Unexplained Change in Mental Status Sepsis Action Taken by Nursing Laboratory Data 06/16/23 19:00 06/16/23 20:17 Lab Results 06/16/23 06/16/23 06/16/23 Range/Units 18:03 18:39 18:41 WBC Cancelled RBC Cancelled Hgb Cancelled Hct Cancelled MCV Cancelled MCH Cancelled MCHC Cancelled RDW Std Deviation Cancelled RDW Coeff of Aleja Cancelled Plt Count Cancelled MPV Cancelled Immature Gran % (Auto) Cancelled Neut % (Auto) Cancelled Lymph % (Auto) Cancelled Pitkin % (Auto) Cancelled Eos % (Auto) Cancelled Baso % (Auto) Cancelled Neut # (Auto) Cancelled Lymph # (Auto) Cancelled Pitkin # (Auto) Cancelled Eos # (Auto) Cancelled Baso # (Auto) Cancelled Immature Gran # (Auto) Cancelled Absolute Nucleated RBC Cancelled Nucleated RBC % (auto) Cancelled Neutrophils % (Manual) Cancelled Band Neutrophils % Cancelled Lymphocytes % (Manual) Cancelled Prolymphocyte % Cancelled Reactive Lymphs % (Man) Cancelled Monocytes % (Manual) Cancelled Eosinophils % (Manual) Cancelled Basophils % (Manual) Cancelled Metamyelocytes % (Man) Cancelled Myelocytes % (Man) Cancelled Promyelocytes % (Man) Cancelled Blast Cells % (Manual) Cancelled Plasma Cell % (Manual) Cancelled Other Cells % Cancelled Nucleated RBC % Cancelled Neutrophils # (Manual) Cancelled Band Neutrophils # Cancelled Total Absolute Neuts Cancelled Lymphocytes # (Manual) Cancelled Prolymphocyte # Cancelled Reactive Lymphs # Cancelled Total Abs Lymphocytes Cancelled Monocytes # (Manual) Cancelled Eosinophils # (Manual) Cancelled Basophils # (Manual) Cancelled Metamyelocytes # (Man) Cancelled Myelocytes # (Manual) Cancelled Promyelocytes # (Man) Cancelled Blast Cells # (Man) Cancelled Plasma Cell # (Manual) Cancelled Other Cells # Cancelled Nucleated RBCs # (Man) Cancelled Hypersegmented Neuts Cancelled Hyposegmented Neuts Cancelled Hypogranular Neuts Cancelled Large Granular Lymphs Cancelled # Lrg Granular Lymphs Cancelled Hairy Cells Cancelled Smudge Cells Cancelled Toxic Granulation Cancelled Toxic Vacuolation Cancelled Dohle Bodies Cancelled Lou Rods Cancelled Platelet Estimate Cancelled Hypogranular Platelets Cancelled Giant Platelets Cancelled Platelet Satelliting Cancelled RBC Morphology Cancelled Polychromasia Cancelled Hypochromasia Cancelled Poikilocytosis Cancelled Basophilic Stippling Cancelled Anisocytosis Cancelled Microcytosis Cancelled Macrocytosis Cancelled Spherocytes Cancelled Pappenheimer Bodies Cancelled Sickle Cells Cancelled Target Cells Cancelled Tear Drop Cells Cancelled Ovalocytes Cancelled Stomatocytes Cancelled [place] Bodies Cancelled Echinocytes Cancelled Acanthocytes (Spur) Cancelled Rouleaux Cancelled RBC Agglutinates Cancelled Schistocytes Cancelled Sezary Cell Cancelled PT Cancelled 11.2 INR Cancelled 1.0 APTT Cancelled 23 PTT Ratio Cancelled 0.8 Sodium Cancelled 137 Potassium Cancelled 7.1 H* Chloride Cancelled 108 H Carbon Dioxide Cancelled 24 Anion Gap Cancelled 5 BUN Cancelled 58 H Creatinine Cancelled 1.91 H Est Cr Clr Drug Dosing Cancelled 26.0 Est GFR ( Amer) Cancelled 35.5 Est GFR (Non-Af Amer) Cancelled 30.6 BUN/Creatinine Ratio Cancelled 30.4 H Glucose Cancelled 183 H POC Glucose (70-99) mg/dl Calcium Cancelled 9.7 Magnesium Cancelled 1.7 Total Bilirubin Cancelled 0.4 AST Cancelled 26 ALT Cancelled 25 Alkaline Phosphatase Cancelled 66 Troponin I High Sens 22.4 H (0-20) pg/ml Total Protein Cancelled 6.4 Albumin Cancelled 3.6 Globulin Cancelled 2.8 Albumin/Globulin Ratio Cancelled 1.3 TSH 0.879 (0.300-4.500) uIu/ml Blood Parasites ID Cancelled 06/16/23 06/16/23 06/16/23 Range/Units 19:00 20:17 21:02 WBC 10.13 RBC 3.61 L Hgb 11.7 L Hct 36.8 L MCV 101.9 H MCH 32.4 MCHC 31.8 L RDW Std Deviation 50.9 H RDW Coeff of Aleja 13.8 Plt Count 293 MPV 10.5 Immature Gran % (Auto) 3.5 Neut % (Auto) 90.3 Lymph % (Auto) 4.4 Pitkin % (Auto) 1.5 Eos % (Auto) 0.0 Baso % (Auto) 0.3 Neut # (Auto) 9.15 H Lymph # (Auto) 0.45 L Pitkin # (Auto) 0.15 Eos # (Auto) 0.00 Baso # (Auto) 0.03 Immature Gran # (Auto) 0.35 H Absolute Nucleated RBC Nucleated RBC % (auto) Neutrophils % (Manual) Band Neutrophils % Lymphocytes % (Manual) Prolymphocyte % Reactive Lymphs % (Man) Monocytes % (Manual) Eosinophils % (Manual) Basophils % (Manual) Metamyelocytes % (Man) Myelocytes % (Man) Promyelocytes % (Man) Blast Cells % (Manual) Plasma Cell % (Manual) Other Cells % Nucleated RBC % Neutrophils # (Manual) Band Neutrophils # Total Absolute Neuts Lymphocytes # (Manual) Prolymphocyte # Reactive Lymphs # Total Abs Lymphocytes Monocytes # (Manual) Eosinophils # (Manual) Basophils # (Manual) Metamyelocytes # (Man) Myelocytes # (Manual) Promyelocytes # (Man) Blast Cells # (Man) Plasma Cell # (Manual) Other Cells # Nucleated RBCs # (Man) Hypersegmented Neuts Hyposegmented Neuts Hypogranular Neuts Large Granular Lymphs # Lrg Granular Lymphs Hairy Cells Smudge Cells Toxic Granulation Toxic Vacuolation Dohle Bodies Lou Rods Platelet Estimate Hypogranular Platelets Giant Platelets Platelet Satelliting RBC Morphology Polychromasia Hypochromasia Poikilocytosis Basophilic Stippling Anisocytosis Microcytosis Macrocytosis Spherocytes Pappenheimer Bodies Sickle Cells Target Cells Tear Drop Cells Ovalocytes 1+ Stomatocytes [place] Bodies Echinocytes 1+ Acanthocytes (Spur) Rouleaux RBC Agglutinates Schistocytes Sezary Cell PT INR APTT PTT Ratio Sodium Potassium 6.2 H* Chloride Carbon Dioxide Anion Gap BUN Creatinine Est Cr Clr Drug Dosing Est GFR ( Amer) Est GFR (Non-Af Amer) BUN/Creatinine Ratio Glucose POC Glucose 104 H (70-99) mg/dl Calcium Magnesium Total Bilirubin AST ALT Alkaline Phosphatase Troponin I High Sens 42.7 H D (0-20) pg/ml Total Protein Albumin Globulin Albumin/Globulin Ratio TSH (0.300-4.500) uIu/ml Blood Parasites ID Administered Medications Discontinued Medications Albuterol (Albuterol 0.083% Nebu Soln 3 Ml Vial) 10 mg NEB NOW STA; Protocol Stop: 06/16/23 20:23 Last Admin: 06/16/23 20:51 Dose: 10 mg Documented By: FREDO Dextrose (Dextrose 10% 250 Ml Bag) 250 ml IV ONCE ONE Stop: 06/16/23 19:58 Last Admin: 06/16/23 20:25 Dose: 250 ml Documented By: STEVE Sodium Chloride (Nss) 500 mls @ 999 mls/hr IV .Q31M [facility] Stop: 06/16/23 18:45 Last Infusion: 06/16/23 19:20 Dose: Infused Documented By: Admin: 06/16/23 18:45 Dose: 999 mls/hr Documented By: STEPHIE Calcium Gluconate () 1,000 mg in 60 mls @ 240 mls/hr IV NOW STA Stop: 06/16/23 20:03 Last Infusion: 06/16/23 20:41 Dose: Infused Documented By: Admin: 06/16/23 20:17 Dose: 240 mls/hr Documented By: STEVE Insulin Human Regular (Novolin-R Insulin Per Unit Charge) 10 units IV NOW STA Stop: 06/16/23 19:57 Last Admin: 06/16/23 20:25 Dose: 10 units Documented By: STEVE Co-signed By: Oxycodone HCl (Oxycodone Hcl Ir 5 Mg Tab (Immediate Release)) 5 mg PO NOW STA Stop: 06/16/23 19:38 Last Admin: 06/16/23 19:54 Dose: 5 mg Documented By: BS Discharge Plan Visit Data Chief Complaint: Syncope Stated Complaint: SYNCOPE ED Provider: Avinash Purvis Discharge Problem: Syncope, Acute hyperkalemia, Heart block AV second degree Forms Stand Alone Forms: My [facility] Prescriptions Prescriptions: No Action ferrous sulfate 325 mg (65 mg iron) tablet 325 mg PO DAILY Qty: 90 3RF linagliptin 5 mg tablet 5 mg PO DAILY atorvastatin 40 mg tablet 40 mg PO QPM Tresiba FlexTouch U-100 100 unit/mL (3 mL) insulin pen See Rx Instructions subcut DAILY Qty: 15 0RF Rx Instructions: 30u QAM; 25u HS subcutaneously daily; carvedilol 3.125 mg tablet 3.125 mg PO BID 30 Days Qty: 60 0RF Rx Instructions: must administer with a meal/food hydroxychloroquine 200 mg tablet 200 mg PO QAM ropinirole 1 mg tablet 1 mg PO HS Prolia 60 mg/mL syringe 60 mg subcut .COMPLEX Rx Instructions: 60 mg subcutaneously Q6 MONTHS; metformin 500 mg tablet 500 mg PO BID Qty: 60 0RF Mag 64 64 mg tablet,delayed release (DR/EC) 128 mg PO QAM tamsulosin [Flomax] 0.4 mg capsule 0.4 mg PO HS finasteride [Proscar] 5 mg tablet 5 mg PO QAM venlafaxine 75 mg capsule,extended release 24hr 75 mg PO QPM famotidine 20 mg tablet 20 mg PO QAM furosemide 20 mg Tablet 20 mg PO DAILY PRN (Reason: Fluid Retention) repaglinide 2 mg tablet 2 mg PO DAILY PRN (Reason: DEPENDS ON FOOD EATEN) cholecalciferol (vitamin D3) [Vitamin D3] 50 mcg (2,000 unit) Tablet 50 mcg PO QAM prednisone 5 mg tablet See Rx Instructions .ROUTE .COMPLEX Rx Instructions: Take 5mg w/ 2.5mg tablet to equal 7.5mg by mouth once every morning prednisone 2.5 mg tablet See Rx Instructions .ROUTE .COMPLEX Rx Instructions: Take 2.5mg w/ 5mg tablet to equal 7.5mg by mouth once every morning aspirin 81 mg Tablet,Delayed Release (Dr/Ec) 81 mg PO QAM Qty: 0 0RF oxycodone 5 mg Tablet 5 mg PO Q6H PRN (Reason: pain) Qty: 20 0RF Referrals Referrals: Garrison Triplett DO [Primary Care Provider] -
[2023-06-16 18:45] LABS: Troponin I High Sensitivity 22.4 pg/ml (0-20)
[2023-06-16] MEDS: SODIUM CHLORIDE 0.9% 500 ML IV SCH (18:45)
[2023-06-16 18:54] LABS: Thyroid Stimulating Hormone 0.879 uIu/ml (0.300-4.500)
[2023-06-16 19:20] LABS: Hematocrit (blood only) 36.8 % (42.0-52.0); Hemoglobin 11.7 g/dl (14.0-18.0); Mean Corpuscular Hemoglobin 32.4 pg (25.0-34.0); Mean Corpuscular Hgb Conc 31.8 g/dL (32.0-36.0); Mean Corpuscular Volume 101.9 fL (80.0-100.0); Mean Platelet Volume 10.5 fL (9.4-12.4); Platelet Count 293 K/uL (130-400); RDW Coefficient of Variation 13.8 % (11.5-14.5); RDW Standard Deviation 50.9 fL (36.4-46.3); Red Blood Count 3.61 M/uL (4.70-6.10); White Blood Count 10.13 K/ul (4.8-10.8)
[2023-06-16 19:38] LABS: Basophils # (auto) 0.03 K/uL (0.00-0.20); Basophils % (auto) 0.3 %; Echinocytes 1+; Immature Granulocytes # (auto) 0.35 K/uL (0.01-0.20); Immature Granulocytes % (auto) 3.5 %; Lymphocytes # (auto) 0.45 K/uL (1.20-3.40); Lymphocytes % (auto) 4.4 %; Monocytes # (auto) 0.15 K/uL (0.11-0.59); Monocytes % (auto) 1.5 %; Neutrophils # (auto) 9.15 K/uL (1.40-6.50); Neutrophils % (auto) 90.3 %; Ovalocytes 1+
[2023-06-16 19:49] LABS: Partial Thromboplastin Ratio 0.8; Partial Thromboplastin Time 23 Seconds (21-31); Prothrombin Time 11.2 Seconds (9.0-12.0)
[2023-06-16 19:51] LABS: Albumin Globulin Ratio 1.3 (0.9-2); Albumin Level 3.6 gm/dl (3.4-5.0); BUN Creatinine Ratio 30.4 (10-20); Bilirubin,Total 0.4 mg/dl (0.2-1.0); Calcium 9.7 mg/dl (8.6-10.3); Est GFR (African American) 35.5 ml/min; Est GFR (Non-African American) 30.6 ml/min; Globulin 2.8 gm/dl (2.5-4.0); Magnesium 1.7 mg/dl (1.7-2.4); Potassium 7.1 mmol/L (3.5-5.1); Total Protein 6.4 gm/dl (6.0-8.3)
[2023-06-16] MEDS: oxyCODONE HCL IR 5 MG TAB (IMMEDIATE RELEASE) PO STA (19:54)
[2023-06-16] MEDS: CALCIUM GLUCONATE 1,000 MG/60 ML BAG IV STA (20:17)
[2023-06-16] MEDS: DEXTROSE 10% 250 ML BAG IV ONE (20:25)
[2023-06-16] MEDS: NovoLIN-R INSULIN PER UNIT CHARGE IV STA (20:25)
[2023-06-16] MEDS: ALBUTEROL 0.083% NEBU SOLN 3 ML VIAL NEB STA (20:51)
[2023-06-16 21:17] LABS: Potassium 6.2 mmol/L (3.5-5.1); Troponin I High Sensitivity 42.7 pg/ml (0-20)
--- NOTE | 2023-06-16 21:42 | History & Physical Report ---
Date of Service June 16, 2023 Assessment & Plan (1) Heart block AV second degree: (2) Acute hyperkalemia: (3) Syncope: (4) MARIA T (acute kidney injury): (5) Peripheral arterial disease: (6) HTN (hypertension): (7) Wound of right foot: (8) Cellulitis of right foot: (9) Polymyalgia rheumatica: (10) Renal tubular acidosis, type 4: Plan This is a 88-year-old male with past medical history of DM type II, hypertension, hyperlipidemia, CKD type III, polymyalgia rheumatica on chronic prednisone and hydroxychloroquine, BPH, GERD, history of prostatic carcinoma, and chronic bilateral lower extremity wounds that presented to the emergency department after experiencing a syncopal episode at home. Hyperkalemia // Hx Renal Tubular Acidosis Type 4 -Patient not on DIANNE inhibitors or ARB's, or other home medications that may precipitate hyperkalemia -Patient noted to have RTA type IV as per prior nephrology visit note -Managed in the emergency department with calcium gluconate, insulin with dextrose, and beta agonist therapy -Potassium decreased from 7.1-6.2 with medical management -Continue medical management as needed -Continue to monitor with a.m. labs Syncope -Patient's described episode of syncope may be related to experience arrhythmia vs vasovagal -No neurological deficits noted on exam -Patient currently not feeling symptoms he had experience at his home -Consider evaluating orthostatics given patient's prior episodes of dizziness upon standing from his bed in the mornings 2nd Degree Heart Block Type 2 -Patient with episodes of bradycardia on his way to the emergency department that have been asymptomatic -EKG done upon arrival to the emergency department showing type II second-degree heart block -On-call supervisor press room recommending placing patient n.p.o. after midnight for po ssible pacemaker placement tomorrow -Consider possible that arrhythmia may have been attributed to hyperkalemia of 7.1 -Magnesium of 1.7. Will replace with goal to keep at >2 -Consult cardiology Acute on Chronic Kidney Injury // Hx CKD-III -Creatinine baseline of 1.3-1.6 as per chart review -Patient follows with nephrology as an outpatient -Creatinine on arrival to emergency department above patient's baseline (1.91) -Will manage with IV fluid -Consult nephrology Elevated troponin -Increase from 22.4 to 42.7 -Patient without chest pavon, diaphoresis, SOB, or other symptoms of ischemia -Consider possibly due to MARIA T -Will repeat troponin as part of am labs Chronic anemia -Patient with slight anemia on ED labs with macrocytic MCV -Continue home iron -Will order B12 and B9 -Monitor a.m. lab DM-II -Blood sugar on arrival to emergency department was 183 -Recent hemoglobin A1c from 05/2023 of 8.4% -Home p.o. medications on hold -SSI ordered -Lantus on hold given borderline blood sugar after insulin administration due to hyperkalemia. HTN -Home carvedilol on hold given possible type II heart block HLD -Continue home atorvastatin Dispo: PCU/Tele Diet: HH, DM-II; NPO after midnight for possible Pacemaker placement IVF: NSS @ 125 cc/hr VTE ppx: SCDs due to risk of hyperkalemia associated to Lovenox and Unfractionated Heparin History of Present Illness Chief Complaint: Syncope Primary Care Provider: Garrison Triplett DO 88-year-old male with past medical history of DM type II, hypertension, hyperlipidemia, CKD type III, polymyalgia rheumatica, BPH, GERD, history of prostatic carcinoma, and chronic bilateral lower extremity wounds that comes to the emergency department after experiencing a syncopal episode at his home. Patient states that he was walking in his yard towards his garden to attend to his strawberries, but on the way there he began to feel dizzy and lightheaded and started to have back towards his home and when he got there and was about to sit down he started to feel worse and fainted. Prior to his fainting, patient denies having felt any diaphoresis, nausea, weakness, chest pain, shortness of breath, or any other symptoms. Patient refers that he has had episodes in the past where he feels lightheaded and almost passes out, particularly when he stands from his bed in the mornings, but clarifies that his current episode is different from those past events. Patient's daughter states that during a cardiology visit sometime last month, patient was found to have a first-degree heart block and something else (on chart review is detailed as a left anterior fascicular block) and patient was to undergo outpatient monitor for further evaluation. Patient's daughter states that ultimately this monitor did not show significant results. Ambulance was called after patient syncopal episode and on his way to the hospital patient was experiencing episodes of asymptomatic bradycardia with heart rate reaching the 40s, which kept recurring once patient did arrive in the emergency department EKG was done and discussed with on-call supervisor press room, who stated that the findings were consistent with a type II second-degree block and recommended patient be placed as n.p.o. after midnight for possible pacemaker placement tomorrow. Shortly after this determination, ED labs come back showing a potassium level of 7.1 with magnesium of 1.7, and elevated creatinine from patient's baseline at 1.91. On questioning, patient denies having taken any new medications from those detailed in the EMR other than the Augmentin that was given to him after his recent discharge for management of cellulitis, denies excessive consumption of potassium rich foods (bananas). On evaluation at bedside, patient was found awake alert and oriented in all spheres, currently completing respiratory therapy, afebrile, and in no acute distress. Currently denies having any chest pain, palpitations, shortness of breath, lightheadedness, dizziness, weakness, malaise, nausea, vomiting, diarrhea, or any other symptoms. ED Course: Patient's case was discussed with on-call supervisor press room after noting the patient was experiencing episodes of asymptomatic bradycardia reaching as low as 40s beats per minute, an EKG was evaluated and ultimately called to be showing type II second-degree block. Recommendations were made at this time to place patient n.p.o. after midnight for possible pacemaker placement tomorrow and to hold patient's home beta-jonathan. After this discussion, labs showing hyperkalemia with potassium level of 7.1 came back. Patient was given calcium gluconate, insulin with glucose, and albuterol therapy as management. Repeat labs showed potassium level of 6.2, and cardiac cath lab radiology technologist showing normal sinus rhythm with pulse in the 70s. Blood pressures have remained stable throughout this time. Labs/Imaging: CBC without leukocytosis and mild anemia with hemoglobin of 11.7 that seems to be macrocytic (MCV of 101.9) and platelets stable at 293, coagulation studies within reference range with INR 1.0 and PT of 11.2. Initial CMP on arrival to the emergency department showing hyperkalemia with potassium level 7.1, and no other significant electrolyte abnormalities, creatinine elevated from patient's baseline with a level of 1.91, blood glucose of 183, magnesium 1.7, LFTs normal, troponin of 22.4 which increased slightly to 42.7 2 hours later, TSH of 0.879. Chest x-ray without evidence of active disease. Allergies Allergy/AdvReac Type Severity Reaction Status Date / Time pioglitazone [From Actos] Allergy Unknown Verified 06/14/23 10:02 sitagliptin [From SeeMe] Allergy Unknown Verified 06/14/23 10:02 Home Medications Medication Instructions Recorded Confirmed Type finasteride 5 mg tablet (Proscar) 5 mg PO QAM 03/03/18 06/16/23 History tamsulosin 0.4 mg capsule (Flomax) 0.4 mg PO HS 03/03/18 06/16/23 History linagliptin 5 mg tablet 5 mg PO DAILY 01/12/19 06/16/23 History atorvastatin 40 mg tablet 40 mg PO QPM 11/23/19 06/16/23 History ferrous sulfate 325 mg (65 mg 325 mg PO DAILY #90 tabs 06/11/21 06/16/23 Rx iron) tablet magnesium chloride 64 mg 128 mg PO QAM 01/05/22 06/16/23 History (magnesium chloride) tablet,delayed release (Mag 64) denosumab 60 mg/mL subcutaneous 60 mg subcut .COMPLEX 01/14/23 06/16/23 History syringe (Prolia) hydroxychloroquine 200 mg tablet 200 mg PO QAM 01/14/23 06/16/23 History ropinirole 1 mg tablet 1 mg PO HS 01/14/23 06/16/23 History metformin 500 mg tablet 500 mg PO BID #60 tabs 01/18/23 06/16/23 Rx carvedilol 3.125 mg tablet 3.125 mg PO BID 30 days #60 tabs 05/04/23 06/16/23 Rx insulin degludec 100 unit/mL (3 See Rx Instructions subcut DAILY 05/04/23 06/16/23 Rx mL) subcutaneous pen (Tresiba #15 mL FlexTouch U-100 insulin) cholecalciferol (vitamin D3) 50 50 mcg PO QAM 06/03/23 06/16/23 History mcg (2,000 unit) tablet (Vitamin D3) famotidine 20 mg tablet 20 mg PO QAM 06/03/23 06/16/23 History furosemide 20 mg tablet 20 mg PO DAILY PRN Fluid Retention 06/03/23 06/16/23 History prednisone 2.5 mg tablet See Rx Instructions .Route .COMPLEX 06/03/23 06/16/23 History prednisone 5 mg tablet See Rx Instructions .Route .COMPLEX 06/03/23 06/16/23 History repaglinide 2 mg tablet 2 mg PO DAILY PRN DEPENDS ON FOOD 06/03/23 06/16/23 History EATEN venlafaxine 75 mg capsule,extended 75 mg PO QPM 06/03/23 06/16/23 History release 24 hr aspirin 81 mg tablet,delayed 81 mg PO QAM #0 tabs 06/10/23 06/16/23 Rx release oxycodone 5 mg tablet 5 mg PO Q6H PRN pain #20 tabs 06/10/23 06/16/23 Rx Past Med/Surg History Medical History (Updated 06/16/23 @ 22:30 by Kya Serrano MD) Renal tubular acidosis, type 4 Dermatitis, unspecified History of prostate cancer No pertinent family history Polymyalgia rheumatica Closed fracture of spinous process of thoracic vertebra Closed L3 vertebral fracture Depression GERD (gastroesophageal reflux disease) Hypertriglyceridemia BPH (benign prostatic hyperplasia) Lumbago CKD (chronic kidney disease), stage III DMII (diabetes mellitus, type 2) Hypertension Surgical History History of blepharoplasty L eye History of hernia surgery History of foot surgery R 4th Toe surgery H/O neck surgery Family History Mother Colorectal cancer Coronary heart disease Diabetes Brother Diabetes Kidney disease Colorectal cancer Prostate cancer Other No pertinent family history Social History (Updated 06/14/23 @ 10:08 by Nicki Caldwell LPN) Smoking Status: Former smoker Tobacco Type: Cigarettes Second Hand Exposure: No; Do You Dip or Chew Tobacco: No; Hx Alcohol Use: Yes Alcohol type: beer Alcohol Intake Frequency Comment: 1-2 beers monthly Hx Substance Use: No Preferred Language: Occitan Communication Ability: Effective Electric Motor Tester Required: No Beliefs That Will Affect Care: None marital status: / Current Living Situation: Alone current occupational status: retired Other Information That Helps Us Care for You: No Feels Safe at Home: Yes Safety Concerns: Feels Safe At This Time Childhood Exposure to Second-Hand Smoke: Yes Diet: low carbohydrate caffeine: Yes Dental Care, Regularly: Yes Seatbelt Use: always Assistive Devices: Cane and Walker Review of Systems Review of Systems: As per HPI Physical Exam Physical Exam: GENERAL: Awake alert and oriented in all spheres, afebrile, no acute distress HEAD: Atraumatic and normocephalic EYES: EOM intact THROAT: Normal to visual exam CHEST: Symmetric chest expansions with respirations, no visible deformity noted CARDIO: Regular rate and rhythm, no rubs murmurs or gallops appreciated PULMONARY: Clear to auscultation bilaterally, normal respiratory effort, no respiratory distress GI: Soft, nontender, nondistended : No Waterman EXTREMITIES: No swelling bilateral lower extremities, negative calf tenderness, old wound noted in patient's medial right foot with bandages covering some of those old wounds in patient's right foot anterior aspect and some of his right toes, erythema surrounding larger of the wounds in his right foot that is slightly tender Results & Data Results & Data Vital Signs (Past 12 Hours) Vital Signs Temp Pulse Pulse Resp BP BP Pulse Ox 06/16/23 20:54 74 18 94 06/16/23 19:36 94 06/16/23 19:15 74 20 173/89 H 97 06/16/23 19:00 79 16 154/93 H 06/16/23 18:45 74 15 06/16/23 18:45 161/84 H 06/16/23 18:30 160/91 H 06/16/23 18:30 76 18 06/16/23 18:27 75 13 162/82 H 06/16/23 18:22 147 H 06/16/23 18:15 75 16 06/16/23 18:10 75 17 156/90 H 06/16/23 18:10 78 13 156/90 H 98 06/16/23 18:10 06/16/23 18:00 73 18 143/92 H 06/16/23 18:00 36.6 C 69 15 143/92 H 96 O2 Del Method FiO2 06/16/23 20:54 Room Air 06/16/23 19:36 Room Air 06/16/23 19:15 06/16/23 19:00 06/16/23 18:45 06/16/23 18:45 06/16/23 18:30 06/16/23 18:30 06/16/23 18:27 06/16/23 18:22 06/16/23 18:15 06/16/23 18:10 06/16/23 18:10 Room Air 06/16/23 18:10 Room Air 96 06/16/23 18:00 06/16/23 18:00 Room Air Supervising Physician Co-Signing Physician Notes Attending addendum: I have physically seen this patient, have supervised the medical residents activities, and agree with the H&P unless as otherwise noted. Assessment and Plan: Acute hyperkalemia/acute kidney injury superimposed on CKD- Potassium 7.1 on admission Improved to 6.2 after receiving 500 cc normal saline Received 250 cc D10 followed by 10 units regular insulin IV with follow-up potassium 5.8 Will give 50 cc of D50 followed by 10 units of regular insulin IV, and recheck potassium in a.m. Creatinine 1.91 with baseline 1.5 Follow laboratories in the a.m. after adequate rehydration EKG initially was read incorrectly by computer that recognized the peaked T waves has additional QRS complexes. Correction of hyperkalemia resulted in improved and normalized EKG with normal sinus rhythm History of second-degree heart block type II/bradycardia- The patient will be admitted to telemetry for serial cardiac enzymes, serial EKG's, cardiac rhythm monitoring Continue with correction of electrolytes as noted above Patient was noted by the ED to have episodes of heart block while potassium was still elevated Cardiology on-call asked patient to be n.p.o. for possible pacemaker placement in the a.m. Hypomagnesemia- Magnesium 1.7 on admission Give magnesium sulfate 1 g IV to target magnesium of 2 Recheck laboratories in a.m. Remaining orders and notations as noted (6) HTN (hypertension) Hypertension type: primary hypertension Qualified Code(s): I10 - Essential (primary) hypertension
--- NOTE | 2023-06-16 21:59 | XRay Report ---
SINGLE VIEW CHEST CLINICAL HISTORY: Syncope FINDINGS: 2 AP, portable, upright chest radiographs are compared to study dated 12/19/2018 and correla melany with chest CT dated 12/02/2019. The heart is enlarged. The pulmonary vasculature is nondistended c ongested. Chronic interstitial thickening is similar to previous. There is bibasilar scarring/atelect asis. The lungs and pleural spaces are otherwise clear. No pneumothorax is seen. The skeletal structu res are osteopenic. The bony thorax is grossly intact. IMPRESSION: Cardiomegaly with no active disease in the chest. ACT 112: Negative or not required by law. Electronically signed by: Sung Toledo M.D. 06/16/2023 9:58 PM
[2023-06-16] MEDS: SODIUM CHLORIDE 0.9% 500 ML IV STA (23:17)
[2023-06-16] MEDS: LACTATED RINGER'S 500 ML IV ONE (23:17)
[2023-06-16 23:24] LABS: BUN Creatinine Ratio 29.9 (10-20); Calcium 9.8 mg/dl (8.6-10.3); Creatinine Clr Calc Pharmacy 26.5 ml/min; Est GFR (African American) 36.4 ml/min; Est GFR (Non-African American) 31.4 ml/min; Potassium 5.8 mmol/L (3.5-5.1)
[2023-06-16 23:36] LABS: Hematocrit (blood only) 37.6 % (42.0-52.0); Hemoglobin 12.1 g/dl (14.0-18.0); Mean Corpuscular Hemoglobin 32.5 pg (25.0-34.0); Mean Corpuscular Hgb Conc 32.2 g/dL (32.0-36.0); Mean Corpuscular Volume 101.1 fL (80.0-100.0); Mean Platelet Volume 10.5 fL (9.4-12.4); Platelet Count 303 K/uL (130-400); RDW Coefficient of Variation 13.9 % (11.5-14.5); RDW Standard Deviation 50.4 fL (36.4-46.3); Red Blood Count 3.72 M/uL (4.70-6.10); White Blood Count 10.58 K/ul (4.8-10.8)
[2023-06-17] MEDS ORDERED: INSULIN ASPART PER UNIT CHARGE SC STA (00:16)
[2023-06-17] MEDS ORDERED: GLUCAGON FOR INJ 1 MG VIAL SQ PRN (00:23)
[2023-06-17] MEDS ORDERED: GLUCOSE 10 TAB/TUBE PO PRN (00:23)
[2023-06-17] MEDS ORDERED: GLUCOSE 40% GEL 15 GM TUBE PO PRN (00:23)
[2023-06-17] MEDS ORDERED: CARBOHYDRATES FOR HYPOGLYCEMIA PO PRN (00:23)
[2023-06-17] MEDS ORDERED: FUROSEMIDE 20 MG TAB PO PRN (00:23)
[2023-06-17] MEDS ORDERED: DEXTROSE 50% 50 ML SYRINGE IV PRN (00:23)
[2023-06-17] MEDS: INSULIN HUMAN REGULAR PER UNIT 10 UNITS in SYRINGE 9.9 ML IV ONE (01:08)
[2023-06-17] MEDS: DEXTROSE 50% 50 ML SYRINGE IV ONE (01:08)
[2023-06-17] MEDS: SODIUM CHLORIDE 0.9% 1,000 ML IV SCH (01:11)
[2023-06-17] MEDS: MAGNESIUM SULFATE / D5W 1 GM/100 ML BAG IV STA (01:13)
[2023-06-17] MEDS: ACETAMINOPHEN 325 MG TAB PO PRN (01:39)
[2023-06-17 04:45] LABS: Appearance Urine Clear (Clear); Bilirubin Urine Negative (Negative); Blood Urine Negative (Negative); Color Urine Yellow; Glucose Urine UA Negative (Negative); Ketones Urine Negative (Negative); Leukocyte Esterase Urine Negative (Negative); Nitrite Urine Negative (Negative); Protein Urine Negative (Negative); Specific Gravity Urine 1.015 (1.000-1.030); Urobilinogen Urine Negative (Negative)
[2023-06-17 04:47] LABS: Basophils # (auto) 0.02 K/uL (0.00-0.20); Basophils % (auto) 0.2 %; Hematocrit (blood only) 35.4 % (42.0-52.0); Hemoglobin 11.9 g/dl (14.0-18.0); Immature Granulocytes # (auto) 0.24 K/uL (0.01-0.20); Immature Granulocytes % (auto) 1.9 %; Lymphocytes # (auto) 0.89 K/uL (1.20-3.40); Lymphocytes % (auto) 7.2 %; Mean Corpuscular Hemoglobin 33.1 pg (25.0-34.0); Mean Corpuscular Hgb Conc 33.6 g/dL (32.0-36.0); Mean Corpuscular Volume 98.6 fL (80.0-100.0); Mean Platelet Volume 10.1 fL (9.4-12.4); Monocytes # (auto) 0.37 K/uL (0.11-0.59); Neutrophils # (auto) 10.81 K/uL (1.40-6.50); Neutrophils % (auto) 87.7 %; Platelet Count 303 K/uL (130-400); RDW Coefficient of Variation 13.7 % (11.5-14.5); RDW Standard Deviation 49.2 fL (36.4-46.3); Red Blood Count 3.59 M/uL (4.70-6.10); White Blood Count 12.33 K/ul (4.8-10.8)
[2023-06-17 05:03] LABS: BUN Creatinine Ratio 31.6 (10-20); Calcium 9.3 mg/dl (8.6-10.3); Creatinine Clr Calc Pharmacy 35.9 ml/min; Est GFR (African American) 45.6 ml/min; Est GFR (Non-African American) 39.4 ml/min; Magnesium 1.8 mg/dl (1.7-2.4); Phosphorus 3.7 mg/dl (2.5-4.9); Potassium 5.7 mmol/L (3.5-5.1)
[2023-06-17 05:11] LABS: Troponin I High Sensitivity 47.8 pg/ml (0-20)
[2023-06-17 05:33] LABS: Folate (Folic Acid),Ser orPlas 21.65 ng/ml (>5.38)
[2023-06-17] MEDS: INSULIN ASPART PER UNIT CHARGE SC SCH (08:36)
[2023-06-17] MEDS: MAGNESIUM CHLORIDE W/CALCIUM 64MG DELAYED REL TAB PO SCH (08:40)
[2023-06-17] MEDS: HYDROXYCHLOROQUINE SULFATE 200 MG TAB PO SCH (08:40)
[2023-06-17] MEDS: FAMOTIDINE 20 MG TAB PO SCH (08:40)
[2023-06-17] MEDS: ASPIRIN 81 MG ECTAB PO SCH (08:40)
[2023-06-17] MEDS: FINASTERIDE 5 MG TAB PO SCH (08:40)
[2023-06-17] MEDS: predniSONE 2.5 MG TAB PO SCH (08:40)
[2023-06-17] MEDS: FERROUS SULFATE 325 MG TAB PO SCH (08:40)
[2023-06-17] MEDS: SODIUM ZIRCONIUM CYCLOSILICATE 10 GM PACKET PO SCH (08:54)
--- NOTE | 2023-06-17 09:26 | Cardiology Consultation ---
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 Past episodes of dizziness in association with acute illnesses. 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 Findings may have been contributing to syncopal event/conduction system disease versus a sequela Patient did receive corticosteroid injections in both knees yesterday 1. Syncope with significant conduction system disease including trifascicular heart block intermittent second-degree AV block Mobitz 2 with 2:1 conduction. Indications for pacemaker present we will proceed later today Follow hypertension and cardiac examination post pacemaker. Resume carvedilol with possible increase for blood pressure control once pacemaker placed History of Present Illness Reason for Consultation: Syncope, trifascicular block/high degree block Requesting Physician: Dr. Conner Attending Physician: Wang Conner MD History of Present Illness Patient is a complex 88-year-old male with ongoing issues include 1. 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 Hypertension 3. Type 2 diabetes mellitus 4. Polymyalgia rheumatica on prednisone and Plaquenil 5. Stage IIIb CKD Recent history notable for hospitalization 06/03/2023 with cellulitis right foot, no vascular compromise. Noted symptoms of orthostatic dizziness and lightheadedness at that time Presents now after an observed syncopal spell at home working quietly in his garden became lightheaded and sat down and passed out briefly Had had knee injections earlier in the day for osteoarthritis On ER presentation baseline trifascicular heart block present with intermittent Mobitz type II second-degree AV block, 2 1 AV conduction with bradycardia Patient referred for ongoing management. Currently denies chest pains or prior chest pains. No history of angina myocardial infarction or congestive heart failure. Preserved LV systolic function on echocardiogram 06/04/2023 Denies recent fevers or chills currently right foot uncomfortable but improving taking oral antibiotic therapies without missed dose Generally active for age Non-smoker, very rare alcohol use No bleeding issues On hospitalization laboratory studies notable for elevated potassium and creatinine possibly secondary to acute event. Allergies Allergy/AdvReac Type Severity Reaction Status Date / Time pioglitazone [From Actos] Allergy Unknown Verified 06/14/23 10:02 sitagliptin [From Januvia] Allergy Unknown Verified 06/14/23 10:02 Home Medications Medication Instructions Recorded Confirmed Type finasteride 5 mg tablet (Proscar) 5 mg PO QAM 03/03/18 06/16/23 History tamsulosin 0.4 mg capsule (Flomax) 0.4 mg PO HS 03/03/18 06/16/23 History linagliptin 5 mg tablet 5 mg PO DAILY 01/12/19 06/16/23 History atorvastatin 40 mg tablet 40 mg PO QPM 11/23/19 06/16/23 History ferrous sulfate 325 mg (65 mg 325 mg PO DAILY #90 tabs 06/11/21 06/16/23 Rx iron) tablet magnesium chloride 64 mg 128 mg PO QAM 01/05/22 06/16/23 History (magnesium chloride) tablet,delayed release (Mag 64) denosumab 60 mg/mL subcutaneous 60 mg subcut .COMPLEX 01/14/23 06/16/23 History syringe (Prolia) hydroxychloroquine 200 mg tablet 200 mg PO QAM 01/14/23 06/16/23 History ropinirole 1 mg tablet 1 mg PO HS 01/14/23 06/16/23 History metformin 500 mg tablet 500 mg PO BID #60 tabs 01/18/23 06/16/23 Rx carvedilol 3.125 mg tablet 3.125 mg PO BID 30 days #60 tabs 05/04/23 06/16/23 Rx insulin degludec 100 unit/mL (3 See Rx Instructions subcut DAILY 05/04/23 06/16/23 Rx mL) subcutaneous pen (Tresiba #15 mL FlexTouch U-100 insulin) cholecalciferol (vitamin D3) 50 50 mcg PO QAM 06/03/23 06/16/23 History mcg (2,000 unit) tablet (Vitamin D3) famotidine 20 mg tablet 20 mg PO QAM 06/03/23 06/16/23 History furosemide 20 mg tablet 20 mg PO DAILY PRN Fluid Retention 06/03/23 06/16/23 History prednisone 2.5 mg tablet See Rx Instructions .Route .COMPLEX 06/03/23 06/16/23 History prednisone 5 mg tablet See Rx Instructions .Route .COMPLEX 06/03/23 06/16/23 History repaglinide 2 mg tablet 2 mg PO DAILY PRN DEPENDS ON FOOD 06/03/23 06/16/23 Hi story EATEN venlafaxine 75 mg capsule,extended 75 mg PO QPM 06/03/23 06/16/23 History release 24 hr aspirin 81 mg tablet,delayed 81 mg PO QAM #0 tabs 06/10/23 06/16/23 Rx release oxycodone 5 mg tablet 5 mg PO Q6H PRN pain #20 tabs 06/10/23 06/16/23 Rx Patient History Medical History (Updated 06/16/23 @ 22:30 by Kya Serrano MD) Renal tubular acidosis, type 4 Dermatitis, unspecified History of prostate cancer No pertinent family history Polymyalgia rheumatica Closed fracture of spinous process of thoracic vertebra Closed L3 vertebral fracture Depression GERD (gastroesophageal reflux disease) Hypertriglyceridemia BPH (benign prostatic hyperplasia) Lumbago CKD (chronic kidney disease), stage III DMII (diabetes mellitus, type 2) Hypertension Surgical History History of blepharoplasty L eye History of hernia surgery History of foot surgery R 4th Toe surgery H/O neck surgery Family History Mother Colorectal cancer Coronary heart disease Diabetes Brother Diabetes Kidney disease Colorectal cancer Prostate cancer Other No pertinent family history Social History (Updated 06/14/23 @ 10:08 by Nicki Caldwell LPN) Smoking Status: Former smoker Tobacco Type: Cigarettes Second Hand Exposure: No; Do You Dip or Chew Tobacco: No; Hx Alcohol Use: Yes Alcohol type: beer Alcohol Intake Frequency Comment: 1-2 beers monthly Hx Substance Use: No Preferred Language: Greek Communication Ability: Effective General Dentist/Owner Required: No Beliefs That Will Affect Care: None marital status: / Current Living Situation: Alone current occupational status: retired Other Information That Helps Us Care for You: No Feels Safe at Home: Yes Safety Concerns: Feels Safe At This Time Childhood Exposure to Second-Hand Smoke: Yes Diet: low carbohydrate caffeine: Yes Dental Care, Regularly: Yes Seatbelt Use: always Assistive Devices: Cane and Walker Review of Systems Review of Systems: All systems reviewed & are unremarkable except as noted in HPI & below Results & Data Vital Signs (Past 12 Hours) Vital Signs Temp Pulse Pulse Resp BP BP Pulse Ox 06/17/23 07:28 68 16 156/73 H 97 06/17/23 07:21 63 06/17/23 04:32 36.9 C 75 21 172/69 H 97 06/17/23 01:40 36.8 C 81 21 136/73 97 06/17/23 01:00 146/74 H 06/17/23 01:00 75 13 06/17/23 00:45 153/69 H 06/17/23 00:45 72 16 06/17/23 00:30 151/79 H 06/17/23 00:30 72 15 06/17/23 00:15 144/77 H 06/17/23 00:15 72 18 06/17/23 00:00 73 17 06/17/23 00:00 159/79 H 06/16/23 23:45 79 19 06/16/23 23:45 173/81 H 06/16/23 23:30 135/70 06/16/23 23:30 76 16 96 06/16/23 23:15 86 10 L 93 06/16/23 23:00 82 12 128/75 91 06/16/23 23:00 84 17 128/81 92 06/16/23 22:27 82 06/16/23 22:15 78 15 140/73 93 06/16/23 22:00 79 14 137/78 99 06/16/23 21:45 150/80 H 06/16/23 21:45 78 12 100 06/16/23 21:30 77 14 100 06/16/23 21:30 137/88 O2 Del Method 06/17/23 07:28 Room Air 06/17/23 07:21 06/17/23 04:32 Room Air 06/17/23 01:40 Room Air 06/17/23 01:00 06/17/23 01:00 06/17/23 00:45 06/17/23 00:45 06/17/23 00:30 06/17/23 00:30 06/17/23 00:15 06/17/23 00:15 06/17/23 00:00 06/17/23 00:00 06/16/23 23:45 06/16/23 23:45 06/16/23 23:30 06/16/23 23:30 06/16/23 23:15 06/16/23 23:00 06/16/23 23:00 Room Air 06/16/23 22:27 06/16/23 22:15 06/16/23 22:00 06/16/23 21:45 06/16/23 21:45 06/16/23 21:30 06/16/23 21:30 Laboratory Results Laboratory Results - last 24 hr 06/16/23 06/16/23 06/16/23 18:03 18:39 18:41 WBC Cancelled RBC Cancelled Hgb Cancelled Hct Cancelled MCV Cancelled MCH Cancelled MCHC Cancelled RDW Std Deviation Cancelled RDW Coeff of Aleja Cancelled Plt Count Cancelled MPV Cancelled Immature Gran % (Auto) Cancelled Neut % (Auto) Cancelled Lymph % (Auto) Cancelled [place] % (Auto) Cancelled Eos % (Auto) Cancelled Baso % (Auto) Cancelled Neut # (Auto) Cancelled Lymph # (Auto) Cancelled [place] # (Auto) Cancelled Eos # (Auto) Cancelled Baso # (Auto) Cancelled Immature Gran # (Auto) Cancelled Absolute Nucleated RBC Cancelled Nucleated RBC % (auto) Cancelled Neutrophils % (Manual) Cancelled Band Neutrophils % Cancelled Lymphocytes % (Manual) Cancelled Prolymphocyte % Cancelled Reactive Lymphs % (Man) Cancelled Monocytes % (Manual) Cancelled Eosinophils % (Manual) Cancelled Basophils % (Manual) Cancelled Metamyelocytes % (Man) Cancelled Myelocytes % (Man) Cancelled Promyelocytes % (Man) Cancelled Blast Cells % (Manual) Cancelled Plasma Cell % (Manual) Cancelled Other Cells % Cancelled Nucleated RBC % Cancelled Neutrophils # (Manual) Cancelled Band Neutrophils # Cancelled Total Absolute Neuts Cancelled Lymphocytes # (Manual) Cancelled Prolymphocyte # Cancelled Reactive Lymphs # Cancelled Total Abs Lymphocytes Cancelled Monocytes # (Manual) Cancelled Eosinophils # (Manual) Cancelled Basophils # (Manual) Cancelled Metamyelocytes # (Man) Cancelled Myelocytes # (Manual) Cancelled Promyelocytes # (Man) Cancelled Blast Cells # (Man) Cancelled Plasma Cell # (Manual) Cancelled Other Cells # Cancelled Nucleated RBCs # (Man) Cancelled Hypersegmented Neuts Cancelled Hyposegmented Neuts Cancelled Hypogranular Neuts Cancelled Large Granular Lymphs Cancelled # Lrg Granular Lymphs Cancelled Hairy Cells Cancelled Smudge Cells Cancelled Toxic Granulation Cancelled Toxic Vacuolation Cancelled Dohle Bodies Cancelled Lou Rods Cancelled Platelet Estimate Cancelled Hypogranular Platelets Cancelled Giant Platelets Cancelled Platelet Satelliting Cancelled RBC Morphology Cancelled Polychromasia Cancelled Hypochromasia Cancelled Poikilocytosis Cancelled Basophilic Stippling Cancelled Anisocytosis Cancelled Microcytosis Cancelled Macrocytosis Cancelled Spherocytes Cancelled Pappenheimer Bodies Cancelled Sickle Cells Cancelled Target Cells Cancelled Tear Drop Cells Cancelled Ovalocytes Cancelled Stomatocytes Cancelled Galeana-Maxbass Bodies Cancelled Echinocytes Cancelled Acanthocytes (Spur) Cancelled Rouleaux Cancelled RBC Agglutinates Cancelled Schistocytes Cancelled Sezary Cell Cancelled PT Cancelled 11.2 INR Cancelled 1.0 APTT Cancelled 23 PTT Ratio Cancelled 0.8 Sodium Cancelled 137 Potassium Cancelled 7.1 H* Chloride Cancelled 108 H Carbon Dioxide Cancelled 24 Anion Gap Cancelled 5 BUN Cancelled 58 H Creatinine Cancelled 1.91 H Est Cr Clr Drug Dosing Cancelled 26.0 Est GFR ( Amer) Cancelled 35.5 Est GFR (Non-Af Amer) Cancelled 30.6 BUN/Creatinine Ratio Cancelled 30.4 H Glucose Cancelled 183 H POC Glucose Lactate Calcium Cancelled 9.7 Phosphorus Magnesium Cancelled 1.7 Total Bilirubin Cancelled 0.4 AST Cancelled 26 ALT Cancelled 25 Alkaline Phosphatase Cancelled 66 Troponin I High Sens 22.4 H Total Protein Cancelled 6.4 Albumin Cancelled 3.6 Globulin Cancelled 2.8 Albumin/Globulin Ratio Cancelled 1.3 Vitamin B12 Folate TSH 0.879 Urine Color Urine Appearance Urine pH Ur Specific Stow Urine Protein Urine Glucose (UA) Urine Ketones Urine Blood Urine Nitrite Urine Bilirubin Urine Urobilinogen Ur Leukocyte Esterase Blood Parasites ID Cancelled 06/16/23 06/16/23 06/16/23 19:00 20:17 21:02 WBC 10.13 RBC 3.61 L Hgb 11.7 L Hct 36.8 L MCV 101.9 H MCH 32.4 MCHC 31.8 L RDW Std Deviation 50.9 H RDW Coeff of Aleja 13.8 Plt Count 293 MPV 10.5 Immature Gran % (Auto) 3.5 Neut % (Auto) 90.3 Lymph % (Auto) 4.4 [place] % (Auto) 1.5 Eos % (Auto) 0.0 Baso % (Auto) 0.3 Neut # (Auto) 9.15 H Lymph # (Auto) 0.45 L [place] # (Auto) 0.15 Eos # (Auto) 0.00 Baso # (Auto) 0.03 Immature Gran # (Auto) 0.35 H Absolute Nucleated RBC Nucleated RBC % (auto) Neutrophils % (Manual) Band Neutrophils % Lymphocytes % (Manual) Prolymphocyte % Reactive Lymphs % (Man) Monocytes % (Manual) Eosinophils % (Manual) Basophils % (Manual) Metamyelocytes % (Man) Myelocytes % (Man) Promyelocytes % (Man) Blast Cells % (Manual) Plasma Cell % (Manual) Other Cells % Nucleated RBC % Neutrophils # (Manual) Band Neutrophils # Total Absolute Neuts Lymphocytes # (Manual) Prolymphocyte # Reactive Lymphs # Total Abs Lymphocytes Monocytes # (Manual) Eosinophils # (Manual) Basophils # (Manual) Metamyelocytes # (Man) Myelocytes # (Manual) Promyelocytes # (Man) Blast Cells # (Man) Plasma Cell # (Manual) Other Cells # Nucleated RBCs # (Man) Hypersegmented Neuts Hyposegmented Neuts Hypogranular Neuts Large Granular Lymphs # Lrg Granular Lymphs Hairy Cells Smudge Cells Toxic Granulation Toxic Vacuolation Dohle Bodies Lou Rods Platelet Estimate Hypogranular Platelets Giant Platelets Platelet Satelliting RBC Morphology Polychromasia Hypochromasia Poikilocytosis Basophilic Stippling Anisocytosis Microcytosis Macrocytosis Spherocytes Pappenheimer Bodies Sickle Cells Target Cells Tear Drop Cells Ovalocytes 1+ Stomatocytes Galeana-Maxbass Bodies Echinocytes 1+ Acanthocytes (Spur) Rouleaux RBC Agglutinates Schistocytes Sezary Cell PT INR APTT PTT Ratio Sodium Potassium 6.2 H* Chloride Carbon Dioxide Anion Gap BUN Creatinine Est Cr Clr Drug Dosing Est GFR ( Amer) Est GFR (Non-Af Amer) BUN/Creatinine Ratio Glucose POC Glucose 104 H Lactate Calcium Phosphorus Magnesium Total Bilirubin AST ALT Alkaline Phosphatase Troponin I High Sens 42.7 H D Total Protein Albumin Globulin Albumin/Globulin Ratio Vitamin B12 Folate TSH Urine Color Urine Appearance Urine pH Ur Specific Stow Urine Protein Urine Glucose (UA) Urine Ketones Urine Blood Urine Nitrite Urine Bilirubin Urine Urobilinogen Ur Leukocyte Esterase Blood Parasites ID 06/16/23 06/16/23 06/17/23 22:30 22:55 01:58 WBC 10.58 RBC 3.72 L Hgb 12.1 L Hct 37.6 L MCV 101.1 H MCH 32.5 MCHC 32.2 RDW Std Deviation 50.4 H RDW Coeff of Aleja 13.9 Plt Count 303 MPV 10.5 Immature Gran % (Auto) Neut % (Auto) Lymph % (Auto) [place] % (Auto) Eos % (Auto) Baso % (Auto) Neut # (Auto) Lymph # (Auto) [place] # (Auto) Eos # (Auto) Baso # (Auto) Immature Gran # (Auto) Absolute Nucleated RBC Nucleated RBC % (auto) Neutrophils % (Manual) Band Neutrophils % Lymphocytes % (Manual) Prolymphocyte % Reactive Lymphs % (Man) Monocytes % (Manual) Eosinophils % (Manual) Basophils % (Manual) Metamyelocytes % (Man) Myelocytes % (Man) Promyelocytes % (Man) Blast Cells % (Manual) Plasma Cell % (Manual) Other Cells % Nucleated RBC % Neutrophils # (Manual) Band Neutrophils # Total Absolute Neuts Lymphocytes # (Manual) Prolymphocyte # Reactive Lymphs # Total Abs Lymphocytes Monocytes # (Manual) Eosinophils # (Manual) Basophils # (Manual) Metamyelocytes # (Man) Myelocytes # (Manual) Promyelocytes # (Man) Blast Cells # (Man) Plasma Cell # (Manual) Other Cells # Nucleated RBCs # (Man) Hypersegmented Neuts Hyposegmented Neuts Hypogranular Neuts Large Granular Lymphs # Lrg Granular Lymphs Hairy Cells Smudge Cells Toxic Granulation Toxic Vacuolation Dohle Bodies Lou Rods Platelet Estimate Hypogranular Platelets Giant Platelets Platelet Satelliting RBC Morphology Polychromasia Hypochromasia Poikilocytosis Basophilic Stippling Anisocytosis Microcytosis Macrocytosis Spherocytes Pappenheimer Bodies Sickle Cells Target Cells Tear Drop Cells Ovalocytes Stomatocytes Galeana-Maxbass Bodies Echinocytes Acanthocytes (Spur) Rouleaux RBC Agglutinates Schistocytes Sezary Cell PT INR APTT PTT Ratio Sodium 135 L Potassium 5.8 H Chloride 105 Carbon Dioxide 22 Anion Gap 8 BUN 56 H Creatinine 1.87 H Est Cr Clr Drug Dosing 26.5 Est GFR ( Amer) 36.4 Est GFR (Non-Af Amer) 31.4 BUN/Creatinine Ratio 29.9 H Glucose 136 H POC Glucose 160 H Lactate 1.1 Calcium 9.8 Phosphorus Magnesium Total Bilirubin AST ALT Alkaline Phosphatase Troponin I High Sens Total Protein Albumin Globulin Albumin/Globulin Ratio Vitamin B12 715 Folate 21.65 TSH Urine Color Urine Appearance Urine pH Ur Specific Stow Urine Protein Urine Glucose (UA) Urine Ketones Urine Blood Urine Nitrite Urine Bilirubin Urine Urobilinogen Ur Leukocyte Esterase Blood Parasites ID 06/17/23 06/17/23 06/17/23 04:29 04:35 08:14 WBC 12.33 H RBC 3.59 L Hgb 11.9 L Hct 35.4 L MCV 98.6 MCH 33.1 MCHC 33.6 RDW Std Deviation 49.2 H RDW Coeff of Aleja 13.7 Plt Count 303 MPV 10.1 Immature Gran % (Auto) 1.9 Neut % (Auto) 87.7 Lymph % (Auto) 7.2 [place] % (Auto) 3.0 Eos % (Auto) 0.0 Baso % (Auto) 0.2 Neut # (Auto) 10.81 H Lymph # (Auto) 0.89 L [place] # (Auto) 0.37 Eos # (Auto) 0.00 Baso # (Auto) 0.02 Immature Gran # (Auto) 0.24 H Absolute Nucleated RBC Nucleated RBC % (auto) Neutrophils % (Manual) Band Neutrophils % Lymphocytes % (Manual) Prolymphocyte % Reactive Lymphs % (Man) Monocytes % (Manual) Eosinophils % (Manual) Basophils % (Manual) Metamyelocytes % (Man) Myelocytes % (Man) Promyelocytes % (Man) Blast Cells % (Manual) Plasma Cell % (Manual) Other Cells % Nucleated RBC % Neutrophils # (Manual) Band Neutrophils # Total Absolute Neuts Lymphocytes # (Manual) Prolymphocyte # Reactive Lymphs # Total Abs Lymphocytes Monocytes # (Manual) Eosinophils # (Manual) Basophils # (Manual) Metamyelocytes # (Man) Myelocytes # (Manual) Promyelocytes # (Man) Blast Cells # (Man) Plasma Cell # (Manual) Other Cells # Nucleated RBCs # (Man) Hypersegmented Neuts Hyposegmented Neuts Hypogranular Neuts Large Granular Lymphs # Lrg Granular Lymphs Hairy Cells Smudge Cells Toxic Granulation Toxic Vacuolation Dohle Bodies Lou Rods Platelet Estimate Hypogranular Platelets Giant Platelets Platelet Satelliting RBC Morphology Polychromasia Hypochromasia Poikilocytosis Basophilic Stippling Anisocytosis Microcytosis Macrocytosis Spherocytes Pappenheimer Bodies Sickle Cells Target Cells Tear Drop Cells Ovalocytes Stomatocytes Galeana-Maxbass Bodies Echinocytes Acanthocytes (Spur) Rouleaux RBC Agglutinates Schistocytes Sezary Cell PT INR APTT PTT Ratio Sodium 135 L Potassium 5.7 H Chloride 108 H Carbon Dioxide 21 Anion Gap 6 BUN 49 H Creatinine 1.55 H D Est Cr Clr Drug Dosing 35.9 Est GFR ( Amer) 45.6 Est GFR (Non-Af Amer) 39.4 BUN/Creatinine Ratio 31.6 H Glucose 191 H POC Glucose 152 H Lactate Calcium 9.3 Phosphorus 3.7 Magnesium 1.8 Total Bilirubin AST ALT Alkaline Phosphatase Troponin I High Sens 47.8 H Total Protein Albumin Globulin Albumin/Globulin Ratio Vitamin B12 Folate TSH Urine Color Yellow Urine Appearance Clear Urine pH 5.0 Ur Specific Stow 1.015 Urine Protein Negative Urine Glucose (UA) Negative Urine Ketones Negative Urine Blood Negative Urine Nitrite Negative Urine Bilirubin Negative Urine Urobilinogen Negative Ur Leukocyte Esterase Negative Blood Parasites ID 06/17/23 11:34 WBC RBC Hgb Hct MCV MCH MCHC RDW Std Deviation RDW Coeff of Aleja Plt Count MPV Immature Gran % (Auto) Neut % (Auto) Lymph % (Auto) [place] % (Auto) Eos % (Auto) Baso % (Auto) Neut # (Auto) Lymph # (Auto) [place] # (Auto) Eos # (Auto) Baso # (Auto) Immature Gran # (Auto) Absolute Nucleated RBC Nucleated RBC % (auto) Neutrophils % (Manual) Band Neutrophils % Lymphocytes % (Manual) Prolymphocyte % Reactive Lymphs % (Man) Monocytes % (Manual) Eosinophils % (Manual) Basophils % (Manual) Metamyelocytes % (Man) Myelocytes % (Man) Promyelocytes % (Man) Blast Cells % (Manual) Plasma Cell % (Manual) Other Cells % Nucleated RBC % Neutrophils # (Manual) Band Neutrophils # Total Absolute Neuts Lymphocytes # (Manual) Prolymphocyte # Reactive Lymphs # Total Abs Lymphocytes Monocytes # (Manual) Eosinophils # (Manual) Basophils # (Manual) Metamyelocytes # (Man) Myelocytes # (Manual) Promyelocytes # (Man) Blast Cells # (Man) Plasma Cell # (Manual) Other Cells # Nucleated RBCs # (Man) Hypersegmented Neuts Hyposegmented Neuts Hypogranular Neuts Large Granular Lymphs # Lrg Granular Lymphs Hairy Cells Smudge Cells Toxic Granulation Toxic Vacuolation Dohle Bodies Lou Rods Platelet Estimate Hypogranular Platelets Giant Platelets Platelet Satelliting RBC Morphology Polychromasia Hypochromasia Poikilocytosis Basophilic Stippling Anisocytosis Microcytosis Macrocytosis Spherocytes Pappenheimer Bodies Sickle Cells Target Cells Tear Drop Cells Ovalocytes Stomatocytes Galeana-Maxbass Bodies Echinocytes Acanthocytes (Spur) Rouleaux RBC Agglutinates Schistocytes Sezary Cell PT INR APTT PTT Ratio Sodium Potassium Chloride Carbon Dioxide Anion Gap BUN Creatinine Est Cr Clr Drug Dosing Est GFR ( Amer) Est GFR (Non-Af Amer) BUN/Creatinine Ratio Glucose POC Glucose 133 H Lactate Calcium Phosphorus Magnesium Total Bilirubin AST ALT Alkaline Phosphatase Troponin I High Sens Total Protein Albumin Globulin Albumin/Globulin Ratio Vitamin B12 Folate TSH Urine Color Urine Appearance Urine pH Ur Specific Stow Urine Protein Urine Glucose (UA) Urine Ketones Urine Blood Urine Nitrite Urine Bilirubin Urine Urobilinogen Ur Leukocyte Esterase Blood Parasites ID ([id number]) HTN (hypertension) Hypertension type: primary hypertension Qualified Code(s): I10 - Essential (primary) hypertension
--- NOTE | 2023-06-17 11:05 | Electrocardiogram Report ---
Test Reason : Blood Pressure : / mmHG Vent. 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
--- NOTE | 2023-06-17 11:06 | Electrocardiogram Report ---
Test Reason : Blood Pressure : / mmHG Vent. 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 rate has decreased BY 38 BPM 2:1 A-V block now present Confirmed by Jadiel Painter ([id number]) on 06/17/2023 11:06:15 AM Referred By: REFERRED SELF Confirmed By:Jadiel Painter
--- NOTE | 2023-06-17 11:08 | Electrocardiogram Report ---
Test Reason : Blood Pressure : / mmHG Vent. 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
--- NOTE | 2023-06-17 11:10 | Electrocardiogram Report ---
Test Reason : Blood Pressure : / mmHG Vent. 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
--- NOTE | 2023-06-17 12:24 | Nephrology Consultation ---
Date of Consultation June 17, 2023 History of Present Illness Requesting Physician: Wang Conner MD Attending Physician: Wang Conner MD Allergies Allergy/AdvReac Type Severity Reaction Status Date / Time pioglitazone [From Actos] Allergy Unknown Verified 06/14/23 10:02 sitagliptin [From Januvia] Allergy Unknown Verified 06/14/23 10:02 Home Medications Medication Instructions Recorded Confirmed Type finasteride 5 mg tablet (Proscar) 5 mg PO QAM 03/03/18 06/16/23 History tamsulosin 0.4 mg capsule (Flomax) 0.4 mg PO HS 03/03/18 06/16/23 History linagliptin 5 mg tablet 5 mg PO DAILY 01/12/19 06/16/23 History atorvastatin 40 mg tablet 40 mg PO QPM 11/23/19 06/16/23 History ferrous sulfate 325 mg (65 mg 325 mg PO DAILY #90 tabs 06/11/21 06/16/23 Rx iron) tablet magnesium chloride 64 mg 128 mg PO QAM 01/05/22 06/16/23 History (magnesium chloride) tablet,delayed release (Mag 64) denosumab 60 mg/mL subcutaneous 60 mg subcut .COMPLEX 01/14/23 06/16/23 History syringe (Prolia) hydroxychloroquine 200 mg tablet 200 mg PO QAM 01/14/23 06/16/23 History ropinirole 1 mg tablet 1 mg PO HS 01/14/23 06/16/23 History metformin 500 mg tablet 500 mg PO BID #60 tabs 01/18/23 06/16/23 Rx carvedilol 3.125 mg tablet 3.125 mg PO BID 30 days #60 tabs 05/04/23 06/16/23 Rx insulin degludec 100 unit/mL (3 See Rx Instructions subcut DAILY 05/04/23 06/16/23 Rx mL) subcutaneous pen (Tresiba #15 mL FlexTouch U-100 insulin) cholecalciferol (vitamin D3) 50 50 mcg PO QAM 06/03/23 06/16/23 History mcg (2,000 unit) tablet (Vitamin D3) famotidine 20 mg tablet 20 mg PO QAM 06/03/23 06/16/23 History furosemide 20 mg tablet 20 mg PO DAILY PRN Fluid Retention 06/03/23 06/16/23 History prednisone 2.5 mg tablet See Rx Instructions .Route .COMPLEX 06/03/23 06/16/23 History prednisone 5 mg tablet See Rx Instructions .Route .COMPLEX 06/03/23 06/16/23 History repaglinide 2 mg tablet 2 mg PO DAILY PRN DEPENDS ON FOOD 06/03/23 06/16/23 History EATEN venlafaxine 75 mg capsule,extended 75 mg PO QPM 06/03/23 06/16/23 History release 24 hr aspirin 81 mg tablet,delayed 81 mg PO QAM #0 tabs 06/10/23 06/16/23 Rx release oxycodone 5 mg tablet 5 mg PO Q6H PRN pain #20 tabs 06/10/23 06/16/23 Rx Patient History Medical History (Updated 06/16/23 @ 22:30 by Kya Serrano MD) Renal tubular acidosis, type 4 Dermatitis, unspecified History of prostate cancer No pertinent family history Polymyalgia rheumatica Closed fracture of spinous process of thoracic vertebra Closed L3 vertebral fracture Depression GERD (gastroesophageal reflux disease) Hypertriglyceridemia BPH (benign prostatic hyperplasia) Lumbago CKD (chronic kidney disease), stage III DMII (diabetes mellitus, type 2) Hypertension Surgical History History of blepharoplasty L eye History of hernia surgery History of foot surgery R 4th Toe surgery H/O neck surgery Family History Mother Colorectal cancer Coronary heart disease Diabetes Brother Diabetes Kidney disease Colorectal cancer Prostate cancer Other No pertinent family history Social History (Updated 06/14/23 @ 10:08 by Nicki Caldwell LPN) Smoking Status: Former smoker Tobacco Type: Cigarettes Second Hand Exposure: No; Do You Dip or Chew Tobacco: No; Hx Alcohol Use: Yes Alcohol type: beer Alcohol Intake Frequency Comment: 1-2 beers monthly Hx Substance Use: No Preferred Language: Belgian Communication Ability: Effective Sleeve Machine Tender Required: No Beliefs That Will Affect Care: None marital status: / Current Living Situation: Alone current occupational status: retired Other Information That Helps Us Care for You: No Feels Safe at Home: Yes Safety Concerns: Feels Safe At This Time Childhood Exposure to Second-Hand Smoke: Yes Diet: low carbohydrate caffeine: Yes Dental Care, Regularly: Yes Seatbelt Use: always Assistive Devices: Cane and Walker Results & Data Vital Signs (Past 12 Hours) Vital Signs Temp Pulse Pulse Resp BP BP Pulse Ox 06/17/23 07:28 68 16 156/73 H 97 06/17/23 07:21 63 06/17/23 04:32 36.9 C 75 21 172/69 H 97 06/17/23 01:40 36.8 C 81 21 136/73 97 06/17/23 01:00 146/74 H 06/17/23 01:00 75 13 06/17/23 00:45 153/69 H 06/17/23 00:45 72 16 06/17/23 00:30 151/79 H 06/17/23 00:30 72 15 O2 Del Method 06/17/23 07:28 Room Air 06/17/23 07:21 06/17/23 04:32 Room Air 06/17/23 01:40 Room Air 06/17/23 01:00 06/17/23 01:00 06/17/23 00:45 06/17/23 00:45 06/17/23 00:30 06/17/23 00:30 PG Care Time/CCT Total # of Minutes Spent Total Time Spent with Patient: Total time spent is greater than 50% in coordination of care (as documented) at patient's floor/unit and/or counseling patient: Coding
--- OUTSIDE RECORDS SUMMARY | 2023-06-17 13:45 | External Medical Summary | Summary of Care ---
Author Name Unknown Organization [facility] Address [address] [place] [address] Phone [phone] Care Team Providers Care Cartridge Maker Name Role Phone Austen Rico MD Primary Care P rovider Reason for Visit * Reason Comments Knee Pain bilat Encounter Details Date Type Department Care Team (Latest Contact Info) Description 06/16/2023 3:00 PM EST Office Visit Orthopaedics [address] [place] [address] Wai Hill, DO [address] [place] [address] Primary osteoarthritis of both knees* Allergies Active Allergy Reactions Criticality Noted Date Comments Pioglitazone Edema Other 05/01/2015 Sitagliptin Abdominal pain 05/05/2015 Dizziness and stomach upset documented as of this encounter (statuses as of 06/16/2023) Medications Medication Sig Dispensed Refills Start Date End Date Status SocialPandasTouch Verio w/Device KitIndications:Type 2 diabetes mellitus with hemoglobin A1c goal of less than 8.0% ([facility]) Use as directed. Use to test blood [...] (Pred Mild) 0 Active OneTouch Delica Plus [id number] use to check blood sugar three daily DX E11.9 - pt on insulin 300 Each 3 07/12/2022 Active OneTouch Verio In Vitro Strip (Glucose Blood)Indications:T ype 2 diabetes mellitus with hemoglobin A1c goal of less than 8.0% ([facility]) Use to check blood sugars 4 times [...] MG Oral Tablet (Deltasone)Indicati ons:PMR (polymyalgia rheumatica) ([facility]) TAKE 1 TABLET BY MOUTH DAILY COMBINE [...] hemoglobin A1c goal of less than 8.0% ([facility]) inject 30 units in the MORNING and 20 units at EVENING meal DOSE INCREASE - DX E11.9 90 mL 3 04/20/2023 Active predniSONE 2.5 MG Oral Tablet (Deltasone)Indicati ons:PMR (polymyalgia rheumatica) ([facility]) TAKE 1 TABLET BY MOUTH DAILY WITH 5MG TABLET FOR TOTAL OF 7.5MG DAILY 90 Tablet 3 04/27/2023 Active Hydroxychloroquine Sulfate 200 MG Oral Tablet (Plaquenil)Indicati ons:PMR (polymyalgia rheumatica) ([facility]) TAKE 1 TABLET BY MOUTH IN THE MORNING 90 Tablet 3 04/27/2023 Active Hospital, Clinic, or Other Facility Administered Medication Ordered Dose Route Frequency Start Date End Date Status lidocaine 1% 1 mL - triamcinolone acetonide 40 mg/mL 1 mL inj 2 mLIndications:Primary osteoarthritis of both knees 2 mL IJ ONCE 06/16/2023 06/16/2023 Ended lidocaine 1% 1 mL - triamcinolone acetonide 40 mg/mL 1 mL inj 2 mLIndications:Primary osteoarthritis of both knees 2 mL IJ ONCE 06/16/2023 06/16/2023 Ended documented as of this encounter (statuses as of 06/16/2023) Active Problems Problem Noted Date Diagnosed Date [...] as of this encounter (statuses as of 06/16/2023) Resolved Problems Problem Noted Date Diagnosed Date [...] as of this encounter (statuses as of 06/16/2023) Immunizations Name Administration Dates Next Due COVID-19 [...] on file documented as of this encounter Progress Notes * Wai Hill, DO - 06/16/2023 3:00 PM EST Wang Cunningham [id number] Wang Cunningham is a 88 year old male who presents for f/u to [facility] for b/l knee pain Wang Cunningham is here alone Date of Injury: no injury Last injected 03/09/23 with steroids TODAY: would like repeat ROS EXAM:Constitional: No change in weight, No weakness, No fatigue and No fevers, sweats, or chills . Past Medical History: Diagnosis Date BPH (benign prostatic hyperplasia) Bradycardia Chronic kidney disease (CKD) Diabetes mellitus, type II ([facility]) GERD (gastroesophageal reflux disease) Hyperkalemia Hypertension Hypertriglyceridemia Hypomagnesemia Lumbago Lumbar vertebral fracture ([facility]) 03/21/2018 Osteoarthritis Type 2 diabetes mellitus with hemoglobin A1c goal of less than 8.0% ([facility]) 06/19/2018 Vitamin D deficiency Current Outpatient Medications Medication Sig Dispense Refill [employer] w/Device Kit Use as directed. Use to test blood sugars 2 time daily e11.9 substitution allowed if needed 1 Kit 1 Magnesium Chloride 64 MG Oral Tablet Delayed Release (Mag64) TAKE 2 TABLETS BY MOUTH TWICE DAILY. (Patient taking differently: TAKE 1 TABLETS BY MOUTH TWICE DAILY.) 360 Tablet 1 Denosumab 60 MG/ML Subcutaneous Solution Prefilled Syringe (Prolia) Inject 60 mg under the skin once. Tamsulosin HCl 0.4 MG Oral Capsule (Flomax) Take 1 Capsule by mouth in the morning. Iron 325 (65 Fe) MG Oral Tablet Take 1 Tablet by mouth in the morning. 90 Tablet 3 Baclofen 10 MG Oral Tablet (Lioresal) Take 1 Tablet by mouth 3 times a day as needed. prednisoLONE Acetate 0.12 % Ophthalmic Suspension (Pred Mild) SocialPandasTouch Delica Plus [id number] use to check blood sugar three daily DX E11.9 - pt on insulin 300 Each 3 SocialPandasTouch Verio In Vitro Strip (Glucose Blood) Use to check blood sugars 4 times daily DX code E11.9400 Strip 3 Finasteride 5 MG Oral Tablet (Proscar) Take 1 Tablet by mouth in the morning. 90 Tablet 3 linaGLIPtin 5 MG Oral Tablet (Tradjenta) Take 1 Tablet by mouth in the morning. 100 Tablet 3 Carvedilol 3.125 MG Oral Tablet (Coreg) Take 1 Tablet by mouth in the morning and 1 Tablet before bedtime. 204 Tablet 3 rOPINIRole HCl 1 MG Oral Tablet Take 1 Tablet by mouth at bedtime. With food. 90 Tablet 3 Meclizine HCl 25 MG Oral Tablet (Antivert) Take 1 Tablet by mouth 3 times a day as needed for Dizziness. 30 Tablet 0 metroNIDAZOLE 0.75 % External Gel (Metrogel) Apply to the face twice daily as needed. 45 g 3 Vitamin D3 50 MCG (2000 UT) Oral Capsule Take 1 Capsule by mouth in the morning. Atorvastatin Calcium 40 MG Oral Tablet (Lipitor) TAKE 1 TABLET BY MOUTH IN THE MORNING 90 Tablet 3 predniSONE 5 MG Oral Tablet (Deltasone) TAKE 1 TABLET BY MOUTH DAILY COMBINE WITH 2.5 MG TABLET FORTOTAL OF 7.5 MG DAILY 90 Tablet 1 Venlafaxine HCl ER 75 MG Oral Capsule Extended Release 24 Hour (Effexor XR) Take 1 Capsule by mouthat bedtime. 90 Capsule 1 metFORMIN HCl 500 MG Oral Tablet (Glucophage) Take 1 Tablet by mouth 2 times a day with morning andevening meals. 200 Tablet 3 Famotidine 20 MG Oral Tablet (Pepcid) Take 1 Tablet by mouth in the morning and 1 Tablet before bedtime. 60 Tablet 11 BD Pen Needle Ramya U/F 32G X 4 MM (Insulin Pen Needle) use to inject tresiba twice daily 200 Each 3 Tresiba FlexTouch 100 UNIT/ML Subcutaneous Solution Pen-injector (Insulin Degludec) inject 30 unitsin the MORNING and 20 units at EVENING meal DOSE INCREASE - DX E11.9 90 mL 3 predniSONE 2.5 MG Oral Tablet (Deltasone) TAKE 1 TABLET BY MOUTH DAILY WITH 5MG TABLET FOR TOTAL OF7.5MG DAILY 90 Tablet 3 Hydroxychloroquine Sulfate 200 MG Oral Tablet (Plaquenil) TAKE 1 TABLET BY MOUTH IN THE MORNING 90 Tablet 3 No current facility-administered medications for this visit. Hemoglobin AIC Results: Lab Results Component Value Date/Time HEMOGLOBIN A1C - [facility] 8.2 (H) 11/09/2022 10:25 AM HEMOGLOBIN A1C - [facility] 7.6 (H) 07/19/2022 08:47 AM HEMOGLOBIN A1C - [facility] 7.4 (H) 07/07/2022 09:52 AM HEMOGLOBIN A1C - [facility] 9.1 (H) 03/10/2020 01:50 PM HEMOGLOBIN A1C - [facility] 11.6 (H) 11/23/2019 09:04 AM HEMOGLOBIN A1C - [facility] 13.6 (H) 05/18/2019 07:28 AM HEMOGLOBIN A1C POCT - [facility] 7.0 (H) 03/11/2023 10:31 AM Physical Exam General: in no acute distress Mood and Affect: normal Gait and Station: mildly antalgic Knee Exam, bilateral Alignment: normal Bilateral Effusion: negative Palpation: tenderness to palpation at medial joint line on the bilateral ROM: R - Flexion - 120 degrees, Extension - 0 degrees L - Flexion - 120 degrees, Extension -0 degrees Assessment and Plan: f/u 3 months, see procedure note Primary osteoarthritis of both knees (Primary) - INJECT MAJOR JX/BURSA W/O US GUIDE - lidocaine 1% 1 mL - triamcinolone acetonide 40 mg/mL 1 mL inj 2 mL - lidocaine 1% 1 mL - triamcinolone acetonide 40 mg/mL 1 mL inj 2 mL Wai Hill DO Primary Care Sports Medicine Orthopaedics [place] [address] Procedure note (knee injection), b/l Time out: Prior to injection, a time out was called to confirm the administration of appropriate medicine, patient name, procedure and confirm to the best of our ability and knowledge the presence of any necessary risks and benefits. Patient verbalizes understanding. Ultrasound utilized to guide Reviewed benefits including potential pain reduction and improved function as well as risks including worsening pain or infection in detail with patient and patient verbalizes understanding. Sterile techinique applied. Skin sterilized with alcohol swab. Knee injected using 1.5 inch, 22 gauge needle from lateral approach with lidocaine 1% 1 mL - triamcinolone acetonide 40 mg/mL 1 mL inj 2mL.. Patient tolerated procedure with no significant bleeding or adverse reaction. Patient instructed to call or return to clinic for fever or warmth and redness at injection site for potential infection. Patient also advised as to potential for steroid flare reaction including increased pain and redness at injection site which should be treated with ice and resolve within 24 hours. documented in this encounter Nursing Notes * Yecenia Toussaint LPN - 06/16/2023 12:23 PM EST Bilat knee documented in this encounter Plan of Treatment Upcoming Encounters Date Type Department Care Team (Latest Contact Info) Description 07/01/2023 1:20 PM EDT Hospital Encounter OR [facility], Operating Room [facility] [address] [place] [address] Robert Goodman, DO [address] [place] [address] 07/01/2023 1:20 PM EDT - 07/01/2023 1:45 PM EDT Surgery OR [facility], Operating Room [facility] [address] [place] [address] Robert Goodman, DO [address] [place] [address] INJECTION SPINE LUMBAR OR SACRAL 09/15/2023 1:00 PM EDT Office Visit Orthopaedics [address] [place] [address] Wai Hill, DO [address] [place] [address] Scheduled Orders Name Type Priority Associated Diagnoses Orde r Schedule INJECT MAJOR JX/BURSA W/O US GUIDE Procedures Routine Primary osteoarthritis of both knees Ordered: 06/16/2023 Scheduled Procedures Name Priority Associated Diagnoses Date/Ti me INJECTION SPINE LUMBAR OR SACRAL Spinal stenosis of lumbar region with neurogenic claudication 07/01/2023 1:20 PM EDT Health Maintenance Due Date Last Done Comments Zoster Vaccines (1 of 2) 1954 COVID-19 Vaccine ( season) 2022 01/15/2022, 07/20/2021, 06/22/2021 CKD HGB USE SMARTSET 02119 05/17/202305/17, 12/30/2021, 12/30/2021, Additional history exists Albumin/Creatinine Ratio 07/20/20232 023, 12/30/2021, 06/11/2021, Additional history exists HbA1c 09/10/2023 03/11/2023, 0804/2022, 07/19/2022, Additional history exists CKD PHOS USE SMARTSET 02878 01/12/2024 100 06/2022, 07/07/2022, 11/12/2020, Additional history exists Depression [...] Not on filedocumented as of this encounter Visit Diagnoses Diagnosis Primary osteoarthritis of both knees- Primary Primary localized osteoarthrosis, lower leg Spinal stenosis of lumbar region with neurogenic claudication Spinal stenosis, lumbar region, with neurogenic claudication documented in this encounter Administered Medications Inactive Administered Medications - up to 3 most recent administrations Medication Order MAR Action Action Date Dose Rate Site lidocaine 1% 1 mL - triamcinolone acetonide 40 mg/mL 1 mL inj 2 mL 2 mL, Injection, ONCE, On Cici 06/16/23 at 1300, For 1 dose, Lidocaine 1% 1mL Triamcinolone Acetonide 40 mg/mL 1 mL (Final concentration = 20 mg/mL) REFRIGERATE and SHAKE WELL Given 06/16/2023 12:28 PM EST 2 mL Knee Right lidocaine 1% 1 mL - triamcinolone acetonide 40 mg/mL 1 mL inj 2 mL 2 mL, Injection, ONCE, On Cici 06/16/23 at 1300, For 1 dose, Lidocaine 1% 1mL Triamcinolone Acetonide 40 mg/mL 1 mL (Final concentration = 20 mg/mL) REFRIGERATE and SHAKE WELL Given 06/16/2023 12:28 PM EST 2 mL Knee Left documented in this encounter Care Teams Cartridge Maker Relationship Specialty Start Date End Date Austen Rico MD [address] [place] [id number] PCP - General Family Medicine 09/18/21 documented as of this encounter
--- OUTSIDE RECORDS SUMMARY | 2023-06-17 13:45 | External Medical Summary | Summary of Care ---
Author Name Unknown Organization [facility] Address [address] [place] [address] Phone [phone] Care Team Providers Care Motion Picture Narrator Name Role Phone Austen Rico MD Primary Care P rovider Reason for Visit * Reason Comments Knee Pain bilat Encounter Details Date Type Department Care Team (Latest Contact Info) Description 06/16/2023 3:00 PM EST Office Visit Orthopaedics [address] [place] [address] Wai Hill, DO [address] [place] [address] Primary osteoarthritis of both knees* Allergies Active Allergy Reactions Criticality Noted Date Comments Pioglitazone Edema Other 05/01/2015 Sitagliptin Abdominal pain 05/05/2015 Dizziness and stomach upset documented as of this encounter (statuses as of 06/16/2023) Medications Medication Sig Dispensed Refills Start Date End Date Status [employer] SoftwareTouch Verio w/Device KitIndications:Type 2 diabetes mellitus with hemoglobin A1c goal of less than 8.0% ([facility]) Use as directed. Use to test blood [...] (Pred Mild) 0 Active OneTouch Delica Plus [id number] use to check blood sugar three daily DX E11.9 - pt on insulin 300 Each 3 07/12/2022 Active OneTouch Verio In Vitro Strip (Glucose Blood)Indications:T ype 2 diabetes mellitus with hemoglobin A1c goal of less than 8.0% ([facility]) Use to check blood sugars 4 times [...] MG Oral Tablet (Deltasone)Indicati ons:PMR (polymyalgia rheumatica) ([facility]) TAKE 1 TABLET BY MOUTH DAILY COMBINE [...] hemoglobin A1c goal of less than 8.0% ([facility]) inject 30 units in the MORNING and 20 units at EVENING meal DOSE INCREASE - DX E11.9 90 mL 3 04/20/2023 Active predniSONE 2.5 MG Oral Tablet (Deltasone)Indicati ons:PMR (polymyalgia rheumatica) ([facility]) TAKE 1 TABLET BY MOUTH DAILY WITH 5MG TABLET FOR TOTAL OF 7.5MG DAILY 90 Tablet 3 04/27/2023 Active Hydroxychloroquine Sulfate 200 MG Oral Tablet (Plaquenil)Indicati ons:PMR (polymyalgia rheumatica) ([facility]) TAKE 1 TABLET BY MOUTH IN THE [...] - 06/16/2023 3:00 PM EST Wang Cunningham [id number] Wang Cunningham is a 88 year old male who presents for f/u to [facility] for b/l knee pain Wang Cunningham is here alone Date of Injury: no injury Last injected 03/09/23 with steroids TODAY: would like repeat ROS EXAM:Constitional: No change in weight, No weakness, No fatigue and No fevers, sweats, or chills . Past Medical History: Diagnosis Date BPH (benign prostatic hyperplasia) Bradycardia Chronic kidney disease (CKD) Diabetes mellitus, type II ([facility]) GERD (gastroesophageal reflux disease) Hyperkalemia Hypertension Hypertriglyceridemia Hypomagnesemia Lumbago Lumbar vertebral fracture ([facility]) 03/21/2018 Osteoarthritis Type 2 diabetes mellitus with hemoglobin A1c goal of less than 8.0% ([facility]) 06/19/2018 Vitamin D deficiency Current Outpatient Medications Medication Sig Dispense Refill [employer] w/Device Kit Use as directed. Use to [...] Acetate 0.12 % Ophthalmic Suspension (Pred Mild) Steelwedge SoftwareTouch Delica Plus [id number] use to check blood sugar three daily DX E11.9 - pt on insulin 300 Each 3 [employer] Verio In Vitro Strip (Glucose Blood) Use [...] Hill DO Primary Care Sports Medicine Orthopaedics [place] [address] Procedure note (knee injection), b/l Time out: [...] [facility], [facility] [address] [place] [address] Robert Goodman, DO [address] [place] [address] 07/01/2023 1:20 PM EDT - 07/01/2023 1:45 PM EDT Surgery OR [facility], Operating Room [facility] [address] [place] [address] Robert Goodman, DO [address] [place] [address] INJECTION SPINE LUMBAR OR SACRAL 09/15/2023 1:00 PM EDT Office Visit Orthopaedics [address] [place] [phone] Wai Hill, DO [address] [place] [address] Scheduled Orders Name Type Priority Associated Diagnoses [...] 01/15/2022, 07/20/2021, 06/22/2021 CKD HGB USE SMARTSET 58416 05/17/202305/17, 12/30/2021, 12/30/2021, Additional history exists Albumin/Creatinine Ratio 07/20/20232 023, 12/30/2021, 06/11/2021, Additional history exists HbA1c 09/10/2023 03/11/2023, 0804/2022, 07/19/2022, Additional history exists CKD PHOS USE SMARTSET 18700 01/12/2024 100 06/2022, 07/07/2022, 11/12/2020, Additional history [...] Left documented in this encounter Care Teams Motion Picture Narrator Relationship Specialty Start Date End Date Austen Rico MD [address] [place] [id number] PCP - General Family Medicine 09/18/21 documented as of this encounter
--- NOTE | 2023-06-17 13:47 | History & Physical Bridge Note ---
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
--- NOTE | 2023-06-17 13:48 | Pre Anesthesia Assessment ---
Date of Service June 17, 2023 Pre Sedation Assessment Vital Signs Temp Pulse Pulse Resp BP BP Pulse Ox 06/17/23 13:47 66 16 195/95 H 98 06/17/23 12:39 187/82 H 06/17/23 12:37 68 06/17/23 12:37 37.4 C 06/17/23 12:33 65 18 193/90 H 98 06/17/23 07:28 68 16 156/73 H 97 06/17/23 07:21 63 06/17/23 04:32 36.9 C 75 21 172/69 H 97 06/17/23 01:40 36.8 C 81 21 136/73 97 06/17/23 01:00 146/74 H 06/17/23 01:00 75 13 06/17/23 00:45 153/69 H 06/17/23 00:45 72 16 06/17/23 00:30 151/79 H 06/17/23 00:30 72 15 06/17/23 00:15 144/77 H 06/17/23 00:15 72 18 06/17/23 00:00 73 17 06/17/23 00:00 159/79 H 06/16/23 23:45 79 19 06/16/23 23:45 173/81 H 06/16/23 23:30 135/70 06/16/23 23:30 76 16 96 06/16/23 23:15 86 10 L 93 06/16/23 23:00 82 12 128/75 91 06/16/23 23:00 84 17 128/81 92 06/16/23 22:27 82 06/16/23 22:15 78 15 140/73 93 06/16/23 22:00 79 14 137/78 99 06/16/23 21:45 150/80 H 06/16/23 21:45 78 12 100 06/16/23 21:30 77 14 100 06/16/23 21:30 137/88 06/16/23 21:15 156/85 H 06/16/23 21:15 76 17 100 06/16/23 21:00 77 18 100 06/16/23 21:00 158/88 H 06/16/23 20:54 74 18 94 06/16/23 20:45 145/78 H 06/16/23 20:45 77 21 96 06/16/23 20:30 75 19 91 06/16/23 20:30 146/104 H 06/16/23 20:15 76 15 98 06/16/23 20:00 75 17 06/16/23 20:00 167/116 H 06/16/23 19:45 162/91 H 06/16/23 19:45 75 13 06/16/23 19:36 94 06/16/23 19:30 156/104 H 06/16/23 19:30 75 24 06/16/23 19:15 74 20 173/89 H 97 06/16/23 19:00 79 16 154/93 H 06/16/23 18:45 74 15 06/16/23 18:45 161/84 H 06/16/23 18:30 160/91 H 06/16/23 18:30 76 18 06/16/23 18:27 75 13 162/82 H 06/16/23 18:22 147 H 06/16/23 18:15 75 16 06/16/23 18:10 75 17 156/90 H 06/16/23 18:10 78 13 156/90 H 98 06/16/23 18:10 06/16/23 18:00 73 18 143/92 H 06/16/23 18:00 36.6 C 69 15 143/92 H 96 O2 Del Method FiO2 06/17/23 13:47 Room Air 06/17/23 12:39 06/17/23 12:37 06/17/23 12:37 06/17/23 12:33 Room Air 06/17/23 07:28 Room Air 06/17/23 07:21 06/17/23 04:32 Room Air 06/17/23 01:40 Room Air 06/17/23 01:00 06/17/23 01:00 06/17/23 00:45 06/17/23 00:45 06/17/23 00:30 06/17/23 00:30 06/17/23 00:15 06/17/23 00:15 06/17/23 00:00 06/17/23 00:00 06/16/23 23:45 06/16/23 23:45 06/16/23 23:30 06/16/23 23:30 06/16/23 23:15 06/16/23 23:00 06/16/23 23:00 Room Air 06/16/23 22:27 06/16/23 22:15 06/16/23 22:00 06/16/23 21:45 06/16/23 21:45 06/16/23 21:30 06/16/23 21:30 06/16/23 21:15 06/16/23 21:15 06/16/23 21:00 06/16/23 21:00 06/16/23 20:54 Room Air 06/16/23 20:45 06/16/23 20:45 06/16/23 20:30 06/16/23 20:30 06/16/23 20:15 06/16/23 20:00 06/16/23 20:00 06/16/23 19:45 06/16/23 19:45 06/16/23 19:36 Room Air 06/16/23 19:30 06/16/23 19:30 06/16/23 19:15 06/16/23 19:00 06/16/23 18:45 06/16/23 18:45 06/16/23 18:30 06/16/23 18:30 06/16/23 18:27 06/16/23 18:22 06/16/23 18:15 06/16/23 18:10 06/16/23 18:10 Room Air 06/16/23 18:10 Room Air 96 06/16/23 18:00 06/16/23 18:00 Room Air Cardiovascular RRR, no murmur, no edema Respiratory normal respiratory effort, lungs clear to auscultation Pre-Sedation Airway Assessment Smoking Status: Former smoker Hx Sleep Apnea: No Short, Thick Neck: No Thyromental Distance: > or= 3.5 Finger Breadths Oral Cavity: + WNL Mallampati Class: III ASA: ASA3 NPO Status Date of Last Intake of Fluids: 06/16/23 Time of Last Intake of Fluids: 12:00 Date of Last Intake of Solid Food: 06/16/23 Time of Last Intake of Solid Foods: 12:00 Procedure Planning Contraindications for Sedation: none Current Medications Reviewed: Yes Notes The planned sedation has been discussed with the patient. Informed Consent was obtained. I have identified the patient, determined the appropriateness of sedation and have assessed the patient immediately prior to the procedure. All medicine(s) and interventions are by my order.
--- NOTE | 2023-06-17 14:30 | Hospitalist Progress Note ---
Date of Service June 17, 2023 Assessment & Plan (1) Heart block AV second degree: (2) Syncope: (3) Acute hyperkalemia: (4) Peripheral arterial disease: (5) HTN (hypertension): (6) Cellulitis of right foot: Admission and Anticipated Discharge Date Admission Date: June 16, 2023 Subjective The patient was seen preoperatively before pacemaker insertion. He is alert and oriented. Family is at the bedside. They have requested wound care nurse to reevaluate the right foot which looks better to me. Lokelma has been started for the hyperkalemia. Cardiology consultation noted. He does not need nephrology evaluation at this time. He will undergo pacemaker insertion today, June 16 Review of Systems 2 Review of Systems: Constitutional-no fever or chills ENT-no blurred vision, no double vision, no epistaxis, no sore throat Respiratory-no cough, no wheezing, no shortness of breath Cardiac-no palpitations, no chest pain. He did have a recent syncopal episode GI-no nausea, vomiting, diarrhea, melena, hematochezia -no urinary retention, no urinary incontinence, no dysuria, no hematuria Musculoskeletal-no joint pain, no muscle tenderness Skin-no bruising, no rashes, no pruritus Neuro-no isolated weakness, no paresthesia Psych-no depression, no anxiety Physical Exam 2 Physical Exam: General-alert and oriented x3, no fevers, no chills HEENT-head atraumatic and normocephalic, pupils equal and reactive to light, extraocular muscles intact Neck-no lymphadenopathy or thyromegaly, trachea midline Chest-clear to auscultation. No rales, wheezing or rhonchi Cardiac-regular rate and rhythm, normal S1 and S2 Abdomen-normal bowel sounds, nontender, no hepatosplenomegaly Extremities-no peripheral edema. Less erythema involving the right forefoot. Multiple areas of eschar present on the right foot, particularly medially. Neuro-cranial nerves II through XII intact, motor and sensory function within normal limits, strength symmetrical, no focal deficits Psych-normal affect, normal mood Results & Data Results & Data Vital Signs (Past 12 Hours) Vital Signs Temp Pulse Pulse Resp BP BP Pulse Ox 06/17/23 13:47 66 16 195/95 H 98 06/17/23 12:39 187/82 H 06/17/23 12:37 68 06/17/23 12:37 37.4 C 06/17/23 12:33 65 18 193/90 H 98 06/17/23 07:28 68 16 156/73 H 97 06/17/23 07:21 63 06/17/23 04:32 36.9 C 75 21 172/69 H 97 O2 Del Method 06/17/23 13:47 Room Air 06/17/23 12:39 06/17/23 12:37 06/17/23 12:37 06/17/23 12:33 Room Air 06/17/23 07:28 Room Air 06/17/23 07:21 06/17/23 04:32 Room Air Laboratory Results 06/17/23 04:29 06/17/23 04:29 PG Care Time/CCT Total # of Minutes Spent Total Time Spent with Patient: Total time spent is greater than 50% in coordination of care (as documented) at patient's floor/unit and/or counseling patient: Coding Level of Care Code 64911 SUB INP/OBS CARE 3/50MIN Diagnoses Heart block AV second degree I44.1 Syncope R55 Acute hyperkalemia E87.5 Peripheral arterial disease I73.9 Primary hypertension I10 Hypertension type: primary hypertension Cellulitis of right foot L03.115 (5) HTN (hypertension) Hypertension type: primary hypertension Qualified Code(s): I10 - Essential (primary) hypertension
[2023-06-17] MEDS: fentaNYL citrate PF 100 MCG/2 ML VIAL ONE (15:13)
[2023-06-17] MEDS: LIDOCAINE 1% LOCAL 20 ML VIAL ONE (15:13)
[2023-06-17] MEDS: ceFAZolin 330 MG/ML 1 GM VIAL ONE (15:13)
[2023-06-17] MEDS: ENALAPRILAT 2.5 MG/2 ML 2ML VIAL IV ONE (15:13)
[2023-06-17] MEDS: BUPIVACAINE 0.25% PF 30 ML VIAL ONE (15:13)
[2023-06-17] MEDS: MIDAZOLAM HCL 5 MG/ML 1 ML VIAL ONE (15:13)
[2023-06-17] MEDS: VANCOMYCIN HCL 1000MG/20ML VIAL ONE (15:13)
[2023-06-17] MEDS: WATER, STERILE FOR INJ 10 ML VIAL ONE (15:13)
[2023-06-17] MEDS: hydrALAZINE HCL 20 MG/ML VIAL ONE (15:14)
[2023-06-17] MEDS: LABETALOL HCL IV 5 MG/ML 20ML IV ONE (15:14)
--- NOTE | 2023-06-17 17:00 | Communication Note ---
Date of Service: June 17, 2023 Patient seen both prior to and post pacemaker insertion Tolerated procedure well other than elevated blood pressure Awake and conversant Exam heart rate 69 blood pressure 140/72 No jugular venous distention Lungs clear Pacemaker site bandaged Extremities eschar and rubor right foot with a level of demarcation. Mild edema Impression: Syncope with high degree AV block: Dual-chamber pacemaker inserted today and functioning appropriately Hypertension: Will resume carvedilol at increased dose of 6.25 mg twice per day
--- NOTE | 2023-06-17 17:29 | XRay Report ---
XR chest 1V portable CLINICAL HISTORY: s/p ppm ensure no PTX TECHNIQUE: Single frontal radiograph of the chest was obtained. Comparison: Comparison is made to chest radiograph 06/16/2023 FINDINGS: Interval placement of a pacemaker with the leads in satisfactory position. The cardiomediastinal silh ouette is normal. The lungs are clear. No evidence of pleural effusion or pneumothorax. IMPRESSION: Interval placement of a pacemaker with the leads in satisfactory position. No evidence of pneumothora x. ACT 112: Negative or not required by law. Electronically signed by: Gregorio Silva M.D. 06/17/2023 5:27 PM
[2023-06-17] MEDS: carvediloL 6.25 MG TAB PO SCH (17:44)
[2023-06-17] MEDS: COUGH DROP (SUGAR FREE) LOZ 24 LOZ/1 BOX BUCCAL STA (18:40)
[2023-06-17] MEDS: oxyCODONE HCL IR 5 MG TAB (IMMEDIATE RELEASE) PO STA (19:33)
--- NOTE | 2023-06-17 19:35 | Billing Data ---
Date of Service June 17, 2023 Coding Level of Care Code 86736 INT INP/OBS CARE
[2023-06-17] MEDS: VENLAFAXINE HCL XR 75 MG CAPXR PO SCH (20:46)
[2023-06-17] MEDS: rOPINIRole HCL 1 MG TABLET PO SCH (20:46)
[2023-06-17] MEDS: ATORVASTATIN 40 MG TAB PO SCH (20:46)
[2023-06-17] MEDS: TAMSULOSIN HCL 0.4 MG CAP PO SCH (20:46)
[2023-06-18 07:16] LABS: Basophils # (auto) 0.03 K/uL (0.00-0.20); Basophils % (auto) 0.2 %; Hematocrit (blood only) 37.4 % (42.0-52.0); Hemoglobin 12.5 g/dl (14.0-18.0); Immature Granulocytes # (auto) 0.21 K/uL (0.01-0.20); Immature Granulocytes % (auto) 1.4 %; Lymphocytes # (auto) 0.98 K/uL (1.20-3.40); Lymphocytes % (auto) 6.7 %; Mean Corpuscular Hgb Conc 33.4 g/dL (32.0-36.0); Mean Corpuscular Volume 98.7 fL (80.0-100.0); Mean Platelet Volume 10.7 fL (9.4-12.4); Monocytes # (auto) 1.08 K/uL (0.11-0.59); Monocytes % (auto) 7.4 %; Neutrophils # (auto) 12.28 K/uL (1.40-6.50); Neutrophils % (auto) 84.3 %; Platelet Count 301 K/uL (130-400); RDW Standard Deviation 50.4 fL (36.4-46.3); Red Blood Count 3.79 M/uL (4.70-6.10); White Blood Count 14.58 K/ul (4.8-10.8)
[2023-06-18 07:41] LABS: Calcium 8.6 mg/dl (8.6-10.3); Creatinine Clr Calc Pharmacy 40.3 ml/min; Est GFR (African American) 52.5 ml/min; Est GFR (Non-African American) 45.3 ml/min; Magnesium 1.7 mg/dl (1.7-2.4); Potassium 5.1 mmol/L (3.5-5.1)
--- NOTE | 2023-06-18 11:45 | Discharge Summary ---
Date of Service June 18, 2023 Admission HPI Per Admitting Provider 88-year-old male with past medical history of DM type II, hypertension, hyperlipidemia, CKD type III, polymyalgia rheumatica, BPH, GERD, history of prostatic carcinoma, and chronic bilateral lower extremity wounds that comes to the emergency department after experiencing a syncopal episode at his home. Patient states that he was walking in his yard towards his garden to attend to his strawberries, but on the way there he began to feel dizzy and lightheaded and started to have back towards his home and when he got there and was about to sit down he started to feel worse and fainted. Prior to his fainting, patient denies having felt any diaphoresis, nausea, weakness, chest pain, shortness of breath, or any other symptoms. Patient refers that he has had episodes in the past where he feels lightheaded and almost passes out, particularly when he stands from his bed in the mornings, but clarifies that his current episode is different from those past events. Patient's daughter states that during a cardiology visit sometime last month, patient was found to have a first-degree heart block and something else (on chart review is detailed as a left anterior fascicular block) and patient was to undergo outpatient monitor for further evaluation. Patient's daughter states that ultimately this monitor did not show significant results. Ambulance was called after patient syncopal episode and on his way to the hospital patient was experiencing episodes of asymptomatic bradycardia with heart rate reaching the 40s, which kept recurring once patient did arrive in the emergency department EKG was done and discussed with on-call rfid engineer, who stated that the findings were consistent with a type II second-degree block and recommended patient be placed as n.p.o. after midnight for possible pacemaker placement tomorrow. Shortly after this determination, ED labs come back showing a potassium level of 7.1 with magnesium of 1.7, and elevated creatinine from patient's baseline at 1.91. On questioning, patient denies having taken any new medications from those detailed in the EMR other than the Augmentin that was given to him after his recent discharge for management of cellulitis, denies excessive consumption of potassium rich foods (bananas). On evaluation at bedside, patient was found awake alert and oriented in all spheres, currently completing respiratory therapy, afebrile, and in no acute distress. Currently denies having any chest pain, palpitations, shortness of breath, lightheadedness, dizziness, weakness, malaise, nausea, vomiting, diarrhea, or any other symptoms. ED Course: Patient's case was discussed with on-call rfid engineer after noting the patient was experiencing episodes of asymptomatic bradycardia reaching as low as 40s beats per minute, an EKG was evaluated and ultimately called to be showing type II second-degree block. Recommendations were made at this time to place patient n.p.o. after midnight for possible pacemaker placement tomorrow and to hold patient's home beta-jonathan. After this discussion, labs showing hyperkalemia with potassium level of 7.1 came back. Patient was given calcium gluconate, insulin with glucose, and albuterol therapy as management. Repeat labs showed potassium level of 6.2, and environmental monitoring specialist showing normal sinus rhythm with pulse in the 70s. Blood pressures have remained stable throughout this time. Labs/Imaging: CBC without leukocytosis and mild anemia with hemoglobin of 11.7 that seems to be macrocytic (MCV of 101.9) and platelets stable at 293, coagulation studies within reference range with INR 1.0 and PT of 11.2. Initial CMP on arrival to the emergency department showing hyperkalemia with potassium level 7.1, and no other significant electrolyte abnormalities, creatinine elevated from patient's baseline with a level of 1.91, blood glucose of 183, magnesium 1.7, LFTs normal, troponin of 22.4 which increased slightly to 42.7 2 hours later, TSH of 0.879. Chest x-ray without evidence of active disease. Principal Diagnosis Syncope, Mobitz 2 second-degree AV block, hyperkalemia Discharge Exam General-alert and oriented x3, no fevers, no chills HEENT-head atraumatic and normocephalic, pupils equal and reactive to light, extraocular muscles intact Neck-no lymphadenopathy or thyromegaly, trachea midline Chest-clear to auscultation. No rales, wheezing or rhonchi Cardiac-regular rate and rhythm, normal S1 and S2 Abdomen-normal bowel sounds, nontender, no hepatosplenomegaly Skinpacemaker insertion site clean and dry without hematoma Extremities-no peripheral edema. Less erythema involving the right forefoot. Multiple areas of eschar present on the right foot, particularly medially. Neuro-cranial nerves II through XII intact, motor and sensory function within normal limits, strength symmetrical, no focal deficits Psych-normal affect, normal mood Discharge Data Allergies Allergy/AdvReac Type Severity Reaction Status Date / Time pioglitazone [From Actos] Allergy Unknown Verified 06/14/23 10:02 sitagliptin [From Januvia] Allergy Unknown Verified 06/14/23 10:02 Consultations 06/16/23 20:56 ED Decision to Admit Stat 06/17/23 00:23 Consult Cardiology Routine Procedures Performed Operation Date: 06/17/23 14:00 Actual Procedures p Pacer with A/V Leads (Dual) - Krystle Carl DO s Venogram Extremity Unilateral - DO dalia Gilliland Cineradiography w/Routine Exam - DO dalia Gilliland Bundle of his Recording - Krystle Carl DO Ordered Studies 06/17/23 08:30 EP Lab Images for PACS ONCE Hospital Course (1) Heart block AV second degree: Suspected cause of syncope. Permanent cardiac pacemaker placed yesterday, June 16. Functioning well. Case discussed with cardiology. Chest x-ray done today, June 17, negative for pneumothorax (2) Syncope: Presumably due to bradycardia and hypotension. Now resolved (3) Acute hyperkalemia: Treated with Lokelma and corrected to 5.1 today, June 17. This will need further follow-up as an outpatient (4) Peripheral arterial disease: Stable. Continue current medical (5) HTN (hypertension): Coreg dosage was uptitrated yesterday, June 16, for better blood pressure control. Improved (6) Cellulitis of right foot: Appreciate wound care nurse follow-up. He will continue to have outpatient management. Plan Home today, June 17, on higher dose Coreg. All other medications remain the same. He will need follow-up of his hyperkalemia as an outpatient. He is not on any medications that can cause hyperkalemia such as DIANNE inhibitors or ARB's or spironolactone. Total Time Total Time Spent Total Time Spent (In Minutes): 45 minutes Discharge Plan Discharge Items Patient Disposition: Home - Self-Care Reason For Visit: SYNCOPE Discharge Diagnosis: Mobitz type II second-degree AV block, syncope, hyperkalemia Activity: As commented below Activity Comment: do not raise the left elbow over the left shoulder for 1 month Lifting: No more than 10 pounds Lifting Comment: do not lift more than 10 pounds with the left arm for 2 weeks Bathing: Keep incision dry Bathing Comment: keep dressing on & dry until wound check next week Non-emergency contact: Commission Clerk Call non-emergency contact if: you have any medication questions Follow-up/Referrals: Garrison Triplett, [Primary Care Provider] - Diet: Carb Consistent or DM2 and Heart Healthy Addtl Attending Provider Instructions: device and wound check at [facility] on 06/27 the office will call you with a time; keep the dressing on & dry until then. Coreg dosage has been increased. A new prescription has been sent to [facility] pharmacy in [place]. Repeat potassium level in 1 week to be ordered by PCP or rfid engineer Pending Studies at Discharge: No Stand-Alone Forms: My [facility] [employer], Smoking Cessation Medications and DC Order Prescriptions: New carvedilol 6.25 mg Tablet 6.25 mg PO BIDM Qty: 60 0RF Continued ferrous sulfate 325 mg (65 mg iron) tablet 325 mg PO DAILY Qty: 90 3RF linagliptin 5 mg tablet 5 mg PO DAILY atorvastatin 40 mg tablet 40 mg PO QPM Tresiba FlexTouch U-100 100 unit/mL (3 mL) insulin pen See Rx Instructions subcut DAILY Qty: 15 0RF Rx Instructions: 30u QAM; 25u HS subcutaneously daily; hydroxychloroquine 200 mg tablet 200 mg PO QAM ropinirole 1 mg tablet 1 mg PO HS Prolia 60 mg/mL syringe 60 mg subcut .COMPLEX Rx Instructions: 60 mg subcutaneously Q6 MONTHS; metformin 500 mg tablet 500 mg PO BID Qty: 60 0RF Mag 64 64 mg tablet,delayed release (DR/EC) 128 mg PO QAM tamsulosin [Flomax] 0.4 mg capsule 0.4 mg PO HS finasteride [Proscar] 5 mg tablet 5 mg PO QAM venlafaxine 75 mg capsule,extended release 24hr 75 mg PO QPM famotidine 20 mg tablet 20 mg PO QAM furosemide 20 mg Tablet 20 mg PO DAILY PRN (Reason: Fluid Retention) repaglinide 2 mg tablet 2 mg PO DAILY PRN (Reason: DEPENDS ON FOOD EATEN) cholecalciferol (vitamin D3) [Vitamin D3] 50 mcg (2,000 unit) Tablet 50 mcg PO QAM prednisone 5 mg tablet See Rx Instructions .ROUTE .COMPLEX Rx Instructions: Take 5mg w/ 2.5mg tablet to equal 7.5mg by mouth once every morning prednisone 2.5 mg tablet See Rx Instructions .ROUTE .COMPLEX Rx Instructions: Take 2.5mg w/ 5mg tablet to equal 7.5mg by mouth once every morning aspirin 81 mg Tablet,Delayed Release (Dr/Ec) 81 mg PO QAM Qty: 0 0RF oxycodone 5 mg Tablet 5 mg PO Q6H PRN (Reason: pain) Qty: 20 0RF Discontinued carvedilol 3.125 mg tablet 3.125 mg PO BID 30 Days Qty: 60 0RF Rx Instructions: must administer with a meal/food Admission Data Admit Date/Time: 06/16/23 21:33 Attending Provider: Wang Conner Admit Provider: Kya Serrano Primary Care Provider: Garrison Triplett Other Providers: Jin Rodriguez; Shamir Levine Coding Level of Care Code 23640 INP/OBS DISCH >30 MIN Diagnoses Heart block AV second degree I44.1 Syncope R55 Acute hyperkalemia E87.5 Peripheral arterial disease I73.9 Primary hypertension I10 Hypertension type: primary hypertension Cellulitis of right foot L03.115
--- NOTE | 2023-06-18 11:51 | Cardiology Progress Note ---
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 Potassium =5.1 mmol / l , but improved compared to 7.1 mmol/l on admission. Stop IV fluids. Coreg dose titrated to 12.5 mg BID for HTN. Await repeat BP after receiving AM medications. Chest X -ray reveals appropriate lead position and no pneumothorax. Remote device interrogation data reviewed with [facility] with normal function. Stable for discharge with plans for wound check / device check at [facility] on 06/27, appointment information and post pacer care instructions in discharge document. Follow up with PCP for potassium. Case discussed by phone with Dr Conner of the hospitalist service for the purpose of coordination of care. Admission and Anticipated Discharge Date Admission Date: June 16, 2023 Subjective Patient seen in follow up having undergone implantation of pacemaker yesterday. Pt feels well. Telemetry reveals SR in the 60s with occasional right atrial pacing. Physical Exam Constitutional: WD/WN, vitals as above Respiratory: normal respiratory effort, lungs clear to auscultation Cardiovascular: RRR, no murmur, no edema Chest (Breasts): Chest: + pacemaker (left infraclavicular pacemaker pocket, dressed, slight tinge of blood noted) Gastrointestinal (Abdomen): normal bowel sounds, soft, nontender, no hepatosplenomegaly Skin: right food wound improved per pt. Has wound care follow up. Results & Data Vital Signs (Past 12 Hours) Vital Signs Temp Pulse Resp BP Pulse Ox O2 Del Method 06/18/23 07:33 162/86 H 06/18/23 07:12 36.5 C 105 H 19 191/66 H 93 Room Air 06/18/23 02:53 36.9 C 62 12 168/83 H 97 Room Air Laboratory Results CBC 06/18/23 Range/Units 06:17 WBC 14.58 H (4.8-10.8) K/ul RBC 3.79 L (4.70-6.10) M/uL Hgb 12.5 L (14.0-18.0) g/dl Hct 37.4 L (42.0-52.0) % Plt Count 301 (130-400) K/uL Neut # (Auto) 12.28 H (1.40-6.50) K/uL Lymph # (Auto) 0.98 L (1.20-3.40) K/uL [place] # (Auto) 1.08 H (0.11-0.59) K/uL Eos # (Auto) 0.00 (0.00-0.50) K/uL Baso # (Auto) 0.03 (0.00-0.20) K/uL Comprehensive Metabolic Panel 06/18/23 Range/Units 06:17 Sodium 135 L (136-145) mmol/L Potassium 5.1 (3.5-5.1) mmol/L Chloride 108 H (98-107) mmol/L Carbon Dioxide 24 (21-32) mmol/L BUN 40 H (6-23) mg/dl Creatinine 1.38 (0.6-1.4) mg/dl Glucose 164 H (70-99(Fasting)) mg/dl Calcium 8.6 (8.6-10.3) mg/dl Intake and Output 06/17/23 06/18/23 06/18/23 22:59 06:59 14:59 Intake Total 880 / 2707.334 910.667 / 2707.334 617.333 / 617.333 Output Total Balance 879 / 2706.334 910.667 / 2706.334 617.333 / 617.333 Intake: IV 640 / 2467.334 910.667 / 2467.334 617.333 / 617.333 Sodium Chloride 0.9% 1,000 ml @ 640 / 2467.334 910.667 / 2467.334 617.333 / 617.333 80 mls/hr IV .[id number] [facility] Rx#: [id number] Oral 240 / 240 Output: # Bowel Movements Other: # Unmeasured Voids 2
[2023-06-18] MEDS: hydrALAZINE HCL 20 MG/ML VIAL IV STA (12:15)
[2023-06-18] MEDS: amLODIPine BESYLATE 5 MG TAB PO ONE (12:21)
--- NOTE | 2023-06-29 14:09 | Operative Report ---
Post Operative Report DICTATED BY:Krystle Carl D.O. DATE OF PROCEDURE: 06/29/2023 PREOPERATIVE DIAGNOSES: Complete heart block POSTOPERATIVE DIAGNOSIS: Same PROCEDURE: A dual-chamber rate responsive permanent pacemaker and intracardiac electrogram His bundle recordings, along with a peripheral venogram under fluoroscopic guidance. SURGEON: Krystle Carl DO ASSISTANTS: None. ANESTHESIA: Monitored conscious sedation administered under my supervision by Marky Call. Start time 14:05, end time 15:17, a total of 5 mg of Versed and 100 mcg of fentanyl. INTRAVENOUS FLUIDS: 83 mL. CONTRAST: 15 mL. ANTIBIOTICS: Ancef. ADDITIONAL MEDICATIONS: 10mg Hydralazine, 10mg labetalol, 5mg vasotec BLOOD LOSS: 60 mL. URINE OUTPUT: Not applicable. SPECIMENS: None. FINDINGS: See below. DRAINS: None. COMPLICATIONS: None. CONDITION: Stable. 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 Pt was admitted to [facility] after a syncopal episode and was recommended a pacemaker prior to hospital discharge. CONSENT: Consent was obtained prior to the patient going into the electrophysiology lab. The patient was informed of the risks, benefits, and alternatives to the procedure. Risks include, but not limited to, sudden cardiac , cardiac arrhythmias, cerebrovascular accident, myocardial infarction, injury to his blood vessels, chamber of the heart and lung, bleeding and infection. The patient understood these risks and agreed to the procedure as planned. Informed consent was obtained. DESCRIPTION OF PROCEDURE: The patient was brought into electrophysiology lab in a fasting state. He was connected to continuous cardiac monitoring. A timeout was performed to ensure the patient's identity and procedure correctly. He was prepped and draped in the left infraclavicular space in normal surgical standard fashion. Monitored conscious sedation was given throughout the procedure for the patient's comfort level. [place] precautions were maintained throughout the procedure. Prophylactic antibiotics were given prior to incision. A 20 mL of 1% lidocaine and bupivacaine mixture were given in the left deltopectoral groove. An incision was made in the left deltopectoral groove. Blunt dissection was performed down to the pectoralis muscle. Then, using blunt dissection over the pectoralis muscle within the pectoral fascia, a pacemaker pocket was created. Then, a peripheral venogram was performed to identify the axillary vein. Venous axillary access was obtained through a needlestick without any problems. A guidewire was inserted without any resistance. A 6- Bermudian sheath was inserted over the guidewire without any resistance. Dilator was removed and a second guidewire was inserted through the sheath to allow for retained venous access. Then a 9 Bermudian sheath was inserted over one of the guidewires. The guidewire and dilator were removed. Then, the [employer] Helper 3D medium sheath was inserted through the 9-Bermudian sheath over a Glidewire into the right ventricle. The Glidewire and dilator were removed. Then, the left bundle lead was advanced through the sheath and intracardiac electrogram His bundle recordings were performed when the camera was in RODRIGUEZ 10. Once I found where the His bundle is, see below for results, I then moved the camera to RODRIGUEZ 30 and marked where the His bundle was on my fluoroscopy screen. I came down about 2 cm from this in a line that would extend out to the apex and then started coming on pacing. Once I found an area where I had a nice W formed pace complex in my lead V1, I then moved the camera to MALAY 30. Then the helix was extended into the septum. Then the helix locking tool was placed. Then the lead was screwed further into the septum while pacing by giving slow clockwise turns. Of note, I did have to reposition the lead and I ended up using the large curved [employer]iller Helper 3D sheath. The paced complex changed to a nice R' in V1 and the pacing stim to peak QRS in V6 was good. I then gave contrast through the sheath to see how far the lead was into the septum and then I slit the [employer] Helper 3D medium sheath under fluoroscopic guidance and left the 9-Bermudian sheath in while I positioned the rig ht atrial lead. A 6-Bermudian sheath was inserted over the retained guidewire, the guidewire and dilator removed. The right atrial lead was then advanced into right atrium and positioned into right atrial appendage under fluoroscopic guidance. There was adequate pacing and sensing thresholds and no diaphragmatic stimulation with high output pacing. The 6-Bermudian sheath was peeled away and the lead was fixated to the pectoralis muscle using 0 silk suture. The 9-Bermudian sheath around the left bundle lead was peeled away and the lead was fixated to pectoralis muscle using 0 silk suture. The pocket was flushed with copious amounts of vancomycin and saline wash and inspected for hemostasis. The leads were then attached to the pulse generator making sure the pins were in appropriate position, passed set screws, and set screws were all tightened. Pulse generator was then placed in the pocket, making sure the leads were lying flat beneath the device. The incision was closed in a 3-layer fashion using 2-0 Vicryl interrupted suture, followed by 3-0 Vicryl interrupted suture, followed by 4-0 Monocryl running stitch. Then a primaseal dressing was placed EQUIPMENT: 1. Pulse generator is a [employer] MRI Model Number [id number] SN: [id number] 2. Right atrial lead, [employer] SJM Tendril STS [id number] SN: [id number] 3. Left bundle lead, Luna SJM Tendril STS [id number] SN: [id number] INTRAPROCEDURAL FINDINGS: 1. Intracardiac electrogram His bundle recordings, AH is 135 milliseconds, HV is 50 milliseconds. 2. Right atrial lead, P waves 3.9 millivolts, impedance 375 ohms, threshold 0.6 volts at 0.4 milliseconds. 3. Left bundle lead, R waves 9.3 millivolts, impedance 515 ohms, threshold 1.3 volts at 0.4 milliseconds. FINAL MEASUREMENTS THROUGH THE DEVICE: 1. Right atrial lead, P waves 3.7 millivolts, impedance 430 ohms, threshold 1.25 volt at 0.4 milliseconds. 2. Left bundle lead, R waves >12 millivolts, impedance 560 ohms, threshold 0.75 volts at 0.4 milliseconds. FINAL PARAMETERS: DDD 60/120, right atrial amplitude 3.5 volts, pulse width 0.4 milliseconds, sensitivity 0.5 millivolts. Left bundle lead amplitude 3.5 volts, pulse width 0.4 milliseconds, sensitivity 2 millivolts. IMPRESSION: Successful dual chamber rate responsive permanent pacemaker under fluoroscopic guidance along with peripheral venogram and intracardiac electrogram His bundle recordings, all under fluoroscopic guidance secondary to complete heart block PLAN: Monitor the patient post-procedure. A 12-lead ECG, chest x-ray. He is not to lift the left elbow or left shoulder for 1 month. He cannot lift more than 10 pounds with the left arm for 2 weeks. He is to keep the dressing on and dry until his wound check next week.
--- NOTE | 2023-07-05 10:41 | Coding Query ---
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 Discharge Summary: * Mobitz type II second-degree AV block Coding Question(s): Based on the clinical indicators listed above, can you further specify the condition treated with the pacemaker insertion as: * Complete heart block * Trifascicular block * Second-degree AV block * First-degree AV block * Other: * Unable to determine. 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
== END 2023-06-18 16:29 | disposition home or self-care (01) | DRG 243 ==
LOC: ED 17:50 → EDINP 21:33 → SUATTDRO 21:33 → 2E 06-17 11:42
DX: E11.22 Type 2 diabetes mellitus with diabetic chronic kidney disease; K21.9 Gastro-esophageal reflux disease without esophagitis; Z79.4 Long term (current) use of insulin; Z79.82 Long term (current) use of aspirin; N18.32 Chronic kidney disease, stage 3b; M35.3 Polymyalgia rheumatica; Z79.899 Other long term (current) drug therapy; E78.5 Hyperlipidemia, unspecified; R79.89 Other specified abnormal findings of blood chemistry; L03.115 Cellulitis of right lower limb; Z79.620 Long term (current) use of immunosuppressive biologic; D53.9 Nutritional anemia, unspecified; Z88.8 Allergy status to other drugs, medicaments and biological substances; R55 Syncope and collapse; F32.A Depression, unspecified; Z85.46 Personal history of malignant neoplasm of prostate; N40.0 Benign prostatic hyperplasia without lower urinary tract symptoms; N25.89 Other disorders resulting from impaired renal tubular function; R00.1 Bradycardia, unspecified; Z79.84 Long term (current) use of oral hypoglycemic drugs; I12.9 Hypertensive chronic kidney disease with stage 1 through stage 4 chronic kidney disease, or unspecified chronic kidney disease; Z79.52 Long term (current) use of systemic steroids; E87.5 Hyperkalemia; N17.9 Acute kidney failure, unspecified; S91.301A Unspecified open wound, right foot, initial encounter; I44.1 Atrioventricular block, second degree; E11.51 Type 2 diabetes mellitus with diabetic peripheral angiopathy without gangrene

== ENCOUNTER 2023-07-28 13:56 | Observation (INO) ==
--- NOTE | 2023-07-28 14:49 | ED Triage Note ---
Date of Service July 28, 2023 Provider in Triage Author: Farhana Saenz History of Present Illness This patient was briefly evaluated while in triage. An abbreviated physical exam was performed. This patient is a 88-year-old Male who presents to the ED for evaluation of an infected right foot. He was referred by his PCP for admission per patient. Has failed outpatient antibiotics per patient. No fevers. No discharge from the foot. Physical Exam GENERAL: Non-toxic and in no acute distress. HEENT: Pupils equal. No obvious scleral icterus. HEART: Regular rate and rhythm. LUNGS: Clear to auscultation. No accessory muscle use. NEURO: Alert and oriented. No obvious neurological deficits on quick neuro exam. MUSCULOSKELETAL: The right foot was bandaged. Bandages were not removed in triage. The patient is tender to palpation over the right foot. Initial orders for labs and / or imaging were placed and patient was placed in the waiting area until a bed is available. Please see further documentation for the full ED course. MDM / Impression Impression Impression: Hypomagnesemia, Acute hyperkalemia, Diabetic ulcer of right foot
[2023-07-28 15:57] LABS: Basophils # (auto) 0.03 K/uL (0.00-0.20); Basophils % (auto) 0.3 %; Eosinophils # (auto) 0.03 K/uL (0.00-0.50); Eosinophils % (auto) 0.3 %; Hematocrit (blood only) 33.3 % (42.0-52.0); Hemoglobin 10.8 g/dl (14.0-18.0); Immature Granulocytes # (auto) 0.12 K/uL (0.01-0.20); Immature Granulocytes % (auto) 1.3 %; Lymphocytes # (auto) 1.13 K/uL (1.20-3.40); Lymphocytes % (auto) 12.2 %; Mean Corpuscular Hemoglobin 33.2 pg (25.0-34.0); Mean Corpuscular Hgb Conc 32.4 g/dL (32.0-36.0); Mean Corpuscular Volume 102.5 fL (80.0-100.0); Mean Platelet Volume 10.4 fL (9.4-12.4); Monocytes # (auto) 0.66 K/uL (0.11-0.59); Monocytes % (auto) 7.2 %; Neutrophils # (auto) 7.26 K/uL (1.40-6.50); Neutrophils % (auto) 78.7 %; Platelet Count 235 K/uL (130-400); RDW Coefficient of Variation 13.5 % (11.5-14.5); RDW Standard Deviation 51.2 fL (36.4-46.3); Red Blood Count 3.25 M/uL (4.70-6.10); White Blood Count 9.23 K/ul (4.8-10.8)
[2023-07-28 16:21] LABS: Albumin Globulin Ratio 1.6 (0.9-2); Albumin Level 3.7 gm/dl (3.4-5.0); BUN Creatinine Ratio 26.5 (10-20); Bilirubin,Total 0.5 mg/dl (0.2-1.0); Calcium 9.1 mg/dl (8.6-10.3); Creatinine Clr Calc Pharmacy 33.6 ml/min; Est GFR (African American) 48.7 ml/min; Globulin 2.3 gm/dl (2.5-4.0); Magnesium 1.5 mg/dl (1.7-2.4)
--- NOTE | 2023-07-28 16:36 | XRay Report ---
XR foot RT min 3V routine CLINICAL HISTORY: Pain, infection COMPARISON: Right foot radiographs June 03, 2023. MRI of the right foot June 04, 2023. FINDINGS: Alignment of the right foot is anatomic. Tarsometatarsal joints are intact. Chronic erosio n of the distal aspects of the fourth and fifth proximal phalanges is unchanged. No acute bony erosio n is identified. The appearance of the right foot is unchanged. There is moderate vascular calcificat ion. Calcific density along the dorsal right first toe is chronic. No acute fractures. There may be a small wound along the lateral aspect of the fifth metatarsophalangeal joint. IMPRESSION: No acute fractures within the right foot. No evidence for acute osteomyelitis. ACT 112: Negative or not required by law. Electronically signed by: Al Julian M.D. 07/28/2023 4:35 PM
[2023-07-28] MEDS: CALCIUM GLUCONATE 1,000 MG/60 ML BAG IV STA (17:02)
[2023-07-28] MEDS: MAGNESIUM SULFATE / D5W 1 GM/100 ML BAG IV STA (17:19)
[2023-07-28] MEDS: DEXTROSE 50% 50 ML SYRINGE IV STA (17:24)
[2023-07-28] MEDS: INSULIN HUMAN REGULAR PER UNIT 10 UNITS in SYRINGE 9.9 ML IV STA (17:24)
[2023-07-28] MEDS: PIPERACILLIN/TAZOBACTAM 4.5 GM/100ML D5W IV ONE (17:29)
[2023-07-28] MEDS: PIPERACILLIN/TAZOBACTAM 4.5 GM in DEXTROSE 5% MINI-B 100 ML IV ONE (17:37)
[2023-07-28] MEDS: DAPTOmycin 425 MG in SYRINGE 0 ML IV ONE (17:37)
--- NOTE | 2023-07-28 17:53 | Emergency Department Note ---
History of Present Illness General Chief complaint: Referred by Doctor Stated complaint: REFERRED BY DOC Time Seen by Provider: 07/28/23 16:42 History of Present Illness Provider complaint: Foot infection Onset (ago): month(s) 2 Location: lower extremity and right Maximum Pain Intensity: 9 88-year-old male presents emergency department for right lower foot infection. Patient was referred here by his PCP Dr. Triplett. No fevers. No discharge. Patient reports oral antibiotics and not been helping. Patient states that he has peripheral artery disease and diabetes and is scheduled for a visit on August 08 with vascular surgery at [facility] to help with his peripheral artery disease. Home Medications Medication Instructions Recorded Confirmed Type finasteride 5 mg tablet (Proscar) 5 mg PO QAM 03/03/18 07/28/23 History tamsulosin 0.4 mg capsule (Flomax) 0.4 mg PO HS 03/03/18 07/28/23 History atorvastatin 40 mg tablet 40 mg PO QPM 11/23/19 07/28/23 History ferrous sulfate 325 mg (65 mg 325 mg PO DAILY #90 tabs 06/11/21 07/28/23 Rx iron) tablet magnesium chloride 64 mg 128 mg PO QAM 01/05/22 07/28/23 History (magnesium chloride) tablet,delayed release (Mag 64) denosumab 60 mg/mL subcutaneous 60 mg subcut .COMPLEX 01/14/23 07/28/23 History syringe (Prolia) hydroxychloroquine 200 mg tablet 200 mg PO QAM 01/14/23 07/28/23 History ropinirole 1 mg tablet 1 mg PO HS 01/14/23 07/28/23 History cholecalciferol (vitamin D3) 50 50 mcg PO QAM 06/03/23 07/28/23 History mcg (2,000 unit) tablet (Vitamin D3) famotidine 20 mg tablet 20 mg PO QAM 06/03/23 07/28/23 History furosemide 20 mg tablet 20 mg PO DAILY PRN Fluid Retention 06/03/23 07/28/23 History prednisone 2.5 mg tablet 2.5 mg PO QAM 06/03/23 07/28/23 History prednisone 5 mg tablet 5 mg PO QAM 06/03/23 07/28/23 History venlafaxine 75 mg capsule,extended 75 mg PO QPM 06/03/23 07/28/23 History release 24 hr aspirin 81 mg tablet,delayed 81 mg PO QAM #0 tabs 06/10/23 07/28/23 Rx release amlodipine 5 mg tablet 5 mg PO DAILY #30 tabs 06/18/23 07/28/23 Rx carvedilol 6.25 mg tablet 6.25 mg PO BIDM #60 tabs 06/18/23 07/28/23 Rx pen needle, diabetic 32 gauge x #200 ea 06/22/23 07/28/23 Rx 5/32" (BD Ultra-Fine Ramya Pen Needle) insulin aspart U-100 100 unit/mL 10 unit subcut TID 07/06/23 07/28/23 History (3 mL) subcutaneous pen (Novolog FlexPen U-100 Insulin aspart) insulin degludec 100 unit/mL (3 45 unit subcut DAILY 07/06/23 07/28/23 History mL) subcutaneous pen (Tresiba FlexTouch U-100 insulin) blood-glucose sensor (Dexcom G7 #3 ea 07/11/23 07/28/23 Rx Sensor device) cilostazol 50 mg tablet 50 mg PO BID #60 tabs 07/18/23 07/28/23 Rx oxycodone 5 mg tablet 5 mg PO Q6H PRN pain #20 tabs 07/19/23 07/28/23 Rx gabapentin 300 mg capsule 300 mg PO BID #180 caps 07/27/23 07/28/23 Rx Allergies Allergy/AdvReac Type Severity Reaction Status Date / Time pioglitazone [From Actos] Allergy Unknown Unknown Verified 07/28/23 12:58 sitagliptin [From Januvia] Allergy Unknown Unknown Verified 07/28/23 12:58 Past Med/Surg History Medical History HTN (hypertension) Postural dizziness 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, type 4 History of prostate cancer No pertinent family history Polymyalgia rheumatica Closed fracture of spinous process of thoracic vertebra Closed L3 vertebral fracture Depression GERD (gastroesophageal reflux disease) Hypertriglyceridemia BPH (benign prostatic hyperplasia) Lumbago CKD (chronic kidney disease), stage III DMII (diabetes mellitus, type 2) Hypertension Surgical History S/P cardiac pacemaker procedure History of blepharoplasty L eye History of hernia surgery History of foot surgery R 4th Toe surgery H/O neck surgery Family History Mother Colorectal cancer Coronary heart disease Diabetes Brother Diabetes Kidney disease Colorectal cancer Prostate cancer Other No pertinent family history Social History Smoking Status: Never smoker Tobacco Type: Cigarettes Second Hand Exposure: No; Do You Dip or Chew Tobacco: No; Hx Alcohol Use: Yes Alcohol type: beer Alcohol Intake Frequency Comment: 1-2 beers monthly Hx Substance Use: No Preferred Language: Yemeni Communication Ability: Effective Visual Impairment: Limited Hearing Ability: Normal Engineering Model Maker Required: No Beliefs That Will Affect Care: None marital status: / Current Living Situation: Alone Current Living Situation Comment: Sister and daughter able to assist with care. current occupational status: retired Feels Safe at Home: Yes Childhood Exposure to Second-Hand Smoke: Yes Diet: diabetic and low carbohydrate caffeine: Yes Dental Care, Regularly: Yes Seatbelt Use: always Assistive Devices: Cane Physical Exam Vital Signs Vital Signs - 24 hr 07/28/23 14:46 07/28/23 17:00 07/28/23 17:29 Temperature 36.7 C Temperature Source Temporal Artery Scan Pulse Rate 87 Pulse Rate [Apical] 70 66 Respiratory Rate 18 20 15 Respiratory Effort / Characteristics Non-Labored Respiratory Depth Normal Respiratory Pattern Regular Blood Pressure 141/69 H Blood Pressure [Left Arm] 188/82 H 168/89 H Blood Pressure Mean 93 Blood Pressure Mean [Left Arm] 117 115 Pulse Oximetry 100 96 95 Oxygen Delivery Method Room Air Room Air Room Air Sepsis Recent Fever Within 48 Hours No Sepsis New/Unexplained Change in Mental Status N/A Sepsis Action Taken by Nursing No Action Required 07/28/23 17:40 Temperature Temperature Source Pulse Rate 69 Pulse Rate [Apical] Respiratory Rate Respiratory Effort / Characteristics Respiratory Depth Respiratory Pattern Blood Pressure Blood Pressure [Left Arm] Blood Pressure Mean Blood Pressure Mean [Left Arm] Pulse Oximetry Oxygen Delivery Method Sepsis Recent Fever Within 48 Hours Sepsis New/Unexplained Change in Mental Status Sepsis Action Taken by Nursing Physical Exam CV: Normal rate, regular rhythm, normal heart sounds and intact distal pulses. There is no peripheral edema. Palpable radial pulses bue. PULM/CHEST: Effort normal and breath sounds normal. No respiratory distress. No stridor. no wheezes. no rales. MUSC: Right foot has multiple wounds on it with some surrounding erythema and discharge. Course Course 164: The patient was evaluated in room A10. A complete history and physical exam was performed Administered Medications Magnesium Sulfate/Dextrose (Magnesium Sulfate / D5w) 1 gm in 100 mls @ 100 mls/hr IV NOW STA Stop: 07/28/23 17:45 Last Admin: 07/28/23 17:19 Dose: 100 mls/hr Documented By: ML Discontinued Medications Dextrose (Dextrose 50% 50 Ml Syringe) 50 ml IV NOW STA Stop: 07/28/23 16:48 Last Admin: 07/28/23 17:24 Dose: 50 ml Documented By: ML Calcium Gluconate () 1,000 mg in 60 mls @ 240 mls/hr IV NOW STA Stop: 07/28/23 17:01 Last Infusion: 07/28/23 17:17 Dose: Infused Documented By: Admin: 07/28/23 17:02 Dose: 240 mls/hr Documented By: FRANCESCA Insulin Human Regular 10 units (/ Syringe) 9.9 mls @ 3 mls/sec IV ONE STA Stop: 07/28/23 16:48 Last Admin: 07/28/23 17:24 Dose: 3 mls/sec Documented By: FRANCESCA Co-signed By: HERB Piperacillin Sod/Tazobactam (Sod 4.5 gm/ Dextrose) 100 mls @ 200 mls/hr IV NOW ONE; Protocol Stop: 07/28/23 17:25 Last Admin: 07/28/23 17:37 Dose: 200 mls/hr Documented By: FRANCESCA Daptomycin 425 mg/ Syringe 8.5 mls @ 4.25 mls/min IV NOW ONE; Protocol Stop: 07/28/23 17:16 Last Admin: 07/28/23 17:37 Dose: 4.25 mls/min Documented By: FRANCESCA Piperacillin Sod/Tazobactam Sod (Piperacillin/Tazobactam 4.5 Gm/100ml D5w) Confirm Administered Dose 4.5 gm IV .STK-MED ONE Stop: 07/28/23 17:19 Last Admin: 07/28/23 17:29 Dose: Not Given Documented By: FRANCESCA Critical Care Time Critical Care Time: Yes Total Critical Care Time: 56 I have personally spent greater than 56 minutes of critical care time in the direct management of this patient. This includes bedside care, interpretation of diagnostic studies, and testing, discussion with consultants, patient, and family members, and other required patient management activities. This 56 minutes is in excess of all separately billable procedures. Medical Decision Making Medical Records Attestation: I reviewed the patient's medical records. External medical records reviewed. Patient has been dealing with the wounds on his right foot for more than a month. According to the wound healing clinic note by Susana Branch on June 19 the patient has been having wounds on his right foot for a few months. He was admitted from June 03, 2023 until June 10, 2023's for cellulitis of his right foot. MRI of the foot was performed on June 04, 2023 which was negative for osteomyelitis. Patient had an arterial duplex study performed on May 26, 2023 which demonstrated a right INDIGO of 0.16. Patient has been following with Dr. Triplett [facility]. Patient underwent an endovascular procedure last week according to Dr. Triplett's note from today and is stated that the peripheral artery disease was too advanced without revascularization process. He was started on cilostazol 500 mg twice daily and gabapentin did not 300 mg twice daily which have been helping his pain. Patient is scheduled for appointment at [facility] vascular surgery on August 09, 2023. According to Dr. Triplett's note, he states that his right foot appears to be deteriorating and he suspects a worsening infection from the baseline issues of how his foot looks. He was sent to the emergency department for consideration of IV antibiotics. Laboratory Data Attestation: I reviewed the patient's lab results. 07/28/23 15:37 07/28/23 15:37 Lab Results 07/28/23 Range/Units 15:37 WBC 9.23 (4.8-10.8) K/ul RBC 3.25 L (4.70-6.10) M/uL Hgb 10.8 L (14.0-18.0) g/dl Hct 33.3 L (42.0-52.0) % MCV 102.5 H (80.0-100.0) fL MCH 33.2 (25.0-34.0) pg MCHC 32.4 (32.0-36.0) g/dL RDW Std Deviation 51.2 H (36.4-46.3) fL RDW Coeff of Aleja 13.5 (11.5-14.5) % Plt Count 235 (130-400) K/uL MPV 10.4 (9.4-12.4) fL Immature Gran % (Auto) 1.3 % Neut % (Auto) 78.7 % Lymph % (Auto) 12.2 % [place] % (Auto) 7.2 % Eos % (Auto) 0.3 % Baso % (Auto) 0.3 % Neut # (Auto) 7.26 H (1.40-6.50) K/uL Lymph # (Auto) 1.13 L (1.20-3.40) K/uL [place] # (Auto) 0.66 H (0.11-0.59) K/uL Eos # (Auto) 0.03 (0.00-0.50) K/uL Baso # (Auto) 0.03 (0.00-0.20) K/uL Immature Gran # (Auto) 0.12 (0.01-0.20) K/uL Sodium 136 (136-145) mmol/L Potassium 6.0 H (3.5-5.1) mmol/L Chloride 104 (98-107) mmol/L Carbon Dioxide 28 (21-32) mmol/L Anion Gap 4 (3-11) BUN 39 H (6-23) mg/dl Creatinine 1.47 H (0.6-1.4) mg/dl Est Cr Clr Drug Dosing 33.6 ml/min Est GFR ( Amer) 48.7 ml/min Est GFR (Non-Af Amer) 42.0 ml/min BUN/Creatinine Ratio 26.5 H (10-20) Glucose 281 H (70-99(Fasting)) mg/dl Lactate 1.4 (0.4-2.0) mmol/L Calcium 9.1 (8.6-10.3) mg/dl Magnesium 1.5 L (1.7-2.4) mg/dl Total Bilirubin 0.5 (0.2-1.0) mg/dl AST 24 (13-39) U/L ALT 15 (7-52) U/L Alkaline Phosphatase 55 (34-104) U/L Total Protein 6.0 (6.0-8.3) gm/dl Albumin 3.7 (3.4-5.0) gm/dl Globulin 2.3 L (2.5-4.0) gm/dl Albumin/Globulin Ratio 1.6 (0.9-2) Imaging Data Radiologist's Impression: Foot X-Ray 07/28/23 14:49 XR foot RT min 3V routine CLINICAL HISTORY: Pain, infection COMPARISON: Right foot radiographs June 03, 2023. MRI of the right foot June 04, 2023. FINDINGS: Alignment of the right foot is anatomic. Tarsometatarsal joints are intact. Chronic erosion of the distal aspects of the fourth and fifth proximal phalanges is unchanged. No acute bony erosion is identified. The appearance of the right foot is unchanged. There is moderate vascular calcification. Calcific density along the dorsal right first toe is chronic. No acute fractures. There may be a small wound along the lateral aspect of the fifth metatarsophalangeal joint. IMPRESSION: No acute fractures within the right foot. No evidence for acute osteomyelitis. ACT 112: Negative or not required by law. Electronically signed by: Al Julian M.D. 07/28/2023 4:35 PM MDM Narrative Cardiac monitoring: An order was placed for continuous cardiac monitoring. The monitor shows a rate of 70 with sinus rhythm interpreted by me Patient was seen during a time of extreme volume and extreme acuity. Nursing triage protocols were initiated labs and imaging was conducted by protocol in the triage area. Labs show normal white blood cell count. Potassium was 6. Magnesium 1.5. Magnesium will be repleted in the emergency department. Hyperkalemia will be treated with calcium gluconate 1 g 10 units of insulin and 1 amp of D50. Patient will be given IV antibiotics for his foot wounds Zosyn and daptomycin. Imaging shows no evidence of osteomyelitis. [facility] is aware of the patient. Discussed with the patient and daughter at bedside they are aware that the goal of this admission is to correct his electrolytes and treat the patient's foot with antibiotics so that the patient can make his outpatient appointment scheduled for August 08 at [place] for evaluation if there is any procedure that can be done for his known peripheral artery disease. They are in agreement with the plan. Impression & Plan Hypomagnesemia, Acute hyperkalemia, Diabetic ulcer of right foot Discharge Plan Visit Data Chief Complaint: Referred by Doctor Stated Complaint: REFERRED BY DOC ED Provider: Willis Briceño Discharge Problem: Hypomagnesemia, Acute hyperkalemia, Diabetic ulcer of right foot Patient Disposition: Admitted As Inpatient Forms Stand Alone Forms: My [facility] Prescriptions Prescriptions: No Action insulin aspart U-100 [Novolog FlexPen U-100 Insulin] 100 unit/mL (3 mL) insulin pen 10 unit subcut TID Rx Instructions: Inject 10 units into the abdomen 10-15 minutes prior to meals. Tresiba FlexTouch U-100 100 unit/mL (3 mL) insulin pen 45 unit subcut DAILY ferrous sulfate 325 mg (65 mg iron) tablet 325 mg PO DAILY Qty: 90 3RF (DME) pen needle, diabetic [BD Ultra-Fine Ramya Pen Needle] 32 gauge x 5/32" needle See Rx Instructions .Route Qty: 200 11RF Rx Instructions: Use 4 per day oxycodone 5 mg tablet 5 mg PO Q6H PRN (Reason: pain) Qty: 20 0RF gabapentin 300 mg capsule 300 mg PO BID Qty: 180 2RF atorvastatin 40 mg tablet 40 mg PO QPM hydroxychloroquine 200 mg tablet 200 mg PO QAM ropinirole 1 mg tablet 1 mg PO HS Prolia 60 mg/mL syringe 60 mg subcut .COMPLEX Rx Instructions: 60 mg subcutaneously Q6 MONTHS; (DME) Dexcom G7 Sensor Device See Rx Instructions .Route Qty: 3 3RF Rx Instructions: continuous glucose monitoring, change every 10 days Mag 64 64 mg tablet,delayed release (DR/EC) 128 mg PO QAM tamsulosin [Flomax] 0.4 mg capsule 0.4 mg PO HS finasteride [Proscar] 5 mg tablet 5 mg PO QAM venlafaxine 75 mg capsule,extended release 24hr 75 mg PO QPM famotidine 20 mg tablet 20 mg PO QAM furosemide 20 mg Tablet 20 mg PO DAILY PRN (Reason: Fluid Retention) cholecalciferol (vitamin D3) [Vitamin D3] 50 mcg (2,000 unit) Tablet 50 mcg PO QAM prednisone 5 mg tablet 5 mg PO QAM Rx Instructions: Take 5mg w/ 2.5mg tablet to equal 7.5mg by mouth once every morning prednisone 2.5 mg tablet 2.5 mg PO QAM Rx Instructions: Take 2.5mg w/ 5mg tablet to equal 7.5mg by mouth once every morning aspirin 81 mg Tablet,Delayed Release (Dr/Ec) 81 mg PO QAM Qty: 0 0RF carvedilol 6.25 mg Tablet 6.25 mg PO BIDM Qty: 60 0RF amlodipine 5 mg tablet 5 mg PO DAILY Qty: 30 0RF cilostazol 50 mg tablet 50 mg PO BID Qty: 60 1RF Referrals Referrals: Garrison Triplett, [Primary Care Provider] -
--- NOTE | 2023-07-28 18:11 | History & Physical Report ---
Date of Service July 28, 2023 Assessment & Plan (1) Diabetic ulcer of right foot: Plan: Worsening wound. Failed outpatient management with oral abx. Difficulty with healing as severe PAD. Started on Zosyn and dapto in the ED. Will continue with MRSA/pseudomonas coverage for now. Patient with pain and swelling of the right calf. Duplex ordered. Blood and wound cultures pending Ortho consult placed for ?debridement MRSA/pseudomonas coverage start date: 07/28/2023 Duplex ordered (2) Insulin dependent type 2 diabetes mellitus: Plan: Home regimen 45 units SQ basal. 12 units with meals TID. Meal time dosing was recently increased from 10 units to 12 units TID. Has been having hypoglycemic episodes since this switch. Follows with endo. Has Dexcom monitor in place. Will decrease to 15 units BID basal and SSI. Pharmacy glycemic consult placed. [facility] Pharmacy glycemic consult (3) Acute hyperkalemia: Plan: K 6 on admit. Patient given insulin 10 units and calcium gluconate. Recheck K 4.7. Carries diagnosis of RTA Type IV. Was previously on Lokelma. Unclear why this was stopped. Will restart Lokelma and consult nephrology. (4) Heart block AV second degree: Plan: Status post pacemaker placement. Monitor on tele. (5) Peripheral arterial disease: Plan: Would hold off on interventional endovascular consult as this has previously been attempted without success. Continue home medications. (6) Wound of right foot: Plan: See above (7) Hypomagnesemia: Plan: On chronic mag at home. Will monitor and replete as indicated. (8) History of prostate cancer: Plan: Continue home meds (9) Dyslipidemia: Plan: Hold statin therapy while on daptomycin (10) Polymyalgia rheumatica: Plan: Continue home prednisone, hydroxychloroquine, and oxy. Plan Code status: full DVT ppx: Lovenox FENGI: carb consistent, low K Dispo: MedSurg with tele History of Present Illness Chief Complaint: wound Primary Care Provider: DO Wang Anaya is an 88 y/o male with a PMHx of insulin dependent T2DM, HTN, HLD, CKD III, PMR on chronic prednisone and hydroxychloroquine, BPH, GERD, chronic bilateral lower extremity wounds, recent pacemaker placement, and history of prostate cancer. He was sent to [facility] by PCP for worsening right lower extremity wound. Has been on oral antibiotics for about a week. Patient follows with wound outpatient weekly and had been doing well. Worsening erythema, swelling, pain, and purulent drainage the last 2-3 days. No fevers or chills. No CP or SOB. No abdominal pain. No change in bowel habits. Has been urinating more frequently. Has been hospitalized previously for bouts of cellulitis. Patient has appointment in [place] with a vascular surgeon for a second opinion 08/08 as recent endovascular procedure with Dr. Tilley was unable to provide revascularization. If unable to obtain revascularization patient may need amputation. Allergies Allergy/AdvReac Type Severity Reaction Status Date / Time pioglitazone [From Actos] Allergy Unknown Unknown Verified 07/28/23 12:58 sitagliptin [From Januvia] Allergy Unknown Unknown Verified 07/28/23 12:58 Home Medications Medication Instructions Recorded Confirmed Type finasteride 5 mg tablet (Proscar) 5 mg PO QAM 03/03/18 07/28/23 History tamsulosin 0.4 mg capsule (Flomax) 0.4 mg PO HS 03/03/18 07/28/23 History atorvastatin 40 mg tablet 40 mg PO QPM 11/23/19 07/28/23 History ferrous sulfate 325 mg (65 mg 325 mg PO DAILY #90 tabs 06/11/21 07/28/23 Rx iron) tablet magnesium chloride 64 mg 128 mg PO QAM 01/05/22 07/28/23 History (magnesium chloride) tablet,delayed release (Mag 64) denosumab 60 mg/mL subcutaneous 60 mg subcut .COMPLEX 01/14/23 07/28/23 History syringe (Prolia) hydroxychloroquine 200 mg tablet 200 mg PO QAM 01/14/23 07/28/23 History ropinirole 1 mg tablet 1 mg PO HS 01/14/23 07/28/23 History cholecalciferol (vitamin D3) 50 50 mcg PO QAM 06/03/23 07/28/23 History mcg (2,000 unit) tablet (Vitamin D3) famotidine 20 mg tablet 20 mg PO QAM 06/03/23 07/28/23 History furosemide 20 mg tablet 20 mg PO DAILY PRN Fluid Retention 06/03/23 07/28/23 History prednisone 2.5 mg tablet 2.5 mg PO QAM 06/03/23 07/28/23 History prednisone 5 mg tablet 5 mg PO QAM 06/03/23 07/28/23 History venlafaxine 75 mg capsule,extended 75 mg PO QPM 06/03/23 07/28/23 History release 24 hr aspirin 81 mg tablet,delayed 81 mg PO QAM #0 tabs 06/10/23 07/28/23 Rx release amlodipine 5 mg tablet 5 mg PO DAILY #30 tabs 06/18/23 07/28/23 Rx carvedilol 6.25 mg tablet 6.25 mg PO BIDM #60 tabs 06/18/23 07/28/23 Rx pen needle, diabetic 32 gauge x #200 ea 06/22/23 07/28/23 Rx 5/32" (BD Ultra-Fine Ramya Pen Needle) insulin aspart U-100 100 unit/mL 10 unit subcut TID 07/06/23 07/28/23 History (3 mL) subcutaneous pen (Novolog FlexPen U-100 Insulin aspart) insulin degludec 100 unit/mL (3 45 unit subcut DAILY 07/06/23 07/28/23 History mL) subcutaneous pen (Tresiba FlexTouch U-100 insulin) blood-glucose sensor (Dexcom G7 #3 ea 07/11/23 07/28/23 Rx Sensor device) cilostazol 50 mg tablet 50 mg PO BID #60 tabs 07/18/23 07/28/23 Rx oxycodone 5 mg tablet 5 mg PO Q6H PRN pain #20 tabs 07/19/23 07/28/23 Rx gabapentin 300 mg capsule 300 mg PO BID #180 caps 07/27/23 07/28/23 Rx Past Med/Surg History Medical History Polymyalgia rheumatica HTN (hypertension) Postural dizziness 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, type 4 History of prostate cancer No pertinent family history Closed fracture of spinous process of thoracic vertebra Closed L3 vertebral fracture Depression GERD (gastroesophageal reflux disease) Hypertriglyceridemia BPH (benign prostatic hyperplasia) Lumbago CKD (chronic kidney disease), stage III DMII (diabetes mellitus, type 2) Hypertension Surgical History S/P cardiac pacemaker procedure History of blepharoplasty L eye History of hernia surgery History of foot surgery R 4th Toe surgery H/O neck surgery Family History Mother Colorectal cancer Coronary heart disease Diabetes Brother Diabetes Kidney disease Colorectal cancer Prostate cancer Other No pertinent family history Social History Smoking Status: Former smoker Tobacco Type: Cigarettes, Pipe and Cigars Second Hand Exposure: No; Do You Dip or Chew Tobacco: No; Hx Alcohol Use: Yes Alcohol type: beer Alcohol Intake Frequency Comment: 1-2 beers monthly Hx Substance Use: No Preferred Language: Colombian Communication Ability: Effective Visual Impairment: Limited Hearing Ability: Normal Tenant Relations Coordinator Required: No Beliefs That Will Affect Care: None marital status: / Current Living Situation: Alone Current Living Situation Comment: Sister and daughter able to assist with care. current occupational status: retired Other Information That Helps Us Care for You: No Feels Safe at Home: Yes Safety Concerns: Feels Safe At This Time Childhood Exposure to Second-Hand Smoke: Yes Diet: diabetic and low carbohydrate caffeine: Yes Dental Care, Regularly: Yes Seatbelt Use: always Assistive Devices: Cane Review of Systems Review of Systems: See HPI Physical Exam Physical Exam: Gen: well appearing male patient in NAD HEENT: AT NC MMM Resp: CTAB no wheezing no increased work of breathing CV: RRR no m/r/g 2+ radial pulses, 1+ left DP, unable to palpate right DP, clinically well perfused, BLE right significantly worse than left Abd: soft, non-tender, non-distended, +BS Skin: wound present involving the dorsum of the right foot and the first 3 toes with erythema/swelling, questionable purulent discharge, and eschar formation, there is dark discoloration at the base of the big toe Neuro: alert and oriented Psych: appropriate mood and affect Results & Data Results & Data Vital Signs (Past 12 Hours) Vital Signs Temp Pulse Pulse Resp BP BP Pulse Ox 07/28/23 17:40 69 07/28/23 17:29 66 15 168/89 H 95 07/28/23 17:00 70 20 188/82 H 96 07/28/23 14:46 36.7 C 87 18 141/69 H 100 O2 Del Method 07/28/23 17:40 07/28/23 17:29 Room Air 04/18/24 17:00 Room Air 07/28/23 14:46 Room Air Diagnostic Findings Foot X-Ray 07/28/23 14:49 XR foot RT min 3V routine CLINICAL HISTORY: Pain, infection COMPARISON: Right foot radiographs June 03, 2023. MRI of the right foot June 04, 2023. FINDINGS: Alignment of the right foot is anatomic. Tarsometatarsal joints are intact. Chronic erosion of the distal aspects of the fourth and fifth proximal phalanges is unchanged. No acute bony erosion is identified. The appearance of the right foot is unchanged. There is moderate vascular calcification. Calcific density along the dorsal right first toe is chronic. No acute fractures. There may be a small wound along the lateral aspect of the fifth metatarsophalangeal joint. IMPRESSION: No acute fractures within the right foot. No evidence for acute osteomyelitis. Supervising Physician Co-Signing Physician Notes I personally saw and examined the patient. I verified all morales points and agree with resident physician Dr Sadaf Carpio, with the following exceptions and/or additions: 88 year old male presents to the ER with worsening right lower extremity wound. Unable to revascularize his leg last admission but has planned appointment in [place] on . No fever or chills. Unsure when he stopped taking Lokelma for hyperkalemia (previously diagnosed type IV RTA) O/E A&Ox3, HS RRR, no murmurs, Chest CTAB, Abdo SNT, right foot unstageable ulcer base 2nd toe and dorsal foot with surrounding erythema and swelling (picture earlier today in PCP note) A/P Right diabetic foot ulcer with surrounding cellulitis - suspect he needs to stay on antibiotics until revascularization performed if possible in [place] Hyperkalemia - appears to be recurrent issue previously put down to type IV RTA without any reversible cause. Consider fludrocortisone but will defer this to his director paid media. Restart Lokelma. Resident Activity Tracking Resident Involvement: Resident Care Provided Care Provided: Adult Hospital Medicine
[2023-07-28] MEDS: oxyCODONE/ACETAMINOPHEN 5mg/325mg TAB PO STA (18:19)
[2023-07-28 19:32] LABS: Appearance Urine Clear (Clear); Bacteria Urine Automated None Seen (None Seen); Bilirubin Urine Negative (Negative); Blood Urine Negative (Negative); Cast Urine Automated 0-2 /lpf (0-2); Color Urine Yellow; Epithelial Cell Urine Auto 0-2 /hpf (0-2); Glucose Urine UA 2+ (Negative); Ketones Urine Negative (Negative); Leukocyte Esterase Urine Negative (Negative); Nitrite Urine Negative (Negative); Protein Urine Trace (Negative); RBC Urine Automated 0-2 /hpf (0-2); Specific Gravity Urine 1.017 (1.000-1.030); Urobilinogen Urine Negative (Negative); WBC Urine Automated 0-5 /hpf (0-5); pH Urine 5.5 (4.5-7.5)
[2023-07-28] MEDS ORDERED: POLYETHYLENE (MIRALAX) 17 GM PACK PO PRN (20:47)
[2023-07-28] MEDS ORDERED: PHARMACY GLYCEMIC MGMT CONSULT PRN (20:47)
[2023-07-28] MEDS ORDERED: DEXTROSE 50% 50 ML SYRINGE IV PRN (20:47)
[2023-07-28] MEDS ORDERED: GLUCOSE 10 TAB/TUBE PO PRN (20:47)
[2023-07-28] MEDS ORDERED: ONDANSETRON INJ 2 MG/ML 2 ML VIAL IV PRN (20:47)
[2023-07-28] MEDS ORDERED: GLUCAGON FOR INJ 1 MG VIAL SQ PRN (20:47)
[2023-07-28] MEDS ORDERED: GLUCOSE 40% GEL 15 GM TUBE PO PRN (20:47)
[2023-07-28] MEDS ORDERED: CARBOHYDRATES FOR HYPOGLYCEMIA PO PRN (20:47)
[2023-07-28] MEDS: cilostazoL 100 MG TAB PO SCH (22:40)
[2023-07-28] MEDS: VENLAFAXINE HCL XR 75 MG CAPXR PO SCH (22:41)
[2023-07-28] MEDS: GABAPENTIN 300 MG CAP PO SCH (22:41)
[2023-07-28] MEDS: ENOXAPARIN INJ 40 MG/0.4 ML SYR SQ SCH (22:41)
[2023-07-28] MEDS: SODIUM ZIRCONIUM CYCLOSILICATE 10 GM PACKET PO ONE (22:41)
[2023-07-28] MEDS: TAMSULOSIN HCL 0.4 MG CAP PO SCH (22:41)
[2023-07-28] MEDS: rOPINIRole HCL 1 MG TABLET PO SCH (22:41)
[2023-07-28] MEDS: INSULIN ASPART PER UNIT CHARGE SC SCH (22:53)
[2023-07-28] MEDS: LANTUS PER UNIT CHARGE SQ SCH (22:54)
--- NOTE | 2023-07-28 23:10 | Ultrasound Report ---
Exam(s): US VENOUS RIGHT LOWER EXTREMITY EXAM: US Duplex Right Lower Extremity Veins CLINICAL HISTORY: Reason for exam: RLE swelling/pain. TECHNIQUE: Real-time duplex ultrasound scan of the right lower extremity veins integrating B-mode two-dimensional vascular structure, Doppler spectral analysis, color flow Doppler imaging and compression. COMPARISON: No relevant prior studies available. FINDINGS: Deep veins: Unremarkable. No DVT in the visualized common femoral, femoral, proximal deep femoral or popliteal veins. The veins demonstrate normal color flow, are normally compressible, with normal phasic flow and/or augmentation response. Superficial veins: Unremarkable. No thrombus in the visualized great saphenous vein. Soft tissues: No acute findings. No popliteal cyst. IMPRESSION: Normal right lower extremity duplex venous ultrasound. Electronically signed by: Kang Whitlock MD 07/28/23 23:09 PM
[2023-07-29] MEDS: oxyCODONE HCL IR 5 MG TAB (IMMEDIATE RELEASE) PO PRN (00:09)
[2023-07-29] MEDS: PIPERACILLIN/TAZOBACTAM 4.5 GM in DEXTROSE 5% MINI-B 100 ML IV SCH (00:10)
[2023-07-29 05:12] LABS: Hematocrit (blood only) 31.3 % (42.0-52.0); Hemoglobin 10.1 g/dl (14.0-18.0); Mean Corpuscular Hemoglobin 32.8 pg (25.0-34.0); Mean Corpuscular Hgb Conc 32.3 g/dL (32.0-36.0); Mean Corpuscular Volume 101.6 fL (80.0-100.0); Mean Platelet Volume 10.3 fL (9.4-12.4); Platelet Count 201 K/uL (130-400); RDW Coefficient of Variation 13.3 % (11.5-14.5); RDW Standard Deviation 49.6 fL (36.4-46.3); Red Blood Count 3.08 M/uL (4.70-6.10); White Blood Count 7.83 K/ul (4.8-10.8)
[2023-07-29 05:23] LABS: BUN Creatinine Ratio 24.4 (10-20); Calcium 8.7 mg/dl (8.6-10.3); Creatinine Clr Calc Pharmacy 38.9 ml/min; Est GFR (African American) 58.1 ml/min; Est GFR (Non-African American) 50.1 ml/min; Magnesium 1.6 mg/dl (1.7-2.4); Potassium 4.3 mmol/L (3.5-5.1)
--- NOTE | 2023-07-29 08:37 | Hospitalist Progress Note ---
Date of Service July 29, 2023 Assessment & Plan (1) Diabetic ulcer of right foot: Plan: Worsening wound. Failed outpatient management with oral abx. Difficulty with healing as severe PAD. Started on Zosyn and dapto in the ED. Will continue with MRSA/pseudomonas coverage for now. Patient with pain and swelling of the right calf --> duplex ordered, NEGATIVE for DVT WBC not elevated on admission but L shift. Afebrile but increased pain/swelling and pain at rest Placed on Dapto/Zosyn Blood and wound cultures pending Ortho consult placed for ?debridement --> seen, would NOT recommend debridement without revascularization Prior attempts at endovascular intervention with Dr Tilley on 07/17: Summary: 1. Right lower extremity --widely patent iliacs, SFA/popliteal arteries. Severe infrapopliteal artery disease with two-vessel runoff to the ankle. KARINA occluded at the ankle and gives off collaterals to mid foot. 100% mid peroneal occlusion. Diffuse heavily calcified severe GAUGER CHIEF disease including 99% mid and 95+% distal disease into the foot. 2. Left lower extremity --diffuse calcified SFA up to 40%. 100% mid GAUGER CHIEF occlusion, 100% proximal peroneal, heavily calcified patent KARINA. 3. Unsuccessful attempted endovascular intervention to right GAUGER CHIEF disease due to inability to cross heavily calcified subocclusive mid segment disease. Recommendations: Unfortunately patient has diffuse, heavily calcified tibial and pedal vessel disease. Unfortunately unable to cross right GAUGER CHIEF disease and no real other revascularization options. Recommend pain control, and trial cilostazol for ischemic rest pain Continued follow-up with wound care and podiatry. Patient had f/u for [facility] 08/08 per daughter, attempting to call to see if able to consider in transfer given ischemic rest pain/gangrenous appearance possible attempts at re-intervention for tibial artery per discussion w/ Dr Tilley this morning. Continued on Dapto/Zosyn while inpatient, WBC wnl/afbrile Surface cx staph species, prior staph aureus Xray without acute fracture or evidence for osteomyelitis Doppler negative for evidence for DVT Placed plaquenil on hold in setting of infection Seen on exam, worsening eschar/gangrenous appearance and rest pain/ischemic rest pain, prompting call to [facility] for discussion. Did discuss with patient that this may not prevent need for amputation in future but hopeful able to improve blood flow/healing. Will need ongoing wound care Spoke with Dr Tilley, agreed to accept in transfer. Will transfer when bed available/transportation arranged. Updated daughter Carolyn by phone this afternoon. (2) Insulin dependent type 2 diabetes mellitus: Plan: Home regimen 45 units SQ basal. 12 units with meals TID. Meal time dosing was recently increased from 10 units to 12 units TID. Has been having hypoglycemic episodes since this switch. Follows with endo. Has Dexcom monitor in place. Will decrease to 15 units BID basal and SSI. Pharmacy glycemic consult placed. [facility] Pharmacy glycemic consult while inpatient (3) Acute hyperkalemia: Plan: K 6 on admit. Patient given insulin 10 units and calcium gluconate. Recheck K 4.7. Carries diagnosis of RTA Type IV. Was previously on Lokelma. Unclear why this was stopped. 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 Monitor on tele -- no issues at present (5) Peripheral arterial disease: Plan: continues on pletal prior failure endovascular intervention, prior seen by Felipe earlier in the year w/o intervention. Rec'd 2nd opinion [facility] and had appt 08/08 as above but w/ increased eschar/gangrenous appearance needing more urgent intervention see above (6) Wound of right foot: Plan: See above (7) Hypomagnesemia: Plan: On chronic mag at home. Will monitor and replete as indicated, IV ordered for today (8) History of prostate cancer: Plan: Continue home meds (9) Dyslipidemia: Plan: Hold statin therapy while on daptomycin (10) Polymyalgia rheumatica: Plan: Continue home prednisone 5mg/2.5mg, oxy home hydroxychloroquine placed on hold in setting infection/above Plan DVT proph: lovenox SQ Awaiting transfer to [facility] [place] when bed available/transportation arranged Admission and Anticipated Discharge Date Admission Date: July 28, 2023 Supervising Physician Co-Signing Physician Notes The patient was not seen by me. The chart was reviewed. Case discussed with AMELIA Morrell. Agree with assessment and plan Physical Exam Physical Exam: General: 88yo male sitting in bed, family at bedside, NAD head atraumatic, normocephalic, mmm, trachea midline Resp: even/unlabored, no w/c/r, slightly diminished in the bases, 98% on RA CV: RRR, no signifciant m/r/g, no pittgin edema GI: +BS, soft/NT no cantrlel MSK/Neuro: RLE foot w/ worsening eschar and reddened appearance, +tenderness, +decreased/absent pulses, +rubor, +abnormal cap refill eschar/gangrenous/necrotic appearance plantar aspect great toe, additional ulceration to dorsum of foot w/ scab also has small necrotic area to his heel on the right (smaller x 2 on the left heel), as well as along the lateral 5th MTP and distal 3rd toe does have small necrotic area to distal L great toe as well pedal/dp pulses absent toes mobile, ankle mobile Psych: AOx3, cooperative and pleasant Results & Data Results & Data Vital Signs (Past 12 Hours) Vital Signs Temp Pulse Pulse Resp BP BP Pulse Ox 07/29/23 08:10 62 07/29/23 07:00 83 16 147/82 H 98 07/29/23 06:00 65 16 156/76 H 93 07/29/23 05:01 61 07/29/23 04:00 60 14 149/81 H 94 07/29/23 02:00 65 15 145/74 H 93 07/29/23 01:30 99 H 11 L 07/29/23 01:20 69 13 07/29/23 01:10 67 21 07/29/23 01:00 65 15 07/29/23 00:50 65 15 07/29/23 00:42 62 13 07/29/23 00:42 180/83 H 07/29/23 00:40 65 14 07/29/23 00:30 66 14 94 07/29/23 00:30 122/80 07/29/23 00:20 68 19 94 07/29/23 00:15 80 14 94 07/29/23 00:15 146/82 H 07/29/23 00:10 70 15 94 07/29/23 00:00 156/81 H 07/29/23 00:00 66 18 96 07/28/23 23:59 07/28/23 23:59 36.8 C 68 18 156/81 H 96 07/28/23 23:50 70 14 96 07/28/23 23:45 138/79 07/28/23 23:45 72 17 94 07/28/23 23:40 71 20 95 07/28/23 23:40 36.8 C 66 15 154/82 H 97 07/28/23 23:30 72 18 154/82 H 95 07/28/23 23:15 71 22 155/77 H 93 07/28/23 23:00 157/98 H 07/28/23 23:00 77 24 94 07/28/23 22:59 76 24 96 07/28/23 22:00 165/74 H 07/28/23 22:00 65 13 96 07/28/23 21:45 140/59 L 07/28/23 21:45 62 22 97 07/28/23 21:30 126/52 L 07/28/23 21:30 60 17 94 07/28/23 21:15 141/64 H 07/28/23 21:15 64 15 95 07/28/23 21:00 146/62 H 07/28/23 21:00 60 14 95 07/28/23 20:45 69 17 97 07/28/23 20:45 123/48 L Pulse Ox O2 Del Method O2 Del Method 07/29/23 08:10 07/29/23 07:00 Room Air 07/29/23 06:00 Room Air 07/29/23 05:01 07/29/23 04:00 Room Air 07/29/23 02:00 Room Air 07/29/23 01:30 07/29/23 01:20 07/29/23 01:10 07/29/23 01:00 07/29/23 00:50 07/29/23 00:42 07/29/23 00:42 07/29/23 00:40 07/29/23 00:30 07/29/23 00:30 07/29/23 00:20 07/29/23 00:15 07/29/23 00:15 07/29/23 00:10 07/29/23 00:00 07/29/23 00:00 07/28/23 23:59 94 Room Air 07/28/23 23:59 Room Air 07/28/23 23:50 07/28/23 23:45 07/28/23 23:45 07/28/23 23:40 07/28/23 23:40 Room Air 07/28/23 23:30 Room Air 07/28/23 23:15 Room Air 07/28/23 23:00 07/28/23 23:00 07/28/23 22:59 07/28/23 22:00 07/28/23 22:00 07/28/23 21:45 07/28/23 21:45 Room Air 07/28/23 21:30 07/28/23 21:30 07/28/23 21:15 07/28/23 21:15 07/28/23 21:00 07/28/23 21:00 Room Air 07/28/23 20:45 Room Air 07/28/23 20:45 Laboratory Results 07/29/23 07/29/23 07/29/23 Range/Units 12:05 11:16 07:52 WBC (4.8-10.8) K/ul RBC (4.70-6.10) M/uL Hgb (14.0-18.0) g/dl Hct (42.0-52.0) % MCV (80.0-100.0) fL MCH (25.0-34.0) pg MCHC (32.0-36.0) g/dL RDW Std Deviation (36.4-46.3) fL RDW Coeff of Aleja (11.5-14.5) % Plt Count (130-400) K/uL MPV (9.4-12.4) fL Immature Gran % (Auto) % Neut % (Auto) % Lymph % (Auto) % [place] % (Auto) % Eos % (Auto) % Baso % (Auto) % Neut # (Auto) (1.40-6.50) K/uL Lymph # (Auto) (1.20-3.40) K/uL [place] # (Auto) (0.11-0.59) K/uL Eos # (Auto) (0.00-0.50) K/uL Baso # (Auto) (0.00-0.20) K/uL Immature Gran # (Auto) (0.01-0.20) K/uL Sodium (136-145) mmol/L Potassium (3.5-5.1) mmol/L Chloride (98-107) mmol/L Carbon Dioxide (21-32) mmol/L Anion Gap (3-11) BUN (6-23) mg/dl Creatinine (0.6-1.4) mg/dl Est Cr Clr Drug Dosing ml/min Est GFR ( Amer) ml/min Est GFR (Non-Af Amer) ml/min BUN/Creatinine Ratio (10-20) Glucose (70-99(Fasting)) mg/dl POC Glucose 245 H 226 H 114 H (70-99) mg/dl Lactate (0.4-2.0) mmol/L Calcium (8.6-10.3) mg/dl Magnesium (1.7-2.4) mg/dl Total Bilirubin (0.2-1.0) mg/dl AST (13-39) U/L ALT (7-52) U/L Alkaline Phosphatase (34-104) U/L Total Protein (6.0-8.3) gm/dl Albumin (3.4-5.0) gm/dl Globulin (2.5-4.0) gm/dl Albumin/Globulin Ratio (0.9-2) Urine Color Urine Appearance (Clear) Urine pH (4.5-7.5) Ur Specific [place] (1.000-1.030) Urine Protein (Negative) Urine Glucose (UA) (Negative) Urine Ketones (Negative) Urine Blood (Negative) Urine Nitrite (Negative) Urine Bilirubin (Negative) Urine Urobilinogen (Negative) Ur Leukocyte Esterase (Negative) Urine WBC (Auto) (0-5) /hpf Urine RBC (Auto) (0-2) /hpf U Hyaline Cast (Auto) (0-2) /lpf U Epithel Cells (Auto) (0-2) /hpf Urine Bacteria (Auto) (None Seen) 07/29/23 07/28/23 07/28/23 Range/Units 04:22 22:45 19:05 WBC 7.83 (4.8-10.8) K/ul RBC 3.08 L (4.70-6.10) M/uL Hgb 10.1 L (14.0-18.0) g/dl Hct 31.3 L (42.0-52.0) % MCV 101.6 H (80.0-100.0) fL MCH 32.8 (25.0-34.0) pg MCHC 32.3 (32.0-36.0) g/dL RDW Std Deviation 49.6 H (36.4-46.3) fL RDW Coeff of Aleja 13.3 (11.5-14.5) % Plt Count 201 (130-400) K/uL MPV 10.3 (9.4-12.4) fL Immature Gran % (Auto) % Neut % (Auto) % Lymph % (Auto) % [place] % (Auto) % Eos % (Auto) % Baso % (Auto) % Neut # (Auto) (1.40-6.50) K/uL Lymph # (Auto) (1.20-3.40) K/uL [place] # (Auto) (0.11-0.59) K/uL Eos # (Auto) (0.00-0.50) K/uL Baso # (Auto) (0.00-0.20) K/uL Immature Gran # (Auto) (0.01-0.20) K/uL Sodium 138 (136-145) mmol/L Potassium 4.3 4.7 D (3.5-5.1) mmol/L Chloride 105 (98-107) mmol/L Carbon Dioxide 27 (21-32) mmol/L Anion Gap 6 (3-11) BUN 31 H (6-23) mg/dl Creatinine 1.27 (0.6-1.4) mg/dl Est Cr Clr Drug Dosing 38.9 ml/min Est GFR ( Amer) 58.1 ml/min Est GFR (Non-Af Amer) 50.1 ml/min BUN/Creatinine Ratio 24.4 H (10-20) Glucose 180 H (70-99(Fasting)) mg/dl POC Glucose 297 H (70-99) mg/dl Lactate (0.4-2.0) mmol/L Calcium 8.7 (8.6-10.3) mg/dl Magnesium 1.6 L (1.7-2.4) mg/dl Total Bilirubin (0.2-1.0) mg/dl AST (13-39) U/L ALT (7-52) U/L Alkaline Phosphatase (34-104) U/L Total Protein (6.0-8.3) gm/dl Albumin (3.4-5.0) gm/dl Globulin (2.5-4.0) gm/dl Albumin/Globulin Ratio (0.9-2) Urine Color Urine Appearance (Clear) Urine pH (4.5-7.5) Ur Specific [place] (1.000-1.030) Urine Protein (Negative) Urine Glucose (UA) (Negative) Urine Ketones (Negative) Urine Blood (Negative) Urine Nitrite (Negative) Urine Bilirubin (Negative) Urine Urobilinogen (Negative) Ur Leukocyte Esterase (Negative) Urine WBC (Auto) (0-5) /hpf Urine RBC (Auto) (0-2) /hpf U Hyaline Cast (Auto) (0-2) /lpf U Epithel Cells (Auto) (0-2) /hpf Urine Bacteria (Auto) (None Seen) 07/28/23 07/28/23 Range/Units 18:28 15:37 WBC 9.23 (4.8-10.8) K/ul RBC 3.25 L (4.70-6.10) M/uL Hgb 10.8 L (14.0-18.0) g/dl Hct 33.3 L (42.0-52.0) % MCV 102.5 H (80.0-100.0) fL MCH 33.2 (25.0-34.0) pg MCHC 32.4 (32.0-36.0) g/dL RDW Std Deviation 51.2 H (36.4-46.3) fL RDW Coeff of Aleja 13.5 (11.5-14.5) % Plt Count 235 (130-400) K/uL MPV 10.4 (9.4-12.4) fL Immature Gran % (Auto) 1.3 % Neut % (Auto) 78.7 % Lymph % (Auto) 12.2 % [place] % (Auto) 7.2 % Eos % (Auto) 0.3 % Baso % (Auto) 0.3 % Neut # (Auto) 7.26 H (1.40-6.50) K/uL Lymph # (Auto) 1.13 L (1.20-3.40) K/uL [place] # (Auto) 0.66 H (0.11-0.59) K/uL Eos # (Auto) 0.03 (0.00-0.50) K/uL Baso # (Auto) 0.03 (0.00-0.20) K/uL Immature Gran # (Auto) 0.12 (0.01-0.20) K/uL Sodium 136 (136-145) mmol/L Potassium 6.0 H (3.5-5.1) mmol/L Chloride 104 (98-107) mmol/L Carbon Dioxide 28 (21-32) mmol/L Anion Gap 4 (3-11) BUN 39 H (6-23) mg/dl Creatinine 1.47 H (0.6-1.4) mg/dl Est Cr Clr Drug Dosing 33.6 ml/min Est GFR ( Amer) 48.7 ml/min Est GFR (Non-Af Amer) 42.0 ml/min BUN/Creatinine Ratio 26.5 H (10-20) Glucose 281 H (70-99(Fasting)) mg/dl POC Glucose (70-99) mg/dl Lactate 1.4 (0.4-2.0) mmol/L Calcium 9.1 (8.6-10.3) mg/dl Magnesium 1.5 L (1.7-2.4) mg/dl Total Bilirubin 0.5 (0.2-1.0) mg/dl AST 24 (13-39) U/L ALT 15 (7-52) U/L Alkaline Phosphatase 55 (34-104) U/L Total Protein 6.0 (6.0-8.3) gm/dl Albumin 3.7 (3.4-5.0) gm/dl Globulin 2.3 L (2.5-4.0) gm/dl Albumin/Globulin Ratio 1.6 (0.9-2) Urine Color Yellow Urine Appearance Clear (Clear) Urine pH 5.5 (4.5-7.5) Ur Specific [place] 1.017 (1.000-1.030) Urine Protein Trace H (Negative) Urine Glucose (UA) 2+ H (Negative) Urine Ketones Negative (Negative) Urine Blood Negative (Negative) Urine Nitrite Negative (Negative) Urine Bilirubin Negative (Negative) Urine Urobilinogen Negative (Negative) Ur Leukocyte Esterase Negative (Negative) Urine WBC (Auto) 0-5 (0-5) /hpf Urine RBC (Auto) 0-2 (0-2) /hpf U Hyaline Cast (Auto) 0-2 (0-2) /lpf U Epithel Cells (Auto) 0-2 (0-2) /hpf Urine Bacteria (Auto) None Seen (None Seen) Diagnostic Findings Foot X-Ray 07/28/23 14:49 XR foot RT min 3V routine CLINICAL HISTORY: Pain, infection COMPARISON: Right foot radiographs June 03, 2023. MRI of the right foot [facility] 2023. FINDINGS: Alignment of the right foot is anatomic. Tarsometatarsal joints are intact. Chronic erosion of the distal aspects of the fourth and fifth proximal phalanges is unchanged. No acute bony erosion is identified. The appearance of the right foot is unchanged. There is moderate vascular calcification. Calcific density along the dorsal right first toe is chronic. No acute fractures. There may be a small wound along the lateral aspect of the fifth metatarsophalangeal joint. IMPRESSION: No acute fractures within the right foot. No evidence for acute osteomyelitis. ACT 112: Negative or not required by law. Electronically signed by: Al Julian M.D. 07/28/2023 4:35 PM Venous Doppler Study 07/28/23 20:47 Exam(s): US VENOUS RIGHT LOWER EXTREMITY EXAM: US Duplex Right Lower Extremity Veins CLINICAL HISTORY: Reason for exam: RLE swelling/pain. TECHNIQUE: Real-time duplex ultrasound scan of the right lower extremity veins integrating B-mode two-dimensional vascular structure, Doppler spectral analysis, color flow Doppler imaging and compression. COMPARISON: No relevant prior studies available. FINDINGS: Deep veins: Unremarkable. No DVT in the visualized common femoral, femoral, proximal deep femoral or popliteal veins. The veins demonstrate normal color flow, are normally compressible, with normal phasic flow and/or augmentation response. Superficial veins: Unremarkable. No thrombus in the visualized great saphenous vein. Soft tissues: No acute findings. No popliteal cyst. IMPRESSION: Normal right lower extremity duplex venous ultrasound. Electronically signed by: Kang Whitlock MD 07/28/23 23:09 PM PG Care Time/CCT Total # of Minutes Spent Total Time Spent with Patient: Total time spent is greater than 50% in coordination of care (as documented) at patient's floor/unit and/or counseling patient: Coding Level of Care Code 44370 SUB INP/OBS CARE 3/50MIN Diagnoses Diabetic ulcer of right foot associated with type 2 diabetes mellitus, unspecified part of foot, unspecified ulcer stage E11.621; L97.519 Insulin dependent type 2 diabetes mellitus E11.9; Z79.4 Acute hyperkalemia E87.5 Heart block AV second degree I44.1 Peripheral arterial disease I73.9 Wound of right foot S91.301A Hypomagnesemia E83.42 History of prostate cancer Z85.46 Dyslipidemia E78.5 Polymyalgia rheumatica M35.3
[2023-07-29] MEDS ORDERED: HYDROXYCHLOROQUINE SULFATE 200 MG TAB PO SCH (09:00)
[2023-07-29] MEDS: FAMOTIDINE 20 MG TAB PO SCH (09:07)
[2023-07-29] MEDS: ASPIRIN 81 MG ECTAB PO SCH (09:07)
[2023-07-29] MEDS: carvediloL 6.25 MG TAB PO SCH (09:07)
[2023-07-29] MEDS: amLODIPine BESYLATE 5 MG TAB PO SCH (09:07)
[2023-07-29] MEDS: FINASTERIDE 5 MG TAB PO SCH (09:08)
[2023-07-29] MEDS: predniSONE 5 MG TAB PO SCH (09:08)
[2023-07-29] MEDS: predniSONE 2.5 MG TAB PO SCH (09:08)
[2023-07-29] MEDS: MAGNESIUM SULFATE / D5W 1 GM/100 ML BAG IV ONE (09:15)
--- NOTE | 2023-07-29 10:20 | Orthopedic Consultation ---
Date of Consultation July 29, 2023 Assessment & Plan (1) Diabetic ulcer of right foot: Dr. David is aware of consult, he reviewed the chart and directed me to see while he is currently in the operating room. At this time I discussed with patient findings. He has multiple areas that are necrotic and has a history of severe peripheral arterial disease. He recently had a failed endovascular intervention on July 17 and is seeking a second opinion on August 08. Case will be discussed with Dr. David. At this time continue patient on IV antibiotics. May consider vascular consult in house and or wound clinic for possible bedside debridement. I would recommend avoiding pressure over bilateral heels. He may weight-bear as tolerated with assistive device as appropriate. Continue with pain control. Patient is requesting once plan is discussed with Dr. David for his daughter Sangita Rooney to be contacted at the number at [phone]. Patient verbalized understanding and is in agreement with plan at this time. Present on Admission?: Yes Supervising Physician Co-Signing Physician Notes I, Dr. David, saw and examined the patient. I discussed the management with my PA. I reviewed my PAs note and agree with the documented findings and attest to completing the substantive portion of medical decision making and plan of care I developed. Recommend Vascular eval and treatment. Would not recommend debridement without revascularization. Continue antibiotics and wound care. Additional debridement or amputation could be preformed by Vascular surgery. Will sign off. History of Present Illness Reason for Consultation: Diabetic ulcer on right foot Requesting Physician: Pascual David MD Attending Physician: Wang Conner MD History of Present Illness Patient is a 88-year-old male who our services were asked to be consulted for diabetic ulcer of his right foot. Patient was seen bedside in ER bay C2B. Patient was sleeping upon arrival and was easily aroused. He is alert and oriented x 3 answering questions appropriately. Patient explains that he has been having wound on his foot that has been ongoing since March 2023. He states he first noticed this when he was hunting. He does have a history of being a diabetic. He also has a history of having severe peripheral artery disease. He states he was sent to the ER after his PCP, Dr. Ny had tried oral antibiotics and he was not having success with this. He explains that he had been seeing a vascular doctor, Dr. Tilley on 17 July had attempt to have it endovascular procedure that was unsuccessful. He states since that appointment he has requested to be seen for 2nd opinion by vascular provider in [place] and has an appointment set for August 08. He states he has some pain in his foot and rates 34/10. He states he has been ambulatory and walking with a cane. He states he has sensation in his foot. He has necrotic areas and scabbed areas over his foot that has been ongoing without much change. He states he had small amount of redness and swelling that prompted him to come to the ER after Dr. Triplett recommended this. He states he is very active at home and lives by himself. He has a history of a pacemaker and chronic kidney disease, history of prostate cancer. He denies any fevers, chills, night sweats, nausea or vomiting. He denies any chest pain or shortness of breath. Allergies Allergy/AdvReac Type Severity Reaction Status Date / Time pioglitazone [From Actos] Allergy Unknown Unknown Verified 07/28/23 12:58 sitagliptin [From Januvia] Allergy Unknown Unknown Verified 07/28/23 12:58 Home Medications Medication Instructions Recorded Confirmed Type finasteride 5 mg tablet (Proscar) 5 mg PO QAM 03/03/18 07/28/23 History tamsulosin 0.4 mg capsule (Flomax) 0.4 mg PO HS 03/03/18 07/28/23 History atorvastatin 40 mg tablet 40 mg PO QPM 11/23/19 07/28/23 History ferrous sulfate 325 mg (65 mg 325 mg PO DAILY #90 tabs 06/11/21 07/28/23 Rx iron) tablet magnesium chloride 64 mg 128 mg PO QAM 01/05/22 07/28/23 History (magnesium chloride) tablet,delayed release (Mag 64) denosumab 60 mg/mL subcutaneous 60 mg subcut .COMPLEX 01/14/23 07/28/23 History syringe (Prolia) hydroxychloroquine 200 mg tablet 200 mg PO QAM 01/14/23 07/28/23 History ropinirole 1 mg tablet 1 mg PO HS 01/14/23 07/28/23 History cholecalciferol (vitamin D3) 50 50 mcg PO QAM 06/03/23 07/28/23 History mcg (2,000 unit) tablet (Vitamin D3) famotidine 20 mg tablet 20 mg PO QAM 06/03/23 07/28/23 History furosemide 20 mg tablet 20 mg PO DAILY PRN Fluid Retention 06/03/23 07/28/23 History prednisone 2.5 mg tablet 2.5 mg PO QAM 06/03/23 07/28/23 History prednisone 5 mg tablet 5 mg PO QAM 06/03/23 07/28/23 History venlafaxine 75 mg capsule,extended 75 mg PO QPM 06/03/23 07/28/23 History release 24 hr aspirin 81 mg tablet,delayed 81 mg PO QAM #0 tabs 06/10/23 07/28/23 Rx release amlodipine 5 mg tablet 5 mg PO DAILY #30 tabs 06/18/23 07/28/23 Rx carvedilol 6.25 mg tablet 6.25 mg PO BIDM #60 tabs 06/18/23 07/28/23 Rx pen needle, diabetic 32 gauge x #200 ea 06/22/23 07/28/23 Rx 5/32" (BD Ultra-Fine Ramya Pen Needle) insulin aspart U-100 100 unit/mL 10 unit subcut TID 07/06/23 07/28/23 History (3 mL) subcutaneous pen (Novolog FlexPen U-100 Insulin aspart) insulin degludec 100 unit/mL (3 45 unit subcut DAILY 07/06/23 07/28/23 History mL) subcutaneous pen (Tresiba FlexTouch U-100 insulin) blood-glucose sensor (Dexcom G7 #3 ea 07/11/23 07/28/23 Rx Sensor device) cilostazol 50 mg tablet 50 mg PO BID #60 tabs 07/18/23 07/28/23 Rx oxycodone 5 mg tablet 5 mg PO Q6H PRN pain #20 tabs 07/19/23 07/28/23 Rx gabapentin 300 mg capsule 300 mg PO BID #180 caps 07/27/23 07/28/23 Rx Patient History Medical History Polymyalgia rheumatica HTN (hypertension) Postural dizziness 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, type 4 History of prostate cancer No pertinent family history Closed fracture of spinous process of thoracic vertebra Closed L3 vertebral fracture Depression GERD (gastroesophageal reflux disease) Hypertriglyceridemia BPH (benign prostatic hyperplasia) Lumbago CKD (chronic kidney disease), stage III DMII (diabetes mellitus, type 2) Hypertension Surgical History S/P cardiac pacemaker procedure History of blepharoplasty L eye History of hernia surgery History of foot surgery R 4th Toe surgery H/O neck surgery Family History Mother Colorectal cancer Coronary heart disease Diabetes Brother Diabetes Kidney disease Colorectal cancer Prostate cancer Other No pertinent family history Social History Smoking Status: Former smoker Tobacco Type: Cigarettes, Pipe and Cigars Second Hand Exposure: No; Do You Dip or Chew Tobacco: No; Hx Alcohol Use: Yes Alcohol type: beer Alcohol Intake Frequency Comment: 1-2 beers monthly Hx Substance Use: No Preferred Language: Greenlandic Communication Ability: Effective Visual Impairment: Limited Hearing Ability: Normal Data Typist Required: No Beliefs That Will Affect Care: None marital status: / Current Living Situation: Alone Current Living Situation Comment: Sister and daughter able to assist with care. current occupational status: retired Other Information That Helps Us Care for You: No Feels Safe at Home: Yes Safety Concerns: Feels Safe At This Time Childhood Exposure to Second-Hand Smoke: Yes Diet: diabetic and low carbohydrate caffeine: Yes Dental Care, Regularly: Yes Seatbelt Use: always Assistive Devices: Cane Review of Systems Review of Systems: Please refer to HPI Physical Exam Physical Exam: General patient is alert and oriented x 3 no acute distress pleasant and conversive answering questions appropriately in good spirits Integumentary: Attention was focused on the right foot and compared to left foot. On the right great toe there is an area that is necrotic that is dime size over the top plantar aspect and on the plantar aspect of the proximal great toe there is a larger area that is necrotic as well as the plantar tuft. On the plantar aspect of the right foot there is a scabbed area with a border of necrotic tissue over the first MTP. The second proximal dorsal aspect of the toe has a scabbed area that appears necrotic. The third distal toe on the right foot on the tuft area has necrotic/scabbed area. Lateral right foot ecchymosis with swelling. Distal lateral foot along the fifth MTP. There is an area that is slightly erythematous over the dorsal aspect of the right foot per patient swelling has subsided. Patient is able to move toes with minimal complaints of pain he is able to move ankle freely in all planes and equal to the left without pain. I do not appreciate a dorsal pedis pulse or posterior tibialis pulse on patient'. The left heel has a small necrotic area. Patient has sensation to light touch over dorsal and plantar aspect of bilateral feet. Results & Data Vital Signs (Past 12 Hours) Vital Signs Temp Pulse Pulse Resp BP BP Pulse Ox 07/29/23 08:10 62 07/29/23 07:00 83 16 147/82 H 98 07/29/23 06:00 65 16 156/76 H 93 07/29/23 05:01 61 07/29/23 04:00 60 14 149/81 H 94 07/29/23 02:00 65 15 145/74 H 93 07/29/23 01:30 99 H 11 L 07/29/23 01:20 69 13 07/29/23 01:10 67 21 07/29/23 01:00 65 15 07/29/23 00:50 65 15 07/29/23 00:42 62 13 07/29/23 00:42 180/83 H 07/29/23 00:40 65 14 07/29/23 00:30 66 14 94 07/29/23 00:30 122/80 07/29/23 00:20 68 19 94 07/29/23 00:15 80 14 94 07/29/23 00:15 146/82 H 07/29/23 00:10 70 15 94 07/29/23 00:00 156/81 H 07/29/23 00:00 66 18 96 07/28/23 23:59 07/28/23 23:59 36.8 C 68 18 156/81 H 96 07/28/23 23:50 70 14 96 07/28/23 23:45 138/79 07/28/23 23:45 72 17 94 07/28/23 23:40 71 20 95 07/28/23 23:40 36.8 C 66 15 154/82 H 97 07/28/23 23:30 72 18 154/82 H 95 07/28/23 23:15 71 22 155/77 H 93 07/28/23 23:00 157/98 H 07/28/23 23:00 77 24 94 04/18/24 22:59 76 24 96 Pulse Ox O2 Del Method O2 Del Method 07/29/23 08:10 07/29/23 07:00 Room Air 07/29/23 06:00 Room Air 07/29/23 05:01 07/29/23 04:00 Room Air 07/29/23 02:00 Room Air 07/29/23 01:30 07/29/23 01:20 07/29/23 01:10 07/29/23 01:00 07/29/23 00:50 07/29/23 00:42 07/29/23 00:42 07/29/23 00:40 07/29/23 00:30 07/29/23 00:30 07/29/23 00:20 07/29/23 00:15 07/29/23 00:15 07/29/23 00:10 07/29/23 00:00 07/29/23 00:00 07/28/23 23:59 94 Room Air 07/28/23 23:59 Room Air 07/28/23 23:50 07/28/23 23:45 07/28/23 23:45 07/28/23 23:40 07/28/23 23:40 Room Air 07/28/23 23:30 Room Air 07/28/23 23:15 Room Air 07/28/23 23:00 07/28/23 23:00 07/28/23 22:59 Laboratory Results 07/29/23 07/29/23 07/28/23 Range/Units 07:52 04: 22:45 WBC 7.83 (4.8-10.8) K/ul RBC 3.08 L (4.70-6.10) M/uL Hgb 10.1 L (14.0-18.0) g/dl Hct 31.3 L (42.0-52.0) % MCV 101.6 H (80.0-100.0) fL MCH 32.8 (25.0-34.0) pg MCHC 32.3 (32.0-36.0) g/dL RDW Std Deviation 49.6 H (36.4-46.3) fL RDW Coeff of Aleja 13.3 (11.5-14.5) % Plt Count 201 (130-400) K/uL MPV 10.3 (9.4-12.4) fL Immature Gran % (Auto) % Neut % (Auto) % Lymph % (Auto) % [place] % (Auto) % Eos % (Auto) % Baso % (Auto) % Neut # (Auto) (1.40-6.50) K/uL Lymph # (Auto) (1.20-3.40) K/uL [place] # (Auto) (0.11-0.59) K/uL Eos # (Auto) (0.00-0.50) K/uL Baso # (Auto) (0.00-0.20) K/uL Immature Gran # (Auto) (0.01-0.20) K/uL Sodium 138 (136-145) mmol/L Potassium 4.3 (3.5-5.1) mmol/L Chloride 105 (98-107) mmol/L Carbon Dioxide 27 (21-32) mmol/L Anion Gap 6 (3-11) BUN 31 H (6-23) mg/dl Creatinine 1.27 (0.6-1.4) mg/dl Est Cr Clr Drug Dosing 38.9 ml/min Est GFR ( Amer) 58.1 ml/min Est GFR (Non-Af Amer) 50.1 ml/min BUN/Creatinine Ratio 24.4 H (10-20) Glucose 180 H (70-99(Fasting)) mg/dl POC Glucose 114 H 297 H (70-99) mg/dl Lactate (0.4-2.0) mmol/L Calcium 8.7 (8.6-10.3) mg/dl Magnesium 1.6 L (1.7-2.4) mg/dl Total Bilirubin (0.2-1.0) mg/dl AST (13-39) U/L ALT (7-52) U/L Alkaline Phosphatase (34-104) U/L Total Protein (6.0-8.3) gm/dl Albumin (3.4-5.0) gm/dl Globulin (2.5-4.0) gm/dl Albumin/Globulin Ratio (0.9-2) Urine Color Urine Appearance (Clear) Urine pH (4.5-7.5) Ur Specific [place] (1.000-1.030) Urine Protein (Negative) Urine Glucose (UA) (Negative) Urine Ketones (Negative) Urine Blood (Negative) Urine Nitrite (Negative) Urine Bilirubin (Negative) Urine Urobilinogen (Negative) Ur Leukocyte Esterase (Negative) Urine WBC (Auto) (0-5) /hpf Urine RBC (Auto) (0-2) /hpf U Hyaline Cast (Auto) (0-2) /lpf U Epithel Cells (Auto) (0-2) /hpf Urine Bacteria (Auto) (None Seen) 07/28/23 07/28/23 07/28/23 Range/Units 19:05 18:28 15:37 WBC 9.23 (4.8-10.8) K/ul RBC 3.25 L (4.70-6.10) M/uL Hgb 10.8 L (14.0-18.0) g/dl Hct 33.3 L (42.0-52.0) % MCV 102.5 H (80.0-100.0) fL MCH 33.2 (25.0-34.0) pg MCHC 32.4 (32.0-36.0) g/dL RDW Std Deviation 51.2 H (36.4-46.3) fL RDW Coeff of Aleja 13.5 (11.5-14.5) % Plt Count 235 (130-400) K/uL MPV 10.4 (9.4-12.4) fL Immature Gran % (Auto) 1.3 % Neut % (Auto) 78.7 % Lymph % (Auto) 12.2 % [place] % (Auto) 7.2 % Eos % (Auto) 0.3 % Baso % (Auto) 0.3 % Neut # (Auto) 7.26 H (1.40-6.50) K/uL Lymph # (Auto) 1.13 L (1.20-3.40) K/uL [place] # (Auto) 0.66 H (0.11-0.59) K/uL Eos # (Auto) 0.03 (0.00-0.50) K/uL Baso # (Auto) 0.03 (0.00-0.20) K/uL Immature Gran # (Auto) 0.12 (0.01-0.20) K/uL Sodium 136 (136-145) mmol/L Potassium 4.7 D 6.0 H (3.5-5.1) mmol/L Chloride 104 (98-107) mmol/L Carbon Dioxide 28 (21-32) mmol/L Anion Gap 4 (3-11) BUN 39 H (6-23) mg/dl Creatinine 1.47 H (0.6-1.4) mg/dl Est Cr Clr Drug Dosing 33.6 ml/min Est GFR ( Amer) 48.7 ml/min Est GFR (Non-Af Amer) 42.0 ml/min BUN/Creatinine Ratio 26.5 H (10-20) Glucose 281 H (70-99(Fasting)) mg/dl POC Glucose (70-99) mg/dl Lactate 1.4 (0.4-2.0) mmol/L Calcium 9.1 (8.6-10.3) mg/dl Magnesium 1.5 L (1.7-2.4) mg/dl Total Bilirubin 0.5 (0.2-1.0) mg/dl AST 24 (13-39) U/L ALT 15 (7-52) U/L Alkaline Phosphatase 55 (34-104) U/L Total Protein 6.0 (6.0-8.3) gm/dl Albumin 3.7 (3.4-5.0) gm/dl Globulin 2.3 L (2.5-4.0) gm/dl Albumin/Globulin Ratio 1.6 (0.9-2) Urine Color Yellow Urine Appearance Clear (Clear) Urine pH 5.5 (4.5-7.5) Ur Specific [place] 1.017 (1.000-1.030) Urine Protein Trace H (Negative) Urine Glucose (UA) 2+ H (Negative) Urine Ketones Negative (Negative) Urine Blood Negative (Negative) Urine Nitrite Negative (Negative) Urine Bilirubin Negative (Negative) Urine Urobilinogen Negative (Negative) Ur Leukocyte Esterase Negative (Negative) Urine WBC (Auto) 0-5 (0-5) /hpf Urine RBC (Auto) 0-2 (0-2) /hpf U Hyaline Cast (Auto) 0-2 (0-2) /lpf U Epithel Cells (Auto) 0-2 (0-2) /hpf Urine Bacteria (Auto) None Seen (None Seen) Diagnostic Findings Foot X-Ray 07/28/23 14:49 XR foot RT min 3V routine CLINICAL HISTORY: Pain, infection COMPARISON: Right foot radiographs June 03, 2023. MRI of the right foot June 04, 2023. FINDINGS: Alignment of the right foot is anatomic. Tarsometatarsal joints are intact. Chronic erosion of the distal aspects of the fourth and fifth proximal phalanges is unchanged. No acute bony erosion is identified. The appearance of the right foot is unchanged. There is moderate vascular calcification. Calcific density along the dorsal right first toe is chronic. No acute fractures. There may be a small wound along the lateral aspect of the fifth metatarsophalangeal joint. IMPRESSION: No acute fractures within the right foot. No evidence for acute o steomyelitis. ACT 112: Negative or not required by law. Electronically signed by: Al Julian M.D. 07/28/2023 4:35 PM Venous Doppler Study 07/28/23 20:47 Exam(s): US VENOUS RIGHT LOWER EXTREMITY EXAM: US Duplex Right Lower Extremity Veins CLINICAL HISTORY: Reason for exam: RLE swelling/pain. TECHNIQUE: Real-time duplex ultrasound scan of the right lower extremity veins integrating B-mode two-dimensional vascular structure, Doppler spectral analysis, color flow Doppler imaging and compression. COMPARISON: No relevant prior studies available. FINDINGS: Deep veins: Unremarkable. No DVT in the visualized common femoral, femoral, proximal deep femoral or popliteal veins. The veins demonstrate normal color flow, are normally compressible, with normal phasic flow and/or augmentation response. Superficial veins: Unremarkable. No thrombus in the visualized great saphenous vein. Soft tissues: No acute findings. No popliteal cyst. IMPRESSION: Normal right lower extremity duplex venous ultrasound. Electronically signed by: Kang Whitlock MD 07/28/23 23:09 PM
--- NOTE | 2023-07-29 11:25 | Billing Data ---
Date of Service July 28, 2023 Coding Level of Care Code 58656 INT INP/OBS CARE
[2023-07-29] MEDS ORDERED: LANTUS PER UNIT CHARGE SQ ONE (11:45)
--- NOTE | 2023-07-29 12:00 | Pharmacy Report ---
Pharmacy Glycemic Short Note 2 - Date of Service July 29, 2023 - Glycemic Short BSG Results (Last 24 hours): 07/28/23 07/28/23 07/29/23 15:37 22:45 04:22 Glucose 281 H 180 H POC Glucose 297 H 07/29/23 07/29/23 07:52 11:16 Glucose POC Glucose 114 H 226 H OUTPATIENT ANTIDIABETIC REGIMEN: * Degludec 45 units SC daily * Novolog 10 units TID with meals * pt reports recent increase to 12 units TID, however experiencing hypoglyc emia with this dose increase * A1c = 8.6 % (06/28/23) ASSESSMENT: * Wang is a T2DM sent to [facility] by PCP for worsening right lower extremity wound. * Per H&P; PMHx of insulin dependent T2DM, HTN, HLD, CKD III, PMR on chronic prednisone and hydroxychloroquine, BPH, GERD, chronic bilateral lower extremity wounds, recent pacemaker placement, and history of prostate cancer. * Wang was started on Lantus 15 units SC BID on admission. Fasting BSG of 114 mg/dL. * Lunch BSG jumped to 226 mg/dL. Patient was not given AM Lantus or Novolog this morning. RN reports that patient ate very little for breakfast and he advised RN that he generally holds his insulin when he is not eating much. I suspect patient will still require basal insulin in this scenario, however dose reduction seems reasonable. Will adjust Lantus order to a dose per scale to allow for smaller dose of 10 units to be given for BSG < 120 mg/dL. Advised RN to give held AM Lantus dose with lunch. PLAN FOR INPATIENT GLYCEMIC CONTROL: * Basal insulin * Lantus 10-15 units SQ BID (10 units for BSG < 120 mg/dL) * Bolus insulin * NovoLog per scale ACHS or Q6hrs while NPO * Goal Range: Low 110 mg/dL - High 140 mg/dL * Correction Factor: 20 mg/dL/unit * Nutritional / Prandial insulin per carb ratio of 1 unit per 7 grams CHO consumed
--- NOTE | 2023-07-29 13:35 | Discharge Summary ---
Date of Service July 22, 2023 Admission HPI Per Admitting Provider Wang Cunningham is an 88 y/o male with a PMHx of insulin dependent T2DM, HTN, HLD, CKD III, PMR on chronic prednisone and hydroxychloroquine, BPH, GERD, chronic bilateral lower extremity wounds, recent pacemaker placement, and history of prostate cancer. He was sent to [facility] by PCP for worsening right lower extremity wound. Has been on oral antibiotics for about a week. Patient follows with wound outpatient weekly and had been doing well. Worsening erythema, swelling, pain, and purulent drainage the last 2-3 days. No fevers or chills. No CP or SOB. No abdominal pain. No change in bowel habits. Has been urinating more frequently. Has been hospitalized previously for bouts of cellulitis. Patient has appointment in [place] with a vascular surgeon for a second opinion 08/08 as recent endovascular procedure with Dr. Tilley was unable to provide revascularization. If unable to obtain revascularization patient may need amputation. Admission Exam Per Admitting Provider Gen: well appearing male patient in NAD HEENT: AT NC MMM Resp: CTAB no wheezing no increased work of breathing CV: RRR no m/r/g 2+ radial pulses, 1+ left DP, unable to palpate right DP, clinically well perfused, BLE right significantly worse than left Abd: soft, non-tender, non-distended, +BS Skin: wound present involving the dorsum of the right foot and the first 3 toes with erythema/swelling, questionable purulent discharge, and eschar formation, there is dark discoloration at the base of the big toe Neuro: alert and oriented Psych: appropriate mood and affect Principal Diagnosis Diabetic fight foot infection, severe PAD, gangrene Discharge Exam General: 88yo male sitting in bed, family at bedside, NAD head atraumatic, normocephalic, mmm, trachea midline Resp: even/unlabored, no w/c/r, slightly diminished in the bases, on room air CV: RRR, no significant m/r/g, no pitting edema (does have some edema to his R foot) GI: +BS, soft/NT no cantrell MSK/Neuro: RLE foot w/ worsening eschar and reddened appearance, +tenderness, +decreased/absent pulses, +rubor, +abnormal cap refill eschar/gangrenous/necrotic appearance plantar aspect great toe, additional ulceration to dorsum of foot w/ scab also has small necrotic area to his heel on the right (smaller x 2 on the left heel), as well as along the lateral 5th MTP and distal 3rd toe does have small necrotic area to distal L great toe as well areas have since been painted with Betadine by wound nursing pedal/dp pulses absent toes mobile, ankle mobile Psych: AOx3, cooperative and pleasant Discharge Data Allergies Allergy/AdvReac Type Severity Reaction Status Date / Time pioglitazone [From Actos] Allergy Unknown Unknown Verified 07/28/23 12:58 sitagliptin [From Januvia] Allergy Unknown Unknown Verified 07/28/23 12:58 Consultations 07/28/23 17:01 ED Decision to Admit Stat 07/28/23 19:43 Consult Orthopedic Surgery Routine 07/28/23 21:17 Consult Nephrology Routine 07/29/23 11:25 Consult Vascular Surgery Routine Ordered Studies Foot X-Ray 07/28/23 14:49 XR foot RT min 3V routine CLINICAL HISTORY: Pain, infection COMPARISON: Right foot radiographs June 03, 2023. MRI of the right foot June 04, 2023. FINDINGS: Alignment of the right foot is anatomic. Tarsometatarsal joints are intact. Chronic erosion of the distal aspects of the fourth and fifth proximal phalanges is unchanged. No acute bony erosion is identified. The appearance of the right foot is unchanged. There is moderate vascular calcification. Calcific density along the dorsal right first toe is chronic. No acute fractures. There may be a small wound along the lateral aspect of the fifth metatarsophalangeal joint. IMPRESSION: No acute fractures within the right foot. No evidence for acute osteomyelitis. ACT 112: Negative or not required by law. Electronically signed by: Al Julian M.D. 07/28/2023 4:35 PM Venous Doppler Study 07/28/23 20:47 Exam(s): US VENOUS RIGHT LOWER EXTREMITY EXAM: US Duplex Right Lower Extremity Veins CLINICAL HISTORY: Reason for exam: RLE swelling/pain. TECHNIQUE: Real-time duplex ultrasound scan of the right lower extremity veins integrating B-mode two-dimensional vascular structure, Doppler spectral analysis, color flow Doppler imaging and compression. COMPARISON: No relevant prior studies available. FINDINGS: Deep veins: Unremarkable. No DVT in the visualized common femoral, femoral, proximal deep femoral or popliteal veins. The veins demonstrate normal color flow, are normally compressible, with normal phasic flow and/or augmentation response. Superficial veins: Unremarkable. No thrombus in the visualized great saphenous vein. Soft tissues: No acute findings. No popliteal cyst. IMPRESSION: Normal right lower extremity duplex venous ultrasound. Electronically signed by: Kang Whitlock MD 07/28/23 23:09 PM Hospital Course (1) Diabetic ulcer of right foot: Worsening wound. Failed outpatient management with oral abx. Difficulty with healing as severe PAD. Started on Zosyn and dapto in the ED. Will continue with MRSA/pseudomonas coverage for now. Patient with pain and swelling of the right calf. Duplex ordered. Blood and wound cultures pending Ortho consult placed for ?debridement MRSA/pseudomonas coverage start date: 07/28/2023 Prior attempts at endovascular intervention with Dr Tilley on 07/17: Summary: * 1. Right lower extremity --widely patent iliacs, SFA/popliteal arteries. Severe infrapopliteal artery disease with two-vessel runoff to the ankle. KARINA occluded at the ankle and gives off collaterals to mid foot. 100% mid peroneal occlusion. Diffuse heavily calcified severe [employer]IST disease including 99% mid and 95+% distal disease into the foot. * 2. Left lower extremity --diffuse calcified SFA up to 40%. 100% mid [employer]IST occlusion, 100% proximal peroneal, heavily calcified patent KARINA. * 3. Unsuccessful attempted endovascular intervention to right [employer]IST disease due to inability to cross heavily calcified subocclusive mid segment disease. Recommendations: * Unfortunately patient has diffuse, heavily calcified tibial and pedal vessel disease. Unfortunately unable to cross right [employer]IST disease and no real other revascularization options. * Recommend pain control, and trial cilostazol for ischemic rest pain Patient had f/u for [facility] 08/08 per daughter, attempting to call to see if able to consider in transfer given ischemic rest pain/gangrenous appearance possible attempts at re-intervention for tibial artery per discussion w/ Dr Tilley this morning. Continued on Dapto/Zosyn Blood cultures NGTD WBC not elevated on admission but L shift. Afebrile but increased pain/swelling and pain at rest Surface cx staph species, prior staph aureus Xray without acute fracture or evidence for osteomyelitis Doppler negative for evidence for DVT Orthopedics consulted, ?debridement, ?amputation. Patient does have f/u tertiary for 2nd opinion as was unable to have successful endovascular intervention w/ Dr Tilley earlier this month Placed plaquenil on hold in setting of infection Seen on exam, worsening eschar/gangrenous appearance and rest pain/ischemic rest pain, prompting call to [facility] for discussion Spoke with Dr Tilley, agreed to accept in transfer. Did discuss with patient that this may not prevent need for amputation in future but hopeful able to improve blood flow/healing. Will need ongoing wound care W,BC remaining stable, afebrile. Continued abx, cellulitis appearance improved slightly but continued gangrenous appearance/needing vascular intervention and our medics to take this morning to [facility] [place] room 67 (2) Insulin dependent type 2 diabetes mellitus: Home regimen 45 units SQ basal. 12 units with meals TID. Meal time dosing was recently increased from 10 units to 12 units TID. Has been having hypoglycemic episodes since this switch. Follows with endo. Has Dexcom monitor in place. Decreased to 15 units BID basal and SSI. Pharmacy glycemic consult placed. BSG A[facility] Pharmacy glycemic consult while inpatient (3) Acute hyperkalemia: K 6 on admit. Patient given insulin 10 units and calcium gluconate. Recheck K 4.7. Carries diagnosis of RTA Type IV. Was previously on Lokelma. Unclear why this was stopped. Lokemla restarted/continued, nephrology consulted. 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 Monitor on tele. (5) Peripheral arterial disease: continues on pletal prior failure endovascular intervention, prior seen by Felipe earlier in the year w/o intervention. Rec'd 2nd opinion [facility] and had appt 08/08 as above but w/ increased eschar/gangrenous appearance needing more urgent intervention see above (6) Wound of right foot: See above (7) Hypomagnesemia: On chronic mag at home. Will monitor and replete as indicated. (8) History of prostate cancer: Continue home meds (9) Dyslipidemia: Hold statin therapy while on daptomycin (10) Polymyalgia rheumatica: Continue home prednisone 5mg/2.5mg, oxy home hydroxychloroquine placed on hold in setting infection/above Plan DVT proph: lovenox SQ Tx [facility] [place] room 67 when medics arrived updated patient/family at bedside prior to discharge Total Time Total Time Spent Total Time Spent (In Minutes): 60 Discharge Plan Discharge Items Patient Disposition: Transfer Acute Care Hospital Reason For Visit: CELLULITIS Discharge Diagnosis: Nonhealing ulcer L foot, gangrene, severe PAD Activity: As commented below Non-emergency contact: Primary Care Provider and Surgeon Call non-emergency contact if: you have any medication questions Follow-up/Referrals: Garrison Triplett, [Primary Care Provider] - Diet: Carb Consistent or DM2 and Heart Healthy Addtl Attending Provider Instructions: You have been hospitalized for ongoing worsening wound to your foot which is likely due to poor blood flow. It did also appear to have a surrounding cellulitis and you have been placed on antibiotics and arrangements are being made for transfer for hopeful vascular intervention to help improve blood flow. You will need ongoing wound care follow up at discharge and hopefully can avoid need for amputation however that may need to be considered pending repeat evaluation and attempts to restore blood flow. Please take medications as prescribed and follow up with your primary care prov ider at discharge from [facility]. It has been a pleasure being a part of the medical team providing for you and I wish you the best! Pending Studies at Discharge: Yes Studies:: blood cultures -- no growth to date foot culture- staph species on preliminary Stand-Alone Forms: My [facility] Skilled Items Patient informed of condition?: Yes DNR: No Discharge Level of Care: Other Communicable Disease: No Discharge Prognosis: Stable Lines: Peripheral IV Urinary Catheter: No Medications and DC Order Prescriptions: Continued insulin aspart U-100 [Novolog FlexPen U-100 Insulin] 100 unit/mL (3 mL) insulin pen 10 unit subcut TID Rx Instructions: Inject 10 units into the abdomen 10-15 minutes prior to meals. Tresiba FlexTouch U-100 100 unit/mL (3 mL) insulin pen 45 unit subcut DAILY ferrous sulfate 325 mg (65 mg iron) tablet 325 mg PO DAILY Qty: 90 3RF (DME) pen needle, diabetic [BD Ultra-Fine Ramya Pen Needle] 32 gauge x 5/32" needle See Rx Instructions .Route Qty: 200 11RF Rx Instructions: Use 4 per day oxycodone 5 mg tablet 5 mg PO Q6H PRN (Reason: pain) Qty: 20 0RF gabapentin 300 mg capsule 300 mg PO BID Qty: 180 2RF atorvastatin 40 mg tablet 40 mg PO QPM hydroxychloroquine 200 mg tablet 200 mg PO QAM ropinirole 1 mg tablet 1 mg PO HS Prolia 60 mg/mL syringe 60 mg subcut .COMPLEX Rx Instructions: 60 mg subcutaneously Q6 MONTHS; (DME) Dexcom G7 Sensor Device See Rx Instructions .Route Qty: 3 3RF Rx Instructions: continuous glucose monitoring, change every 10 days Mag 64 64 mg tablet,delayed release (DR/EC) 128 mg PO QAM tamsulosin [Flomax] 0.4 mg capsule 0.4 mg PO HS finasteride [Proscar] 5 mg tablet 5 mg PO QAM venlafaxine 75 mg capsule,extended release 24hr 75 mg PO QPM famotidine 20 mg tablet 20 mg PO QAM furosemide 20 mg Tablet 20 mg PO DAILY PRN (Reason: Fluid Retention) cholecalciferol (vitamin D3) [Vitamin D3] 50 mcg (2,000 unit) Tablet 50 mcg PO QAM prednisone 5 mg tablet 5 mg PO QAM Rx Instructions: Take 5mg w/ 2.5mg tablet to equal 7.5mg by mouth once every morning prednisone 2.5 mg tablet 2.5 mg PO QAM Rx Instructions: Take 2.5mg w/ 5mg tablet to equal 7.5mg by mouth once every morning aspirin 81 mg Tablet,Delayed Release (Dr/Ec) 81 mg PO QAM Qty: 0 0RF carvedilol 6.25 mg Tablet 6.25 mg PO BIDM Qty: 60 0RF amlodipine 5 mg tablet 5 mg PO DAILY Qty: 30 0RF cilostazol 50 mg tablet 50 mg PO BID Qty: 60 1RF Discharge Orders: Discharge Order (Routine); Ordered 07/29/23 Ordered By: Julia Christian Admission Data Admit Date/Time: 07/28/23 18:49 Attending Provider: Wang Conner Admit Provider: Sadaf Carpio Primary Care Provider: Garrison Triplett Other Providers: Orlando Brownlee; Leonel David; Avinash Dangelo; Emmanuel Wang; [place],[facility] Care Supervising Physician Co-Signing Physician Notes The patient was not seen by me. The chart was reviewed. Case discussed with AMELIA Morrell. Agree with assessment and plan. He will be transferred to [facility] today, July 29 Coding Level of Care Code 23608 INP/OBS DISCH >30 MIN Diagnoses Diabetic ulcer of right foot associated with type 2 diabetes mellitus, unspe cified part of foot, unspecified ulcer stage E11.621; L97.519 Insulin dependent type 2 diabetes mellitus E11.9; Z79.4 Acute hyperkalemia E87.5 Heart block AV second degree I44.1 Peripheral arterial disease I73.9 Wound of right foot S91.301A Hypomagnesemia E83.42 History of prostate cancer Z85.46 Dyslipidemia E78.5 Polymyalgia rheumatica M35.3
--- NOTE | 2023-07-29 14:31 | Nephrology Consultation ---
Date of Consultation July 29, 2023 Assessment & Plan (1) Renal tubular acidosis, type 4: (2) Acute hyperkalemia: (3) CKD (chronic kidney disease): Plan Hyperkalemia was treated with Lokelma. Kidney function stable. Electrolytes appropriate. Volume status controlled. No additional recommendations required. Outpatient follow up will be arranged once Wang is discharged from the hospital. History of Present Illness Reason for Consultation: RTA IV, hyperkalemia Requesting Physician: Wang Conner MD Attending Physician: Wang Conner MD History of Present Illness Mr. Wang Cunningham is an 88-year-old male with hypertension, OA/DDD, adult onset diabetes mellitus, BPH, and CKD class III. Serum creatinine at baseline of 1.1- 1.6 mg/dL. He has a history of electrolyte abnormalities including episodes of hyperkalemia. Clinical history suggestive of RTA IV. He has not been able to tolerate RAASi. I know Wang well from the outpatient [facility] nephrology clinic. Wang had been maintained on Lokelma in the past but not recently using the medication. Kidney function has been stable. Potassium slightly elevated on presentation to [facility] yesterday. I discussed this will the attending physician. I saw Wang in the ER with his family at the bedside this morning. He was then transferred to [facility] for evaluation of his foot. Thankfully, kidney function is stable and electrolytes improved with Lokelma overnight. Allergies Allergy/AdvReac Type Severity Reaction Status Date / Time pioglitazone [From Actos] Allergy Unknown Unknown Verified 07/28/23 12:58 sitagliptin [From Januvia] Allergy Unknown Unknown Verified 07/28/23 12:58 Home Medications Medication Instructions Recorded Confirmed Type finasteride 5 mg tablet (Proscar) 5 mg PO QAM 03/03/18 07/28/23 History tamsulosin 0.4 mg capsule (Flomax) 0.4 mg PO HS 03/03/18 07/28/23 History atorvastatin 40 mg tablet 40 mg PO QPM 11/23/19 07/28/23 History ferrous sulfate 325 mg (65 mg 325 mg PO DAILY #90 tabs 06/11/21 07/28/23 Rx iron) tablet magnesium chloride 64 mg 128 mg PO QAM 01/05/22 07/28/23 History (magnesium chloride) tablet,delayed release (Mag 64) denosumab 60 mg/mL subcutaneous 60 mg subcut .COMPLEX 01/14/23 07/28/23 History syringe (Prolia) hydroxychloroquine 200 mg tablet 200 mg PO QAM 01/14/23 07/28/23 History ropinirole 1 mg tablet 1 mg PO HS 01/14/23 07/28/23 History cholecalciferol (vitamin D3) 50 50 mcg PO QAM 06/03/23 07/28/23 History mcg (2,000 unit) tablet (Vitamin D3) famotidine 20 mg tablet 20 mg PO QAM 06/03/23 07/28/23 History furosemide 20 mg tablet 20 mg PO DAILY PRN Fluid Retention 06/03/23 07/28/23 History prednisone 2.5 mg tablet 2.5 mg PO QAM 06/03/23 07/28/23 History prednisone 5 mg tablet 5 mg PO QAM 06/03/23 07/28/23 History venlafaxine 75 mg capsule,extended 75 mg PO QPM 06/03/23 07/28/23 History release 24 hr aspirin 81 mg tablet,delayed 81 mg PO QAM #0 tabs 06/10/23 07/28/23 Rx release amlodipine 5 mg tablet 5 mg PO DAILY #30 tabs 06/18/23 07/28/23 Rx carvedilol 6.25 mg tablet 6.25 mg PO BIDM #60 tabs 06/18/23 07/28/23 Rx pen needle, diabetic 32 gauge x #200 ea 06/22/23 07/28/23 Rx 5/32" (BD Ultra-Fine Ramya Pen Needle) insulin aspart U-100 100 unit/mL 10 unit subcut TID 07/06/23 07/28/23 History (3 mL) subcutaneous pen (Novolog FlexPen U-100 Insulin aspart) insulin degludec 100 unit/mL (3 45 unit subcut DAILY 07/06/23 07/28/23 History mL) subcutaneous pen (Tresiba FlexTouch U-100 insulin) blood-glucose sensor (Ascade G7 #3 ea 07/11/23 07/28/23 Rx Sensor device) cilostazol 50 mg tablet 50 mg PO BID #60 tabs 07/18/23 07/28/23 Rx oxycodone 5 mg tablet 5 mg PO Q6H PRN pain #20 tabs 07/19/23 07/28/23 Rx gabapentin 300 mg capsule 300 mg PO BID #180 caps 07/27/23 07/28/23 Rx Patient History Medical History Polymyalgia rheumatica HTN (hypertension) Postural dizziness 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, type 4 History of prostate cancer No pertinent family history Closed fracture of spinous process of thoracic vertebra Closed L3 vertebral fracture Depression GERD (gastroesophageal reflux disease) Hypertriglyceridemia BPH (benign prostatic hyperplasia) Lumbago CKD (chronic kidney disease), stage III DMII (diabetes mellitus, type 2) Hypertension Surgical History S/P cardiac pacemaker procedure History of blepharoplasty L eye History of hernia surgery History of foot surgery R 4th Toe surgery H/O neck surgery Family History Mother Colorectal cancer Coronary heart disease Diabetes Brother Diabetes Kidney disease Colorectal cancer Prostate cancer Other No pertinent family history Social History Smoking Status: Former smoker Tobacco Type: Cigarettes, Pipe and Cigars Second Hand Exposure: No; Do You Dip or Chew Tobacco: No; Hx Alcohol Use: Yes Alcohol type: beer Alcohol Intake Frequency Comment: 1-2 beers monthly Hx Substance Use: No Preferred Language: Romanian Communication Ability: Effective Visual Impairment: Limited Hearing Ability: Normal Tacker Off Required: No Beliefs That Will Affect Care: None marital status: / Current Living Situation: Alone Current Living Situation Comment: Sister and daughter able to assist with care. current occupational status: retired Feels Safe at Home: Yes Childhood Exposure to Second-Hand Smoke: Yes Diet: diabetic and low carbohydrate caffeine: Yes Dental Care, Regularly: Yes Seatbelt Use: always Assistive Devices: Cane, Crutches, Walker and Wheelchair Review of Systems Review of Systems: All systems reviewed & are unremarkable except as noted in HPI & below Physical Exam Constitutional: well developed; no acute distress Eyes: no scleral abnormality and no corneal abnormality ENMT: Mouth: no oral mucosal abnormality and oral mucous membranes not dry Neck: normal visual inspection and trachea midline Respiratory: normal respiratory effort Auscultation: lungs clear to auscultation bilaterally Cardiovascular: Rate/Rhythm: regular rate Heart Sounds: normal S1 and normal S2 Extremities: no edema Musculoskeletal: Extremities: no cyanosis and no clubbing Skin: normal turgor; no lesions Neurologic: Motor/Sensory: no tremor and no asterixis Psychiatric: Orientation: alert and oriented x 3 Results & Data Vital Signs (Past 12 Hours) Vital Signs Temp Pulse Pulse Resp BP BP Pulse Ox 07/29/23 11:32 36.8 C 64 20 134/79 98 07/29/23 08:10 62 07/29/23 07:00 83 16 147/82 H 98 07/29/23 06:00 65 16 156/76 H 93 07/29/23 05:01 61 07/29/23 04:00 60 14 149/81 H 94 O2 Del Method 07/29/23 11:32 Room Air 07/29/23 08:10 07/29/23 07:00 Room Air 07/29/23 06:00 Room Air 07/29/23 05:01 07/29/23 04:00 Room Air Laboratory Results Laboratory Results - last 24 hr 07/28/23 07/28/23 07/28/23 15:37 18:28 19:05 WBC 9.23 RBC 3.25 L Hgb 10.8 L Hct 33.3 L MCV 102.5 H MCH 33.2 MCHC 32.4 RDW Std Deviation 51.2 H RDW Coeff of Aleja 13.5 Plt Count 235 MPV 10.4 Immature Gran % (Auto) 1.3 Neut % (Auto) 78.7 Lymph % (Auto) 12.2 [place] % (Auto) 7.2 Eos % (Auto) 0.3 Baso % (Auto) 0.3 Neut # (Auto) 7.26 H Lymph # (Auto) 1.13 L [place] # (Auto) 0.66 H Eos # (Auto) 0.03 Baso # (Auto) 0.03 Immature Gran # (Auto) 0.12 Sodium 136 Potassium 6.0 H 4.7 D Chloride 104 Carbon Dioxide 28 Anion Gap 4 BUN 39 H Creatinine 1.47 H Est Cr Clr Drug Dosing 33.6 Est GFR ( Amer) 48.7 Est GFR (Non-Af Amer) 42.0 BUN/Creatinine Ratio 26.5 H Glucose 281 H POC Glucose Lactate 1.4 Calcium 9.1 Magnesium 1.5 L Total Bilirubin 0.5 AST 24 ALT 15 Alkaline Phosphatase 55 Total Protein 6.0 Albumin 3.7 Globulin 2.3 L Albumin/Globulin Ratio 1.6 Urine Color Yellow Urine Appearance Clear Urine pH 5.5 Ur Specific [place] 1.017 Urine Protein Trace H Urine Glucose (UA) 2+ H Urine Ketones Negative Urine Blood Negative Urine Nitrite Negative Urine Bilirubin Negative Urine Urobilinogen Negative Ur Leukocyte Esterase Negative Urine WBC (Auto) 0-5 Urine RBC (Auto) 0-2 U Hyaline Cast (Auto) 0-2 U Epithel Cells (Auto) 0-2 Urine Bacteria (Auto) None Seen 07/28/23 07/29/23 07/29/23 22:45 04:22 07:52 WBC 7.83 RBC 3.08 L Hgb 10.1 L Hct 31.3 L MCV 101.6 H MCH 32.8 MCHC 32.3 RDW Std Deviation 49.6 H RDW Coeff of Aleja 13.3 Plt Count 201 MPV 10.3 Immature Gran % (Auto) Neut % (Auto) Lymph % (Auto) [place] % (Auto) Eos % (Auto) Baso % (Auto) Neut # (Auto) Lymph # (Auto) [place] # (Auto) Eos # (Auto) Baso # (Auto) Immature Gran # (Auto) Sodium 138 Potassium 4.3 Chloride 105 Carbon Dioxide 27 Anion Gap 6 BUN 31 H Creatinine 1.27 Est Cr Clr Drug Dosing 38.9 Est GFR ( Amer) 58.1 Est GFR (Non-Af Amer) 50.1 BUN/Creatinine Ratio 24.4 H Glucose 180 H POC Glucose 297 H 114 H Lactate Calcium 8.7 Magnesium 1.6 L Total Bilirubin AST ALT Alkaline Phosphatase Total Protein Albumin Globulin Albumin/Globulin Ratio Urine Color Urine Appearance Urine pH Ur Specific [place] Urine Protein Urine Glucose (UA) Urine Ketones Urine Blood Urine Nitrite Urine Bilirubin Urine Urobilinogen Ur Leukocyte Esterase Urine WBC (Auto) Urine RBC (Auto) U Hyaline Cast (Auto) U Epithel Cells (Auto) Urine Bacteria (Auto) 07/29/23 07/29/23 11:16 12:05 WBC RBC Hgb Hct MCV MCH MCHC RDW Std Deviation RDW Coeff of Aleja Plt Count MPV Immature Gran % (Auto) Neut % (Auto) Lymph % (Auto) [place] % (Auto) Eos % (Auto) Baso % (Auto) Neut # (Auto) Lymph # (Auto) [place] # (Auto) Eos # (Auto) Baso # (Auto) Immature Gran # (Auto) Sodium Potassium Chloride Carbon Dioxide Anion Gap BUN Creatinine Est Cr Clr Drug Dosing Est GFR ( Amer) Est GFR (Non-Af Amer) BUN/Creatinine Ratio Glucose POC Glucose 226 H 245 H Lactate Calcium Magnesium Total Bilirubin AST ALT Alkaline Phosphatase Total Protein Albumin Globulin Albumin/Globulin Ratio Urine Color Urine Appearance Urine pH Ur Specific [place] Urine Protein Urine Glucose (UA) Urine Ketones Urine Blood Urine Nitrite Urine Bilirubin Urine Urobilinogen Ur Leukocyte Esterase Urine WBC (Auto) Urine RBC (Auto) U Hyaline Cast (Auto) U Epithel Cells (Auto) Urine Bacteria (Auto) PG Care Time/CCT Total # of Minutes Spent Total Time Spent with Patient: Total time spent is greater than 50% in coordination of care (as documented) at patient's floor/unit and/or counseling patient: Coding Level of Care Code 61194 IN/OBS CONSULT LVL 3,45M Diagnoses Renal tubular acidosis, type 4 N25.89 Acute hyperkalemia E87.5 CKD (chronic kidney disease) N18.9 Chronic kidney disease stage: unspecified stage (3) CKD (chronic kidney disease) Chronic kidney disease stage: unspecified stage Qualified Code(s): N18.9 - Chronic kidney disease, unspecified
[2023-07-29] MEDS: LANTUS PER UNIT CHARGE SQ ONE (15:38)
[2023-07-29] MEDS: ACETAMINOPHEN 325 MG TAB PO PRN (15:48)
[2023-07-29] MEDS: SODIUM ZIRCONIUM CYCLOSILICATE 10 GM PACKET PO SCH (16:35)
[2023-07-29] MEDS: DAPTOmycin 275 MG in SYRINGE 0 ML IV SCH (17:52)
--- NOTE | 2023-07-30 05:54 | Electrocardiogram Report ---
Test Reason : Blood Pressure : / mmHG Vent. Rate : 067 BPM Atrial Rate : 067 BPM P-R Int : 232 ms QRS Dur : 138 ms QT Int : 434 ms P-R-T Axes : 038 -57 074 degrees QTc Int : 458 ms Sinus rhythm with 1st degree A-V block Right bundle branch block Left anterior fascicular block Bifascicular block Minimal voltage criteria for LVH, may be normal variant Anterolateral infarct (cited on or before 16-JUN-2023) Abnormal ECG When compared with ECG of 16-JUN-2023 22:06, Left anterior fascicular block is now Present Confirmed by Luis Carnes ([id number] on 07/30/2023 5:54:07 AM Referred By: Garrison Triplett Confirmed By:Jeremy Carnes
[2023-07-30 06:49] LABS: Hemoglobin 9.8 g/dl (14.0-18.0); Mean Corpuscular Hgb Conc 32.7 g/dL (32.0-36.0); Mean Platelet Volume 10.2 fL (9.4-12.4); Platelet Count 188 K/uL (130-400); RDW Coefficient of Variation 13.2 % (11.5-14.5); RDW Standard Deviation 49.8 fL (36.4-46.3); Red Blood Count 2.97 M/uL (4.70-6.10); White Blood Count 7.68 K/ul (4.8-10.8)
[2023-07-30 06:51] LABS: BUN Creatinine Ratio 16.6 (10-20); Calcium 8.6 mg/dl (8.6-10.3); Est GFR (African American) 49.5 ml/min; Est GFR (Non-African American) 42.7 ml/min; Magnesium 1.7 mg/dl (1.7-2.4)
[2023-07-30] MEDS: MAGNESIUM SULFATE / D5W 1 GM/100 ML BAG IV ONE (08:37)
[2023-07-30] MEDS: LANTUS PER UNIT CHARGE SQ SCH (09:06)
== END 2023-07-30 10:38 | disposition short-term general hospital (02) ==
LOC: ED 13:56 → EDINP 13:56 → SUATTDRO 18:49 → 2N 20:47

== ENCOUNTER 2023-11-02 16:30 | Inpatient (IN) ==
--- NOTE | 2023-11-02 16:40 | Emergency Department Note ---
ED Provider Note History of Present Illness Chief Complaint: Foot Injury/Pain Stated Complaint: SEVERE RT FOOT PAIN, SOMETIMES IN LT Time Seen by Provider: 11/02/23 16:38 This is an 88-year-old male with a history of type 2 diabetes with neuropathy, peripheral arterial disease, hypertension, chronic wound to the right foot, recent bypass graft to the right lower extremity at [facility] in [place] in July of this year, accompanied by his daughter, who presents to the emergency department with severe right foot pain. There is concern that he is having worsening redness in the bottom of the foot around his chronic wound and is having more discharge from the open wounds. The patient has had significant pain which has kept him awake and he states that he has not slept in 3 days despite taking Tylenol, oxycodone, and gabapentin. The pain originates from his great toenail which is now loose and radiates through the bottom of his foot to his heel. He called his daughter today because he could not walk secondary to the pain. He denies any fevers or chills or recent injury. He last saw vascular and podiatry in [place] 1 month ago and was encouraged to remain patient. He also saw his primary care provider recently and daughter states they were unable to provide any obvious explanation for his symptoms. His daughter feels frustrated because she is concerned something is worsening. Patient was seen in this emergency department several weeks ago and had arterial and venous Doppler studies which showed no DVT and showed good flow. He was placed on Keflex for possible cellulitis and daughter thought the top of the foot got a little better but the bottom of the foot is now worse and more red. He is not taking any antibiotics currently. Home Medications Medication Instructions Recorded Confirmed Type finasteride 5 mg tablet (Proscar) 5 mg PO QAM 03/03/18 10/31/23 History tamsulosin 0.4 mg capsule (Flomax) 0.4 mg PO HS 03/03/18 10/31/23 History atorvastatin 40 mg tablet 40 mg PO QPM 11/23/19 10/31/23 History ferrous sulfate 325 mg (65 mg 325 mg PO DAILY #90 tabs 06/11/21 10/31/23 Rx iron) tablet denosumab 60 mg/mL subcutaneous 60 mg subcut .COMPLEX 01/14/23 10/31/23 History syringe (Prolia) ropinirole 1 mg tablet 1 mg PO HS 01/14/23 10/31/23 History cholecalciferol (vitamin D3) 50 50 mcg PO QAM 06/03/23 10/31/23 History mcg (2,000 unit) tablet (Vitamin D3) prednisone 5 mg tablet 5 mg PO QAM 06/03/23 10/31/23 History venlafaxine 75 mg capsule,extended 75 mg PO QPM 06/03/23 10/31/23 History release 24 hr aspirin 81 mg tablet,delayed 81 mg PO QAM #0 tabs 06/10/23 10/31/23 Rx release pen needle, diabetic 32 gauge x #200 ea 06/22/23 10/31/23 Rx 5/32" (BD Ultra-Fine Ramya Pen Needle) blood-glucose sensor ([employer] G7 #3 ea 07/11/23 10/31/23 Rx Sensor device) clopidogrel 75 mg tablet (Plavix) 75 mg PO DAILY #90 tabs 08/25/23 10/31/23 Rx famotidine 20 mg tablet 20 mg PO BID 08/25/23 10/31/23 History furosemide 20 mg tablet 20 mg PO DAILY PRN Fluid Retention 08/25/23 10/31/23 Rx #30 tabs magnesium chloride 64 mg 128 mg (2 x 64 mg) PO QAM 90 days 08/25/23 10/31/23 Rx (magnesium chloride) #180 tabs tablet,delayed release (Mag 64) sodium zirconium cyclosilicate 10 10 g PO DAILY #30 ea 08/25/23 10/31/23 Rx gram oral powder packet (Lokelma) amlodipine 5 mg tablet 5 mg PO DAILY 09/09/23 10/31/23 History insulin aspart U-100 100 unit/mL 6 unit subcut TID 10/04/23 10/31/23 History (3 mL) subcutaneous pen (Novolog FlexPen U-100 Insulin aspart) insulin degludec 100 unit/mL (3 32 unit subcut DAILY 10/04/23 10/31/23 History mL) subcutaneous pen (Tresiba FlexTouch U-100 insulin) cilostazol 50 mg tablet 50 mg PO BID #180 tabs 10/26/23 10/31/23 Rx pregabalin 50 mg capsule (Lyrica) 50 mg PO BID #60 caps 10/31/23 10/31/23 Rx Allergies Allergy/AdvReac Type Severity Reaction Status Date / Time pioglitazone [From Actos] Allergy Unknown Unknown Verified 10/31/23 10:55 sitagliptin [From Januvia] Allergy Unknown Unknown Verified 10/31/23 10:55 Past Med/Surg History Problem List Open wound of right foot (Acute) Uncontrolled pain (Acute) Cellulitis of great toe of right foot (Acute) Necrotic eschar (Acute) Cellulitis of foot, right (Acute) Type 2 diabetes mellitus with peripheral neuropathy Cellulitis Necrotic eschar Anemia HTN (hypertension) Polymyalgia rheumatica Insulin dependent type 2 diabetes mellitus S/P cardiac pacemaker procedure Skin tear of left forearm without complication (Acute) Dyslipidemia 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, 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 (Acute) Acute hyperkalemia (Acute) Syncope (Acute) Transaminitis MARIA T (acute kidney injury) Peripheral arterial disease (Chronic) Wound of right foot (Acute) Hypomagnesemia (Acute) Acute renal failure superimposed on stage 3 chronic kidney disease History of foot surgery (Chronic) R 4th Toe surgery Orthostatic hypertension (Acute) Closed L3 vertebral fracture (Chronic) Closed fracture of spinous process of thoracic vertebra (Chronic) Lumbago (Chronic) Hypertriglyceridemia (Chronic) GERD (gastroesophageal reflux disease) (Chronic) H/O neck surgery (Chronic) Medical History Cellulitis of right foot History of prostate cancer Postural dizziness Trifascicular block Cardiac pacemaker No pertinent family history Depression BPH (benign prostatic hyperplasia) CKD (chronic kidney disease), stage III DMII (diabetes mellitus, type 2) Hypertension Surgical History History of blepharoplasty L eye History of hernia surgery Family History Mother Colorectal cancer Coronary heart disease Diabetes Brother Diabetes Kidney disease Colorectal cancer Prostate cancer Other No pertinent family history Social History Smoking Status: Never smoker Tobacco Type: Cigarettes, Pipe and Cigars Second Hand Exposure: No; Do You Dip or Chew Tobacco: No; Hx Alcohol Use: Yes Alcohol type: beer Alcohol Intake Frequency Comment: 1-2 beers monthly Hx Substance Use: No Preferred Language: [place] Communication Ability: Effective Visual Impairment: Limited Hearing Ability: Normal [employer] Required: No Beliefs That Will Affect Care: None marital status: / Current Living Situation: Alone Current Living Situation Comment: Sister and daughter able to assist with care. current occupational status: retired Feels Safe at Home: Yes Childhood Exposure to Second-Hand Smoke: Yes Diet: diabetic and low carbohydrate caffeine: Yes Dental Care, Regularly: Yes Seatbelt Use: always Assistive Devices: Cane, Crutches, Walker and Wheelchair Physical Exam Vital Signs Vital Signs - 24 hr 11/02/23 16:34 11/02/23 18:07 Temperature 97.2 F L Temperature Source Oral Pulse Rate 65 Respiratory Rate 18 Blood Pressure 152/80 H Blood Pressure Mean 104 Pulse Oximetry 94 Oxygen Delivery Method Room Air Room Air Sepsis Recent Fever Within 48 Hours No Sepsis New/Unexplained Change in Mental Status No Sepsis Action Taken by Nursing No Action Required CONSTITUTIONAL: Well developed, well nourished, in no acute distress. LYMPHATIC: No inguinal adenopathy RESPIRATORY: Breathing unlabored and symmetric. Lungs clear to auscultation bilaterally. No wheeze, rales, or rhonchi. CARDIOVASCULAR: Regular rate and rhythm. No murmurs, rubs, or gallops. DP Doppler signal identified at the bedside by nursing bilaterally. MUSCULOSKELETAL: Right lower extremity: There is swelling from the mid lower leg extending into the foot. There is a necrotic eschar in the distal great toe extending medially toward the interphalangeal joint. There is skin erythema beginning from the mid dorsum foot extending onto the first second and third toes as well as erythema on the plantar aspect of the foot in the same distribution. There is a chronic appearing open wound on the great toe extending onto the medial foot as well as chronic appearing wounds on the lateral foot and between the second and third toes in the webspace on the dorsum of the foot. There is significant tenderness in the plantar MTP joint region. Nail on the great toe appears to be slightly displaced and discolored, soft. Left lower extremity: No swelling noted. There is small wound present on the distal great toe. No significant tenderness or surrounding erythema. SKIN: [place], warm, dry. NEUROLOGIC: Awake, alert, oriented. Gaze is conjugate. Face symmetric, speech normal. Moves head and all four extremities spontaneously. PSYCHIATRIC: Appropriate. Normal affect Course Administered Medications Discontinued Medications Daptomycin 400 mg/ Syringe 8 mls @ 4 mls/min IV NOW STA; Protocol Stop: 11/02/23 18:35 Last Admin: 11/02/23 19:15 Dose: Not Given Documented By: JULIA Morphine Sulfate (Morphine Sulfate 4 Mg/Ml 1 Ml Carp\\Vial) 4 mg IV NOW STA Stop: 11/02/23 17:09 Last Admin: 11/02/23 18:07 Dose: 4 mg Documented By: SHAHNAZ Medical Decision Making Differential Diagnosis Cellulitis, osteomyelitis, arterial insufficiency, skin ulcer, gangrene, necrosis, DVT, among other pathology Medical Records Attestation: I reviewed the patient's medical records. (Reviewed recent ER notes) Laboratory Data 11/02/23 18:07 11/02/23 18:07 Lab Results 11/02/23 Range/Units 18:07 WBC 10.03 (4.8-10.8) K/ul RBC 3.95 L (4.70-6.10) M/uL Hgb 11.9 L (14.0-18.0) g/dl Hct 37.7 L (42.0-52.0) % MCV 95.4 (80.0-100.0) fL MCH 30.1 (25.0-34.0) pg MCHC 31.6 L (32.0-36.0) g/dL RDW Std Deviation 46.8 H (36.4-46.3) fL RDW Coeff of Aleja 13.3 (11.5-14.5) % Plt Count 223 (130-400) K/uL MPV 10.6 (9.4-12.4) fL Immature Gran % (Auto) 0.7 % Neut % (Auto) 60.3 % Lymph % (Auto) 26.2 % [place] % (Auto) 11.6 % Eos % (Auto) 0.9 % Baso % (Auto) 0.3 % Neut # (Auto) 6.05 (1.40-6.50) K/uL Lymph # (Auto) 2.63 (1.20-3.40) K/uL [place] # (Auto) 1.16 H (0.11-0.59) K/uL Eos # (Auto) 0.09 (0.00-0.50) K/uL Baso # (Auto) 0.03 (0.00-0.20) K/uL Immature Gran # (Auto) 0.07 (0.01-0.20) K/uL ESR 43 H (0-20) mm/hr Sodium 138 (136-145) mmol/L Potassium 4.7 (3.5-5.1) mmol/L Chloride 105 (98-107) mmol/L Carbon Dioxide 27 (21-32) mmol/L Anion Gap 6 (3-11) BUN 35 H (6-23) mg/dl Creatinine 1.37 (0.6-1.4) mg/dl Est Cr Clr Drug Dosing 39.3 ml/min Est GFR ( Amer) 53.0 ml/min Est GFR (Non-Af Amer) 45.7 ml/min BUN/Creatinine Ratio 25.5 H (10-20) Glucose 93 (70-99(Fasting)) mg/dl Lactate 1.1 (0.4-2.0) mmol/L Calcium 9.4 (8.6-10.3) mg/dl Total Bilirubin 0.5 (0.2-1.0) mg/dl AST 20 (13-39) U/L ALT 11 (7-52) U/L Alkaline Phosphatase 60 (34-104) U/L C-Reactive Protein 5.38 H (0-0.5) mg/dl Total Protein 7.2 (6.0-8.3) gm/dl Albumin 4.2 (3.4-5.0) gm/dl Globulin 3.0 (2.5-4.0) gm/dl Albumin/Globulin Ratio 1.4 (0.9-2) Imaging Data Attestation: I personally reviewed and interpreted this imaging study as follows: (I agree with the radiologist's interpretation) Radiologist's Impression: Foot X-Ray 11/02/23 17:08 RIGHT FOOT 3 VIEWS HISTORY: worsening pain great toe into MTP, eval for osteo COMPARISON: Right foot radiograph 10/15/2023. FINDINGS: There is no fracture or dislocation. Lisfranc joint is intact. Vascular calcifications are again noted. Soft tissue calcifications at the head of the first metatarsal. Small skin ulceration within the lateral right forefoot at the level of the fifth metatarsal head. There is also a skin ulceration at the distal right first toe. No underlying bony destruction to suggest an osteomyelitis. Moderate degenerative changes within the right foot. Chronic deformity within the heads of the fourth and fifth toe proximal phalanges. There is a plantar heel spur. Soft tissue swelling within the forefoot. No radiopaque foreign bodies. IMPRESSION: 1. No evidence for osteomyelitis. 2. Skin ulcerations within the right first toe and adjacent to the right fifth metatarsal head. 3. No fracture or dislocation. ACT 112: Negative or not required by law. Electronically signed by: Franco Peñaloza M.D. 11/02/2023 6:03 PM MDM Narrative 88-year-old male with a history above presents to the emergency department with worsening severe pain beginning in the right great toe extending into the heel, has not slept for 3 nights due to ongoing pain despite Tylenol oxycodone and gabapentin. Has a history of arterial bypass/graft leg for this extremity in July of this year but symptoms have worsened with additional erythema and edema in the foot. See above for further details. Patient resting comfortably in no distress. Hemodynamically stable. He is afebrile. Physical exam findings as above concerning for edema, erythema, and significant tenderness surrounding chronic appearing wounds especially on the great toe extending onto the foot. IV was inserted and labs were obtained including blood cultures. Patient was given morphine for pain. He was kept on the pulse oximeter. Surface wound culture obtained by myself. X-ray of the right foot was obtained demonstrating soft tissue swelling however no obvious evidence for osteomyelitis. Labs: No leukocytosis. Stable anemia hemoglobin 11.9. No thrombocytopenia. ESR elevated at 43. CRP elevated at 5.38. No electrolyte disturbance. No MARIA T. No transaminitis. Case discussed with ED attending Dr. Aguirre. This seems to be worsening cellulitis with concern for possible occult osteomyelitis. Patient has already tried Keflex on an outpatient basis. Recommendation was to admit the patient for pain control, IV antibiotics, and podiatry consultation, possible debridement. Patient and daughter are agreeable with this plan. Patient was started on daptomycin and Zosyn after reviewing antibiotic recommendations with ED clinical pharmacist. I called and spoke with Dr. [facility] hospitalist group who agrees to admit the patient. Impression Cellulitis of foot, right, Necrotic eschar, Cellulitis of great toe of right foot, Uncontrolled pain, Open wound of right foot Discharge Plan Visit Data Chief Complaint: Foot Injury/Pain Stated Complaint: SEVERE RT FOOT PAIN, SOMETIMES IN LT ED Provider: Carmina Aguirre ED Midlevel Provider: Goldy Marcano Discharge Problem: Cellulitis of foot, right, Necrotic eschar, Cellulitis of great toe of right foot, Uncontrolled pain, Open wound of right foot Patient Disposition: Admitted As Inpatient Condition: Fair Forms Stand Alone Forms: My [facility] Prescriptions Prescriptions: No Action insulin aspart U-100 [Novolog FlexPen U-100 Insulin] 100 unit/mL (3 mL) insulin pen 6 unit subcut TID Rx Instructions: Patient also has sliding scale for novolog ferrous sulfate 325 mg (65 mg iron) tablet 325 mg PO DAILY Qty: 90 3RF (DME) pen needle, diabetic [BD Ultra-Fine Ramya Pen Needle] 32 gauge x 5/32" needle See Rx Instructions .Route Qty: 200 11RF Rx Instructions: Use 4 per day cilostazol 50 mg tablet 50 mg PO BID Qty: 180 3RF atorvastatin 40 mg tablet 40 mg PO QPM ropinirole 1 mg tablet 1 mg PO HS Prolia 60 mg/mL syringe 60 mg subcut .COMPLEX Rx Instructions: 60 mg subcutaneously Q6 MONTHS; (DME) Dexcom G7 Sensor Device See Rx Instructions .Route Qty: 3 3RF Rx Instructions: continuous glucose monitoring, change every 10 days furosemide 20 mg tablet 20 mg PO DAILY PRN (Reason: Fluid Retention) Qty: 30 0RF clopidogrel [Plavix] 75 mg tablet 75 mg PO DAILY Qty: 90 1RF Lokelma 10 gram powder in packet 10 g PO DAILY Qty: 30 3RF Mag 64 64 mg tablet,delayed release (DR/EC) 128 mg PO QAM 90 Days Qty: 180 3RF famotidine 20 mg tablet 20 mg PO BID Tresiba FlexTouch U-100 100 unit/mL (3 mL) insulin pen 32 unit subcut DAILY pregabalin [Lyrica] 50 mg capsule 50 mg PO BID Qty: 60 0RF amlodipine 5 mg tablet 5 mg PO DAILY tamsulosin [Flomax] 0.4 mg capsule 0.4 mg PO HS finasteride [Proscar] 5 mg tablet 5 mg PO QAM venlafaxine 75 mg capsule,extended release 24hr 75 mg PO QPM cholecalciferol (vitamin D3) [Vitamin D3] 50 mcg (2,000 unit) Tablet 50 mcg PO QAM prednisone 5 mg tablet 5 mg PO QAM Rx Instructions: Take 5mg w/ 2.5mg tablet to equal 7.5mg by mouth once every morning aspirin 81 mg Tablet,Delayed Release (Dr/Ec) 81 mg PO QAM Qty: 0 0RF Referrals Referrals: Garrison Triplett, [Primary Care Provider] - Discharge Problem: Open wound of right foot Qualifiers: Encounter type: subsequent encounter Qualified Code(s): S91.301D - Unspecified open wound, right foot, subsequent encounter
--- NOTE | 2023-11-02 18:04 | XRay Report ---
RIGHT FOOT 3 VIEWS HISTORY: worsening pain great toe into MTP, eval for osteo COMPARISON: Right foot radiograph 10/15/2023. FINDINGS: There is no fracture or dislocation. Lisfranc joint is intact. Vascular calcifications are again noted. Soft tissue calcifications at the head of the first metatarsal. Small skin ulceration wi thin the lateral right forefoot at the level of the fifth metatarsal head. There is also a skin ulcer ation at the distal right first toe. No underlying bony destruction to suggest an osteomyelitis. Mode rate degenerative changes within the right foot. Chronic deformity within the heads of the fourth and fifth toe proximal phalanges. There is a plantar heel spur. Soft tissue swelling within the forefoot . No radiopaque foreign bodies. IMPRESSION: 1. No evidence for osteomyelitis. 2. Skin ulcerations within the right first toe and adjacent to the right fifth metatarsal head. 3. No fracture or dislocation. ACT 112: Negative or not required by law. Electronically signed by: Franco Peñaloza M.D. 11/02/2023 6:03 PM
[2023-11-02] MEDS: MoRPHine SULFATE 4 MG/ML 1 ML CARP\\VIAL IV STA (18:07)
[2023-11-02 18:29] LABS: Basophils # (auto) 0.03 K/uL (0.00-0.20); Basophils % (auto) 0.3 %; Eosinophils # (auto) 0.09 K/uL (0.00-0.50); Eosinophils % (auto) 0.9 %; Hematocrit (blood only) 37.7 % (42.0-52.0); Hemoglobin 11.9 g/dl (14.0-18.0); Immature Granulocytes # (auto) 0.07 K/uL (0.01-0.20); Immature Granulocytes % (auto) 0.7 %; Lymphocytes # (auto) 2.63 K/uL (1.20-3.40); Lymphocytes % (auto) 26.2 %; Mean Corpuscular Hemoglobin 30.1 pg (25.0-34.0); Mean Corpuscular Hgb Conc 31.6 g/dL (32.0-36.0); Mean Corpuscular Volume 95.4 fL (80.0-100.0); Mean Platelet Volume 10.6 fL (9.4-12.4); Monocytes # (auto) 1.16 K/uL (0.11-0.59); Monocytes % (auto) 11.6 %; Neutrophils # (auto) 6.05 K/uL (1.40-6.50); Neutrophils % (auto) 60.3 %; Platelet Count 223 K/uL (130-400); RDW Coefficient of Variation 13.3 % (11.5-14.5); RDW Standard Deviation 46.8 fL (36.4-46.3); Red Blood Count 3.95 M/uL (4.70-6.10); White Blood Count 10.03 K/ul (4.8-10.8)
[2023-11-02 18:45] LABS: Albumin Globulin Ratio 1.4 (0.9-2); Albumin Level 4.2 gm/dl (3.4-5.0); BUN Creatinine Ratio 25.5 (10-20); Bilirubin,Total 0.5 mg/dl (0.2-1.0); C Reactive Protein 5.38 mg/dl (0-0.5); Calcium 9.4 mg/dl (8.6-10.3); Creatinine Clr Calc Pharmacy 39.3 ml/min; Est GFR (Non-African American) 45.7 ml/min; Potassium 4.7 mmol/L (3.5-5.1); Total Protein 7.2 gm/dl (6.0-8.3)
--- NOTE | 2023-11-02 18:52 | History & Physical Report ---
Date of Service November 02, 2023 Assessment & Plan (1) Cellulitis of foot, right: Plan: Seeding from gangrenous area on distal toe, likely to have repeated episodes of cellulitis and offered to treat as they occur vs. ID opinion on more chronic use of antibiotics. Suspect 7 days just wasn't enough on October 14 for him to go very long without it coming back rather than failure of Keflex since the erythema improved when he was on antibiotics. If not improving can broaden antibiotics at that stage. He wishes to have a 2nd opinion with podiatry for the viability of his toe to stop the infection coming back especially in light of the increased necrotic area and increased pain. Switch to Ancef 2g q8h (never received the daptomycin ordered) - base on prior cultures growing MSSA Follow up wound and blood cultures Consult podiatry for 2nd opinion regarding debridement vs. amputation Arterial doppler [10/14] with no large vessel flow limitation Venous doppler [10/14] no DVT (2) Necrotic eschar: Plan: Consult podiatry for 2nd opinion on debridement vs. amputation (3) Insulin dependent type 2 diabetes mellitus: Plan: Hemoglobin A1C 8.6 in June, repeat with AM labs Hold Lantus while NPO pending serial glucose checks Novolog: --Goal BSG Range: Low 110 mg/dL, High 140 mg/dL --Correction Factor: 45 mg/dL/unit --Carbohydrate ratio = 15 g/unit --BSGs ACHS if eating, q6h if npo Plan Chronic medical conditions: PMR - continue prednisone GERD - continue famotidine RTA type 4 - continue Lokelma BPH - continue tamsulosin and finasteride Neuropathy - continue gabapentin/Lyrica (unclear why he is on both but on low doses) and venlafaxine PAD - continue aspirin, clopidogrel, cilostazol and atorvastatin VTE Prophyalxis - Lovenox 40mg SQ dailoy Diet T2DM Disposition - admit to med/surg Admission and Anticipated Discharge Date Admission Date: November 02, 2023 History of Present Illness Chief Complaint: Right foot pain Primary Care Provider: Garrison Triplett DO Wang Cunningham is an 88 year old male who presents to the ER with right foot pain and swelling. 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 He underwent revascularization at [facility] in July this year with reported significant improvement in his right foot gangrenous areas. However this whole time he has had right foot pain it has been getting worse over the last month. On October 14 it had become more erythematous and he presented to the ER and was placed on oral Keflex. His erythema initially improved but came back worse on the underside of his foot. The pain was severity 10/10 when he came to the ER, currently 9/10. No fever or chills. He is concerned with the lack of progress he is getting from his corporate law specialist at [facility] in [place] although also notes the ulcers appears significantly improved since July. He is under vascular surgery (Dr Dey) and podiatry (Dr Torsten Gray) at [facility] as that is where his revascularization took place. Allergies Allergy/AdvReac Type Severity Reaction Status Date / Time pioglitazone [From Actos] Allergy Unknown Unknown Verified 11/02/23 19:42 sitagliptin [From Januvia] Allergy Unknown Unknown Verified 11/02/23 19:42 Home Medications Medication Instructions Recorded Confirmed Type finasteride 5 mg tablet (Proscar) 5 mg PO QAM 03/03/18 11/02/23 History tamsulosin 0.4 mg capsule (Flomax) 0.4 mg PO HS 03/03/18 11/02/23 History atorvastatin 40 mg tablet 40 mg PO QPM 11/23/19 11/02/23 History ferrous sulfate 325 mg (65 mg 325 mg PO DAILY #90 tabs 06/11/21 11/02/23 Rx iron) tablet denosumab 60 mg/mL subcutaneous 60 mg subcut .COMPLEX 01/14/23 11/02/23 History syringe (Prolia) ropinirole 1 mg tablet 1 mg PO HS 01/14/23 11/02/23 History cholecalciferol (vitamin D3) 50 50 mcg PO QAM 06/03/23 11/02/23 History mcg (2,000 unit) tablet (Vitamin D3) prednisone 5 mg tablet 5 mg PO QAM 06/03/23 11/02/23 History venlafaxine 75 mg capsule,extended 75 mg PO QPM 06/03/23 11/02/23 History release 24 hr aspirin 81 mg tablet,delayed 81 mg PO QAM #0 tabs 06/10/23 11/02/23 Rx release pen needle, diabetic 32 gauge x #200 ea 06/22/23 10/31/23 Rx 5/32" (BD Ultra-Fine Ramya Pen Needle) blood-glucose sensor (Dexcom G7 #3 ea 07/11/23 10/31/23 Rx Sensor device) clopidogrel 75 mg tablet (Plavix) 75 mg PO DAILY #90 tabs 08/25/23 11/02/23 Rx famotidine 20 mg tablet 20 mg PO BID 08/25/23 11/02/23 History furosemide 20 mg tablet 20 mg PO DAILY PRN Fluid Retention 08/25/23 11/02/23 Rx #30 tabs magnesium chloride 64 mg 128 mg (2 x 64 mg) PO QAM 90 days 08/25/23 11/02/23 Rx (magnesium chloride) #180 tabs tablet,delayed release (Mag 64) sodium zirconium cyclosilicate 10 10 g PO DAILY #30 ea 08/25/23 11/02/23 Rx gram oral powder packet (Lokelma) amlodipine 5 mg tablet 5 mg PO DAILY 09/09/23 11/02/23 History insulin aspart U-100 100 unit/mL 4 unit subcut TID 10/04/23 11/02/23 History (3 mL) subcutaneous pen (Novolog FlexPen U-100 Insulin aspart) insulin degludec 100 unit/mL (3 40 unit subcut DAILY 10/04/23 11/02/23 History mL) subcutaneous pen (Tresiba FlexTouch U-100 insulin) cilostazol 50 mg tablet 50 mg PO BID #180 tabs 10/26/23 11/02/23 Rx pregabalin 50 mg capsule (Lyrica) 50 mg PO BID #60 caps 10/31/23 11/02/23 Rx carvedilol 3.125 mg tablet 3.125 mg PO BID 11/02/23 11/02/23 History gabapentin 300 mg capsule 300 mg PO BID 11/02/23 11/02/23 History Past Med/Surg History Problem List Open wound of right foot (Acute) Uncontrolled pain (Acute) Cellulitis of great toe of right foot (Acute) Necrotic eschar (Acute) Cellulitis of foot, right (Acute) Type 2 diabetes mellitus with peripheral neuropathy Cellulitis Necrotic eschar Anemia HTN (hypertension) Polymyalgia rheumatica Insulin dependent type 2 diabetes mellitus S/P cardiac pacemaker procedure Skin tear of left forearm without complication (Acute) Dyslipidemia 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, 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 (Acute) Acute hyperkalemia (Acute) Syncope (Acute) Transaminitis MARIA T (acute kidney injury) Peripheral arterial disease (Chronic) Wound of right foot (Acute) Hypomagnesemia (Acute) Acute renal failure superimposed on stage 3 chronic kidney disease History of foot surgery (Chronic) R 4th Toe surgery Orthostatic hypertension (Acute) Closed L3 vertebral fracture (Chronic) Closed fracture of spinous process of thoracic vertebra (Chronic) Lumbago (Chronic) Hypertriglyceridemia (Chronic) GERD (gastroesophageal reflux disease) (Chronic) H/O neck surgery (Chronic) Medical History Cellulitis of right foot History of prostate cancer Postural dizziness Trifascicular block Cardiac pacemaker No pertinent family history Depression BPH (benign prostatic hyperplasia) CKD (chronic kidney disease), stage III DMII (diabetes mellitus, type 2) Hypertension Surgical History History of blepharoplasty L eye History of hernia surgery Family History Mother Colorectal cancer Coronary heart disease Diabetes Brother Diabetes Kidney disease Colorectal cancer Prostate cancer Other No pertinent family history Social History Smoking Status: Never smoker Tobacco Type: Cigarettes, Pipe and Cigars Second Hand Exposure: No; Do You Dip or Chew Tobacco: No; Hx Alcohol Use: Yes Alcohol type: beer Alcohol Intake Frequency Comment: 1-2 beers monthly Hx Substance Use: No Preferred Language: Niuean Communication Ability: Effective Visual Impairment: Limited Hearing Ability: Normal Vocational Rehabilitation Technician Required: No Beliefs That Will Affect Care: None marital status: / Current Living Situation: Alone Current Living Situation Comment: Sister and daughter able to assist with care. current occupational status: retired Other Information That Helps Us Care for You: No Feels Safe at Home: Yes Safety Concerns: Feels Safe At This Time Childhood Exposure to Second-Hand Smoke: Yes Diet: diabetic and low carbohydrate caffeine: Yes Dental Care, Regularly: Yes Seatbelt Use: always Assistive Devices: Cane Review of Systems Review of Systems: All systems reviewed & are unremarkable except as noted in HPI & below Physical Exam Constitutional: WD/WN, vitals as above no acute distress Eyes: + anicteric sclerae; normal pupil size ENMT: external ear and nose normal, oropharynx normal Respiratory: normal respiratory effort, lungs clear to auscultation Cardiovascular: RRR, no murmur, no edema Gastrointestinal (Abdomen): normal bowel sounds, soft, nontender, no hepatosplenomegaly Skin: erythema from right 1st to to midfoot on plantar aspect of foot Ischemic ulcer with dry gangrene on right 1st toe on tip and mid phalanx on plantar aspect with ulcer extending down to base of proximal toe Neurologic: moves all extremities and awake; not confused Psychiatric: A+Ox3, euthymic affect Results & Data Results & Data Vital Signs (Past 12 Hours) Vital Signs Temp Pulse Resp BP Pulse Ox O2 Del Method 11/02/23 18:07 Room Air 11/02/23 16:34 36.2 C L 65 18 152/80 H 94 Room Air Laboratory Results Abnormal lab results 11/02/23 11/02/23 Range/Units 18:07 21:06 RBC 3.95 L (4.70-6.10) M/uL Hgb 11.9 L (14.0-18.0) g/dl Hct 37.7 L (42.0-52.0) % MCHC 31.6 L (32.0-36.0) g/dL RDW Std Deviation 46.8 H (36.4-46.3) fL [place] # (Auto) 1.16 H (0.11-0.59) K/uL ESR 43 H (0-20) mm/hr BUN 35 H (6-23) mg/dl BUN/Creatinine Ratio 25.5 H (10-20) POC Glucose 105 H (70-99) mg/dl C-Reactive Protein 5.38 H (0-0.5) mg/dl Diagnostic Findings RIGHT FOOT 3 VIEWS HISTORY: worsening pain great toe into MTP, eval for osteo COMPARISON: Right foot radiograph 10/15/2023. FINDINGS: There is no fracture or dislocation. Lisfranc joint is intact. Vascular calcifications are again noted. Soft tissue calcifications at the head of the first metatarsal. Small skin ulceration within the lateral right forefoot at the level of the fifth metatarsal head. There is also a skin ulceration at the distal right first toe. No underlying bony destruction to suggest an osteomyelitis. Moderate degenerative changes within the right foot. Chronic deformity within the heads of the fourth and fifth toe proximal phalanges. There is a plantar heel spur. Soft tissue swelling within the forefoot. No radiopaque foreign bodies. IMPRESSION: 1. No evidence for osteomyelitis. 2. Skin ulcerations within the right first toe and adjacent to the right fifth metatarsal head. 3. No fracture or dislocation. Medications Administered ER Medications Given: Morphine 4mg IV Zosyn 4.5g IV Code Status & VTE Plan Code Status Full VTE Prophylaxis Plan VTE Prophylaxis will be ordered: Yes PG Care Time/CCT Total # of Minutes Spent Total Time Spent with Patient: Total time spent is greater than 50% in coordination of care (as documented) at patient's floor/unit and/or counseling patient: Coding Level of Care Code 91397 INT INP/OBS CARE 3/75MIN Diagnoses Cellulitis of foot, right L03.115 Necrotic eschar I96 Insulin dependent type 2 diabetes mellitus E11.9; Z79.4
[2023-11-02] MEDS: DAPTOmycin 400 MG in SYRINGE 0 ML IV STA (19:15)
[2023-11-02] MEDS: PIPERACILLIN/TAZOBACTAM 4.5 GM/100 ML BAG IV ONE (19:23)
[2023-11-02] MEDS ORDERED: CARBOHYDRATES FOR HYPOGLYCEMIA PO PRN (21:02)
[2023-11-02] MEDS ORDERED: DEXTROSE 50% 50 ML SYRINGE IV PRN (21:02)
[2023-11-02] MEDS ORDERED: GLUCOSE 40% GEL 15 GM TUBE PO PRN (21:02)
[2023-11-02] MEDS ORDERED: GLUCOSE 10 TAB/TUBE PO PRN (21:02)
[2023-11-02] MEDS ORDERED: GLUCAGON FOR INJ 1 MG VIAL SQ PRN (21:02)
[2023-11-02] MEDS: INSULIN ASPART PER UNIT CHARGE SC SCH (22:06)
[2023-11-02] MEDS: ceFAZolin 2000MG 2,000 MG/15 ML SYR IV SCH (22:09)
[2023-11-02] MEDS ORDERED: ACETAMINOPHEN 325 MG TAB PO PRN (22:22)
[2023-11-02] MEDS ORDERED: oxyCODONE HCL IR 5 MG TAB (IMMEDIATE RELEASE) PO PRN (22:22)
[2023-11-02] MEDS: oxyCODONE HCL IR 5 MG TAB (IMMEDIATE RELEASE) PO PRN (22:38)
[2023-11-02] MEDS: GABAPENTIN 300 MG CAP PO SCH (22:58)
--- OUTSIDE RECORDS SUMMARY | 2023-11-03 06:32 | External Medical Summary | Summary of Care ---
Author Name Unknown Organization [facility] Address [address] [place] [address] Phone [phone] Care Team Providers Care Centrifugal Drier Operator Name Role Phone Garrison Triplett DO Primary Care Provider + Reason for Visit * Reason Comments eRx-Medication Refill Encounter Details Date Type Department Care Team ([facility] Contact Info) Description 11/02/2023 Refill Family [address] [id number] Austen Rico MD [address] [place] [id number] Allergies Active Allergy Reactions Criticality Noted Date Comments Pioglitazone Edema Other 05/01/2015 Sitagliptin Abdominal pain 05/05/2015 Dizziness and stomach upset documented as of this encounter (statuses as of 11/02/2023) Medications Medication Sig Dispensed Refills Start Date End Date Status OneTouch Verio w/Device KitIndications:Type 2 diabetes mellitus with hemoglobin A1c goal of less than 8.0% ([facility]) Use as directed. Use to test blood sugars 2 time daily e11.9 substitution allowed if needed 1 Kit 1 04/10/2020 Active Magnesium Chloride 64 MG Oral Tablet Delayed Release (Mag64) TAKE 2 TABLETS BY MOUTH TWICE DAILY. 360 Tablet 1 02/18/2021 Active Additional Information Patient taking differently: TAKE 2 TABLETS BY MOUTH ONCE DAILY., Reported on 09/13/2023 Denosumab 60 MG/ML Subcutaneous Solution Prefilled Syringe (Prolia) Inject 60 mg under the skin once. Active Tamsulosin HCl 0.4 MG Oral Capsule (Flomax) Take 1 Capsule by mouth in the morning. Active Iron 325 (65 Fe) MG Oral TabletIndications:I maria elena deficiency anemia, unspecified iron deficiency anemia type Take 1 Tablet by mouth in the morning. 90 Tablet 3 05/21/2022 Active OneTouch Delica Plus [id number] use to check blood sugar three daily DX E11.9 - pt on insulin 300 Each 3 07/12/2022 Active OneTouch Verio In Vitro Strip (Glucose Blood)Indications:T ype 2 diabetes mellitus with hemoglobin A1c goal of less than 8.0% ([facility]) Use to check blood sugars 4 times daily DX code E11.9 400 Strip 3 07/28/2022 Active rOPINIRole HCl 1 MG Oral TabletIndications:R estless legs syndrome Take 1 Tablet by mouth at bedtime. With food. 90 Tablet 3 09/29/2022 Active Meclizine HCl 25 MG Oral Tablet (Antivert)Indicatio ns:Dizziness Take 1 Tablet by mouth 3 times a day as needed for Dizziness. 30 Tablet 10/08/2022 Active Additional Information Patient not taking.Reported on 09/13/2023 metroNIDAZOLE 0.75 % External Gel (Metrogel) Apply to the face twice daily as needed. 45 g 3 10/14/2022 Active Additional Information Patient not taking.Reported on 09/13/2023 Vitamin D3 50 MCG (2000 UT) Oral Capsule Take 1 Capsule by mouth in the morning. Active Atorvastatin Calcium 40 MG Oral Tablet (Lipitor) TAKE 1 TABLET BY MOUTH IN THE MORNING 90 Tablet 3 12/08/2022 Active Famotidine 20 MG Oral Tablet (Pepcid)Indications [...] hemoglobin A1c goal of less than 8.0% ([facility]) inject 30 units in the MORNING and 20 units at EVENING meal DOSE INCREASE - DX E11.9 90 mL 3 04/20/2023 Active Additional Information Patient taking differently: inject 32 units in the MORNING, Reported on 10/12/2023 predniSONE 5 MG Oral Tablet (Deltasone)Indicati ons:PMR (polymyalgia rheumatica) (HCC) TAKE 1 TABLET BY MOUTH DAILY COMBINE WITH 2.5 MG TABLET FOR TOTAL OF 7.5 MG DAILY 90 Tablet 1 06/30/2023 Active Additional Information Patient taking differently: 5 mg Oral Daily(AM), TAKE 1 TABLET BY MOUTH DAILY COMBINE WITH 2.5 MG TABLET FOR TOTAL OF 7.5 MG DAILY, Reported on 10/12/2023 Carvedilol 3.125 MG Oral Tablet (Coreg)Indications: HTN, goal below 140/90 TAKE 1 TABLET BY MOUTH TWICE DAILY IN THE MORNING AND BEFORE BEDTIME 180 Tablet 3 06/29/2023 Active Aspirin 81 MG Oral Capsule Take by mouth daily. Active Finasteride 5 MG Oral Tablet (Proscar) TAKE 1 TABLET BY MOUTH IN THE MORNING 90 Tablet 08/31/2023 Active Venlafaxine HCl ER 75 MG Oral Capsule Extended Release 24 Hour (Effexor XR) TAKE 1 CAPSULE BY MOUTH AT BEDTIME 90 Capsule 08/31/2023 Active Gabapentin 300 MG Oral Capsule (Neurontin) 300 mg in AM & 600 mg in PM Active Furosemide 20 MG Oral Tablet (Lasix) Take 1 Tablet by mouth as needed (swelling). Active Clopidogrel Bisulfate 75 MG Oral Tablet (pLAVix) Take 1 Tablet by mouth in the morning. 08/25/2023 Active Sodium Zirconium Cyclosilicate 10 GM Oral Packet (Lokelma) Take 1 Packet by mouth in the morning. Active NovoLOG FlexPen 100 UNIT/ML Subcutaneous Solution Pen-injector Inject under the skin three times a day with meals. 09/06/2023 Active documented as of this encounter (statuses as of 11/02/2023) Active Problems Problem Noted Date Diagnosed Date [...] as of this encounter (statuses as of 11/02/2023) Resolved Problems Problem Noted Date Diagnosed Date [...] as of this encounter (statuses as of 11/02/2023) Immunizations Name Administration Dates Next Due COVID-19 [...] Date Recorded PHQ Adult Total Score 0 02/09/2023 Hunger Vital Sign Answer Date Recorded Worried [...] on file documented as of this encounter Miscellaneous Notes * Telephone Encounter - Haley Lawton [facility] - 11/02/2023 12:30 PM EDT Refused Prescriptions: Disp Refills Finasteride 5 MG Oral Tablet (Proscar) 90 Tab*3 Sig: TAKE 1 TABLET BY MOUTH IN THE MORNINGRefused By: HALEY LAWTON for Refusal: Managed by another audra cary documented in this encounter Plan of Treatment Upcoming Encounters Date Type Department Care Team (Late st Contact Info) Description 12/28/2023 10:00 AM EDT Office Visit Cardiology, [facility] [address] [place] [id number] Shamir Levine MD [address] [place] [id number] 03/21/2024 9:30 AM EST Nurse Only Rheumatology [address] [place] [address] Pf, Nurse Rheum [address] [place] [address] [place] [address] 03/21/2024 10:30 AM EST Imaging Radiology, [address] [place] [address] Health Maintenance Due Date Last Done Comments Zoster Vaccines (1 of 2) 1954 COVID-19 Vaccine ( season) 2022 01/15/2022, 07/20/2021, 06/22/2021 Influenza Vaccine (FLU shot) (#1) 2023 02/09/2023, 01/06/2022, 02/02/2021, Additional history exists HbA1c 01/30/2024 07/31/2023, 07/10, 03/11/2023, Additional history exists Depression Screening 02/10/2024 02/09/2023 Diabetic Foot Exam 05/19/2024 05/19/2023, 0 06/04/2022, 06/11/2021, Additional history exists Diabetic Eye Exam 07/04/2024 07/05/2023, , 06/24/2023, Additional history exists Albumin/Creatinine Ratio 07/24/2024 024, 07/19/2022, 12/30/2021, Additional history exists CKD PHOS USE SMARTSET 14150 08/04/202407/11, 07/30/2023, 01/11/2023, Additional history exists CKD HGB USE SMARTSET 68248 09/26/202409/26, 09/13/2023, 08/11/2023, Additional history exists DTaP,Tdap,and Td Vaccines (3 - Td or Tdap) 01/25/2030 01/26/2020, 11/23/2019 (Declined) Pneumococcal Vaccine: 65+ Years Completed 03/04/2018, 03/12/2016, 05/25/2007, Additional history exists HPV (Gardasil) Vaccine Aged Out No lo nger eligible based on patient's age to complete this topic Hepatitis B Vaccine Aged Out No longe r eligible based on patient's age to complete this topic MENINGOCOCCAL (MENACTRA/MENVEO) Aged Out No longer eligible based on patient's age to complete this topic documented as of this encounter Medical Devices Not on filedocumented as of this encounter Care Teams Centrifugal Drier Operator Relationship Specialty Start Date End Date Garrison Triplett DO [address] [place] [address] [place] [address] PCP - General Family Medicine 06/22/23 documented as of this encounter
[2023-11-03 06:59] LABS: Basophils # (auto) 0.04 K/uL (0.00-0.20); Basophils % (auto) 0.5 %; Eosinophils # (auto) 0.17 K/uL (0.00-0.50); Eosinophils % (auto) 2.1 %; Hematocrit (blood only) 34.8 % (42.0-52.0); Immature Granulocytes # (auto) 0.07 K/uL (0.01-0.20); Immature Granulocytes % (auto) 0.9 %; Lymphocytes # (auto) 2.23 K/uL (1.20-3.40); Lymphocytes % (auto) 27.2 %; Mean Corpuscular Hemoglobin 30.1 pg (25.0-34.0); Mean Corpuscular Hgb Conc 31.6 g/dL (32.0-36.0); Mean Corpuscular Volume 95.1 fL (80.0-100.0); Mean Platelet Volume 10.8 fL (9.4-12.4); Monocytes # (auto) 0.93 K/uL (0.11-0.59); Monocytes % (auto) 11.3 %; Neutrophils # (auto) 4.77 K/uL (1.40-6.50); Platelet Count 202 K/uL (130-400); RDW Coefficient of Variation 13.3 % (11.5-14.5); RDW Standard Deviation 46.7 fL (36.4-46.3); Red Blood Count 3.66 M/uL (4.70-6.10); White Blood Count 8.21 K/ul (4.8-10.8)
[2023-11-03] MEDS: LACTATED RINGER'S 1,000 ML IV SCH (07:09)
[2023-11-03 07:31] LABS: Albumin Globulin Ratio 1.3 (0.9-2); Albumin Level 3.5 gm/dl (3.4-5.0); BUN Creatinine Ratio 21.6 (10-20); Bilirubin,Total 0.4 mg/dl (0.2-1.0); Calcium 8.6 mg/dl (8.6-10.3); Creatinine Clr Calc Pharmacy 35.5 ml/min; Est GFR (African American) 52.1 ml/min; Est GFR (Non-African American) 44.9 ml/min; Globulin 2.6 gm/dl (2.5-4.0); Magnesium 1.6 mg/dl (1.7-2.4); Potassium 4.5 mmol/L (3.5-5.1); Total Protein 6.1 gm/dl (6.0-8.3)
[2023-11-03 08:15] LABS: Estimated Average Glucose 186 mg/dl; Hemoglobin A1C 8.1 % (4.5-5.6)
[2023-11-03] MEDS: PREGABALIN 50 MG CAP PO SCH (09:04)
[2023-11-03] MEDS: SODIUM ZIRCONIUM CYCLOSILICATE 10 GM PACKET PO SCH (09:05)
[2023-11-03] MEDS: MAGNESIUM CHLORIDE W/CALCIUM 64MG DELAYED REL TAB PO SCH (09:06)
[2023-11-03] MEDS: carvediloL 3.125 MG TAB PO SCH (09:06)
[2023-11-03] MEDS: predniSONE 5 MG TAB PO SCH (09:06)
[2023-11-03] MEDS: FERROUS SULFATE 325 MG TAB PO SCH (09:07)
[2023-11-03] MEDS: FAMOTIDINE 20 MG TAB PO SCH (09:07)
[2023-11-03] MEDS: cilostazoL 100 MG TAB PO SCH (09:07)
[2023-11-03] MEDS: CLOPIDOGREL BISULFATE 75 MG TAB PO SCH (09:08)
[2023-11-03] MEDS: amLODIPine BESYLATE 5 MG TAB PO SCH (09:08)
[2023-11-03] MEDS: FINASTERIDE 5 MG TAB PO SCH (09:09)
[2023-11-03] MEDS: ASPIRIN 81 MG ECTAB PO SCH (09:09)
[2023-11-03] MEDS: CHOLECALCIFEROL 25 MCG (1000 UNITS) TAB PO SCH (09:09)
[2023-11-03] MEDS: MAGNESIUM SULFATE / D5W 1 GM/100 ML BAG IV ONE (09:10)
--- NOTE | 2023-11-03 14:07 | Hospitalist Progress Note ---
Date of Service November 03, 2023 Assessment & Plan (1) Cellulitis of foot, right: Plan: Patient presented to ED on 11/01 with complaints of right foot pain. Patient previously on Keflex outpatient but following cessation, erythema returned. -Consult podiatry regarding debridement vs amputation, appreciate recommendations -Arterial doppler 10/14: no large vessel flow limitation -Venous Doppler 10/14: no DVT -Ancef 2g q8h -Could consider ID opinion on chronic use of abx depending upon podiatry recommendations. -Wound and blood cultures pending -reviewed CBC/BMP 11/02: stable AM CBC, BMP (2) Necrotic eschar: Plan: Consult podiatry for 2nd opinion on debridement vs. amputation plan as above (3) Insulin dependent type 2 diabetes mellitus: Plan: Hemoglobin A1C 8.6 in June, repeat with AM labs Novolog: --Goal BSG Range: Low 110 mg/dL, High 140 mg/dL --Correction Factor: 45 mg/dL/unit --Carbohydrate ratio = 15 g/unit --BSGs ACHS -consult pharmacy for glycemic management Plan Chronic medical conditions: PMR - continue prednisone GERD - continue famotidine RTA type 4 - continue Lokelma BPH - continue tamsulosin and finasteride Neuropathy - continue gabapentin/Lyrica (unclear why he is on both but on low doses) and venlafaxine PAD - continue aspirin, clopidogrel, cilostazol and atorvastatin VTE Prophyalxis - Lovenox 40mg SQ dailoy Diet T2DM Disposition - admit to med/surg Admission and Anticipated Discharge Date Admission Date: November 02, 2023 Supervising Physician Co-Signing Physician Notes The patient was not seen by me. The chart was reviewed. Case discussed with [place] Solorio. Agree with assessment and plan Subjective Patient seen and examined this afternoon at bedside. patient reports that the pain medication is helping his foot pain. He states he does not follow with wound nurse outpatient. He is due to a follow up appointment in [place] at the beginning of November regarding his revascularization. He denied chest pain or shortness of breath. Physical Exam 2 Constitutional: WD/WN, vitals as above Eyes: PERRL, conjunctivae normal, anicteric sclerae Respiratory: normal respiratory effort, lungs clear to auscultation Cardiovascular: RRR, no murmur, no edema Skin: erythema from right 1st to to midfoot on plantar aspect of foot Ischemic ulcer with dry gangrene on right 1st toe on tip and mid phalanx on plantar aspect with ulcer extending down to base of proximal toe Psychiatric: A+Ox3, euthymic affect Results & Data Results & Data Vital Signs (Past 12 Hours) Vital Signs Temp Pulse Resp BP Pulse Ox O2 Del Method 11/03/23 07:31 36.7 C 69 18 160/76 H 96 Room Air 11/03/23 07:12 36.6 C 75 18 159/75 H 99 Room Air Laboratory Results 11/03/23 06:19 11/03/23 06:19 Diagnostic Findings Foot X-Ray 11/02/23 17:08 RIGHT FOOT 3 VIEWS HISTORY: worsening pain great toe into MTP, eval for osteo COMPARISON: Right foot radiograph 10/15/2023. FINDINGS: There is no fracture or dislocation. Lisfranc joint is intact. Vascular calcifications are again noted. Soft tissue calcifications at the head of the first metatarsal. Small skin ulceration within the lateral right forefoot at the level of the fifth metatarsal head. There is also a skin ulceration at the distal right first toe. No underlying bony destruction to suggest an osteomyelitis. Moderate degenerative changes within the right foot. Chronic deformity within the heads of the fourth and fifth toe proximal phalanges. There is a plantar heel spur. Soft tissue swelling within the forefoot. No radiopaque foreign bodies. IMPRESSION: 1. No evidence for osteomyelitis. 2. Skin ulcerations within the right first toe and adjacent to the right fifth metatarsal head. 3. No fracture or dislocation. ACT 112: Negative or not required by law. Electronically signed by: Franco Peñaloza M.D. 11/02/2023 6:03 PM PG Care Time/CCT Total # of Minutes Spent Total Time Spent with Patient: Total time spent is greater than 50% in coordination of care (as documented) at patient's floor/unit and/or counseling patient: Coding Level of Care Code 16855 SUB INP/OBS CARE 2/35MIN Diagnoses Cellulitis of foot, right L03.115 Necrotic eschar I96 Insulin dependent type 2 diabetes mellitus E11.9; Z79.4
--- NOTE | 2023-11-03 16:28 | Post Operative Brief Note ---
Immediate Post Op Note Date of Surgery November 03, 2023 Pre & Post Diagnosis Preoperative diagnosis: Right fifth ray osteomyelitis Postoperative diagnosis: Same I identified the patient and participated in the time-out.: Yes Procedure Right fifth ray resection Surgeon CARSON HuertaM Resource Conservation Manager None Estimated Blood Loss 30 Findings Consistent with Post-Op Diagnosis Specimens Right fifth ray for pathology Anesthesia Type MAC Complications none Disposition Accompanied Patient To Recovery: Yes Disposition: Recovery Room
[2023-11-03] MEDS: rOPINIRole HCL 1 MG TABLET PO SCH (21:31)
[2023-11-03] MEDS: VENLAFAXINE HCL XR 75 MG CAPXR PO SCH (21:32)
[2023-11-03] MEDS: ATORVASTATIN 40 MG TAB PO SCH (21:32)
[2023-11-03] MEDS: TAMSULOSIN HCL 0.4 MG CAP PO SCH (21:32)
[2023-11-03] MEDS: ENOXAPARIN INJ 40 MG/0.4 ML SYR SQ SCH (21:48)
[2023-11-03] MEDS: COLLAGENASE OINT 30 GM TUBE EXT SCH (22:35)
--- NOTE | 2023-11-03 22:35 | Podiatry Consultation ---
Date of Consultation November 03, 2023 Assessment & Plan (1) Open wound of right foot: Encounter type: subsequent encounter Qualified Code(s): S91.301D - Unspecified open wound, right foot, subsequent encounter (2) Uncontrolled pain: (3) Necrotic eschar: (4) Type 2 diabetes mellitus with peripheral neuropathy: (5) Peripheral arterial disease: Plan patient was examined and evaluated. His daughter was called on the phone as well to discuss his care. He is mostly concerned about the seveere increase in pain to the lower extremities. This is still most likely consistent with peripheral arterial disease, though it is at least interesting that he has a palpable posterior tibial pulse seems as though his large vessel is open but he is still lacking tissue perfusion. His radiographs do reveal extensive calcifications throughout the foot. It is possible he has such profound small vessel disease that he is still incapable of healing these arterial ulcers. This could also explain his severe pain. For treatment of these ulcers, at least initially, he would benefit from Santyl to prevent the tissue damage that can occur with sharp debridement. He would also benefit from follow-up with Dr. Tilley, who was his vascular surgeon at his prior hospitalization. Without infection other concerns, he may be able to be discharged once his pain is more explainable. We can always follow up with him outpatient for wound care and would recommend continued follow-up with the [facility] wound care center whom he has seen in the past as well. Patient and his daughter are amenable to these options. We will continue to follow while he is not pain. Thank you for the consult. History of Present Illness Reason for Consultation: Right lower extremity pain Attending Physician: Wang Conner MD History of Present Illness patient presents to the hospital with worsening complaints of lower extremity pain. He was seen here by us in July for treatment of a separate excoriation to the right dorsal midfoot. This has healed well since July. He states that he has been in and out of care in [place] for this right great toe ulceration and wound. They have been utilizing triple antibiotic ointment and occasional debridement. It has not improved and his pain has only gotten worse. Specifically, he states the pain was bad enough over the last few days to warrant this admission alone. He denies any systemic signs or symptoms of infection. Overall, he feels good aside from the severe pain Allergies Allergy/AdvReac Type Severity Reaction Status Date / Time pioglitazone [From Actos] Allergy Unknown Unknown Verified 11/02/23 19:42 sitagliptin [From Januvia] Allergy Unknown Unknown Verified 11/02/23 19:42 Home Medications Medication Instructions Recorded Confirmed Type finasteride 5 mg tablet (Proscar) 5 mg PO QAM 03/03/18 11/02/23 History tamsulosin 0.4 mg capsule (Flomax) 0.4 mg PO HS 03/03/18 11/02/23 History atorvastatin 40 mg tablet 40 mg PO QPM 11/23/19 11/02/23 History ferrous sulfate 325 mg (65 mg 325 mg PO DAILY #90 tabs 06/11/21 11/02/23 Rx iron) tablet denosumab 60 mg/mL subcutaneous 60 mg subcut .COMPLEX 01/14/23 11/02/23 History syringe (Prolia) ropinirole 1 mg tablet 1 mg PO HS 01/14/23 11/02/23 History cholecalciferol (vitamin D3) 50 50 mcg PO QAM 06/03/23 11/02/23 History mcg (2,000 unit) tablet (Vitamin D3) prednisone 5 mg tablet 5 mg PO QAM 06/03/23 11/02/23 History venlafaxine 75 mg capsule,extended 75 mg PO QPM 06/03/23 11/02/23 History release 24 hr aspirin 81 mg tablet,delayed 81 mg PO QAM #0 tabs 06/10/23 11/02/23 Rx release pen needle, diabetic 32 gauge x #200 ea 06/22/23 10/31/23 Rx 5/32" (BD Ultra-Fine Ramya Pen Needle) blood-glucose sensor (Dexcom G7 #3 ea 07/11/23 10/31/23 Rx Sensor device) clopidogrel 75 mg tablet (Plavix) 75 mg PO DAILY #90 tabs 08/25/23 11/02/23 Rx famotidine 20 mg tablet 20 mg PO BID 08/25/23 11/02/23 History furosemide 20 mg tablet 20 mg PO DAILY PRN Fluid Retention 08/25/23 11/02/23 Rx #30 tabs magnesium chloride 64 mg 128 mg (2 x 64 mg) PO QAM 90 days 08/25/23 11/02/23 Rx (magnesium chloride) #180 tabs tablet,delayed release (Mag 64) sodium zirconium cyclosilicate 10 10 g PO DAILY #30 ea 08/25/23 11/02/23 Rx gram oral powder packet (Lokeldc) amlodipine 5 mg tablet 5 mg PO DAILY 09/09/23 11/02/23 History insulin aspart U-100 100 unit/mL 4 unit subcut TID 10/04/23 11/02/23 History (3 mL) subcutaneous pen (Novolog FlexPen U-100 Insulin aspart) insulin degludec 100 unit/mL (3 40 unit subcut DAILY 10/04/23 11/02/23 History mL) subcutaneous pen (Tresiba FlexTouch U-100 insulin) cilostazol 50 mg tablet 50 mg PO BID #180 tabs 10/26/23 11/02/23 Rx pregabalin 50 mg capsule (Lyrica) 50 mg PO BID #60 caps 10/31/23 11/02/23 Rx carvedilol 3.125 mg tablet 3.125 mg PO BID 11/02/23 11/02/23 History gabapentin 300 mg capsule 300 mg PO BID 11/02/23 11/02/23 History Patient History Medical History Cellulitis of right foot History of prostate cancer Postural dizziness Trifascicular block Cardiac pacemaker No pertinent family history Depression BPH (benign prostatic hyperplasia) CKD (chronic kidney disease), stage III DMII (diabetes mellitus, type 2) Hypertension Surgical History History of blepharoplasty L eye History of hernia surgery Family History Mother Colorectal cancer Coronary heart disease Diabetes Brother Diabetes Kidney disease Colorectal cancer Prostate cancer Other No pertinent family history Social History Smoking Status: Never smoker Tobacco Type: Cigarettes, Pipe and Cigars Second Hand Exposure: No; Do You Dip or Chew Tobacco: No; Hx Alcohol Use: Yes Alcohol type: beer Alcohol Intake Frequency Comment: 1-2 beers monthly Hx Substance Use: No Preferred Language: Belarusian Communication Ability: Effective Visual Impairment: Limited Hearing Ability: Normal Car Starter Required: No Beliefs That Will Affect Care: None marital status: / Current Living Situation: Alone Current Living Situation Comment: Sister and daughter able to assist with care. current occupational status: retired Other Information That Helps Us Care for You: No Feels Safe at Home: Yes Safety Concerns: Feels Safe At This Time Childhood Exposure to Second-Hand Smoke: Yes Diet: diabetic and low carbohydrate caffeine: Yes Dental Care, Regularly: Yes Seatbelt Use: always Assistive Devices: Cane, Walker and Wheelchair Review of Systems Review of Systems: All systems reviewed & are unremarkable except as noted in HPI & below Constitutional: no fever, no chills and no fatigue Eyes: no problem reported Ear, Nose, Mouth, Throat: no problem reported Respiratory: no problem reported Cardiovascular: + edema; no problem reported Gastrointestinal: no nausea, no vomiting and no problem reported Musculoskeletal: no problem reported Integumentary: + skin ulcer, + wounds and + erythema Neurologic: + loss of sensation, + numbness and + pa resthesia; no generalized weakness Psychiatric: no problem reported Physical Exam Physical Exam: Right Lower extremity focused exam: DP 0/4 bilaterally. Right PT pulse is palpable, though no evidence of adequate tissue perfusion. No hair growth is noted to the lower extremity. Skin is atrophic with increasing cooling distally. There is pain on palpation of the digits, out of proportion to stimulus. There is subjective radiating pain from the hip down the lower extr emity as well. Prior dorsal foot excoriation is well healed. Now, dry arterial insufficiency ulcerations appear to the right great toe circumferentially, the right fifth metatarsal head, the left second toe, and seemingly even sub left heel. This is consistent with the prior bogginess described several months ago, just more advanced. There is 2 areas of dry injured skin, 1 to the plantar posterior right calcaneus and one underlying the IPJ of the hallux. These do appear more consistent with scab formation rather than necrosis, the dry gangrene. There is pain on palpation of these skin lesions. Constitutional: WD/WN, vitals as above + ill appearing and + obese Eyes: PERRL, conjunctivae normal, anicteric sclerae ENMT: external ear and nose normal, oropharynx normal Neck: trachea midline, no thyromegaly normal visual inspection Respiratory: normal respiratory effort, lungs clear to auscultation normal respiratory effort; no respiratory distress Cardiovascular: RRR, no murmur, no edema Rate/Rhythm: regular rate and regular rhythm Vessels: + posterior tibial pulses abnormal (Biphasic flow is noted on Doppler exam) and + dorsalis pedis pulses abnormal Extremities: no calf tenderness, no pedal edema and no edema Chest (Breasts): Chest: normal inspection of chest Gastrointestinal (Abdomen): normal bowel sounds, soft, nontender, no hepatosplenomegaly Inspection/Auscultation: abdomen normal to inspection Percussion/Palpation: + abdomen tender and abdomen soft Musculoskeletal: no cyanosis or clubbing, extremities motor strength 5/5 Head/Neck/Chest: normocephalic and head atraumatic Extremities: extremities normal to inspection Neurologic: patellar DTR's 2+ bilat, sensation intact awake; no focal motor deficits Psychiatric: A+Ox3, euthymic affect Results & Data Vital Signs (Past 12 Hours) Vital Signs Temp Pulse Resp BP Pulse Ox O2 Del Method 11/03/23 20:51 36.8 C 63 17 166/81 H 94 Room Air 11/03/23 15:39 36.4 C L 63 18 134/74 92 Room Air
--- NOTE | 2023-11-04 07:46 | Vascular Medicine Consultation ---
Date of Consultation November 04, 2023 Assessment & Plan (1) Peripheral arterial disease: 2. 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 Type 2 diabetes 4. Polymyalgia rheumatica on steroids 5. Stage III CKD 6. AV block post pacemaker Patient has widely patent RT popliteal to plantar bypass graft on recent arterial duplex and has bounding PT/graft pulse at the level of the ankle. Right KARINA/peroneal know to be chronically occluded. At this point do not feel there is additional that can be done from a revascularization standpoint. Has excellent flow through prior graft but healing of great toe seems unlikely in the setting of severe small vessel disease in the foot. On left has similar heavily calcified tibial vessel disease and reportedly underwent unsuccessful attempted endovascular intervention in [place]. Currently left leg with minimal symptoms, low risk wound. If foot deteriorates in the future bypass surgery on the left may need to be considered. Plans to follow-up locally with Dr. Rothman for podiatry care. Can follow-up with vascular medicine as needed locally and recommend continued follow-up with vascular surgery at [facility]. From a vascular standpoint okay with discharge today History of Present Illness Attending Physician: Wang Conner MD History of Present Illness Mr. Cunningham is a very pleasant 88-year-old man seen today in hospital due to lower extremity ulcers in the setting of PAD. Prior medical history remarkable for type 2 diabetes on insulin, PMR on chronic prednisone/Plaquenil, hypertension, AV block with syncope post recent dual- chamber pacemaker, stage III CKD. Remote smoker. Previously seen by vascular medicine 07/2023 at wound clinic. Underwent angiogram 07/18/2023. Right lower extremity showed widely patent inflow/SFA/popliteal vessels. Had occluded KARINA which gave off collaterals to the foot, occluded mid peroneal and diffusely diseased [employer] with heavily calcified distal disease. Attempt made to cross distal [employer] to disease unsuccessful. Eventually patient referred to [facility] [place]. Underwent popliteal to plantar bypass with vein graft by Dr. Dey. Since that time has continued to follow with [facility] vascular surgery and podiatry in [place]. Has had improvement in discomfort/dorsal foot wounds but still dealing with significant tissue loss involving great toe requiring debridement. Per patient underwent attempted endovascular invention to left tibial vessel by [facility] vascular surgery at some point but successful. Patient readmitted 11/02/2023 to [facility] with worsening right toe pain. Started on antibiotics pain control, reevaluated by podiatry, Dr. Rothman. Prior noninvasive vascular testing: Arterial duplex 10/15/2023: Widely patent SFA/popliteal, multiphasic waveforms and widely patent popliteal to plantar graft. Diminished tibials, peroneal and DPA. 05/2023: Right INDIGO 0.92, left 1.16. Right TBI 0.16 (27) left TBI 0.48 (48). Biphasic waveforms through [employer] to popliteal. Apparent occlusive disease in right [employer], peroneal. KARINA patent with monophasic waveform Social history: Lives independently. . Daughter able to assist with care. Allergies Allergy/AdvReac Type Severity Reaction Status Date / Time pioglitazone [From Actos] Allergy Unknown Unknown Verified 11/02/23 19:42 sitagliptin [From Januvia] Allergy Unknown Unknown Verified 11/02/23 19:42 Home Medications Medication Instructions Recorded Confirmed Type finasteride 5 mg tablet (Proscar) 5 mg PO QAM 03/03/18 11/02/23 History tamsulosin 0.4 mg capsule (Flomax) 0.4 mg PO HS 03/03/18 11/02/23 History atorvastatin 40 mg tablet 40 mg PO QPM 11/23/19 11/02/23 History ferrous sulfate 325 mg (65 mg 325 mg PO DAILY #90 tabs 06/11/21 11/02/23 Rx iron) tablet denosumab 60 mg/mL subcutaneous 60 mg subcut .COMPLEX 01/14/23 11/02/23 History syringe (Prolia) ropinirole 1 mg tablet 1 mg PO HS 01/14/23 11/02/23 History cholecalciferol (vitamin D3) 50 50 mcg PO QAM 06/03/23 11/02/23 History mcg (2,000 unit) tablet (Vitamin D3) prednisone 5 mg tablet 5 mg PO QAM 06/03/23 11/02/23 History venlafaxine 75 mg capsule,extended 75 mg PO QPM 06/03/23 11/02/23 History release 24 hr aspirin 81 mg tablet,delayed 81 mg PO QAM #0 tabs 06/10/23 11/02/23 Rx release pen needle, diabetic 32 gauge x #200 ea 06/22/23 10/31/23 Rx /32" (BD Ultra-Fine Ramya Pen Needle) blood-glucose sensor (Dexcom G7 #3 ea 07/11/23 10/31/23 Rx Sensor device) clopidogrel 75 mg tablet (Plavix) 75 mg PO DAILY #90 tabs 08/25/23 11/02/23 Rx famotidine 20 mg tablet 20 mg PO BID 08/25/23 11/02/23 History furosemide 20 mg tablet 20 mg PO DAILY PRN Fluid Retention 08/25/23 11/02/23 Rx #30 tabs magnesium chloride 64 mg 128 mg (2 x 64 mg) PO QAM 90 days 08/25/23 11/02/23 Rx (magnesium chloride) #180 tabs tablet,delayed release (Mag 64) sodium zirconium cyclosilicate 10 10 g PO DAILY #30 ea 08/25/23 11/02/23 Rx gram oral powder packet (Lokelma) amlodipine 5 mg tablet 5 mg PO DAILY 09/09/23 11/02/23 History insulin aspart U-100 100 unit/mL 4 unit subcut TID 10/04/23 11/02/23 History (3 mL) subcutaneous pen (Novolog FlexPen U-100 Insulin aspart) insulin degludec 100 unit/mL (3 40 unit subcut DAILY 10/04/23 11/02/23 History mL) subcutaneous pen (Tresiba FlexTouch U-100 insulin) cilostazol 50 mg tablet 50 mg PO BID #180 tabs 10/26/23 11/02/23 Rx pregabalin 50 mg capsule (Lyrica) 50 mg PO BID #60 caps 10/31/23 11/02/23 Rx carvedilol 3.125 mg tablet 3.125 mg PO BID 11/02/23 11/02/23 History gabapentin 300 mg capsule 300 mg PO BID 11/02/23 11/02/23 History cephalexin 500 mg capsule 500 mg PO Q6H 7 days #28 caps 11/04/23 Rx collagenase clostridium histo. 250 1 applic EXT DAILY #30 grams 11/04/23 Rx unit/gram topical ointment (Santyl) oxycodone 5 mg tablet 5 mg PO Q4H PRN pain #20 tabs 11/04/23 Rx Patient History Medical History Cellulitis of right foot History of prostate cancer Postural dizziness Trifascicular block Cardiac pacemaker No pertinent family history Depression BPH (benign prostatic hyperplasia) CKD (chronic kidney disease), stage III DMII (diabetes mellitus, type 2) Hypertension Surgical History History of blepharoplasty L eye History of hernia surgery Family History Mother Colorectal cancer Coronary heart disease Diabetes Brother Diabetes Kidney disease Colorectal cancer Prostate cancer Other No pertinent family history Social History Smoking Status: Never smoker Tobacco Type: Cigarettes, Pipe and Cigars Second Hand Exposure: No; Do You Dip or Chew Tobacco: No; Hx Alcohol Use: Yes Alcohol type: beer Alcohol Intake Frequency Comment: 1-2 beers monthly Hx Substance Use: No Preferred Language: Sinhala Communication Ability: Effective Visual Impairment: Limited Hearing Ability: Normal Poster Required: No Beliefs That Will Affect Care: None marital status: / Current Living Situation: Alone Current Living Situation Comment: Sister and daughter able to assist with care. current occupational status: retired Feels Safe at Home: Yes Childhood Exposure to Second-Hand Smoke: Yes Diet: diabetic and low carbohydrate caffeine: Yes Dental Care, Regularly: Yes Seatbelt Use: always Assistive Devices: Cane, Walker and Wheelchair Review of Systems Review of Systems: All systems reviewed & are unremarkable except as noted in HPI & below Physical Exam Physical Exam: General: Comfortable, no acute distress Eyes: Sclerae anicteric, HENT: Oropharynx clear mucous membranes moist Lungs: Clear to auscultation bilaterally Cardiac: Regular rate and rhythm, 2/6 systolic ejection murmur Abdomen: Soft, nontender Neuro: Nonfocal Psych: Alert orient x3, normal affect and mood Extremities/Vascular: -- 2+ radial bilaterally -- 2+ popliteal pulses Left foot warm, nonpalpable DP/PT pulses, slightly sluggish capillary refill. Small superficial ulcer over left great toe Right foot with 1+ edema to above the ankle, surgical sites well-healed. Has palpable graft from below the knee around the ankle into the foot. Distal forefoot erythematous, dry gangrene involving distal tip of great digit extending around great toe to the base. No drainage or odor. Results & Data Vital Signs (Past 12 Hours) Vital Signs Temp Pulse Resp BP Pulse Ox O2 Del Method 11/03/23 20:51 98.2 F 63 17 166/81 H 94 Room Air PG Care Time/CCT Total # of Minutes Spent Total Time Spent with Patient: Total time spent is greater than 50% in coordination of care (as documented) at patient's floor/unit and/or counseling patient: Coding Level of Care Code 45949 INT INP/OBS CARE 3/75MIN Diagnoses Peripheral arterial disease I73.9
[2023-11-04 09:24] LABS: Basophils # (auto) 0.04 K/uL (0.00-0.20); Basophils % (auto) 0.5 %; Eosinophils # (auto) 0.17 K/uL (0.00-0.50); Hematocrit (blood only) 34.9 % (42.0-52.0); Hemoglobin 10.9 g/dl (14.0-18.0); Immature Granulocytes # (auto) 0.06 K/uL (0.01-0.20); Immature Granulocytes % (auto) 0.7 %; Lymphocytes # (auto) 2.23 K/uL (1.20-3.40); Lymphocytes % (auto) 26.2 %; Mean Corpuscular Hemoglobin 29.9 pg (25.0-34.0); Mean Corpuscular Hgb Conc 31.2 g/dL (32.0-36.0); Mean Corpuscular Volume 95.6 fL (80.0-100.0); Mean Platelet Volume 10.6 fL (9.4-12.4); Monocytes # (auto) 0.86 K/uL (0.11-0.59); Monocytes % (auto) 10.1 %; Neutrophils # (auto) 5.16 K/uL (1.40-6.50); Neutrophils % (auto) 60.5 %; Platelet Count 200 K/uL (130-400); RDW Coefficient of Variation 13.2 % (11.5-14.5); RDW Standard Deviation 46.5 fL (36.4-46.3); Red Blood Count 3.65 M/uL (4.70-6.10); White Blood Count 8.52 K/ul (4.8-10.8)
[2023-11-04 09:40] LABS: Est GFR (African American) 55.9 ml/min; Est GFR (Non-African American) 48.3 ml/min; Potassium 4.4 mmol/L (3.5-5.1)
[2023-11-04 09:41] LABS: BUN Creatinine Ratio 19.1 (10-20); Calcium 8.8 mg/dl (8.6-10.3); Creatinine Clr Calc Pharmacy 37.7 ml/min
--- NOTE | 2023-11-04 11:06 | Discharge Summary ---
Discharge Summary Date of Service November 04, 2023 Principal Dx & Hospital Course #1 = Principal Diagnosis (1) Cellulitis of foot, right: Patient presented to ED on 11/01 with complaints of right foot pain. Patient previously on Keflex outpatient but following cessation, erythema returned. Podiatry was consulted who recommended [place] on wounds and to follow up with their office/wound clinic. Vascular surgery consulted who recommended no acute needs and to follow up with [facility] next week regarding his graft. Arterial doppler from 10/14 revealed no large vessel flow limitation and venous doppler from 10/14 revealed no DVT. He was placed on Ancef 2g q8h while inpatient. Prelim wound cultures growing staph and gram neg. He was discharged on Keflex and recommended close follow up with PCP for abx monitoring. CBC and BMP stable day of discharge. (2) Necrotic eschar: see plan above (3) Insulin dependent type 2 diabetes mellitus: Hemoglobin A1C 8.6 in June, repeat with AM labs resume outpatient medications Plan Chronic medical conditions: PMR - continue prednisone GERD - continue famotidine RTA type 4 - continue Lokelma BPH - continue tamsulosin and finasteride Neuropathy - continue gabapentin/Lyrica (unclear why he is on both but on low doses) and venlafaxine PAD - continue aspirin, clopidogrel, cilostazol and atorvastatin Admission HPI Per Admitting Provider Wang Cunningham is an 88 year old male who presents to the ER with right foot pain and swelling. 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 He underwent revascularization at [facility] in July this year with reported significant improvement in his right foot gangrenous areas. However this whole time he has had right foot pain it has been getting worse over the last month. On October 14 it had become more erythematous and he presented to the ER and was placed on oral Keflex. His erythema initially improved but came back worse on the underside of his foot. The pain was severity 10/10 when he came to the ER, currently 9/10. No fever or chills. 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 He is under vascular surgery (Dr Dey) and podiatry (Dr Yamileth Gray) at [facility] as that is where his revascularization took place. Updated Medication List Medication Instructions Recorded Confirmed Type finasteride 5 mg tablet (Proscar) 5 mg PO QAM 03/03/18 11/02/23 History tamsulosin 0.4 mg capsule (Flomax) 0.4 mg PO HS 03/03/18 11/02/23 History atorvastatin 40 mg tablet 40 mg PO QPM 11/23/19 11/02/23 History ferrous sulfate 325 mg (65 mg 325 mg PO DAILY #90 tabs 06/11/21 11/02/23 Rx iron) tablet denosumab 60 mg/mL subcutaneous 60 mg subcut .COMPLEX 01/14/23 11/02/23 History syringe (Prolia) ropinirole 1 mg tablet 1 mg PO HS 01/14/23 11/02/23 History cholecalciferol (vitamin D3) 50 50 mcg PO QAM 06/03/23 11/02/23 History mcg (2,000 unit) tablet (Vitamin D3) prednisone 5 mg tablet 5 mg PO QAM 06/03/23 11/02/23 History venlafaxine 75 mg capsule,extended 75 mg PO QPM 06/03/23 11/02/23 History release 24 hr aspirin 81 mg tablet,delayed 81 mg PO QAM #0 tabs 06/10/23 11/02/23 Rx release pen needle, diabetic 32 gauge x #200 ea 06/22/23 10/31/23 Rx 5/32" (BD Ultra-Fine Ramya Pen Needle) blood-glucose sensor ([employer] G7 #3 ea 07/11/23 10/31/23 Rx Sensor device) clopidogrel 75 mg tablet (Plavix) 75 mg PO DAILY #90 tabs 08/25/23 11/02/23 Rx famotidine 20 mg tablet 20 mg PO BID 08/25/23 11/02/23 History furosemide 20 mg tablet 20 mg PO DAILY PRN Fluid Retention 08/25/23 11/02/23 Rx #30 tabs magnesium chloride 64 mg 128 mg (2 x 64 mg) PO QAM 90 days 08/25/23 11/02/23 Rx (magnesium chloride) #180 tabs tablet,delayed release (Mag 64) sodium zirconium cyclosilicate 10 10 g PO DAILY #30 ea 08/25/23 11/02/23 Rx gram oral powder packet (Lokelma) amlodipine 5 mg tablet 5 mg PO DAILY 09/09/23 11/02/23 History insulin aspart U-100 100 unit/mL 4 unit subcut TID 10/04/23 11/02/23 History (3 mL) subcutaneous pen (Novolog FlexPen U-100 Insulin aspart) insulin degludec 100 unit/mL (3 40 unit subcut DAILY 10/04/23 11/02/23 History mL) subcutaneous pen (Tresiba FlexTouch U-100 insulin) cilostazol 50 mg tablet 50 mg PO BID #180 tabs 10/26/23 11/02/23 Rx pregabalin 50 mg capsule (Lyrica) 50 mg PO BID #60 caps 10/31/23 11/02/23 Rx carvedilol 3.125 mg tablet 3.125 mg PO BID 11/02/23 11/02/23 History gabapentin 300 mg capsule 300 mg PO BID 11/02/23 11/02/23 History cephalexin 500 mg capsule 500 mg PO Q6H 7 days #28 caps 11/04/23 Rx collagenase clostridium histo. 250 1 applic EXT DAILY #30 grams 11/04/23 Rx unit/gram topical ointment (Santyl) oxycodone 5 mg tablet 5 mg PO Q4H PRN pain #20 tabs 11/04/23 Rx Hospital Stay Data Consultations 11/02/23 19:48 Consult Podiatry Routine 11/03/23 17:17 Consult Vascular Surgery Routine Pending Results Patient Have Any Pending Studies at Discharge: No Discharge Instructions Given to Patient (Per Discharging Provider) Mr. Cunningham, Sami were recently hospitalized for worsening pain of your right foot. Your blood cultures were negative at the 24 hour yamileth. Your wound culture was positive for bacteria and you will be given an antibiotic for further treatment. Please see recommendations below regarding discharge. 1. Please take Cephalexin 500mg every 6 hours for 7 days. -Please take with food to avoid GI upset -Your next dose will be this evening 11/03 2. Please use tylenol as needed for pain 3. Please use oxycodone as needed for breakthrough pain 4. Please use [place] on your foot wound daily. 5. Follow up with wound clinic 6. Follow up with podiatry office 7. Follow up with [facility] Vascular surgery in November as previously scheduled 8. Please resume previous outpatient medications. If you develop any fever, chills, worsening foot pain, discoloration of foot, chest pain, or shortness of breath please report to the ER for further evaluation. Sincerely, Daly Giordano PA-C Total Time Total Time Spent Total Time Spent (In Minutes): 40 Total Time Includes: Examination of the Patient, Discharge Planning, Medication Reconciliation and Communication With Other Providers Supervising Physician Co-Signing Physician Notes The patient was not seen by me. The chart was reviewed. Case discussed with AMELIA Solorio. Agree with assessment and plan Coding Level of Care Code 36601 INP/OBS DISCH >30 MIN Diagnoses Cellulitis of foot, right L03.115 Necrotic eschar I96 Insulin dependent type 2 diabetes mellitus E11.9; Z79.4
--- NOTE | 2023-11-04 14:22 | Podiatry Progress Note ---
Date of Service November 04, 2023 Assessment & Plan (1) Open wound of right foot: (2) Uncontrolled pain: (3) Necrotic eschar: (4) Type 2 diabetes mellitus with peripheral neuropathy: (5) Peripheral arterial disease: Plan patient was examined and evaluated. - Has been worked up by vascular. Appreciate their recs. - Continue with santyl for now, for enzymatic debridement. - F/u outpatient next week in our office. Will likely recommend continued care with wound care center, as well. - Can consider surgery at any point if foot ulcers worsen. - Ok to d/c from our standpoint. Admission and Anticipated Discharge Date Admission Date: November 02, 2023 Subjective Patient was seen at bedside. He is comfortable without significant pain at this time. He has improved since yesterday with no evidence of worsening infection. He is ready for discharge home. Review of Systems Constitutional: no fever, no chills and no fatigue Eyes: no problem reported Ear, Nose, Mouth, Throat: no problem reported Respiratory: no problem reported Cardiovascular: + edema; no problem reported Gastrointestinal: no nausea, no vomiting and no problem reported Musculoskeletal: no problem reported Integumentary: + skin ulcer, + wounds and + erythema Neurologic: + loss of sensation, + numbness and + pa resthesia; no generalized weakness Psychiatric: no problem reported Physical Exam Physical Exam: Right Lower extremity focused exam: DP 0/4 bilaterally. Right PT pulse is palpable, though no evidence of adequate tissue perfusion. No hair growth is noted to the lower extremity. Skin is atrophic with increasing cooling distally. There is pain on palpation of the digits, out of proportion to stimulus. There is subjective radiating pain from the hip down the lower extremity as well. Prior dorsal foot excoriation is well healed. Now, dry arterial insufficiency ulcerations appear to the right great toe circumferentially, the right fifth metatarsal head, the left second toe, and seemingly even sub left heel. This is consistent with the prior bogginess described several months ago, just more advanced. There is 2 areas of dry injured skin, 1 to the plantar posterior right calcaneus and one underlying the IPJ of the hallux. These do appear more consistent with scab formation rather than necrosis, the dry gangrene. There is pain on palpation of these skin lesions. Constitutional: WD/WN, vitals as above + ill appearing and + obese Eyes: PERRL, conjunctivae normal, anicteric sclerae ENMT: external ear and nose normal, oropharynx normal Neck: trachea midline, no thyromegaly normal visual inspection Respiratory: normal respiratory effort, lungs clear to auscultation normal respiratory effort; no respiratory distress Cardiovascular: RRR, no murmur, no edema Rate/Rhythm: regular rate and regular rhythm Vessels: + posterior tibial pulses abnormal (Biphasic flow is noted on Doppler exam) and + dorsalis pedis pulses abnormal Extremities: no calf tenderness, no pedal edema and no edema Chest (Breasts): Chest: normal inspection of chest Gastrointestinal (Abdomen): normal bowel sounds, soft, nontender, no hepatosplenomegaly Inspection/Auscultation: abdomen normal to inspection Percussion/Palpation: + abdomen tender and abdomen soft Musculoskeletal: no cyanosis or clubbing, extremities motor strength 5/5 Head/Neck/Chest: normocephalic and head atraumatic Extremities: extremities normal to inspection Neurologic: patellar DTR's 2+ bilat, sensation intact awake; no focal motor deficits Psychiatric: A+Ox3, euthymic affect Results & Data Results & Data Vital Signs (Past 12 Hours) Vital Signs Temp Pulse Pulse Resp BP Pulse Ox O2 Del Method 11/04/23 11:27 36.7 C 73 16 150/80 H 95 Room Air 11/04/23 11:21 37.0 C 74 63 16 150/72 H 97 11/04/23 08:00 37.0 C 74 16 150/72 H 97 Room Air (1) Open wound of right foot Encounter type: subsequent encounter Qualified Code(s): S91.301D - Unspecified open wound, right foot, subsequent encounter
== END 2023-11-04 17:26 | disposition home or self-care (01) | DRG 300 ==
LOC: ED 16:30 → SUATTDRO 19:35 → 3W 19:35

== ENCOUNTER 2025-04-05 08:55 | Inpatient (IN) ==
--- NOTE | 2025-04-05 09:09 | Emergency Department Note ---
Impression & Plan Ambulatory dysfunction, Acute knee pain, Osteoarthritis, Effusion of knee joint right, Elevated lactic acid level, Elevated troponin, Complicated urinary tract infection ED Provider Note NAME: NELY EASTON AGE: 89 SEX: M : 1935 ARRIVES VIA: Ambulance INFORMANT: Patient, EMS, daughters ED PROVIDER(S): Francisco Khan DO CHIEF COMPLAINT: knee pain HPI: This is an 89-year-old male with the PMHx of HTN, CHF, high degree AVB s/p PPM, PAD/PVD, CKD, IDDM2, gout and GERD presenting to [facility] for further evaluation of knee pain. Patient is accompanied by daughters who provide additional history. Patient did not fall. He was on the toilet. He has had severe knee pain. He is unable to ambulate due to severe pain. Similar to prior gout. He was able to brace a fall. This was a slide off the toilet and braced with his UEs. He did not strike head, back or neck. Unable to walk due to severe knee pain. That is the reason for presentation today. He was recently seen in the ED and started on PO abx for UTI. 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 They deny fever or chills. No cough or congestion. Denies chest pain or palpitations. No shortness of breath. They deny abdominal pain, nausea and vomiting. No urinary complaints. No recent changes in bowel movements. Patient denies recent changes in medications or OTC supplements. Patient offers no other complaints, today. ADDITIONAL HISTORY OBTAINED: Per HPI Chronic Medical/Social Conditions Affecting Care: Per HPI PAST MEDICAL HISTORY: See Below PAST SURGICAL HISTORY: See Below FAMILY HISTORY: See Below SOCIAL HISTORY: See Below HOME MEDICATIONS: See Below ALLERGIES: See Below VITALS: See Below PHYSICAL EXAMINATION: GENERAL: Sitting up in bed, alert, well appearing, well nourished, no distress, non-toxic HEAD: atraumatic EYE EXAM: normal conjunctiva. PERRL and EOM's grossly intact. OROPHARYNX: no exudate, no erythema, lips, buccal mucosa, and tongue normal and mucous membranes are moist NECK: supple, no nuchal rigidity, no adenopathy, non-tender LUNGS: Clear to auscultation. Normal chest wall mechanics HEART: no murmurs, regular rate, regular rhythm ABDOMEN: abdomen soft, non-tender, no masses, no rebound or guarding. BACK: Back is symmetrical on inspection and there is no deformity, no midline tenderness, no CVA tenderness. SKIN: no rashes and no bruising UPPER EXTREMITIES: upper extremities are grossly normal. LOWER EXTREMITIES: Right knee has poor ROM 2/2 severe pain. Slightly warm. No erythema. Palpable effusion. No evidence of trauma. NEURO EXAM: Normal sensorium, GCS 15, normal speech, no gross weakness of arms, no gross weakness of legs. MEDICAL DECISION MAKING: Differential diagnoses includes but not limited to reactive effusion, gout, inflammatory arthritis, pseudogout, septic arthritis, fracture, dislocation, MSK strain, ambulatory dysfunction, electrolyte derangements, complicated UTI In summary, this is an 89 year old male who presented with severe knee pain. Differential as above. Nursing notes and pertinent past medical records reviewed. Vital signs reviewed and the patient is afebrile and HDS. History and presentation revealed severe knee pain with ambulatory dysfunction. Near fall today but able to brace himself. Patient has been recently in the emergency department. Most recently, the patient was evaluated for UTI symptoms. Diagnosed with a UTI and sent on cefdinir. Patient has had multiple evaluations for falls in the past. The patient's fall today seems to be atraumatic. Patient was sitting on the toilet and he was able to brace his self with the upper extremities. He did not exactly hit the floor. He never struck his head. Patient states that his fall was related to his ongoing knee pain. Patient reports this been ongoing over the last 5 days. He does have a history of gout. Patient has a swollen and warm knee joint on the right. Neurovascular intact. No significant erythema overlying the area. Plan for evaluation for infectious pathology but will likely require arthrocentesis. Physical examination revealed no evidence of trauma. As a result of my initial evaluation, IV access was established and the patient was placed on CCRM. Therapeutics ordered include IVFR, analgesia including toradol and opiates. Diagnostics interpreted by me include EKG and cardiac monitoring as listed below: -Cardiac Monitoring: An order was placed for continuous cardiac monitoring. The monitor shows a rate of 60-70s with regular rhythm. -ECG: Normal sinus rhythm at a ventricular rate of [address] segment changes to suggest STEMI. There is a left axis deviation present on this EKG. Patient completed laboratory studies and imaging. CXR independently interpreted by me reveals no evidence of focal consolidation to suggest pna. No large pneumothorax or pleural effusion. No obvious displaced rib fracture. Results independently interpreted by me are minimal leukocytosis. Mild, stable anemia present. There is no significant electrolyte derangements or significant kidney dysfunction from baseline. No changes in LFTs. Two troponins in time were noted to be only mildly elevated in the setting of CKD and reassuring. Normal EKG in the setting of this making ACS unlikely. ESR and CRP are mildly elevated but normal procal. Elevated lactate cleared with IVFR The patient was managed with further analgesia. He was started on 2g CTX. The choice of abx made for coverage of complicated UTI as well as septic arthritis. Septic arthritis is felt to be unlikely but still a possibility. Procedure was aborted on lateral aspect due to calcifications and performed on medial aspect with success. Reviewed synovial fluid showing likely inflammatory arthritis and reactive effusion. No crystals visualized. Give ongoing severe knee pain with effusion and subsequent ambulatory dysfunction, we will plan to admit to the hospital. His presentation is complicated by recent diagnosis of complicated UTI on [place]. Ultimately, the decision was made to admit the patient for ambulatory dysfunction 2/2 severe knee pain and effusion. I discussed the case with the hospitalist service via telephone/TigerText and they are agreeable to admit the patient to their services. Based on the above, including the patient's age, coexisting illnesses, labs, imaging, and exam findings the decision to treat as an inpatient. I discussed the patient with the hospitalist team who recommended admission to their services. They received the medications, treatments, interventions indicated above and their condition remained guarded. I discussed my findings with the patient and their family and they understand and agree with the treatment plan. All patient / family questions were answered to their satisfaction. Consults/Care Managements Discussions: Per MDM ER treatment provided: See above Procedures: Procedure: Knee Arthrocentesis Informed consent: verbal consent obtained prior to procedure Pre-procedure: time out performed Site: R knee Position: Patient supine with slightly flexed knee. The skin was prepped and draped in sterile fashion using CHD. Anesthesia: 5 mL of lidocaine without epinephrine, local infiltration. Technique: Using sterile technique, a 22-gauge needle was inserted into the knee joint via superolateral approach. Aspiration was performed with gentle negative pressure. Findings: 30mL of yellow with slight blood appearing synovial fluid Specimen: Labeled and sent to the lab. Therapeutic interventions: None EBL: 1mL Complications: None Post-procedure: Dressing applied Critical Care: None The chart was completed utilizing [employer] Speech voice recognition software. Grammatical errors, random word insertions, pronoun errors, and incomplete sentences are an occasional consequence of this system due to software limitations, ambient noise, and hardware issues. Any formal questions or concerns about the content, text, or information contained within the body of this dictation should be directly addressed to the physician for clarification. Past Med/Surg History Problem List Complicated urinary tract infection (Acute) Elevated troponin (Acute) Elevated lactic acid level (Acute) Effusion of knee joint right (Acute) Osteoarthritis (Acute) Acute knee pain (Acute) Ambulatory dysfunction (Acute) Hyperbilirubinemia Knee pain Acute UTI (Acute) Hypertension DMII (diabetes mellitus, type 2) Seborrheic keratoses Night sweats Diabetic ulcer of right foot with fat layer exposed Pancreatic mass Foot ulcer, left Loss of protective sensation of skin of deformed foot Heart failure with preserved ejection fraction (HFpEF, >= 50%) Leg swelling Peripheral vascular disease due to secondary diabetes 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, stage 3b Background diabetic retinopathy associated with type 2 diabetes mellitus Amputation of left great toe Sensorineural hearing loss (SNHL) of both ears Peripheral vascular disease Amputation of right great toe Prostate cancer Elevated PSA Open wound of right foot (Acute) Uncontrolled pain (Acute) Necrotic eschar (Acute) Type 2 diabetes mellitus with peripheral neuropathy Necrotic eschar Anemia HTN (hypertension) Polymyalgia rheumatica Insulin dependent type 2 diabetes mellitus S/P cardiac pacemaker procedure Dyslipidemia Diabetic ulcer of right foot (Acute) Renal tubular acidosis, 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 (Acute) Acute hyperkalemia (Acute) Syncope (Acute) Transaminitis MARIA T (acute kidney injury) Peripheral arterial disease (Chronic) Hypomagnesemia (Acute) Acute renal failure superimposed on stage 3 chronic kidney disease History of foot surgery (Chronic) R 4th Toe surgery Orthostatic hypertension (Acute) Closed L3 vertebral fracture (Chronic) Closed fracture of spinous process of thoracic vertebra (Chronic) Lumbago (Chronic) Hypertriglyceridemia (Chronic) GERD (gastroesophageal reflux disease) (Chronic) H/O neck surgery (Chronic) Medical History Constipation Cellulitis of right foot History of prostate cancer Postural dizziness Trifascicular block Cardiac pacemaker No pertinent family history Depression BPH (benign prostatic hyperplasia) CKD (chronic kidney disease), stage III Surgical History History of skin graft Hx of cholecystectomy History of blepharoplasty History of hernia surgery Family History Mother Colorectal cancer Coronary heart disease Diabetes Brother Diabetes Kidney disease Colorectal cancer Prostate cancer Other No pertinent family history Social History Smoking Status: Former smoker Tobacco Type: Cigarettes, Pipe and Cigars Age Started Using Tobacco: 15; Age Quit Using Tobacco: 62; packs per day: 0.5; Second Hand Exposure: No; Do You Dip or Chew Tobacco: No; Hx Alcohol Use: Yes Alcohol type: beer and hard liquor Alcohol Intake Frequency: 2-3 x/Week Alcohol Intake Frequency Comment: 1-2 beers monthly Hx Substance Use: No Preferred Language: Portuguese Communication Ability: Effective Visual Impairment: Limited Hearing Ability: Normal 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 current occupational status: retired Feels Safe at Home: Yes Childhood Exposure to Second-Hand Smoke: Yes Diet: diabetic and low carbohydrate caffeine: Yes Dental Care, Regularly: Yes Seatbelt Use: always Assistive Devices: Cane, Scooter/Electric Scooter, Walker and Wheelchair Allergies Allergies Allergy/AdvReac Type Severity Reaction Status Date / Time pioglitazone [From Actos] Allergy Unknown Unknown Verified 04/03/25 19:50 sitagliptin [From Januvia] Allergy Unknown Unknown Verified 04/03/25 19:50 Home Meds Home Medications Medication Instructions Recorded Confirmed carvedilol 3.125 mg tablet 3.125 mg PO BID 11/02/23 04/05/25 allopurinol 200 mg tablet 200 mg PO DAILY 09/12/24 04/05/25 colchicine 0.6 mg tablet 0.6 mg PO DAILY PRN gout 09/12/24 04/05/25 insulin degludec 100 unit/mL (3 28 unit subcut DAILY 11/26/24 04/05/25 mL) subcutaneous pen (Tresiba FlexTouch U-100 insulin) insulin aspart U-100 100 unit/mL 5 unit subcut AC 04/03/25 04/05/25 (3 mL) subcutaneous pen (Novolog FlexPen U-100 Insulin aspart) tamsulosin 0.4 mg capsule 0.4 mg PO HS 04/03/25 04/05/25 Previous Rx's Medication Instructions Recorded ferrous sulfate 325 mg (65 mg 325 mg PO DAILY #90 tabs 06/11/21 iron) tablet aspirin 81 mg tablet,delayed 81 mg PO QAM #0 tabs 06/10/23 release magnesium chloride 64 mg 128 mg (2 x 64 mg) PO QAM 90 days 08/25/23 (magnesium chloride) #180 tabs tablet,delayed release (Mag 64) atorvastatin 40 mg tablet 40 mg PO QPM #90 tabs 03/14/24 famotidine 20 mg tablet 20 mg PO BID 90 days #180 tabs 03/14/24 blood-glucose sensor (Dexcom G7 #3 ea 06/28/24 Sensor device) cilostazol 50 mg tablet 50 mg PO BID #180 tabs 07/17/24 pen needle, diabetic 32 gauge x #200 ea 07/23/24" cholecalciferol (vitamin D3) 50 50 mcg PO QAM #90 tabs 09/12/24 mcg (2,000 unit) tablet (Vitamin D3) furosemide 20 mg tablet 20 mg PO DAILY #90 tabs 02/26/25 finasteride 5 mg tablet (Proscar) 5 mg PO QAM #90 tabs 03/15/25 cefdinir 300 mg capsule 300 mg PO BID #14 caps 04/03/25 oxycodone 5 mg tablet 5 mg PO Q6H PRN pain #30 tabs 04/07/25 Results & Data (ED) Vital Signs Vital Signs - 24 hr 04/05/25 09:02 04/05/25 09:02 04/05/25 09:21 Temperature 36.7 C Temperature Source Oral Pulse Rate 68 68 71 Pulse Rate [Apical] Pulse Rhythm [Apical] Respiratory Rate 22 22 Respiratory Effort / Characteristics Non-Labored Spontaneous Respiratory Depth Normal Respiratory Pattern Regular Blood Pressure 135/99 Blood Pressure [Right Arm] Blood Pressure Mean 111 Blood Pressure Mean [Right Arm] Blood Pressure Position Sitting Pulse Oximetry 100 100 Oxygen Delivery Method Room Air Room Air Sepsis Recent Fever Within 48 Hours No Sepsis New/Unexplained Change in Mental Status N/A Sepsis Action Taken by Nursing No Action Required 04/05/25 10:16 04/05/25 10:39 Temperature Temperature Source Pulse Rate Pulse Rate [Apical] 65 63 Pulse Rhythm [Apical] Regular Respiratory Rate 16 19 Respiratory Effort / Characteristics Non-Labored Spontaneous Non-Labored Spontaneous Respiratory Depth Normal Normal Respiratory Pattern Regular Blood Pressure Blood Pressure [Right Arm] 95/47 L 115/53 L Blood Pressure Mean Blood Pressure Mean [Right Arm] 63 73 Blood Pressure Position Pulse Oximetry 100 96 Oxygen Delivery Method Room Air Sepsis Recent Fever Within 48 Hours Sepsis New/Unexplained Change in Mental Status Sepsis Action Taken by Nursing Laboratory Data 04/07/25 05:47 04/07/25 05:47 Lab Results 04/05/25 04/05/25 04/05/25 Range/Units 09:35 10:15 11:31 WBC 11.77 H (4.8-10.8) K/ul RBC 3.60 L (4.70-6.10) M/uL Hgb 11.6 L (14.0-18.0) g/dL Hct 35.3 L (42.0-52.0) % MCV 98.1 (80.0-100.0) fL MCH 32.2 (25.0-34.0) pg MCHC 32.9 (32.0-36.0) g/dL RDW Std Deviation 51.4 H (36.4-46.3) fL RDW Coeff of Aleja 14.2 (11.5-14.5) % Plt Count 185 (130-400) K/uL MPV 10.8 (9.4-12.4) fL Immature Gran % (Auto) 1.2 % Neut % (Auto) 61.4 % Lymph % (Auto) 24.8 % Scurry % (Auto) 11.4 % Eos % (Auto) 0.8 % Baso % (Auto) 0.4 % Neut # (Auto) 7.23 H (1.40-6.50) K/uL Lymph # (Auto) 2.92 (1.20-3.40) K/uL Scurry # (Auto) 1.34 H (0.11-0.59) K/uL Eos # (Auto) 0.09 (0.00-0.50) K/uL Baso # (Auto) 0.05 (0.00-0.20) K/uL Immature Gran # (Auto) 0.14 (0.01-0.20) K/uL ESR 23 H (0-20) mm/hr Sodium 139 (136-145) mmol/L Potassium 4.3 (3.5-5.1) mmol/L Chloride 105 (98-107) mmol/L Carbon Dioxide 27 (21-32) mmol/L Anion Gap 7 (3-11) BUN 41 H (6-23) mg/dl Creatinine 1.56 H (0.6-1.4) mg/dl Est Cr Clr Drug Dosing 31.1 ml/min eGFR 42.19 BUN/Creatinine Ratio 26.3 H (10-20) Glucose 121 H (70-99(Fasting)) mg/dl Lactate 2.1 H* (0.4-2.0) mmol/L Calcium 9.2 (8.6-10.3) mg/dl Magnesium 1.8 (1.7-2.4) mg/dl Total Bilirubin 1.7 H D (0.2-1.0) mg/dl Direct Bilirubin 0.3 H (0-0.2) mg/dl AST 20 (13-39) U/L ALT 10 (7-52) U/L Alkaline Phosphatase 64 (34-104) U/L Troponin I High Sens 35.0 H 35.4 H (0-20) pg/ml C-Reactive Protein 4.82 H (0-0.5) mg/dl Total Protein 6.1 (6.0-8.3) gm/dl Albumin 3.6 (3.4-5.0) gm/dl Procalcitonin 0.05 (0-0.5) ng/ml Fld Lyme DNA (PCR) Not Detected (Not Detected) Fluid Comment Synovial Source Right Knee Synovial Color Red Synovial Appearance Slightly Hazy Synovial WBC (Auto) 2658 H (0-200) /ul Synovial RBC (Auto) 93822 /uL Synovial Polynuclear % 88.8 % Synovial Mononuclear % 11.2 % Synovial Crystals Lyme Specimen Source SYNOVIAL FLUID Lyme DNA Comment see note 04/05/25 Range/Units 11:36 WBC (4.8-10.8) K/ul RBC (4.70-6.10) M/uL Hgb (14.0-18.0) g/dL Hct (42.0-52.0) % MCV (80.0-100.0) fL MCH (25.0-34.0) pg MCHC (32.0-36.0) g/dL RDW Std Deviation (36.4-46.3) fL RDW Coeff of Aleja (11.5-14.5) % Plt Count (130-400) K/uL MPV (9.4-12.4) fL Immature Gran % (Auto) % Neut % (Auto) % Lymph % (Auto) % Scurry % (Auto) % Eos % (Auto) % Baso % (Auto) % Neut # (Auto) (1.40-6.50) K/uL Lymph # (Auto) (1.20-3.40) K/uL [place]urry # (Auto) (0.11-0.59) K/uL Eos # (Auto) (0.00-0.50) K/uL Baso # (Auto) (0.00-0.20) K/uL Immature Gran # (Auto) (0.01-0.20) K/uL ESR (0-20) mm/hr Sodium (136-145) mmol/L Potassium (3.5-5.1) mmol/L Chloride (98-107) mmol/L Carbon Dioxide (21-32) mmol/L Anion Gap (3-11) BUN (6-23) mg/dl Creatinine (0.6-1.4) mg/dl Est Cr Clr Drug Dosing ml/min eGFR BUN/Creatinine Ratio (10-20) Glucose (70-99(Fasting)) mg/dl Lactate 0.9 (0.4-2.0) mmol/L Calcium (8.6-10.3) mg/dl Magnesium (1.7-2.4) mg/dl Total Bilirubin (0.2-1.0) mg/dl Direct Bilirubin (0-0.2) mg/dl AST (13-39) U/L ALT (7-52) U/L Alkaline Phosphatase (34-104) U/L Troponin I High Sens (0-20) pg/ml C-Reactive Protein (0-0.5) mg/dl Total Protein (6.0-8.3) gm/dl Albumin (3.4-5.0) gm/dl Procalcitonin (0-0.5) ng/ml Fld Lyme DNA (PCR) (Not Detected) Fluid Comment Synovial Source Synovial Color Synovial Appearance Synovial WBC (Auto) (0-200) /ul Synovial RBC (Auto) /uL Synovial Polynuclear % % Synovial Mononuclear % % Synovial Crystals Lyme Specimen Source Lyme DNA Comment Administered Medications Discontinued Medications Acetaminophen (Acetaminophen 325 Mg Tab) 650 mg PO Q4H PRN PRN Reason: pain/fever Stop: 05/05/25 13:00 Last Admin: 04/07/25 13:30 Dose: 650 mg Documented By: Admin: 04/07/25 09:42 Dose: 650 mg Documented By: Admin: 04/07/25 05:37 Dose: 650 mg Documented By: fernie Admin: 04/06/25 21:28 Dose: 650 mg Documented By: fernie Admin: 04/06/25 17:06 Dose: 650 mg Documented By: Admin: 04/06/25 11:16 Dose: 650 mg Documented By: MICHELLE Allopurinol (Allopurinol 100 Mg Tab) 200 mg PO DAILY [facility] Stop: 05/05/25 15:59 Last Admin: 04/07/25 07:59 Dose: 200 mg Documented By: Admin: 04/06/25 08:58 Dose: 200 mg Documented By: Admin: 04/05/25 17:30 Dose: 200 mg Documented By: PER Aspirin (Aspirin 81 Mg Ectab) 81 mg PO QAM ADITYA Stop: 05/05/25 15:59 Last Admin: 04/07/25 07:59 Dose: 81 mg Documented By: Admin: 04/06/25 08:59 Dose: 81 mg Documented By: Admin: 04/05/25 17:30 Dose: 81 mg Documented By: PER Atorvastatin Calcium (Atorvastatin 40 Mg Tab) 40 mg PO QPM [facility] Stop: 05/05/25 20:59 Last Admin: 04/06/25 21:31 Dose: 40 mg Documented By: fernie Admin: 04/05/25 21:37 Dose: 40 mg Documented By: patricia Colchicine (Colchicine 0.6 Mg Tab) 0.6 mg PO DAILY PRN PRN Reason: gout Stop: 05/05/25 13:06 Last Admin: 04/07/25 08:48 Dose: 0.6 mg Documented By: Admin: 04/06/25 11:13 Dose: 0.6 mg Documented By: MICHELLE Famotidine (Famotidine 20 Mg Tab) 20 mg PO BID ADITYA Stop: 05/05/25 20:59 Last Admin: 04/07/25 08:06 Dose: 20 mg Documented By: Admin: 04/06/25 21:28 Dose: 20 mg Documented By: fernie Admin: 04/06/25 08:59 Dose: 20 mg Documented By: Admin: 04/05/25 21:33 Dose: 20 mg Documented By: patricia Fentanyl Citrate (Fentanyl Citrate Pf 100 Mcg/2 Ml Vial) 50 mcg IV NOW ONE Stop: 04/05/25 09:03 Last Admin: 04/05/25 09:43 Dose: 50 mcg Documented By: ABRIL Ferrous Sulfate (Ferrous Sulfate 325 Mg Tab) 325 mg PO DAILY [facility] Stop: 05/06/25 08:59 Last Admin: 04/07/25 08:00 Dose: 325 mg Documented By: Admin: 04/06/25 08:59 Dose: 325 mg Documented By: MICHELLE Finasteride (Finasteride 5 Mg Tab) 5 mg PO QAM [facility] Stop: 05/05/25 15:59 Last Admin: 04/07/25 07:59 Dose: 5 mg Documented By: Admin: 04/06/25 08:59 Dose: 5 mg Documented By: Admin: 04/05/25 17:30 Dose: 5 mg Documented By: PER Heparin Sodium (Porcine) (Heparin Sod 5,000 Unit/0.5 Ml Vial) 5,000 units SQ Q12 ADITYA Stop: 05/05/25 20:59 Last Admin: 04/07/25 08:05 Dose: 5,000 units Documented By: Admin: 04/06/25 21:29 Dose: 5,000 units Documented By: fernie Admin: 04/06/25 08:59 Dose: 5,000 units Documented By: Admin: 04/05/25 21:33 Dose: 5,000 units Documented By: patricia Acetaminophen (Ofirmev) 1,000 mg in 100 mls @ 400 mls/hr IV NOW STA Stop: 04/05/25 10:27 Last Infusion: 04/05/25 10:44 Dose: Infused Documented By: Admin: 04/05/25 10:30 Dose: 400 mls/hr Documented By: ABRIL Ceftriaxone Sodium (Rocephin) 2,000 mg in 50 mls @ 100 mls/hr IV NOW STA Stop: 04/05/25 10:42 Last Infusion: 04/05/25 11:16 Dose: Infused Documented By: Admin: 04/05/25 10:32 Dose: 100 mls/hr Documented By: ABRIL Ceftriaxone Sodium (Rocephin) 2,000 mg in 50 mls @ 100 mls/hr IV Q24H [facility] Stop: 04/11/25 10:59 Last Infusion: 04/07/25 11:43 Dose: Infused Documented By: Admin: 04/07/25 10:58 Dose: 100 mls/hr Documented By: Infusion: 04/06/25 11:43 Dose: Infused Documented By: Admin: 04/06/25 11:13 Dose: 100 mls/hr Documented By: MICHELLE Sodium Chloride (Nss) 1,000 mls @ 75 mls/hr IV .[id number] [facility] Stop: 04/07/25 09:00 Last Infusion: 04/06/25 13:27 Dose: Infused Documented By: Admin: 04/06/25 06:24 Dose: 75 mls/hr Documented By: patricia Infusion: 04/06/25 03:38 Dose: Infused Documented By: patricia Admin: 04/05/25 14:18 Dose: 75 mls/hr Documented By: SHARATH Insulin Aspart (Insulin Aspart Per Unit Charge) 0 units SC ACHS ADITYA Stop: 05/05/25 16:29 Last Admin: 04/07/25 12:38 Dose: 6 units Documented By: MICHELLE Co-signed By: EDDIE Admin: 04/07/25 08:48 Dose: 4 units Documented By: MICHELLE Co-signed By: EDDIE Admin: 04/06/25 21:20 Dose: Not Given Documented By: fernie Co-signed By: NGA Admin: 04/06/25 17:51 Dose: 5 units Documented By: MICHELLE Co-signed By: EDDIE Admin: 04/06/25 13:26 Dose: 6 units Documented By: MICHELLE Co-signed By: MIGUEL Admin: 04/06/25 08:58 Dose: 6 units Documented By: MICHELLE Co-signed By: JAVI Admin: 04/05/25 21:43 Dose: 2 units Documented By: patricia Co-signed By: ANSHU Admin: 04/05/25 17:31 Dose: 4 units Documented By: PER Co-signed By: JOHNATHAN Insulin Glargine (Lantus Per Unit Charge) 0 units SQ HS ADITYA; Protocol Stop: 05/05/25 20:59 Last Admin: 04/06/25 21:22 Dose: Not Given Documented By: fernie Admin: 04/05/25 21:44 Dose: 8 units Documented By: patricia Co-signed By: ANSHU Insulin Glargine (Lantus Per Unit Charge) 10 units SQ DAILY [facility] Stop: 05/06/25 08:59 Last Admin: 04/06/25 09:01 Dose: 10 units Documented By: MICHELLE Co-signed By: JAVI Insulin Glargine (Lantus Per Unit Charge) 12 units SQ DAILY ADITYA Stop: 05/06/25 08:59 Last Admin: 04/07/25 08:04 Dose: 12 units Documented By: MICHELLE Co-signed By: EDDIE Ketorolac Tromethamine (Ketorolac Tromethamine 15 Mg/Ml Vial) 10 mg IV NOW ONE Stop: 04/05/25 09:03 Last Admin: 04/05/25 09:41 Dose: 10 mg Documented By: ABRIL Melatonin (Melatonin 3 Mg Tab) 3 mg PO HS PRN PRN Reason: Insomnia Stop: 05/05/25 13:00 Last Admin: 04/06/25 21:33 Dose: 3 mg Documented By: fernie Admin: 04/05/25 21:33 Dose: 3 mg Documented By: patricia Midazolam HCl (Midazolam Hcl 1 Mg/Ml 2ml Vial) 2 mg IV NOW STA Stop: 04/05/25 09:44 Last Admin: 04/05/25 10:32 Dose: Not Given Documented By: ABRIL Morphine Sulfate (Morphine Sulfate 4 Mg/Ml 1 Ml Carp\\Vial) 4 mg IV NOW STA Stop: 04/05/25 10:14 Last Admin: 04/05/25 11:40 Dose: 4 mg Documented By: SHARATH Ondansetron HCl (Ondansetron Inj 2 Mg/Ml 2 Ml Vial) 4 mg IV Q6H PRN PRN Reason: Nausea Stop: 05/05/25 13:00 Last Admin: 04/06/25 01:14 Dose: 4 mg Documented By: patricia Oxycodone HCl (Oxycodone Hcl Ir 10 Mg Tab (Immediate Release)) 10 mg PO Q4H PRN PRN Reason: SEVERE Pain (7,8,9,10) Stop: 04/19/25 13:00 Last Admin: 04/05/25 21:32 Dose: 10 mg Documented By: patricia Oxycodone HCl (Oxycodone Hcl Ir 5 Mg Tab (Immediate Release)) 5 mg PO Q4H PRN PRN Reason: MODERATE Pain (4,5,6) & Pre PT Stop: 04/19/25 13:00 Last Admin: 04/07/25 13:31 Dose: 5 mg Documented By: Admin: 04/07/25 09:42 Dose: 5 mg Documented By: Admin: 04/07/25 05:37 Dose: 5 mg Documented By: fernie Admin: 04/06/25 21:29 Dose: 5 mg Documented By: fernie Admin: 04/06/25 17:07 Dose: 5 mg Documented By: Admin: 04/06/25 11:15 Dose: 5 mg Documented By: Admin: 04/06/25 03:55 Dose: 5 mg Documented By: patricia Polyethylene Glycol (Polyethylene (Miralax) 17 Gm Pack) 17 gm PO DAILY PRN PRN Reason: Constipation Stop: 05/05/25 13:00 Last Admin: 04/07/25 10:57 Dose: 17 gm Documented By: MICHELLE Tamsulosin HCl (Tamsulosin Hcl 0.4 Mg Cap) 0.4 mg PO [facility] Stop: 05/05/25 20:59 Last Admin: 04/06/25 21:30 Dose: 0.4 mg Documented By: fernie Admin: 04/05/25 22:22 Dose: 0.4 mg Documented By: patricia Vitamin D (Cholecalciferol 25 Mcg (1000 Units) Tab) [facility] [place] [place]: 05/06/25 08:59 Last Admin: 04/07/25 08:00 Dose: 50 mcg Documented By: Admin: 04/06/25 08:59 Dose: 50 mcg Documented By: [facility] [place] Imaging Data Radiologist's Impression: Chest X-Ray 04/05/25 09:02 XR chest 1V portable CLINICAL HISTORY: Sepsis COMPARISON STUDY: 06/17/2023 FINDINGS: Stable pacemaker. Heart size and pulmonary vasculature are normal. No consolidation or pleural effusion seen. No pneumothorax. IMPRESSION: No acute findings. ACT 112: Negative or not required by law. Electronically signed by: Stiven Del Rosario M.D. 04/05/2025 9:33 AM Knee X-Ray 04/05/25 09:02 XR knee RT 1 or 2V routine CLINICAL HISTORY: fall, knee pain COMPARISON: None FINDINGS: External artifact overlies the distal femur. There are diffuse atherosclerotic calcifications. There is mild osteoarthritis. There is a mild joint effusion. No fracture or dislocation seen. IMPRESSION: No fracture seen. ACT 112: Negative or not required by law. Electronically signed by: Stiven Del Rosario M.D. 04/05/2025 9:33 AM Discharge Plan Visit Data Chief Complaint: Fall Stated Complaint: FALL, KNEE PAIN ED Provider: Francisco Khan Discharge Problem: Ambulatory dysfunction, Acute knee pain, Osteoarthritis, Effusion of knee joint right, Elevated lactic acid level, Elevated troponin, Complicated urinary tract infection Patient Disposition: Admitted As Inpatient Condition: Good Discharge Instructions Interventions: ED Discharge Assessment Last Done: 04/05/25 14:52
--- NOTE | 2025-04-05 09:34 | XRay Report ---
XR chest 1V portable CLINICAL HISTORY: Sepsis COMPARISON STUDY: 06/17/2023 FINDINGS: Stable pacemaker. Heart size and pulmonary vasculature are normal. No consolidation or pleu ral effusion seen. No pneumothorax. IMPRESSION: No acute findings. ACT 112: Negative or not required by law. Electronically signed by: Stiven Del Rosario M.D. 04/05/2025 9:33 AM
--- NOTE | 2025-04-05 09:35 | XRay Report ---
XR knee RT 1 or 2V routine CLINICAL HISTORY: fall, knee pain COMPARISON: None FINDINGS: External artifact overlies the distal femur. There are diffuse atherosclerotic calcificati ons. There is mild osteoarthritis. There is a mild joint effusion. No fracture or dislocation seen. IMPRESSION: No fracture seen. ACT 112: Negative or not required by law. Electronically signed by: Stiven Del Rosario M.D. 04/05/2025 9:33 AM
[2025-04-05] MEDS: KETOROLAC TROMETHAMINE 15 MG/ML VIAL IV ONE (09:41)
[2025-04-05 09:46] LABS: Hematocrit (blood only) 35.3 % (42.0-52.0); Hemoglobin 11.6 g/dL (14.0-18.0); Immature Granulocytes # (auto) 0.14 K/uL (0.01-0.20); Immature Granulocytes % (auto) 1.2 %; Mean Corpuscular Hemoglobin 32.2 pg (25.0-34.0); Mean Corpuscular Volume 98.1 fL (80.0-100.0); Platelet Count 185 K/uL (130-400); RDW Standard Deviation 51.4 fL (36.4-46.3); Red Blood Count 3.60 M/uL (4.70-6.10); White Blood Count 11.77 K/ul (4.8-10.8)
[2025-04-05 10:12] LABS: Alanine Aminotransferase 10.0 U/L (7-52); Albumin Level 3.6 gm/dl (3.4-5.0); Alkaline Phosphatase 64.0 U/L (34-104); Anion Gap 7.0 (3-11); Bilirubin,Total 1.7 mg/dl (0.2-1.0); Blood Urea Nitrogen 41.0 mg/dl (6-23); Calcium 9.2 mg/dl (8.6-10.3); Carbon Dioxide 27.0 mmol/L (21-32); Chloride 105.0 mmol/L (98-107); Creatinine Clr Calc Pharmacy 31.1 ml/min; Glucose 121.0 mg/dl (70-99(Fasting)); Magnesium 1.8 mg/dl (1.7-2.4); Potassium 4.3 mmol/L (3.5-5.1); Sodium 139.0 mmol/L (136-145); Total Protein 6.1 gm/dl (6.0-8.3)
[2025-04-05] MEDS: ACETAMINOPHEN 1,000 MG/100 ML VIAL IV STA (10:30)
[2025-04-05] MEDS: MIDAZOLAM HCL 1 MG/ML 2ML VIAL IV STA (10:32)
[2025-04-05] MEDS: cefTRIAXone SODIUM 2,000 MG/50 ML BAG IV STA (10:32)
[2025-04-05 11:10] LABS: Color Synovial Fluid Red; Mononuclear WBC Synovial 11.2 %; Polynuclear WBC Synovial 88.8 %; RBC Synovial Fluid Auto 24000 /uL; Source Synovial Fluid Right Knee; WBC Synovial Fluid Auto 2658 /ul (0-200)
[2025-04-05] MEDS: MoRPHine SULFATE 4 MG/ML 1 ML CARP\\VIAL IV STA (11:40)
[2025-04-05] MEDS ORDERED: PHARMACY GLYCEMIC MGMT CONSULT PRN (13:01)
[2025-04-05] MEDS ORDERED: GLUCOSE 10 TAB/TUBE PO PRN ×2 (13:01→14:15)
[2025-04-05] MEDS ORDERED: DEXTROSE 50% 50 ML SYRINGE IV PRN ×2 (13:01→14:15)
[2025-04-05] MEDS ORDERED: GLUCAGON FOR INJ 1 MG VIAL SQ PRN ×2 (13:01→14:15)
[2025-04-05] MEDS ORDERED: CARBOHYDRATES FOR HYPOGLYCEMIA PO PRN ×2 (13:01→14:15)
[2025-04-05] MEDS ORDERED: GLUCOSE 40% GEL 15 GM TUBE PO PRN ×2 (13:01→14:15)
[2025-04-05] MEDS ORDERED: MAGNESIUM HYDROXIDE SUSP 30 ML UDC PO PRN (13:01)
[2025-04-05] MEDS ORDERED: ALUMINUM/MAGNESIUM SUSP 30 ML UDC PO PRN (13:01)
--- NOTE | 2025-04-05 13:47 | History & Physical Report ---
Date of Service April 05, 2025 Assessment & Plan (1) Acute UTI: (2) Chronic kidney disease, stage 3b: (3) Fall: (4) Knee pain: (5) Hyperbilirubinemia: Plan 89-year-old male with a past medical history of type 2 diabetes mellitus, gout, hypertension, presents to the hospital with complaints of right knee pain leading to a mechanical fall, recent diagnosis of UTI: #mechanical fall -Admit to [facility] -PT, OT eval #Right knee pain -Studies of synovial fluid are currently still pending. -Likely due to underlying inflammatory arthropathy, history of gout -Pain control -Continue with home medications for gout including allopurinol and colchicine. -Consider orthopedic consultation -Consider trending inflammatory markers # #UTI -Patient with recent diagnosis of a UTI, cultures indicate E. colipansensitive - continue with IV ceftriaxone #CKD stage III - continue to trend creatinine, relatively within range but has had wide fluctuations over the past 1 year. -IV fluids for hydration and monitor kidney function #Hypotension -Continue to monitor blood pressure, hold home carvedilol And Lasix #Hyperbilirubinemia -Unknown clear cause,? If due to antibiotics versus acute infectious process -Continue to trend, if remains elevated consider imaging including right upper quadrant ultrasound #Lactic acidosis -Patient mild elevation of lactic acid, possibly due to fall and dehydration. -Consider repeat lactic acid in the a.m. #Type 2 diabetes mellitus -ISS -Will order the patient for Lantus, 20 units in the a.m. #Elevated troponin -Patient with mild elevation in troponin, likely type II demand ischemia -Consider repeating troponin in the a.m., patient with no complaints of chest discomfort at this time -Will check an EKG History of Present Illness Chief Complaint: Right knee pain Primary Care Provider: Garrison Triplett, 89-year-old male with a past medical history as mentioned below presents to the hospital with complaints of a fall. History is obtained from the patient as well as her daughters who are currently at bedside. They mention that he has been having right sided knee discomfort for at least 1 week. Over this period of time he has had some difficulty with ambulation. This morning he woke up, went to the bathroom and had a fall there due to pain in his right knee. He was supposed to follow-up with orthopedics outpatient, but the next appointment he was able to get was for Ammy. He also came to the emergency room 48 hours ago for difficulty with urination and was diagnosed with a urinary tract infection. He was prescribed antibiotics, and has been taking them at home. He did not take any of his medications or insulin this morning. He rates his right knee pain as an 8 out of 10 at this time but this has improved since he presented to the emergency department. He has some fluid removed from his knee by the emergency room clinician, lab results from this are still pending. He denies having any chest pain or trouble breathing. He denies having had any loss of consciousness causing his fall earlier. He did not hit his head when he fell, and broke his fall. Allergies Allergy/AdvReac Type Severity Reaction Status Date / Time pioglitazone [From Actos] Allergy Unknown Unknown Verified 04/03/25 19:50 sitagliptin [From Januvia] Allergy Unknown Unknown Verified 04/03/25 19:50 Home Medications Medication Instructions Recorded Confirmed Type ferrous sulfate 325 mg (65 mg 325 mg PO DAILY #90 tabs 06/11/21 04/05/25 Rx iron) tablet aspirin 81 mg tablet,delayed 81 mg PO QAM #0 tabs 06/10/23 04/05/25 Rx release magnesium chloride 64 mg 128 mg (2 x 64 mg) PO QAM 90 days 08/25/23 04/05/25 Rx (magnesium chloride) #180 tabs tablet,delayed release (Mag 64) carvedilol 3.125 mg tablet 3.125 mg PO BID 11/02/23 04/05/25 History atorvastatin 40 mg tablet 40 mg PO QPM #90 tabs 03/14/24 04/05/25 Rx famotidine 20 mg tablet 20 mg PO BID 90 days #180 tabs 03/14/24 04/05/25 Rx blood-glucose sensor (Dexcom G7 #3 ea 06/28/24 04/03/25 Rx Sensor device) cilostazol 50 mg tablet 50 mg PO BID #180 tabs 07/17/24 04/05/25 Rx pen needle, diabetic 32 gauge x #200 ea 07/23/24 04/03/25 Rx 5/32" allopurinol 200 mg tablet 200 mg PO DAILY 09/12/24 04/05/25 History cholecalciferol (vitamin D3) 50 50 mcg PO QAM #90 tabs 09/12/24 04/05/25 Rx mcg (2,000 unit) tablet (Vitamin D3) colchicine 0.6 mg tablet 0.6 mg PO DAILY PRN gout 09/12/24 04/05/25 History insulin degludec 100 unit/mL (3 28 unit subcut DAILY 11/26/24 04/05/25 History mL) subcutaneous pen (Tresiba FlexTouch U-100 insulin) furosemide 20 mg tablet 20 mg PO DAILY #90 tabs 02/26/25 04/05/25 Rx finasteride 5 mg tablet (Proscar) 5 mg PO QAM #90 tabs 03/15/25 04/05/25 Rx oxycodone 5 mg tablet 5 mg PO Q12H PRN pain #30 tabs 03/22/25 04/05/25 Rx cefdinir 300 mg capsule 300 mg PO BID #14 caps 04/03/25 04/05/25 Rx insulin aspart U-100 100 unit/mL 5 unit subcut AC 04/03/25 04/05/25 History (3 mL) subcutaneous pen (Novolog FlexPen U-100 Insulin aspart) prednisone 5 mg tablet 5 mg PO DAILY 04/03/25 04/05/25 History tamsulosin 0.4 mg capsule 0.4 mg PO HS 04/03/25 04/05/25 History Past Med/Surg History Problem List Hyperbilirubinemia Knee pain Acute UTI (Acute) Hypertension DMII (diabetes mellitus, type 2) Seborrheic keratoses Night sweats Diabetic ulcer of right foot with fat layer exposed Pancreatic mass Foot ulcer, left Loss of protective sensation of skin of deformed foot Heart failure with preserved ejection fraction (HFpEF, >= 50%) Leg swelling Peripheral vascular disease due to secondary diabetes 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, stage 3b Background diabetic retinopathy associated with type 2 diabetes mellitus Amputation of left great toe Sensorineural hearing loss (SNHL) of both ears Peripheral vascular disease Amputation of right great toe Prostate cancer Elevated PSA Open wound of right foot (Acute) Uncontrolled pain (Acute) Necrotic eschar (Acute) Type 2 diabetes mellitus with peripheral neuropathy Necrotic eschar Anemia HTN (hypertension) Polymyalgia rheumatica Insulin dependent type 2 diabetes mellitus S/P cardiac pacemaker procedure Dyslipidemia Diabetic ulcer of right foot (Acute) Renal tubular acidosis, 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 (Acute) Acute hyperkalemia (Acute) Syncope (Acute) Transaminitis MARIA T (acute kidney injury) Peripheral arterial disease (Chronic) Hypomagnesemia (Acute) Acute renal failure superimposed on stage 3 chronic kidney disease History of foot surgery (Chronic) R 4th Toe surgery Orthostatic hypertension (Acute) Closed L3 vertebral fracture (Chronic) Closed fracture of spinous process of thoracic vertebra (Chronic) Lumbago (Chronic) Hypertriglyceridemia (Chronic) GERD (gastroesophageal reflux disease) (Chronic) H/O neck surgery (Chronic) Medical History Constipation Cellulitis of right foot History of prostate cancer Postural dizziness Trifascicular block Cardiac pacemaker No pertinent family history Depression BPH (benign prostatic hyperplasia) CKD (chronic kidney disease), stage III Surgical History History of skin graft Hx of cholecystectomy History of blepharoplasty History of hernia surgery Family History Mother Colorectal cancer Coronary heart disease Diabetes Brother Diabetes Kidney disease Colorectal cancer Prostate cancer Other No pertinent family history Social History Smoking Status: Former smoker Tobacco Type: Cigarettes, Pipe and Cigars Age Started Using Tobacco: 15; Age Quit Using Tobacco: 62; packs per day: 0.5; Second Hand Exposure: No; Do You Dip or Chew Tobacco: No; Hx Alcohol Use: Yes Alcohol type: beer and hard liquor Alcohol Intake Frequency: 2-3 x/Week Alcohol Intake Frequency Comment: 1-2 beers monthly Hx Substance Use: No Preferred Language: [place] Communication Ability: Effective Visual Impairment: Limited Hearing Ability: Normal Forensic Document Examiner Required: No Beliefs That Will Affect Care: None marital status: / Current Living Situation: Alone Current Living Situation Comment: Sister and daughter able to assist with care. current occupational status: retired Feels Safe at Home: Yes Safety Concerns: Feels Safe At This Time Childhood Exposure to Second-Hand Smoke: Yes Diet: diabetic and low carbohydrate caffeine: Yes Dental Care, Regularly: Yes Seatbelt Use: always Assistive Devices: Cane, Glasses and Walker Physical Exam Physical Exam: Gen-pt in NAD, awake and alert CVS-+s1,s2, RRR, no murmurs Lungs-CTA b/l Ext-trace edema right > left, no cyanosis Neuro-grossly intact Results & Data Results & Data Vital Signs (Past 12 Hours) Vital Signs Temp Pulse Pulse Resp BP BP Pulse Ox 04/05/25 13:27 60 04/05/25 11:40 64 16 94/50 L 100 04/05/25 11:11 65 20 98/56 L 99 04/05/25 10:39 63 19 115/53 L 96 04/05/25 10:16 65 16 95/47 L 100 04/05/25 09:21 71 04/05/25 09:02 68 22 100 04/05/25 09:02 36.7 C 68 22 135/99 100 O2 Del Method O2 Flow Rate 04/05/25 13:27 04/05/25 11:40 Nasal Cannula 2 04/05/25 11:11 Nasal Cannula 2 04/05/25 10:39 04/05/25 10:16 Room Air 04/05/25 09:21 04/05/25 09:02 Room Air 04/05/25 09:02 Room Air Laboratory Results 04/05/25 10:15 Gram Stain - Final Knee Aerobic and Anaerobic Culture - Pending 04/05/25 09:35 Aerobic Blood Culture - Pending Blood Anaerobic Blood Culture - Pending 04/05/25 09:35 Aerobic Blood Culture - Pending Blood Anaerobic Blood Culture - Pending 04/05/25 04/05/25 04/05/25 Unknown 11:36 11:31 WBC RBC Hgb Hct MCV MCH MCHC RDW Std Deviation RDW Coeff of Aleja Plt Count MPV Immature Gran % (Auto) Neut % (Auto) Lymph % (Auto) [place] % (Auto) Eos % (Auto) Baso % (Auto) Neut # (Auto) Lymph # (Auto) [place] # (Auto) Eos # (Auto) Baso # (Auto) Immature Gran # (Auto) ESR Sodium Potassium Chloride Carbon Dioxide Anion Gap BUN Creatinine Est Cr Clr Drug Dosing eGFR BUN/Creatinine Ratio Glucose Lactate 0.9 Calcium Magnesium Total Bilirubin Direct Bilirubin AST ALT Alkaline Phosphatase Troponin I High Sens 35.4 H C-Reactive Protein Total Protein Albumin Procalcitonin Fluid Comment Synovial Source Synovial Color Synovial Appearance Synovial WBC (Auto) Synovial RBC (Auto) Synovial Polynuclear % Synovial Mononuclear % Synovial Crystals Nasal Screen MRSA (PCR) Negative 04/05/25 04/05/25 10:15 09:35 WBC 11.77 H RBC 3.60 L Hgb 11.6 L Hct 35.3 L MCV 98.1 MCH 32.2 MCHC 32.9 RDW Std Deviation 51.4 H RDW Coeff of Aleja 14.2 Plt Count 185 MPV 10.8 Immature Gran % (Auto) 1.2 Neut % (Auto) 61.4 Lymph % (Auto) 24.8 [place] % (Auto) 11.4 Eos % (Auto) 0.8 Baso % (Auto) 0.4 Neut # (Auto) 7.23 H Lymph # (Auto) 2.92 [place] # (Auto) 1.34 H Eos # (Auto) 0.09 Baso # (Auto) 0.05 Immature Gran # (Auto) 0.14 ESR 23 H Sodium 139 Potassium 4.3 Chloride 105 Carbon Dioxide 27 Anion Gap 7 BUN 41 H Creatinine 1.56 H Est Cr Clr Drug Dosing 31.1 eGFR 42.19 BUN/Creatinine Ratio 26.3 H Glucose 121 H Lactate 2.1 H* Calcium 9.2 Magnesium 1.8 Total Bilirubin 1.7 H D Direct Bilirubin 0.3 H AST 20 ALT 10 Alkaline Phosphatase 64 Troponin I High Sens 35.0 H C-Reactive Protein 4.82 H Total Protein 6.1 Albumin 3.6 Procalcitonin 0.05 Fluid Comment Synovial Source Right Knee Synovial Color Red Synovial Appearance Slightly Hazy Synovial WBC (Auto) 2658 H Synovial RBC (Auto) 96446 Synovial Polynuclear % 88.8 Synovial Mononuclear % 11.2 Synovial Crystals Nasal Screen MRSA (PCR) Diagnostic Findings Chest X-Ray 04/05/25 09:02 XR chest 1V portable CLINICAL HISTORY: Sepsis COMPARISON STUDY: 06/17/2023 FINDINGS: Stable pacemaker. Heart size and pulmonary vasculature are normal. No consolidation or pleural effusion seen. No pneumothorax. IMPRESSION: No acute findings. ACT 112: Negative or not required by law. Electronically signed by: Stiven Del Rosario M.D. 04/05/2025 9:33 AM Knee X-Ray 04/05/25 09:02 XR knee RT 1 or 2V routine CLINICAL HISTORY: fall, knee pain COMPARISON: None FINDINGS: External artifact overlies the distal femur. There are diffuse atherosclerotic calcifications. There is mild osteoarthritis. There is a mild joint effusion. No fracture or dislocation seen. IMPRESSION: No fracture seen. ACT 112: Negative or not required by law. Electronically signed by: Stiven Del Rosario M.D. 04/05/2025 9:33 AM PG Care Time/CCT Total # of Minutes Spent Total Time Spent with Patient: Total time spent is greater than 50% in coordination of care (as documented) at patient's floor/unit and/or counseling patient: Coding Level of Care Code 54868 INT INP/OBS CARE 3/75MIN Diagnoses Acute UTI N39.0 Chronic kidney disease, stage 3b N18.32 Fall W19.XXXA Knee pain M25.569 Hyperbilirubinemia E80.6
--- NOTE | 2025-04-05 13:49 | Electrocardiogram Report ---
Test Reason : Blood Pressure : */* mmHG Vent. Rate : 66 BPM Atrial Rate : 66 BPM P-R Int : 200 ms QRS Dur : 114 ms QT Int : 450 ms P-R-T Axes : 25 -52 83 degrees QTcB Int : 471 ms A-sensed, V-paced rhythm Confirmed by Luis Carnes ([id number]) on 04/05/2025 1:49:36 PM Referred By: REFERRED SELF Confirmed By: Luis Carnes
[2025-04-05] MEDS: SODIUM CHLORIDE 0.9% 1,000 ML IV SCH (14:18)
[2025-04-05 16:16] LABS: Appearance Urine Clear (Clear); Bacteria Urine Automated None Seen (None Seen); Glucose Urine UA Negative (Negative); RBC Urine Automated 0-2 /hpf (0-2); WBC Urine Automated 21-50 /hpf (0-5)
[2025-04-05] MEDS: ASPIRIN 81 MG ECTAB PO SCH (17:30)
[2025-04-05] MEDS: FINASTERIDE 5 MG TAB PO SCH (17:30)
[2025-04-05] MEDS: INSULIN ASPART PER UNIT CHARGE SC SCH (17:31)
--- NOTE | 2025-04-05 21:06 | Ultrasound Report ---
Exam(s): US VENOUS BILATERAL LOWER EXTREMITIES EXAM: US Duplex Bilateral Lower Extremities Veins CLINICAL HISTORY: Reason for exam: swelling, pain right greater than left. OTHER: Other Notes: Swelling and pain. No thrombus detected within BLE's. TECHNIQUE: Real-time duplex ultrasound scan of the bilateral lower extremity veins integrating B-mode two-dimensional vascular structure, Doppler spectral analysis, color flow Doppler imaging and compression. COMPARISON: No relevant prior studies available. FINDINGS: Right deep veins: Unremarkable. No DVT in the right common femoral, femoral, proximal deep femoral or popliteal veins. The veins demonstrate normal color flow, are normally compressible, with normal phasic flow and/or augmentation response. Right superficial veins: Unremarkable. No thrombus in the visualized right great saphenous vein. Left deep veins: Unremarkable. No DVT in the left common femoral, femoral, proximal deep femoral or popliteal veins. The veins demonstrate normal color flow, are normally compressible, with normal phasic flow and/or augmentation response. Left superficial veins: Unremarkable. No thrombus in the visualized left great saphenous vein. Soft tissues: No acute findings. No popliteal cyst. IMPRESSION: Negative bilateral lower extremity venous duplex ultrasound. There is no evidence of DVT. Electronically signed by: Nader Caro MD 04/05/25 21:05 PM
[2025-04-05] MEDS: HEPARIN SOD 5,000 UNIT/0.5 ML VIAL SQ SCH (21:33)
[2025-04-05] MEDS: FAMOTIDINE 20 MG TAB PO SCH (21:33)
[2025-04-05] MEDS: MELATONIN 3 MG TAB PO PRN (21:33)
[2025-04-05] MEDS: ATORVASTATIN 40 MG TAB PO SCH (21:37)
[2025-04-05] MEDS: LANTUS PER UNIT CHARGE SQ SCH (21:44)
[2025-04-05] MEDS: TAMSULOSIN HCL 0.4 MG CAP PO SCH (22:22)
[2025-04-06] MEDS: ONDANSETRON INJ 2 MG/ML 2 ML VIAL IV PRN (01:14)
[2025-04-06 06:46] LABS: Hematocrit (blood only) 30.9 % (42.0-52.0); Hemoglobin 10.0 g/dL (14.0-18.0); Immature Granulocytes # (auto) 0.08 K/uL (0.01-0.20); Immature Granulocytes % (auto) 1.0 %; Mean Corpuscular Hemoglobin 32.5 pg (25.0-34.0); Mean Corpuscular Volume 100.3 fL (80.0-100.0); Platelet Count 146 K/uL (130-400); RDW Standard Deviation 51.4 fL (36.4-46.3); Red Blood Count 3.08 M/uL (4.70-6.10); White Blood Count 8.40 K/ul (4.8-10.8)
[2025-04-06 07:06] LABS: Partial Thromboplastin Time 28 Seconds (21-31)
[2025-04-06 07:42] LABS: Alanine Aminotransferase 7.0 U/L (7-52); Albumin Globulin Ratio 1.4 (0.9-2); Albumin Level 2.9 gm/dl (3.4-5.0); Alkaline Phosphatase 51.0 U/L (34-104); Anion Gap 4.0 (3-11); Bilirubin,Total 0.7 mg/dl (0.2-1.0); Blood Urea Nitrogen 49.0 mg/dl (6-23); Calcium 7.9 mg/dl (8.6-10.3); Carbon Dioxide 27.0 mmol/L (21-32); Chloride 105.0 mmol/L (98-107); Creatine Kinase 110.0 U/L (30-223); Creatinine Clr Calc Pharmacy 28.3 ml/min; Globulin 2.1 gm/dl (2.5-4.0); Glucose 168.0 mg/dl (70-99(Fasting)); Magnesium 1.7 mg/dl (1.7-2.4); Potassium 4.3 mmol/L (3.5-5.1); Sodium 136.0 mmol/L (136-145); Total Protein 5.0 gm/dl (6.0-8.3)
[2025-04-06] MEDS: FERROUS SULFATE 325 MG TAB PO SCH (08:59)
[2025-04-06] MEDS: CHOLECALCIFEROL 25 MCG (1000 UNITS) TAB PO SCH (08:59)
[2025-04-06] MEDS ORDERED: LANTUS PER UNIT CHARGE SQ SCH (09:00)
[2025-04-06] MEDS: LANTUS PER UNIT CHARGE SQ SCH (09:01)
[2025-04-06] MEDS: COLCHICINE 0.6 MG TAB PO PRN (11:13)
[2025-04-06] MEDS: cefTRIAXone SODIUM 2,000 MG/50 ML BAG IV SCH (11:13)
[2025-04-06] MEDS: ACETAMINOPHEN 325 MG TAB PO PRN (11:16)
--- NOTE | 2025-04-06 13:23 | Pharmacy Report ---
Pharmacy Glycemic Short Note 2 - Date of Service April 06, 2025 - Glycemic Short BSG Results (Last 24 hours): 04/05/25 04/05/25 04/06/25 16:28 20:46 06:21 Glucose 168 H POC Glucose 151 H 201 H 04/06/25 04/06/25 07:39 11:38 Glucose POC Glucose 156 H 148 H OUTPATIENT ANTIDIABETIC REGIMEN: * Tresiba 28 units SC daily * Novolog 5 units SC TIDM HbA1c: 8% (03/05/25) ASSESSMENT: * RS is an 89 year old male who presented to [facility] following mechanical fall * Reasonably controlled T2DM as an outpatient given advanced age * T2DM diet ordered * Will utilize conservative initial SC basal/bolus insulin regimen PLAN FOR INPATIENT GLYCEMIC CONTROL: * Basal insulin * Lantus 10 units SC daily * Lantus 0-5-10 units SC HS * Bolus insulin * NovoLog per scale ACHS or Q6hrs while NPO * Goal Range: Low 120 mg/dL - High 160 mg/dL * Correction Factor: 30 mg/dL/unit * Nutritional / Prandial insulin per carb ratio of 1 unit per 10 grams CHO consumed
--- NOTE | 2025-04-06 13:23 | Hospitalist Progress Note ---
Date of Service April 06, 2025 Assessment & Plan (1) Acute UTI: (2) Chronic kidney disease, stage 3b: (3) Fall: (4) Knee pain: (5) Hyperbilirubinemia: Plan 89-year-old male with a past medical history of type 2 diabetes mellitus, gout, hypertension, presents to the hospital with complaints of right knee pain leading to a mechanical fall, recent diagnosis of UTI: #Mechanical fall -PT, OT eval #Right knee pain -Studies of synovial fluid Negative for septic arthritis, no crystals seen at this time. - Likely due to underlying osteoarthritis. -Pain control -Continue with home medications for gout including allopurinol and colchicine. - PT, OT eval. - Venous Dopplers negative for any evidence of thromboembolism. #UTI -Patient with recent diagnosis of a UTI, cultures indicate E. colipansensitive - continue with IV ceftriaxone #CKD stage III - continue to trend creatinine, slight increase over the last 24 hours. Will stop IV fluids, check renal ultrasound. #Hypotension -Continue to monitor blood pressure, hold home carvedilol And Lasix #Hyperbilirubinemia -Unknown clear cause,? If due to antibiotics versus acute infectious process -Continue to trend, Which has normalized over the last 24 hours. #Lactic acidosis -Patient mild elevation of lactic acid, possibly due to fall and dehydration. - Repeat lactic acid on 1227 within normal limits. #Type 2 diabetes mellitus -ISS -Will order the patient for Lantus, 20 units in the a.m. #Elevated troponin -Patient with mild elevation in troponin, likely type II demand ischemia -Consider repeating troponin in the a.m., Troponin remained relatively stable and patient with no ongoing complaints of chest pain. - EKG with no acute findings. Admission and Anticipated Discharge Date Admission Date: April 05, 2025 Subjective Patient seen and examined. He mentions his right knee pain is improving. He denies having any chest pain or trouble breathing at this time. No nausea or vomiting. No fevers or chills. Physical Exam Physical Exam: Gen-pt in NAD, awake and alert CVS-+s1,s2, RRR, no murmurs Lungs-CTA b/l GI-BS normoactive, NT, ND Ext-no edema, no cyanosis Neuro-grossly intact Results & Data Results & Data Vital Signs (Past 12 Hours) Vital Signs Temp Pulse Resp BP Pulse Ox O2 Del Method 04/06/25 07:41 37 C 66 18 119/62 93 Room Air Laboratory Results 04/05/25 15:40 Urine Culture - Preliminary Urine,Clean Catch No growth - Less than 1,000 colonies/mL, Final report to follow. 04/05/25 10:15 Gram Stain - Final Knee Aerobic and Anaerobic Culture - Preliminary No growth to date. 04/05/25 09:35 Aerobic Blood Culture - Preliminary Blood No growth in Aerobic bottle after 24 hours. Anaerobic Blood Culture - Pending 04/05/25 09:35 Aerobic Blood Culture - Preliminary Blood No growth in Aerobic bottle after 24 hours. Anaerobic Blood Culture - Preliminary No growth in Anaerobic bottle after 24 hours. 04/06/25 04/06/25 04/06/25 11:38 07:39 06:21 WBC 8.40 RBC 3.08 L Hgb 10.0 L Hct 30.9 L MCV 100.3 H MCH 32.5 MCHC 32.4 RDW Std Deviation 51.4 H RDW Coeff of Aleja 14.2 Plt Count 146 MPV 11.2 Immature Gran % (Auto) 1.0 Neut % (Auto) 61.0 Lymph % (Auto) 24.9 Potter % (Auto) 11.2 Eos % (Auto) 1.5 Baso % (Auto) 0.4 Neut # (Auto) 5.13 Lymph # (Auto) 2.09 Potter # (Auto) 0.94 H Eos # (Auto) 0.13 Baso # (Auto) 0.03 Immature Gran # (Auto) 0.08 APTT 28 PTT Ratio 1.0 Sodium 136 Potassium 4.3 Chloride 105 Carbon Dioxide 27 Anion Gap 4 BUN 49 H Creatinine 1.71 H Est Cr Clr Drug Dosing 28.3 eGFR 37.79 BUN/Creatinine Ratio 28.7 H Glucose 168 H POC Glucose 148 H 156 H Lactate 0.8 Calcium 7.9 L Magnesium 1.7 Total Bilirubin 0.7 D Direct Bilirubin 0.2 AST 14 ALT 7 Alkaline Phosphatase 51 Total Creatine Kinase 110 Troponin I High Sens 32.0 H Total Protein 5.0 L D Albumin 2.9 L Globulin 2.1 L Albumin/Globulin Ratio 1.4 Urine Color Urine Appearance Urine pH Ur Specific Jenera Urine Protein Urine Glucose (UA) Urine Ketones Urine Blood Urine Nitrite Urine Bilirubin Urine Urobilinogen Ur Leukocyte Esterase Urine WBC (Auto) Urine RBC (Auto) U Hyaline Cast (Auto) U Epithel Cells (Auto) Urine Bacteria (Auto) Hyaline Casts Urine Comment 04/05/25 04/05/25 04/05/25 20:46 16:28 15:40 WBC RBC Hgb Hct MCV MCH MCHC RDW Std Deviation RDW Coeff of Aleja Plt Count MPV Immature Gran % (Auto) Neut % (Auto) Lymph % (Auto) Potter % (Auto) Eos % (Auto) Baso % (Auto) Neut # (Auto) Lymph # (Auto) Potter # (Auto) Eos # (Auto) Baso # (Auto) Immature Gran # (Auto) APTT PTT Ratio Sodium Potassium Chloride Carbon Dioxide Anion Gap BUN Creatinine Est Cr Clr Drug Dosing eGFR BUN/Creatinine Ratio Glucose POC Glucose 201 H 151 H Lactate Calcium Magnesium Total Bilirubin Direct Bilirubin AST ALT Alkaline Phosphatase Total Creatine Kinase Troponin I High Sens Total Protein Albumin Globulin Albumin/Globulin Ratio Urine Color Yellow Urine Appearance Clear Urine pH 5.0 Ur Specific Jenera 1.020 Urine Protein Trace H Urine Glucose (UA) Negative Urine Ketones Trace H Urine Blood Negative Urine Nitrite Negative Urine Bilirubin Negative Urine Urobilinogen Negative Ur Leukocyte Esterase 2+ H Urine WBC (Auto) 21-50 H Urine RBC (Auto) 0-2 U Hyaline Cast (Auto) 11-20 H U Epithel Cells (Auto) 3-5 H Urine Bacteria (Auto) None Seen Hyaline Casts Present A Urine Comment Diagnostic Findings Venous Doppler Study 04/05/25 13:11 Exam(s): US VENOUS BILATERAL LOWER EXTREMITIES EXAM: US Duplex Bilateral Lower Extremities Veins CLINICAL HISTORY: Reason for exam: swelling, pain right greater than left. OTHER: Other Notes: Swelling and pain. No thrombus detected within BLE's. TECHNIQUE: Real-time duplex ultrasound scan of the bilateral lower extremity veins integrating B-mode two-dimensional vascular structure, Doppler spectral analysis, color flow Doppler imaging and compression. COMPARISON: No relevant prior studies available. FINDINGS: Right deep veins: Unremarkable. No DVT in the right common femoral, femoral, proximal deep femoral or popliteal veins. The veins demonstrate normal color flow, are normally compressible, with normal phasic flow and/or augmentation response. Right superficial veins: Unremarkable. No thrombus in the visualized right great saphenous vein. Left deep veins: Unremarkable. No DVT in the left common femoral, femoral, proximal deep femoral or popliteal veins. The veins demonstrate normal color flow, are normally compressible, with normal phasic flow and/or augmentation response. Left superficial veins: Unremarkable. No thrombus in the visualized left great saphenous vein. Soft tissues: No acute findings. No popliteal cyst. IMPRESSION: Negative bilateral lower extremity venous duplex ultrasound. There is no evidence of DVT. Electronically signed by: Nader Caro MD 04/05/25 21:05 PM PG Care Time/CCT Total # of Minutes Spent Total Time Spent with Patient: Total time spent is greater than 50% in coordination of care (as documented) at patient's floor/unit and/or counseling patient: Coding Level of Care Code 96309 SUB INP/OBS CARE 3/50MIN Diagnoses Acute UTI N39.0 Chronic kidney disease, stage 3b N18.32 Fall W19.XXXA Knee pain M25.569 Hyperbilirubinemia E80.6
[2025-04-06 15:31] VITALS: RESP 16
--- NOTE | 2025-04-06 15:39 | Ultrasound Report ---
EXAM: US Retroperitoneal Limited Renal INDICATION: Acute renal insufficiency TECHNIQUE: Real-time limited ultrasound of the retroperitoneum with image documentation. COMPARISON: No relevant prior studies available. FINDINGS: Right kidney: 12.4 cm long. Cortical thickness and echotexture maintained. No stones. No solid mass. No hydronephrosis. Left kidney: 12.2 cm long. Cortical thickness and echotexture maintained. No stones. No solid mass. No hydronephrosis. Bladder: No acute abnormality noted. IMPRESSION: Normal sonographic appearance of the kidneys and bladder ACT 112: Negative. Electronically signed by Cassidy Kimbrough 04-06-2025 3:39 PM
[2025-04-07 06:32] LABS: Hematocrit (blood only) 34.2 % (42.0-52.0); Hemoglobin 10.8 g/dL (14.0-18.0); Immature Granulocytes # (auto) 0.09 K/uL (0.01-0.20); Immature Granulocytes % (auto) 1.2 %; Mean Corpuscular Hemoglobin 32.0 pg (25.0-34.0); Mean Corpuscular Volume 101.2 fL (80.0-100.0); Platelet Count 168 K/uL (130-400); RDW Standard Deviation 52.3 fL (36.4-46.3); Red Blood Count 3.38 M/uL (4.70-6.10); White Blood Count 7.61 K/ul (4.8-10.8)
[2025-04-07 07:11] LABS: Alanine Aminotransferase 8.0 U/L (7-52); Albumin Globulin Ratio 1.3 (0.9-2); Albumin Level 3.2 gm/dl (3.4-5.0); Alkaline Phosphatase 54.0 U/L (34-104); Anion Gap 7.0 (3-11); Bilirubin,Total 0.5 mg/dl (0.2-1.0); Blood Urea Nitrogen 46.0 mg/dl (6-23); Calcium 8.4 mg/dl (8.6-10.3); Carbon Dioxide 27.0 mmol/L (21-32); Chloride 105.0 mmol/L (98-107); Creatinine Clr Calc Pharmacy 30.7 ml/min; Globulin 2.4 gm/dl (2.5-4.0); Glucose 135.0 mg/dl (70-99(Fasting)); Magnesium 2.0 mg/dl (1.7-2.4); Potassium 4.4 mmol/L (3.5-5.1); Sodium 139.0 mmol/L (136-145); Total Protein 5.6 gm/dl (6.0-8.3)
[2025-04-07 07:29] VITALS: BP 140/69; PULSE 63; TEMP 98.4; O2SAT 93
[2025-04-07] MEDS: LANTUS PER UNIT CHARGE SQ SCH (08:04)
[2025-04-07] MEDS: POLYETHYLENE (MIRALAX) 17 GM PACK PO PRN (10:57)
--- NOTE | 2025-04-07 13:02 | Discharge Summary ---
Discharge Summary Date of Service April 07, 2025 Principal Dx & Hospital Course #1 = Principal Diagnosis (1) Acute UTI: (2) Chronic kidney disease, stage 3b: (3) Fall: (4) Knee pain: (5) Hyperbilirubinemia: Plan 89-year-old male with a past medical history of type 2 diabetes mellitus, gout, hypertension, presents to the hospital with complaints of right knee pain leading to a mechanical fall, recent diagnosis of UTI: #Mechanical fall -Therapy eval appreciated, improvement and likely can go home with services. #Right knee pain -Studies of synovial fluid Negative for septic arthritis, no crystals seen at this time. - Likely due to underlying osteoarthritis. -Pain control -Continue with home medications for gout including allopurinol and colchicine. - Pt will follow up with orthopedics on dc. - Venous Dopplers negative for any evidence of thromboembolism. #UTI -Patient with recent diagnosis of a UTI, cultures indicate E. colipansensitive - continue with cefdinir on dc. #CKD stage III - stable cr, has had some fluctuations -renal us with no acute findings, and lasix to be restarted outpt post dc #Hypotension -Continue to monitor blood pressure, can restart coreg on dc but cont to hold lasix. #Hyperbilirubinemia -Unknown clear cause,? If due to antibiotics versus acute infectious process - normalized while in the hospital. #Lactic acidosis -Patient mild elevation of lactic acid, possibly due to fall and dehydration. - Repeat lactic acid on 1227 within normal limits. #Type 2 diabetes mellitus -can go home on home dose of lasix. #Elevated troponin -Patient with mild elevation in troponin, likely type II demand ischemia - Troponin remained relatively stable and patient with no ongoing complaints of chest pain. - EKG with no acute findings. Admission HPI Per Admitting Provider 89-year-old male with a past medical history as mentioned below presents to the hospital with complaints of a fall. History is obtained from the patient as well as her daughters who are currently at bedside. They mention that he has been having right sided knee discomfort for at least 1 week. Over this period o f time he has had some difficulty with ambulation. This morning he woke up, went to the bathroom and had a fall there due to pain in his right knee. He was supposed to follow-up with orthopedics outpatient, but the next appointment he was able to get was for April. He also came to the emergency room 48 hours ago for difficulty with urination and was diagnosed with a urinary tract infection. He was prescribed antibiotics, and has been taking them at home. He did not take any of his medications or insulin this morning. He rates his right knee pain as an 8 out of 10 at this time but this has improved since he presented to the emergency department. He has some fluid removed from his knee by the emergency room clinician, lab results from this are still pending. He denies having any chest pain or trouble breathing. He denies having had any loss of consciousness causing his fall earlier. He did not hit his head when he fell, and broke his fall. Discharge Plan Discharge Items Patient Disposition: Home - Home Health Services Reason For Visit: FALL, RIGHT KNEE EFFUSION, UTI Discharge Diagnosis: right knee effusion/ arthritis Urinary tract infection Mechanical fall Condition on Discharge: Good Activity: Per Instructions section Lifting: None Bathing: No limitations Exercise/Sports: Gradually increase as tolerated Weightbearing: Full weightbearing Non-emergency contact: Primary Care Provider Call non-emergency contact if: you have any medication questions, your symptoms worsen, your pain is not controlled, your pain is unusual for you and you have a fever Follow-up/Referrals: Garrison Triplett, [Primary Care Provider] - Diet: Carb Consistent or DM2 and Heart Healthy Addtl Attending Provider Instructions: please follow-up with your primary care physician after leaving the hospital in the next 2 weeks. If you have any fevers or chills consider returning to the hospital at that time. Continue to take your medications as prescribed, if your pain gets worse consider returning to the hospital at that time. Pending Studies at Discharge: Yes Studies:: final culture results from arthrocentesis Stand-Alone Forms: My [facility] Medications and DC Order Prescriptions: Continued ferrous sulfate 325 mg (65 mg iron) tablet 325 mg PO DAILY Qty: 90 3RF atorvastatin 40 mg tablet 40 mg PO QPM Qty: 90 3RF famotidine 20 mg tablet 20 mg PO BID 90 Days Qty: 180 3RF (DME) Dexcom G7 Sensor Device See Rx Instructions .Route Qty: 3 3RF Rx Instructions: continuous glucose monitoring, change every 10 days cilostazol 50 mg tablet 50 mg PO BID Qty: 180 3RF (DME) pen needle, diabetic 32 gauge x 5/32" needle See Rx Instructions .Route Qty: 200 11RF Rx Instructions: Use 4 per day finasteride [Proscar] 5 mg tablet 5 mg PO QAM Qty: 90 3RF Mag 64 64 mg tablet,delayed release (DR/EC) 128 mg PO QAM 90 Days Qty: 180 3RF allopurinol 200 mg tablet 200 mg PO DAILY cholecalciferol (vitamin D3) [Vitamin D3] 50 mcg (2,000 unit) tablet 50 mcg PO QAM Qty: 90 2RF Tresiba FlexTouch U-100 100 unit/mL (3 mL) insulin pen 28 unit subcut DAILY colchicine 0.6 mg tablet 0.6 mg PO DAILY PRN (Reason: gout) Rx Instructions: for 7 days aspirin 81 mg Tablet,Delayed Release (Dr/Ec) 81 mg PO QAM Qty: 0 0RF tamsulosin 0.4 mg capsule 0.4 mg PO HS insulin aspart U-100 [Novolog FlexPen U-100 Insulin] 100 unit/mL (3 mL) insulin pen 5 unit subcut AC Rx Instructions: 5 units plus sliding scale with meals tid cefdinir 300 mg capsule 300 mg PO BID Qty: 14 0RF carvedilol 3.125 mg tablet 3.125 mg PO BID Changed oxycodone 5 mg tablet 5 mg PO Q6H PRN (Reason: pain) Qty: 30 0RF Discontinued prednisone 5 mg tablet 5 mg PO DAILY No Action furosemide 20 mg tablet 20 mg PO DAILY Qty: 90 3RF Discharge Orders: Discharge Order (Routine); Ordered 04/07/25 Ordered By: Farheen Gunn/Other Patient Handouts: Osteoarthritis: Coping with Pain, Arthritis: Exercise, Osteoarthritis Daily Life Tips, Fall Prevention Assessing Risk Admission Data Admit Date/Time: 04/05/25 13:02 Attending Provider: Farheen Beavers Admit Provider: Farheen Beavers Primary Care Provider: Garrison Triplett Other Providers: Shona Davis Hospital Stay Data Consultations 04/05/25 11:25 ED Decision to Admit Stat Diagnostic Imagining Performed Chest X-Ray 04/05/25 09:02 XR chest 1V portable CLINICAL HISTORY: Sepsis COMPARISON STUDY: 06/17/2023 FINDINGS: Stable pacemaker. Heart size and pulmonary vasculature are normal. No consolidation or pleural effusion seen. No pneumothorax. IMPRESSION: No acute findings. ACT 112: Negative or not required by law. Electronically signed by: Stiven Del Rosario M.D. 04/05/2025 9:33 AM Knee X-Ray 04/05/25 09:02 XR knee RT 1 or 2V routine CLINICAL HISTORY: fall, knee pain COMPARISON: None FINDINGS: External artifact overlies the distal femur. There are diffuse atherosclerotic calcifications. There is mild osteoarthritis. There is a mild joint effusion. No fracture or dislocation seen. IMPRESSION: No fracture seen. ACT 112: Negative or not required by law. Electronically signed by: Stiven Del Rosario M.D. 04/05/2025 9:33 AM Venous Doppler Study 04/05/25 13:11 Exam(s): US VENOUS BILATERAL LOWER EXTREMITIES EXAM: US Duplex Bilateral Lower Extremities Veins CLINICAL HISTORY: Reason for exam: swelling, pain right greater than left. OTHER: Other Notes: Swelling and pain. No thrombus detected within BLE's. TECHNIQUE: Real-time duplex ultrasound scan of the bilateral lower extremity veins integrating B-mode two-dimensional vascular structure, Doppler spectral analysis, color flow Doppler imaging and compression. COMPARISON: No relevant prior studies available. FINDINGS: Right deep veins: Unremarkable. No DVT in the right common femoral, femoral, proximal deep femoral or popliteal veins. The veins demonstrate normal color flow, are normally compressible, with normal phasic flow and/or augmentation response. Right superficial veins: Unremarkable. No thrombus in the visualized right great saphenous vein. Left deep veins: Unremarkable. No DVT in the left common femoral, femoral, proximal deep femoral or popliteal veins. The veins demonstrate normal color flow, are normally compressible, with normal phasic flow and/or augmentation response. Left superficial veins: Unremarkable. No thrombus in the visualized left great saphenous vein. Soft tissues: No acute findings. No popliteal cyst. IMPRESSION: Negative bilateral lower extremity venous duplex ultrasound. There is no evidence of DVT. Electronically signed by: Nader Caro MD 04/05/25 21:05 PM Renal Ultrasound 04/06/25 13:19 EXAM: US Retroperitoneal Limited Renal INDICATION: Acute renal insufficiency TECHNIQUE: Real-time limited ultrasound of the retroperitoneum with image documentation. COMPARISON: No relevant prior studies available. FINDINGS: Right kidney: 12.4 cm long. Cortical thickness and echotexture maintained. No stones. No solid mass. No hydronephrosis. Left kidney: 12.2 cm long. Cortical thickness and echotexture maintained. No stones. No solid mass. No hydronephrosis. Bladder: No acute abnormality noted. IMPRESSION: Normal sonographic appearance of the kidneys and bladder ACT 112: Negative. Electronically signed by Cassidy Kimbrough 04-06-2025 3:39 PM 04/05/25 13:11 US venous doppler LE BI Routine 04/06/25 13:19 US renal/blad retro comp Routine Pending Results Patient Have Any Pending Studies at Discharge: Yes Discharge Instructions Given to Patient (Per Discharging Provider) please follow-up with your primary care physician after leaving the hospital in the next 2 weeks. If you have any fevers or chills consider returning to the hospital at that time. Continue to take your medications as prescribed, if your pain gets worse consider returning to the hospital at that time. Home Health Attestation I certify that this patient is under my care and that I, or a physicians human resources assistant manager working with me, had a face to-face encounter that meets the home health [id number] encounter requirements with this patient. The encounter with the patient was in whole, or in part, for the following medical condition, which is the primary reason for home health care (list medical condition): I certify that, based on my findings, the following services are medically necessary home health services: My clinical findings support the need for the above services because: Further, I certify that my clinical findings support that this patient is homebound (i.e. absences from home require considerable and taxing effort and are for medical reasons or evangelical services or infrequently or of short duration when for other reasons) because: Certification for Home Health Services: Based on the above findings, I certify that this patient is confined to the home and needs intermittent retirement care, physical therapy and/or speech therapy or continues to need occupational therapy. The patient is under my care, and I have initiated the establishment of the plan of care. This patient will be followed by a physician who will periodically review the plan of care. Total Time Total Time Spent Total Time Spent (In Minutes): 40 minutes. Coding Level of Care Code 81010 INP/OBS DISCH >30 MIN Diagnoses Acute UTI N39.0 Chronic kidney disease, stage 3b N18.32 Fall W19.XXXA Knee pain M25.569 Hyperbilirubinemia E80.6
== END 2025-04-07 13:52 | disposition home health service (06) | DRG 690 ==
LOC: ED 08:55 → 3N 13:02